=== PATIENT | male | born 1960 | race Caucasian/White ===

== ENCOUNTER 2021-11-24 07:37 | Outpatient (CLI) | payer OTHER, SELFPAY ==
--- OUTSIDE RECORDS SUMMARY | 2021-11-25 05:21 | XMS_ITS | Clinical Summary ---
:1960 Author [facility] Address [address] [place] [address] Care Team Providers Name Role Phone Unassigned, Provider Primary Care Provider Unavailable Source Comments You are receiving this document as you are listed as the primary care provider,follow-up provider, or the patient has been referred to you for consultation.This is in compliance with the Medicare and Medicaid EHR Incentive Program,which states Providers who transition their patient to another setting of careor provider of care or refers their patient to another provider of care shouldprovide summarycare record for each transition of care or referral. [employer] Allergies Active Allergy Reactions Severity Noted Date Comments Adhesive Rash Medium 01/12/2018 Medications Medication Sig Dispensed Refills Start Date End Date Status INDOMETHACIN (INDOCIN) one to two tab 240 0 03/04/2004 Active 25MG ORAL CAPS po qid Additional Information Patient not taking. Reported on 09/18/2018 HYDROCODONE/APAP (VICODIN) 5-500MG one to two tabs po q 4-6 50 0 03/04/2004 Active ORAL TABS hours PRN Additional Information Patient not taking. Reported on 09/18/2018 traMADol (ULTRAM) 50 MG tablet Take 50 mg by mouth every 6 0 10/07/2014 Active hours as needed for Pain. lisinopril (ZESTRIL) 5 MG tablet Take 20 mg by mouth Daily. 0 10/07/2014 Active cyclobenzaprine (FLEXERIL) 10 MG TK 1 T PO TID PRN 0 01/19/2016 Active tablet diazePAM (VALIUM) 10 MG tablet TK SS TO 1 T PO D TO BID 0 01/02/2018 Active PRN Specialty Vitamins Products Indications: Prostate 0 Active (PROSTATE OR)Indications: Prostate vitamin w/ Zinc vitamin w/ Zinc omeprazole (PRILOSEC-OTC) 20 MG Take 20 mg by mouth daily. 0 Active tablet Family History Medical History Relation Name Comments Heart Disease Father Hyperlipidemia Mother Heart Disease Brother Relation Name Status Comments Father Mother Brother Social History Tobacco Use Types Packs/Day Years Used Date Smoking Tobacco: Former Cigarettes 0.3 38 Quit : 2019 Smokeless Tobacco: Never Alcohol Use Standard Drinks/Week Comments Not Currently 0 (1 standard drink = 0.6 oz pure alcoho l) Sex Assigned at Date Recorded Not on file Last Filed Vital Signs Vital Sign Reading Time Taken Comments Blood Pressure 116/79 09/18/2018 11:20 AM CDT Pulse 90 09/18/2018 11:20 AM CDT Temperature 37 ??C (98.6 ??F) 10/07/2014 1:23 PM CDT Respiratory Rate 20 09/18/2018 11:20 AM CDT Oxygen Saturation 96% 10/07/2014 1:23 PM CDT Inhaled Oxygen Concentration - - Weight - - Height - - Body Mass Index - - Plan of Treatment Health Maintenance Due Date Last Done Comments Colon Cancer Screening Plan 1960 Due Hep C Screening (Preventive 1960 Services) MTM Targeted 1960 COVID-19 Vaccine (#1) 1960 HIV Screening (Preventive 1975 Services) Adult Preventive Visit 1977 Cholesterol 1994 Zoster/Shingles (1 of 2) 2009 DTaP/Tdap/Td (3 - Tdap) 04/07/2021 04/07/2011, 01/27/2006 Influenza (#1) 2021 01/12/2018, 01/28/2017, 01/07/2016, Additional history exists HepA Aged Out 10/02/2014, 12/10/2013 No longer eligible based on patient 's age to complete this topic HepB Aged Out No longer eligib le based on patient 's age to complete this topic Hib Aged Out No longer eligib le based on patient 's age to complete this topic IPV (Polio) Aged Out No longer eligib le based on patient 's age to complete this topic MCV4 Aged Out No longer eligib le based on patient 's age to complete this topic Pneumococcal Aged Out No longer eligib le based on patient 's age to complete this topic Insurance Payer Benefit Plan / Subscriber ID Effective Dates Phone Addre ss Type Group [facility] [id number] 2007-Present Commercial INSURED Care Teams Commercial Assistant Relationship Specialty Start Date End Date Unassigned, Provider PCP - General 03/26/[address] [place] [id number]
--- OUTSIDE RECORDS SUMMARY | 2021-11-25 05:21 | XMS_ITS | Encounter Summary ---
:1960 Author Organization [facility] Address [address] [place] [address] Care Team Providers Name Role Phone Sena Delgado MD Primary Care Provider [phone] Reason for Referral (Routine) - Closed Specialty Diagnoses / Procedures Referred By Contact Refer red To Contact Procedures Faustino Campuzano MD Activity as tolerated [address] [place], [place] [address] Referral ID Status Reason Start Date Expiration Date Visits Requ ested Visits Authorized [id number] Closed 03/28/2018 03/28/2019 1 1 CE SUPPORT ASSISTANT (Routine) - Closed Specialty Diagnoses / Procedures Referred By Contact Refer red To Contact Procedures Faustino Campuzano MD You May Get Your Dressing / [address] Incision Wet in the Shower, [place] [address] But Do Not Submerge Referral ID Status Reason Start Date Expiration Date Visits Requ ested Visits Authorized [id number] Closed 03/28/2018 03/28/2019 1 1 CE SUPPORT ASSISTANT (Routine) - Closed Specialty Diagnoses / Procedures Referred By Contact Refer red To Contact Procedures Faustino Campuzano MD Discharge Instructions (IF [address] Local Anesthesia) [place], [place] [address] Referral ID Status Reason Start Date Expiration Date Visits Requ ested Visits Authorized [id number] Closed 03/28/2018 03/28/2019 1 1 CE SUPPORT ASSISTANT (Routine) - Closed Specialty Diagnoses / Procedures Referred By Contact Refer red To Contact Faustino Campuzano MD Kelkar, Praful M, MD [address] [facility] [address] [place], [place] [address] [place] [address] Fax: Referral ID Status Reason Start Date Expiration Date Visits Requ ested Visits Authorized [id number] Closed 03/28/2018 03/28/[address] Campuzano will contact the patient CE SUPPORT ASSISTANT (Routine) - Closed Specialty Diagnoses / Procedures Referred By Contact Refer red To Contact Procedures Faustino Campuzano MD Discharge [address] [place], [place] [address] Referral ID Status Reason Start Date Expiration Date Visits Requ ested Visits Authorized [id number] Closed 03/28/2018 03/28/2019 1 1 CE SUPPORT ASSISTANT Encounter Details Date Type Department Care Team Description 03/28/2018 Hospital Encounter [address] [place], [place] [address] Social History Tobacco Use Types Packs/Day Years Used Date Smoking Tobacco: Every Day Smokeless Tobacco: Never Sex Assigned at Date Recorded Not on file documented as of this encounter Last Filed Vital Signs Vital Sign Reading Time Taken Comments Blood Pressure 118/77 03/28/2018 10:45 AM OFFICE SUPPORT ASSISTANT Pulse 88 03/28/2018 10:45 AM OFFICE SUPPORT ASSISTANT Temperature 36.7 ??C (98 ??F) 03/28/2018 10:45 AM OFFICE SUPPORT ASSISTANT Respiratory Rate 14 03/28/2018 10:45 AM OFFICE SUPPORT ASSISTANT Oxygen Saturation 98% 03/28/2018 10:45 AM OFFICE SUPPORT ASSISTANT Inhaled Oxygen Concentration - - Weight 97.1 kg (214 lb) 03/21/2018 2:50 PM OFFICE SUPPORT ASSISTANT Height 177.8 cm (5' 10) 03/21/2018 2:50 PM OFFICE SUPPORT ASSISTANT Body Mass Index 30.71 03/21/2018 2:50 PM OFFICE SUPPORT ASSISTANT documented in this encounter Medications at Time of Discharge Medication Sig Dispensed Refills Start Date End Date carBAMazepine (TEGRETOL) 200 Take 200 mg by 0 mg/10 mL oral Susp (conc: mouth every 8 200 mg/10 mL) oral (eight) hours. suspension cyclobenzaprine (FLEXERIL) Take 10 mg by mouth 0 10 mg oral tablet once a day as needed for Muscle spasm. diazePAM (VALIUM) 5 mg oral Take 5 mg by mouth 0 tablet once a day as needed. HYDROcodone-acetaminophen Take 1-2 tablets by 0 (NORCO) 5-325 mg oral tablet mouth once a day as needed for Pain. lisinopril (PRINIVIL) 20 mg Take 20 mg by mouth 0 oral tablet once daily. traMADol (ULTRAM) 50 mg oral Take 50 mg by mouth 0 tablet as needed for Pain. documented as of this encounter Procedure Notes Faustino Campuzano MD - 03/28/2018 10:44 AM CST 10:44 AM Surgeon: Faustino Campuzano M.D. Anesthesia: Local Preoperative Diagnosis: Myopathy Postoperative Diagnosis: Myopathy Procedure Performed: Right quadriceps Muscle biopsy The procedure and potential after effects were explained to the patient. Informed consent was obtained from the patient. 'Time out' conducted just prior to starting procedure confirmed patient identity, site/side, procedure, patient position, and availability of correct equipment. Following Betadine preparation and local anesthesia with 1% lidocaine, with epinephrine, the skin was incised over the muscle. Blunt dissection was done in the subcutaneous tissue. The fascia overlyingthe muscle was incised, exposing the muscle. About 1 centimeter segments of 3 muscle fascicles were removed. A small piece of fascia was included in the bx as well. The wound was examined for evidence of hemostasis. Good hemostasis was noted and the wound was dry at closure. The muscle fascia was closed with interrupted 4-0 vicryl. The incision was closed with 4-0vicryl in an interrupted fashion in the deep subcutaneous tissues, 4-0 vicryl in a subcuticular fashion. The incision was sealed with dermabond & tagaderm and covered with a sterile dressing. A pres sure dressing with an AVERY wrap was applied. EBL<5 ml. The procedure was tolerated well. Written and verbal wound care directions were provided and the patient expressed understanding of the instructions. Faustino Campuzano MD [facility] [place] [phone] CE SUPPORT ASSISTANT documented in this encounter Nursing Notes Mary Lou Fitzgerald RN - 03/28/2018 10:56 AM CST Andrzej Arriaga 1960 [id number] Discharged ambulatory to home at 1057 escorted by nurse Discharge information and arrangements included: review of written discharge instructions, review ofpurpose and side effects of new medication, belongings list completed. Patient, spouse expressed understanding of information.. CE SUPPORT ASSISTANT Mary Lou Fitzgerald RN - 03/28/2018 10:50 AM CST Pt received in phase 2, tolerating G Dodie and crackers. Drsg c/d/i. Ice in place. Visiting with family. CE SUPPORT ASSISTANT Gin Sosa RN - 03/28/2018 10:30 AM CST Right quadricep faschia biopsy sent to [facility] CE SUPPORT ASSISTANT Gin Sosa RN - 03/28/2018 10:24 AM CST Right quadricep muscle biopsy sent to [facility] lab CE SUPPORT ASSISTANT Angelita Salas RN - 03/22/2018 12:53 PM CST History reviewed in Epic < 1 year old. Nurse to verify DOS. SW CE SUPPORT ASSISTANT documented in this encounter Plan of Treatment Scheduled Referrals Name Type Priority Associated Diagnoses Order S chedule Follow Up Follow Up Routine Ordered: 2017 documented as of this encounter Procedures Procedure Name Priority Date/Time Associated Diagnosis Comme nts BIOPSY: MUSCLE 03/28/2018 10:03 AM OFFICE SUPPORT ASSISTANT Muscle p ain Muscle spasms of both lower extremities Special Needs DR. CAMPUZANO WILL DO H&P DOS - LD documented in this encounter Visit Diagnoses Not on filedocumented in this encounter Active and Recently Administered Medications Times are shown in OFFICE SUPPORT ASSISTANT. PRN Medication Order 03/26/2018 03/27/2018 03/28/2018 lidocaine 1%- EPINEPHrine 1:100,000 (XYL OCAINE-EPINEPHRINE) injection (CANCELED) 1030 (Given - Provid er: Faustino Campuzano MD) INTRA-PROCEDURE NEEDED, Starting 03/28/18 at 1030, Until 03/28/18 at 1658, Intra-Op documented in this encounter Care Teams Manager Application Relationship Specialty Start Date End Date Sena Delgado MD PCP - General 03/28/18 documented as of this encounter
--- OUTSIDE RECORDS SUMMARY | 2021-11-25 05:21 | XMS_ITS | Encounter Summary ---
:1960 [facility] Address [address] [place] [address] Care Team Providers Name Role Phone Unassigned, Provider Primary Care Provider Unavailable Encounter Details Date Type Department Care Team Description 11/22/2003 Correspondence None Unknown, Physici an Regions Consent and Release [address] [place] [address] (Wo rk) Social History Tobacco Use Types Packs/Day Years Used Date Smoking Tobacco: Never Assessed Sex Assigned at Date Recorded Not on file documented as of this encounter Progress Notes Unknown, Physician - 11/22/2003 12:00 AM CDT documented in this encounter Plan of Treatment Not on filedocumented as of this encounter Visit Diagnoses Not on filedocumented in this encounter Care Teams Call Or Contact Centre Operator Relationship Specialty Start Date End Date Unassigned, Provider PCP - General 03/26/[address] [place] [address] documented as of this encounter
--- OUTSIDE RECORDS SUMMARY | 2021-11-25 05:21 | XMS_ITS | Encounter Summary ---
:1960 [facility] Address [address] [place] [address] Care Team Providers Name Role Phone Unassigned, Provider Primary Care Provider Unavailable Encounter Details Date Type Department Care Team Description 11/20/2003 Correspondence None Unknown, Physici an Regions Consent and Release [address] [place] [address] (Wo rk) Social History Tobacco Use Types Packs/Day Years Used Date Smoking Tobacco: Never Assessed Sex Assigned at Date Recorded Not on file documented as of this encounter Progress Notes Unknown, Physician - 11/20/2003 12:00 AM CDT documented in this encounter Plan of Treatment Not on filedocumented as of this encounter Visit Diagnoses Not on filedocumented in this encounter Care Teams Windows Consultant Relationship Specialty Start Date End Date Unassigned, Provider PCP - General 03/26/[address] [place] [address] documented as of this encounter
--- OUTSIDE RECORDS SUMMARY | 2021-11-25 05:21 | XMS_ITS | Encounter Summary ---
:1960 [facility] Address [address] [place] [address] Care Team Providers Name Role Phone Unassigned, Provider Primary Care Provider Unavailable Encounter Details Date Type Department Care Team Description 05/16/2002 Scanned History External to Unknown, Physici an [facility] [address] [place] [address] (Wo rk) Social History Tobacco Use Types Packs/Day Years Used Date Smoking Tobacco: Never Assessed Sex Assigned at Date Recorded Not on file documented as of this encounter Progress Notes Unknown, Physician - 05/16/2002 12:00 AM COSTUMING SUPERVISOR documented in this encounter Plan of Treatment Not on filedocumented as of this encounter Visit Diagnoses Not on filedocumented in this encounter Care Teams Arabic Teacher Relationship Specialty Start Date End Date Unassigned, Provider PCP - General 03/26/00 [address] [place] [address] documented as of this encounter
--- OUTSIDE RECORDS SUMMARY | 2021-11-25 05:21 | XMS_ITS | Encounter Summary ---
:1960 Author Organization [facility] Address [address] [place] [address] Care Team Providers Name Role Phone Unassigned, Provider Primary Care Provider Unavailable Encounter Details Date Type Department Care Team Description 12/18/2004 Correspondence None [facility] Social History Tobacco Use Types Packs/Day Years Used Date Smoking Tobacco: Never Assessed Sex Assigned at Date Recorded Not on file documented as of this encounter Progress Notes NANCY, PROVIDER - 12/18/2004 12:00 AM CDT documented in this encounter Plan of Treatment Not on filedocumented as of this encounter Visit Diagnoses Not on filedocumented in this encounter Care Teams Domestic Freight Forwarder Relationship Specialty Start Date End Date Unassigned, Provider PCP - General 03/26/00 [address] [place] [address] documented as of this encounter
--- OUTSIDE RECORDS SUMMARY | 2021-11-25 05:21 | XMS_ITS | Encounter Summary ---
:1960 Author [facility] Address [address] [place] [address] Care Team Providers Name Role Phone Unassigned, Provider Primary Care Provider Unavailable Encounter Details Date Type Department Care Team Description 02/19/2004 Correspondence None Unknown, Physici an Regions Consent and Release [address] [place] [address] (Wo rk) Social History Tobacco Use Types Packs/Day Years Used Date Smoking Tobacco: Never Assessed Sex Assigned at Date Recorded Not on file documented as of this encounter Progress Notes Unknown, Physician - 02/19/2004 12:00 AM DISPATCHER RELAY documented in this encounter Plan of Treatment Not on filedocumented as of this encounter Visit Diagnoses Not on filedocumented in this encounter Care Teams Mixer And Scaler Relationship Specialty Start Date End Date Unassigned, Provider PCP - General 03/26/00 [address] [place] [address] documented as of this encounter
--- OUTSIDE RECORDS SUMMARY | 2021-11-25 05:21 | XMS_ITS | Encounter Summary ---
:1960 Author Organization [facility] Address [address] [place] [address] Care Team Providers Name Role Phone Sena Delgado MD Primary Care Provider [phone] Encounter Details Date Type Department Care Team Description 03/30/2018 Order-Scan [facility] ADDRESS/PHONE/F [address] [place], [place] [address] Social History Tobacco Use Types Packs/Day Years Used Date Smoking Tobacco: Every Day Smokeless Tobacco: Never Sex Assigned at Date Recorded Not on file documented as of this encounter Plan of Treatment Not on filedocumented as of this encounter Procedures Procedure Name Priority Date/Time Associated Diagnosis Comme nts SCANNED PATHOLOGY Routine 03/28/2018 documented in this encounter Results SCANNED PATHOLOGY (03/28/2018) Narrative This result has an attachment that is no t available. Unknown PATHOLOGY/CYTOLOGY ORDERABLE documented in this encounter Visit Diagnoses Not on filedocumented in this encounter Care Teams Crisis Nurse Relationship Specialty Start Date End Date Sena Delgado MD PCP - General 03/28/18 documented as of this encounter
--- OUTSIDE RECORDS SUMMARY | 2021-11-25 05:21 | XMS_ITS | Encounter Summary ---
:1960 Author Organization [facility] Address [address] [place] [address]. [place] [address] Care Team Providers Name Role Phone Rolly Iniguez Primary Care Provider Unavailable Singh Neumann MD Unavailable Encounter Details Date Type Department Care Team Description 12/05/2017 Orders Only [facility] Khushbu-Rick, Spasm o f muscle (Primary Dx); [facility] Sena Cerna MD Myalgia [address] [place] [address] NEUROLOGY [phone] [place] [address] Social History Tobacco Use Types Packs/Day Years Used Date Current Every Day Smoker Comments: less than a half a pack a day Alcohol Use Standard Drinks/Week Comments Not Asked 0 (1 standard drink = 0.6 oz pure alcoho l) Alcohol Habits Answer Date Recorded How often do you have a drink containing alcohol? 2-3 times a week 08/28/2018 How many drinks containing alcohol do you have on a Not aske d typical day when you are drinking? How often do you have six or more drinks on one Not asked occasion? Comment: Not asked Sex Assigned at Date Recorded Male 08/22/2018 8:16 AM CDT documented as of this encounter Plan of Treatment Not on filedocumented as of this encounter Visit Diagnoses Diagnosis Spasm of muscle - Primary Myalgia Mylagia and myositis, unspecified documented in this encounter Care Teams Blade Boner Relationship Specialty Start Date End Date Rolly Iniguez PCP - General Family Practice 12/05/17 Singh Neumann MD Assigned Neuroscience 02/08/20 03/01/20 [address] [place] [address] documented as of this encounter
--- OUTSIDE RECORDS SUMMARY | 2021-11-25 05:21 | XMS_ITS | Encounter Summary ---
:1960 Author Organization [facility] Address [address] [place] [address] Care Team Providers Name Role Phone Unassigned, Provider Primary Care Provider Unavailable Reason for Visit Reason Comments CONSULT Encounter Details Date Type Department Care Team Description 09/18/2018 Initial Consult [facility] Bela Haile spasms of both lower extremities (Primary Dx); 3931 Neurology MD Maxwell Scoliosis, unspecified scoliosis type, u nspecified spinal region 3931 [facility] 3931 [place] [address] [phone] Social History Tobacco Use Types Packs/Day Years [...] Pulse 90 09/18/2018 11:20 AM CDT Temperature - - Respiratory Rate 20 09/18/2018 11:20 AM CDT Oxygen Saturation - - Inhaled Oxygen Concentration - - Weight - - Height - - Body Mass Index - - documented in this encounter Progress Notes Bela Haile MD - 09/18/2018 11:15 AM CDT Neurology consultation. Chief complaint: Muscle problems History of present illness: This is a 58 year old man with multiple muscle problems, tendon problemsand a lot of stiffness for many years. He is seen at the kind request of Dr. Bello. He has undergone extensive previous neurological evaluations, both at the [facility], and at the [facility] neuromuscular Clinic. The specific question addressed to me is whether some ofthe symptoms that he is experiencing may represent an extrapyramidal disorder. He has had a number of ruptured tendons and a lot of chronic muscle spasming in the extremities and his core. He has the gene for ankylosing spondylitis, but he has not been given this diagnosis. He has diaphragmatic spasms, and spasms in the paraspinal muscles. He describes that sometimes his muscles will grab as he initiates a move and he has to continue to push to fight the muscle. He also gets muscle cramps in the hamstrings and more lately in the front of the thighs, the calves and the feet. Has occasional fasciculations, but no more than normal. He was evaluated with a muscle biopsy, which showed mild muscle atrophy. He was also evaluated at the neuromuscular clinic at the [place], who did not think this wasa neuromuscular problem. He had also screening tests for stiff person syndrome and that was negativeas well. He has also been seen by orthopedists and no diagnosis was rendered. He describes ongoing muscle spasms and swelling in his tendons. Dr. Delgado tried clonazepam and carbamazepine but there was no appreciated benefit. Extensive metabolic work up, EMG twice have failed to result in a diagnosis. Initially diagnosed as ankylosing spondylitis, but a subsequent specialist said that he did not have the required calcifications to make the diagnosis. I reviewed the PMH, PSH, FH, SH, medications and allergies from the EHR and through care everywhere if necessary. Mother and younger son have had leg cramps. A comprehensive review of systems was negative with the exception of what has been mentioned under the history of present illness and the symptoms associated with the chronic conditions listed in PMH. All others are negative. 116/79, 90, 20, 205#. General: Normal appearance for age Cardiovascular: Normal auscultation of the heart and great vessels of the neck. Mental status: Alert, oriented, with normal attention, concentration, language, memory, fund of knowledge. Cranial nerves: Visual cook full, eye movements conjugate, pupillary responses symmetric, funduscopic examination benign. Face movement and sensation, tongue and palate movement, shoulder shrug and neck muscle strength, swallowing and hearing are normal to bedside testing. Motor: Normal muscle strength, muscle bulk, and tone. Deep tendon reflexes: Normal and symmetric with reduced ankle jerks bilaterally and without Babinskisigns. Sensory: No deficits to light touch and vibration. Coordination: Normal exfypz-uvxd-nhzmxg, abzy-feqz-pxgh. Normal rapid alternating motion rate in the4 extremities. Gait and balance: Normal casual and tandem gait, Romberg test, and mild levoscoliosis. Impression: 1. Longstanding history of muscle spasms and muscle cramps. Discussion: I have reviewed the records from Dr. Bello's office, and the available records from the [facility] system from the patient's visit to the [facility]. Unfortunately I do not have direct access to the records of the [facility], however, the patient was able to provide a pret ty good review of the testing that was done in that institution, and a good summary was available through Dr. Neumann's notes from the [facility]. In summary this is a somewhat complicated situation. As a movement disorder specialist the particular question that would be addressed to myself would be whether this represents a dystonic condition. There is nothing in the history on the physical examination today to suggest that this gentleman suffers from a dystonic condition for the last 30 years. I am unable to identify any hallmarks of any other chronic progressive neuro degenerative disease that might be associated with the sporadic dystonia in this gentleman. There is no history of stereotyped movements to suggest dystonic postures. If anything the history is most consistent with increased irritability of the muscle tissue, which we usually see with genetic conditions that affect and number of the membrane channels of muscle fibers. Typically such conditions are associated with abnormal electrical activity in the muscle in the form of myotonic discharges, which are he typically picked up on a routine EMG. It appears that the EMG that the patient had was quite extensive at least according to the description by Dr. Neumann, and certainly, he did not feel that a repeat EMG was necessary at that time. The muscle biopsy fails to reveal any evidence of a neurogenic process. One might argue that genetic testing for myotonic disorders might bethe next reasonable step, however considering that these tests are relatively expensive, and unlikely to yield in the absence of clinical or electrophysiologic findings, I think that the 2nd neuromuscular subspecialty opinion at a tertiary center might be the most appropriate approach. That could be pursued at the [facility] but the patient tells me that these institution is out of his network. It is entirely possible, considering the family history of cramps in his mother and his son, that this may represent an as yet unrecognized genetic channelopathy, in which case, of course, further genetic testing will also be negative. Recommendations: 1. No evidence of an extrapyramidal disorder. 2. 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 Neuromuscular evaluation at the [facility] might be further informative. Bela Haile MD Recommendations: 1. Bela Haile MD documented in this encounter Plan of Treatment Not on filedocumented as of this encounter Visit Diagnoses Diagnosis Muscle spasms of both lower extremities - Primary Scoliosis, unspecified scoliosis type, u nspecified spinal region documented in this encounter Care Teams Flight Test Shop Mechanic Relationship Specialty Start Date End Date Unassigned, Provider PCP - General 03/26/[address] [place] [address] documented as of this encounter
--- OUTSIDE RECORDS SUMMARY | 2021-11-25 05:21 | XMS_ITS | Encounter Summary ---
:1960 Author Organization [facility] Address [address] [place] [address] Care Team Providers Name Role Phone Rolly Iniguez Primary Care Provider Unavailable Reason for Visit Reason Comments *-*INCOMING RECORDS*-* [facility] Encounter Details Date Type Department Care Team Description 05/11/2018 Documentation Only [facility] Neurology Singh Neumann *-*INCOMING [address] Medardo Arreola MD RECORDS*-* [address] [facility] ([place] [address] [place], [place] Clinic... [place] [phone] Social History Tobacco Use Types Packs/Day Years [...] AM CDT documented as of this encounter Progress Notes Dahiana North - 05/11/2018 1:52 PM CST Records received via fax - 16 pages COORDINATOR documented in this encounter Plan of Treatment Not on filedocumented as of this encounter Visit Diagnoses Not on filedocumented in this encounter Care Teams Establishment Guide Relationship Specialty Start Date End Date Rolly Iniguez PCP - General Family Practice 12/05/17 documented as of this encounter
--- OUTSIDE RECORDS SUMMARY | 2021-11-25 05:21 | XMS_ITS | Encounter Summary ---
:1960 Author Organization [facility] Address [address] [place] [address] Care Team Providers Name Role Phone Rolly Iniguez Primary Care Provider Unavailable Encounter Details Date Type Department Care Team Description 08/28/2018 Travel Social History Tobacco Use Types Packs/Day Years Used Date Current Some Day Smoker Smokeless Tobacco: Never Used Comments: OCCASIONAL CIGAR Alcohol Use Standard Drinks/Week Comments Yes 0 (1 standard drink = 0.6 oz [...] on filedocumented in this encounter Care Teams Quality Assurance Supervisor Chassis Relationship Specialty Start Date End Date Rolly Iniguez PCP - General Family Practice 12/05/17 documented as of this encounter
--- OUTSIDE RECORDS SUMMARY | 2021-11-25 05:21 | XMS_ITS | Encounter Summary ---
:1960 Author Organization [facility] Address [address] [place] [address] Care Team Providers Name Role Phone Unassigned, Provider Primary Care Provider Unavailable Encounter Details Date Type Department Care Team Description 04/18/1989 PN Conversion Only AUTOMOTIVE EXHAUST EMISSIONS TECHNICIAN [address] [place] [address] Social History Tobacco Use Types Packs/Day Years Used Date Smoking Tobacco: Never Assessed Sex Assigned at Date Recorded Not on file documented as of this encounter Plan of Treatment Not on filedocumented as of this encounter Visit Diagnoses Not on filedocumented in this encounter Care Teams Translator/Interpreter Relationship Specialty Start Date End Date Unassigned, Provider PCP - General 03/26/[address] [place] [address] documented as of this encounter
--- OUTSIDE RECORDS SUMMARY | 2021-11-25 05:21 | XMS_ITS | Encounter Summary ---
:1960 Author [facility] Address [address] [place] [address] Care Team Providers Name Role Phone Unassigned, Provider Primary Care Provider Unavailable Reason for Visit Reason Onset Date Comments Medication Questions 01/04/2009 Encounter Details Date Type Department Care Team Description 01/04/2009 Telephone Careline Unknown, Physician Medication Questions [address] [place], [place] [address] [place], [place] [phone] Social History Tobacco Use Types Packs/Day Years Used Date Smoking Tobacco: Never Assessed Sex Assigned at Date Recorded Not on file documented as of this encounter Nursing Notes Sandor Gomez - 01/04/2009 4:47 PM CDT Attempted to call [phone]. Phone number is a non working number. Tried both the demographic numbers and they were incorrect also. Unable to reach. Sandor Gomez RN Alesia Garcia - 01/04/2009 4:40 PM CDT Does the patient currently have [employer] insurance? Yes Which care system is the patient affiliated with? [facility] Situation: is calling for pt who thinks he has an ear infection. They have a constitution party to go to [facility] and want to know if there is anything they can do to alleviate the pain. Medication interaction concerns. Background:Pt has a condition Pt takes oxaprozin and cyclobenziprene A nurse will call you back within the next hour. If you have not heard from a nurse, please feel free to call us back at [phone] and state that you are waiting for a callback. documented in this encounter Plan of Treatment Not on filedocumented as of this encounter Visit Diagnoses Not on filedocumented in this encounter Care Teams Manager Target Relationship Specialty Start Date End Date Unassigned, Provider PCP - General 03/26/[address] [place] [address] documented as of this encounter
--- OUTSIDE RECORDS SUMMARY | 2021-11-25 05:21 | XMS_ITS | Encounter Summary ---
:1960 Author Organization [facility] Address [address] [place] [address]. [place] [address] Care Team Providers Name Role Phone Rolly Iniguez Primary Care Provider Unavailable Reason for Visit Reason Comments Health Maintenance Encounter Details Date Type Department Care Team Description 06/27/2018 Documentation Only [facility] Tash Hinkle, Health Maintenance Coordination, [facility] Ambulatory [address] [place] [phone] Social History Tobacco Use Types Packs/Day Years [...] on filedocumented in this encounter Care Teams Timber Deadener Relationship Specialty Start Date End Date Rolly Iniguez PCP - General Family Practice 12/05/17 documented as of this encounter
--- OUTSIDE RECORDS SUMMARY | 2021-11-25 05:21 | XMS_ITS | Encounter Summary ---
:1960 Author Organization [facility] Address [address] [place] [address] Care Team Providers Name Role Phone Unassigned, Provider Primary Care Provider Unavailable Encounter Details Date Type Department Care Team Description 02/19/[address] [facility] Kindra Yu MD Orthopedics [address] [place] [address] [phone] Social History Tobacco Use Types Packs/Day Years Used Date Smoking Tobacco: Never Assessed Sex Assigned at Date Recorded Not on file documented as of this encounter Progress Notes Waqas Yu - 02/19/2004 12:00 AM REAL ESTATE LEASING AGENT ESTATE LEASING AGENT documented in this encounter Plan of Treatment Not on filedocumented as of this encounter Visit Diagnoses Not on filedocumented in this encounter Care Teams Photo Mask Processor Relationship Specialty Start Date End Date Unassigned, Provider PCP - General 03/26/[address] [place] [address] documented as of this encounter
--- OUTSIDE RECORDS SUMMARY | 2021-11-25 05:21 | XMS_ITS | Encounter Summary ---
:1960 Author Organization [facility] Address [address] [place] [address]. [place] [address] Care Team Providers Name Role Phone Rolly Iniguez Primary Care Provider Unavailable Encounter Details Date Type Department Care Team Description 05/08/2018 Medical Correspondence [facility] Scan, CLINIC REFERRAL Health Info Mgmt Non-Provider [facility] OF NEUROLOGY [facility] [place] [address] Social History Tobacco Use Types Packs/Day Years [...] on filedocumented in this encounter Care Teams Tool And Die Supervisor Relationship Specialty Start Date End Date Rolly Iniguez PCP - General Family Practice 12/05/17 documented as of this encounter
--- OUTSIDE RECORDS SUMMARY | 2021-11-25 05:21 | XMS_ITS | Encounter Summary ---
:1960 Author Organization [facility] Address [address], [place] [address] Care Team Providers Name Role Phone Unassigned, Provider Primary Care Provider Unavailable Encounter Details Date Type Department Care Team Description 01/03/2004 [facility] Kindra Yu MD Orthopedics [address] [place] [address] [phone] Social History Tobacco Use Types Packs/Day Years Used Date Smoking Tobacco: Never Assessed Sex Assigned at Date Recorded Not on file documented as of this encounter Progress Notes Waqas Yu - 01/03/2004 12:00 AM CDT documented in this encounter Plan of Treatment Not on filedocumented as of this encounter Visit Diagnoses Not on filedocumented in this encounter Care Teams Director Of Enrollment Relationship Specialty Start Date End Date Unassigned, Provider PCP - General 03/26/[address] [place] [address] documented as of this encounter
--- OUTSIDE RECORDS SUMMARY | 2021-11-25 05:21 | XMS_ITS | Encounter Summary ---
:1960 Author Organization [facility] Address [address] [place] [address] Care Team Providers Name Role Phone Rolly Iniguez Primary Care Provider Unavailable Encounter Details Date Type Department Care Team Description 04/08/2018 Office Visit [facility] Neurology Marlon Norton Myalgia (Primary Dx) 909 [facility] MD Cristian [address]rd Floor [address] [place] [address] [id number] [place], [place] [phone] Social History Tobacco Use Types Packs/Day Years [...] documented as of this encounter Progress Notes Marlon Norton MD - 04/08/2018 3:06 PM CST [facility] MR#: [id number] NEUROMUSCULAR PATHOLOGY REPORT NAME: Andrzej Arriaga [facility] [phone] / [phone] [place] [address], [place] [address] MUSCLE BIOPSY LIGHT MICROSCOPY REPORT DATE OF BIOPSY: 03/28/2018 DATE OF REPORT: 04/08/2018 SPECIMEN NO: [id number] SURGEON: REFERRING PHYSICIAN: CLINICAL INFORMATION: This 58 year-old man had a muscle biopsy performed to investigate the possibility of him having myopathy. RIGHT QUAD MUSCLE BIOPSY: Two pieces of muscle were quick frozen for light microscopy and histochemistry. Another piece of muscle was stretched and fixed in formalin for paraffin- embedding. Muscle was also fixed in 4:1 EM fixative for plastic-embedding. MAB stained sections were reviewed and an appropriate area selected for ult rastructural study. Additional pieces were quick frozen for biochemical testing. LIGHT MICROSCOPY: Frozen sections stained with H&E, Congo red, PAS, Oil Red O and trichrome, paraffin-embedded sections stained with H&E, PAS and Congo red, and plastic- embedded sections stained with MAB were available for review. There were scattered mildly atrophic fibers that were typically 10-25?? in diameter and were polygonal in appearance. There was no grouped atrophy. There were no ragged red fibers onthe trichrome stain. There were no degenerating or necrotic fibers. There was no inflammation. Therewas no fibrosis. Blood vessels were normal in appearance. Glycogen and lipid content appeared normal. Congo red staining was normal. HISTOCHEMISTRY: Frozen sections stained with ATPase (pH 4.35, 4.5 and 9.4), metachromatic ATPase, NADH, SDH, modified SDH, BELLE, ?-GP, acid phosphatase, phosphorylase, myoadenylate deaminase (MAD) and nonspecific esterase were available for review. ATPase staining identified fibers of types 1, 2a and 2b. Fiber type distribution was normal. There was no fiber-type grouping. Atrophic fibers were predominantly, if not exclusively, of type 2b. Oxidative enzyme stain deposition was normal. There were no ragged blue or BELLE deficient fibers identified. Esterase staining and acid phosphatase staining were normal. Phosphorylase and MAD staining were normal. ELECTRONMICROSCOPIC FEATURES: Most fibers had normal appearance with normal sarcolemmal and sarcomere organization. There were areas of significant endomysial fibrosis. Scattered fibers had increased subsarcolemmal mitochondrial content, with most mitochondria being normal in size and configuration. Some fibers had signs of degeneration, with autophagic vacuoles and myeloid bodies. Some fibers had increased glycogen and lipid content. Scattered atrophic fibers had basal lamina duplications. DIAGNOSIS: Type 2 fiber atrophy COMMENT: The sole abnormality on this biopsy was the presence of scattered atrophic fibers that were polygonal in appearance. On ATPase staining these fibers showed themselves to be predominantly, if not exclusively, type 2b. There is no histopathological evidence for primary neuropathic or myopathic processes. Type 2 fiber atrophy is a non-specific finding that can occur with disuse, central nervous system disorders or various systemic illnesses including connective tissue disease or Canaan syndrome. Marlon Norton MD ARD PULLER documented in this encounter Plan of Treatment Not on filedocumented as of this encounter Visit Diagnoses Diagnosis Myalgia - Primary Mylagia and myositis, unspecified documented in this encounter Care Teams Boring Machine Operator Vertical Relationship Specialty Start Date End Date Rolly Iniguez PCP - General Family Practice 12/05/17 documented as of this encounter
--- OUTSIDE RECORDS SUMMARY | 2021-11-25 05:21 | XMS_ITS | Encounter Summary ---
:1960 Author Organization [facility] Address [address] [place] [address] Care Team Providers Name Role Phone Rolly Iniguez Primary Care Provider Unavailable Reason for Visit Reason Onset Date Comments *-*INCOMING RECORDS*-* 08/28/2018 Encounter Details Date Type Department Care Team Description 08/28/2018 PRE VISIT [facility]rology Singh Neumann, *-*INCOMING RECORDS*-* 909 [facility] 3rd Floor [address] [place] [address] [phone] (Wo rk) Social History Tobacco Use Types [...] AM CDT documented as of this encounter Miscellaneous Notes Telephone Encounter - Dahiana North - 08/09/2018 10:29 AM CDT Imaging [facility] Image Type (x): Disc: PACS: X Exam Date/Name MRI Lumbar Spine 02/09/17 MRI Thoracic Spine 07/11/15 Comments: Film room notified to resolve images in PACS Telephone Encounter - Dahiana North - 08/08/2018 3:31 PM CDT RECORDS RECEIVED FROM: External - Dr Delgado - [facility] DATE RECEIVED: 08/28/18 NOTES (FOR ALL VISITS) STATUS DETAILS OFFICE NOTE from referring provider Received 05/08/18 OFFICE NOTE from other specialist N/A DISCHARGE SUMMARY from hospital N/A DISCHARGE REPORT from the ER N/A OPERATIVE REPORT Internal Muscle Biopsy @ [facility]: 03/28/18 MEDICATION LIST Received IMAGING (FOR ALL VISITS) EMG Received [facility]: 12/07/17 EEG N/A ECT N/A MRI (HEAD, NECK, SPINE) Receieved [facility]: MRI Lumbar Spine 02/09/17 MRI Thoracic Spine 07/11/15 CT (HEAD, NECK, SPINE) N/A Phone Call: Contact Name [facility] Outcome Images will be pushed documented in this encounter Plan of Treatment Not on filedocumented as of this encounter Visit Diagnoses Not on filedocumented in this encounter Care Teams Gravity Meter Observer Relationship Specialty Start Date End Date Rolly Iniguez PCP - General Family Practice 12/05/17 documented as of this encounter
--- OUTSIDE RECORDS SUMMARY | 2021-11-25 05:21 | XMS_ITS | Encounter Summary ---
:1960 Author [facility] Address [address] [place] [address] Care Team Providers Name Role Phone Unassigned, Provider Primary Care Provider Unavailable Encounter Details Date Type Department Care Team Description 02/17/2003 PN Conversion Only TELECOM FIELD TECHNICIAN [address] [place] [address] Social History Tobacco Use Types Packs/Day Years Used Date Smoking Tobacco: Never Assessed Sex Assigned at Date Recorded Not on file documented as of this encounter Plan of Treatment Not on filedocumented as of this encounter Visit Diagnoses Not on filedocumented in this encounter Care Teams Bull Fiddle Player Relationship Specialty Start Date End Date Unassigned, Provider PCP - General 03/26/[address] [place] [address] documented as of this encounter
--- OUTSIDE RECORDS SUMMARY | 2021-11-25 05:21 | XMS_ITS | Encounter Summary ---
:1960 Author Organization [facility] Address [address] [place] [address] Care Team Providers Name Role Phone Unassigned, Provider Primary Care Provider Unavailable Encounter Details Date Type Department Care Team Description 06/01/2004 Critical access hospital Kindra Yu MD Orthopedics [address] [place] [id number] [place] [address] [phone] Social History Tobacco Use Types Packs/Day Years Used Date Smoking Tobacco: Never Assessed Sex Assigned at Date Recorded Not on file documented as of this encounter Progress Notes Waqas Yu - 06/01/2004 12:00 AM REGULATORY PRODUCT MANAGER LATORY PRODUCT MANAGER documented in this encounter Plan of Treatment Not on filedocumented as of this encounter Visit Diagnoses Not on filedocumented in this encounter Care Teams Translation Director Relationship Specialty Start Date End Date Unassigned, Provider PCP - General 03/26/[address] [place] [address] documented as of this encounter
--- OUTSIDE RECORDS SUMMARY | 2021-11-25 05:21 | XMS_ITS | Encounter Summary ---
:1960 Author Organization [facility] [address], [place] [address] Care Team Providers Name Role Phone Unassigned, Provider Primary Care Provider Unavailable Encounter Details Date Type Department Care Team Description 11/20/2003 Office Visit [facility] Kindra Yu MD Arrived Orthopedics [id number] [place] [address] [phone] Social History Tobacco Use Types Packs/Day Years Used Date Smoking Tobacco: Never Assessed Sex Assigned at Date Recorded Not on file documented as of this encounter Progress Notes 11/20/2003 8:00 AM CDT Mali Woods is a 43 year old, male with the chief complaint of thoracic back pain,and left shoulder pain. left CLAVICLE, THORACIC. Patient's preferred dominance: LEFT Patient's PCP: Provider Unassigned, Physician. The referring Provider is Cisco Gutierrez. Pain assessment: PAIN SCALE-4 Location: thoracic,radiates down left thigh muscle,left shoulder.More so the problems seem to be muscle., Frequency: QD, Type: , Description: nagging Onset:15 years mid-back and 1.5 years left shoulder. Injury: Unknown. Litigation? NO. Surgery HX: , Date . Proceedure: . No current outpatient prescriptions on file. Tobacco Status reviewed? (see History Social-Substance) -YES. Any allergies to Latex? NO. 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 Patient's phone number: [phone] (home) [phone] (work), alternate phone number - Yas Pink MA, 8:20 AM, 11/20/2003 Waqas Yu - 11/20/2003 12:00 AM CDT The patient is seen in the clinic on 11/20/03 for midback pain, bilateral para lumbar. The patient is a 58 -year-old male who is referred by Dr. Rojas and Cisco Gutierrez, with this unusual complaint. He has a complex history including a fairly complex evaluation by neurologists (muscle biopsy, etc.). He says that over the past 15 years he has developed this sensation of muscle tightness in the bilateral para lumbar region, more or less at the thoracolumbar junction extending approximately distally. He does not complain much of midline pain. He has a family history of kidney problems. He has also been part of some type of lipid-lowering study. That being over, he is not off such medications. He has a number of other subjective complaints including the fact that he can't sleep because of both back and leg pain, aching of the same type. When asked, he thinks that he may have had lab studies including a CPK, ESR rate and so on. He has tried trazodone, methocarbamol. He also complains of left-sided trapezial pain which started on a work trip in spring 2002. 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 Review of systems: otherwise negative except for arthritis. His pain diagram suggests the aforementioned aching pain and tightness along the costal margin and this is lateral or far lateral to the midline. The Million Analog Scale suggests a mild to moderate functional restriction with stiffness being his primary complaint in the back. He uses the Sary adjectives tiring and nagging to describe the back pain. Physical examination: the patient has normal heel and toe walking, normal sensation, normal reflexes (not hyperreflexic). Straight leg raising to 75 degrees causes hamstring tightness only. Interestingly, while the patient is interviewed, he is more or less jumpy and jittery all the time, fidgeting with his legs. When asked, he states that this is a common problem for him. Imaging: an MRI has been done. He does not have that. Previous opinions: The neurology and lab evaluations are not available at this time. For past medical and social history, chronic conditions, allergies and medications, please see the [facility] Web record. ASSESSMENT: unusual bilateral para lumbar pain at the thoracolumbar junction, previously evaluated by neurology. Possibilities include: thoracolumbar degenerative disk disease (doubt); some type of fascial dystrophy (workup to this point has been negative); kidney problems (on the basis of family history); abdominal complaint (aneurism ?). PLAN: I ordered an abdominal ultrasound and asked the patient to return to clinic with his imaging and his previous studies so we can review them comprehensively for him. It is not clear to me that this is an orthopaedic problem but I think he deserves a comprehensive look. No medications are provided. oni Dictated: 11/21/2003 08:11:52 Waqas Yu MD Transcribed: 11/25/2003 12:59:13 Doc #: [id number] cc: This document was electronically signed by Waqas Yu MD on 12/20/2003 08:54:17. 1 Page 2 Patient Name: MALI WOODS Visit Date: 11/20/2003 ORTHOPEDICS [facility] REC[facility] [address] [address] Page 1 Patient: MALI WOODS Location: ORTH HPN: Date of : 1960 Visit Date: 11/20/2003 ORTHOPEDICS Waqas Yu - 11/20/2003 12:00 AM CDT Waqas Yu - 11/20/2003 12:00 AM CDT Waqas Yu - 11/20/2003 12:00 AM CDT documented in this encounter Plan of Treatment Not on filedocumented as of this encounter Procedures Procedure Name Priority Date/Time Associated Diagnosis Comme nts US ABDOMEN- Routine 11/22/2003 9:25 AM Results f or this COMPLETE CDT procedure are i n the results section. SHOULDER 3 VIEW, Routine 11/20/2003 8:40 AM Resul ts for this LEFT CDT procedure are i n the results section. T-SPINE 2 VIEW Routine 11/20/2003 8:40 AM Results for this CDT procedure are i n the results section. documented in this encounter Results US ABDOMEN- COMPLETE (11/22/2003 9:25 AM CDT) Component Value Ref Test Analysis Performed At [facility] [place] Range Method Time Signature US COMPLETE ULTRASOUND ABDOMEN COMPLETE 11/22/2003 [facility] ABDM. INDICATIONS: Neck and back pain. RADIOLOGY MULTI-ORGANS FINDINGS: The liver has a normal homogeneous echo pattern without focal abnormality. There are no dilated intra or extrahepatic bile ducts. The common duct measures 3 mm. The gallbladder isunremarkable with normal wall thickness. No gallstones. Normal direction of flow within the portal vein. No ascites. Thepancreas, spleen and abdominal aorta are unremarkable.In the right kidney there is an echogenic shadowing structure measuring 19 x 12 x 17 mm. This likely reflects a large nonobstructing calculus. The right kidney measures 10.8 x 5.4 x 4.7 cm. No hydronephrosis. The left kidney measures 13 cm in length. There is increased echogenicity in the perisinus region but without shadowing. This likely reflects prominent sinus fat. No hydronephrosis on the left. IMPRESSION: Probable nonobstructing calculus in the mid pole of the right kidney. A CT kidney stone study is suggested. After discussion with Dr. Waqas Yu, the CT study will be scheduled,possibly today. Anatomical Region Laterality Modality Other Specimen (Source) Anatomical Collection Method Collection Time Re ceived Time Location / / Volume Laterality 11/22/2003 9:25 AM CDT Narrative 11/22/2003 12:57 PM CDT US ABDOMEN.....SEVERE BACK PAIN Waqas Yu MD RAD US/ T-SPINE 2 VIEW (11/20/2003 8:40 AM CDT) [facility] [place] Method Time Signature Tspine Ap + THORACIC SPINE AP AND LATERAL 11/20/2003 [facility] Lateral INDICATION: Pain. RADIOLOGY FINDINGS: Negative. Anatomical Region Laterality Modality Other Specimen (Source) Anatomical Collection Method Collection Time Re ceived Time Location / / Volume Laterality 11/20/2003 8:40 AM CDT Narrative 11/22/2003 11:25 AM CDT pain Waqas Yu MD RAD GENERAL DIAGNOSTIC/RH SHOULDER- LEFT (11/20/2003 8:40 AM CDT) [facility] gist Method Time Signature Left Shoulder LEFT SHOULDER 11/20/2003 [facility] 3 INDICATION: Pain. RADIOLOGY Views(Trauma) FINDINGS: Negative. Anatomical Region Laterality Modality Other Specimen (Source) Anatomical Collection Method Collection Time Re ceived Time Location / / Volume Laterality 11/20/2003 8:40 AM CDT Narrative 11/22/2003 11:25 AM CDT pain Waqas Yu MD RAD GENERAL DIAGNOSTIC/RH documented in this encounter Visit Diagnoses Not on filedocumented in this encounter Care Teams Stacker Tender Relationship Specialty Start Date End Date Unassigned, Provider PCP - General 03/26/[address] [place] [id number] documented as of this encounter
--- OUTSIDE RECORDS SUMMARY | 2021-11-25 05:21 | XMS_ITS | Clinical Summary ---
:1960 Author Organization [facility] Address [address] [place] [address] Care Team Providers Name Role Phone Sena Delgado MD Primary Care Provider [phone] Allergies No known active allergies Medications Medication Sig Dispensed Refills Start Date End Date Status cyclobenzaprine Take 10 mg by 0 Active (FLEXERIL) 10 mg oral mouth once a day tablet as needed for Muscle spasm. diazePAM (VALIUM) 5 mg Take 5 mg by 0 Active oral tablet mouth once a day as needed. HYDROcodone-acetaminophe Take 1-2 tablets 0 Active n (NORCO) 5-325 mg oral by mouth once a tablet day as needed for Pain. lisinopril (PRINIVIL) 20 Take 20 mg by 0 Active mg oral tablet mouth once daily. traMADol (ULTRAM) 50 mg Take 50 mg by 0 Active oral tablet mouth as needed for Pain. carBAMazepine (TEGRETOL) Take 200 mg by 0 Active 200 mg/10 mL oral Susp mouth every 8 (conc: 200 mg/10 mL) (eight) hours. oral suspension Active Problems Problem Noted Date Myalgia, unspecified site 01/25/2018 Anesthesia of skin 12/05/2017 Other muscle spasm 12/05/2017 Family History Medical History Relation Comments Prostate Cancer Father Relation Status Comments Father Social History Tobacco Use Types Packs/Day Years Used Date Smoking Tobacco: Every Day Smokeless Tobacco: Never Sex Assigned at Date Recorded Not on file Last Filed Vital Signs Vital Sign Reading Time Taken Comments Blood Pressure 118/77 03/28/2018 10:45 AM SUSTAINABLE DESIGN COORDINATOR Pulse 88 03/28/2018 10:45 AM SUSTAINABLE DESIGN COORDINATOR Temperature 36.7 ??C (98 ??F) 03/28/2018 10:45 AM SUSTAINABLE DESIGN COORDINATOR Respiratory Rate 14 03/28/2018 10:45 AM SUSTAINABLE DESIGN COORDINATOR Oxygen Saturation 98% 03/28/2018 10:45 AM SUSTAINABLE DESIGN COORDINATOR Inhaled Oxygen Concentration - - Weight 97.1 kg (214 lb) 03/21/2018 2:50 PM SUSTAINABLE DESIGN COORDINATOR Height 177.8 cm (5' 10) 03/21/2018 2:50 PM SUSTAINABLE DESIGN COORDINATOR Body Mass Index 30.71 03/21/2018 2:50 PM SUSTAINABLE DESIGN COORDINATOR Plan of Treatment Health Maintenance Due Date Last Done Comments Colonoscopy 1960 Hepatitis C Screening 1960 Lipid Screening 1960 COVID-19 Vaccine (#1) 1960 Zoster Vaccine (1 of 2) 2009 Yearly Review of HCD 02/21/2019 02/21/2018 Adult Tetanus Booster 04/07/2021 04/07/2011, 01/27/2006, 01/27/2006 Influenza Vaccine (#1) 2021 12/09/2013, 01/19/2013, 04/10/2012, Additional history exists Pneumococcal <65 Aged Out No longer eligi ble based on patient's age to complete this to [facility] Insurance Payer Benefit Plan / Subscriber ID Effective Phone Address T e Group [employer] [facility]IT[facility] [employer] OPEN [id number] [facility] [phone] ACCESS/CHOICE nt [phone] [place] [address] Care Teams Director [facility] Relationship Specialty Start Date End Date Sena Delgado MD PCP - General 03/28/18
--- OUTSIDE RECORDS SUMMARY | 2021-11-25 05:21 | XMS_ITS | Encounter Summary ---
:1960 Author Organization [facility] [address], [place] [address] Care Team Providers Name Role Phone Unassigned, Provider Primary Care Provider Unavailable Encounter Details Date Type Department Care Team Description 02/07/2004 Office Visit [facility] Kindra Yu MD [facility] Orthopedics [id number] [place] [address] [phone] Social History Tobacco Use Types Packs/Day Years Used Date Smoking Tobacco: Never Assessed Sex Assigned at Date Recorded Not on file documented as of this encounter Progress Notes 02/07/2004 10:00 AM CDT Mali Woods is here today regarding {GEN.SURGERY:56740}.thoracic back pain and left shoulder. Post Op visit?: NO. Pain assessment: 6 Location: left shoulder and back pain, Frequency:QD, Type: , Duration: . Recent Tests?: No testing done. Injury?: No Patient's pcp is Provider Unassdamon, Physician. Referring provider is Cisco Gutierrez. Yas Pink MA, 11:13 AM, 02/07/2004 Waqas Yu - 02/07/2004 12:00 AM CDT SUBJECTIVE: The patient returns with some of his results. The MARITZA was negative. HLA-B27 was positive raising the possibility of a false positive, but suggesting the possibility of ankylosing spondylitis. This is presented to the patient today. The muscle biopsy request did not return. The patient will pursue this trying to get his patient number and talk to the people at the [facility]. He remains complaining of left shoulder strap pain and trapezium margin type pain of the neck. OBJECTIVE: Physical exam is negative, no pain in the mid line. Reflexes, Sensation, motor strength in the upper extremities is negative. ASSESSMENT: 1. Possible ankylosing spondylitis. 2. Possible cervical radiculopathy or related problem in the neck. 3. Unknown results of muscle biopsy, unclear indications, patient will pursue. 4. Enlarged lymph node in the abdomen. Patient will follow with his family doctor. PLAN: The patient is given his printed results from the HLA-B27 and the CT of the abdomen so that he can pursue those. He will return when the cervical MRI is complete. No other treatments are ensued at this time. rlm Dictated: 02/07/2004 12:59:00 Waqas Yu MD Transcribed: 02/13/2004 15:28:09 Doc #: [id number] cc: This document was electronically signed by Waqas Yu MD on 04/02/2004 08:33:38. 1 Page 1 Patient Name: MALI WOODS Visit Date: 02/07/2004 [facility] [address] [address] Page 1 Patient: MALI WOODS [facility] 1960 Visit Date: 02/07/2004 ORTHOPEDICS Waqas Yu - 02/07/2004 12:00 AM CDT documented in this encounter Plan of Treatment Not on filedocumented as of this encounter Visit Diagnoses Not on filedocumented in this encounter Care Teams Product Builder Relationship Specialty Start Date End Date Unassigned, Provider PCP - General 03/26/[address] [place] [address] documented as of this encounter
--- OUTSIDE RECORDS SUMMARY | 2021-11-25 05:21 | XMS_ITS | Encounter Summary ---
:1960 Author Organization [facility] Address [address] [place] [address] Care Team Providers Name Role Phone Rolly Iniguez Primary Care Provider Unavailable Encounter Details Date Type Department Care Team Description 12/20/2017 Hospital Encounter [facility] Nehemiah Delgado uscular pain (Primary Dx); Maritza Cerna MD Leg muscle spasm Laboratory [facility] [address] [place], [place] [address] [address] [place] [address] [place] [address] Social History Tobacco Use Types Packs/Day Years [...] AM CDT documented as of this encounter Medications at Time of Discharge Medication Sig Dispensed Refills Start Date End Date cyclobenzaprine (FLEXERIL) TK 1 T PO TID PRN 0 10 MG tablet INDOMETHACIN 25 MG OR CAPS 1 CAPSULE UP TO 8 60 0 TIMES DAILY lisinopril Take 20 mg by mouth 0 02/18/2014 (PRINIVIL/ZESTRIL) 20 MG tablet METHOCARBAMOL 750 MG OR TABS Take 1 Tablet By 120 4 0 10/30/2002 Mouth Twice Daily As Needed For Muscle Spasm Misc Natural Products 0 03/13/2015 (URINOZINC PLUS PO) TRAZODONE HCL 50 MG OR TABS 1 TAB PO at bedtime 30 11 09/04/2002 VICODIN 5-500 MG OR TABS 1 TABLET EVERY 4 TO 28 0 6 HOURS NEEDED VITAMINS/MINERALS OR TABS 1 TABLET DAILY 0 WELCHOL 625 MG OR TABS Take 3 tablets bid 540 4 08/09 ZITHROMAX TRI-AMBERLY 500 MG OR 1TABLET DAILY 3 0 04/24 TABSIndications: Acute maxillary sinusitis, Acute bronchitis documented as of this encounter Plan of Treatment Not on filedocumented as of this encounter Procedures Procedure Name Priority Date/Time Associated Comments Diagnosis PROTEIN IMMUNOFIXATION Routine 12/20/2017 4:45 PM Muscul ar pain Results for this SERUM CDT Leg muscle spasm procedure a re in the results section. TSH WITH FREE T4 REFLEX Routine 12/20/2017 4:45 PM Muscu lar pain Results for this CDT Leg muscle spasm procedure a re in the results section. VITAMIN B12 Routine 12/20/2017 4:45 PM Muscular pain Results for this CDT Leg muscle spasm procedure a re in the results section. documented in this encounter Results Protein Immunofixation Serum (12/20/2017 4:45 PM CDT) Component Value Ref Test Analysis Performed At Patholo gist Range Method Time Signature Immunofixation No monoclonal protein seen o n immunofixation. ??Pathological significance requires clinical 12/21/2017 [facility] correlation. 12:21 PM OF [facility] Comment: Daniel Roblero M.D., Ph.D. IGG 828 695 - 1,620 mg/dL 12/21/2017 11:11 A M [facility] IGA 124 70 - 380 mg/dL 12/21/2017 11:11 AM CDT U [facility] IGM 91 60 - 265 mg/dL 12/21/2017 11:11 AM CDT [facility] Specimen Anatomical Collection Method Collection Time Receive d Time (Source) Location / / Volume Laterality Blood specimen 12/20/2017 4:45 PM 018 5:02 (specimen) CDT PM CDT Sena Delgado MD LAB - BLOOD ORDERABLES Performing Organization Address City/[facility]/ZIP Code Phon e Number [facility] [address] [place], [place] [id number] [place] [address] Vitamin B12 (12/20/2017 4:45 PM CDT) P athologist Signature Vitamin B12 489 193 - 986 12/20/2017 [facility] pg/mL 8:47 PM CDT [facility] Specimen Anatomical Collection Method Collection Time Receive d Time (Source) Location / / Volume Laterality Blood specimen 12/20/2017 4:45 PM 018 5:02 (specimen) CDT PM CDT Sena Delgado MD LAB - BLOOD ORDERABLES Performing Organization Address City/[facility]/ZIP Code Phon e Number [facility] [address] TSH with free T4 reflex (12/20/2017 4:45 PM CDT) athologist Signature TSH 1.93 0.40 - 4.00 12/20/2017 ELECTRA mU/L 5:32 PM CDT [facility] Specimen Anatomical Collection Method Collection Time Receive d Time (Source) Location / / Volume Laterality Blood specimen 12/20/2017 4:45 PM 018 5:02 (specimen) CDT PM CDT Sena Delgado MD LAB - BLOOD ORDERABLES Performing Organization Address City/[facility]/ZIP Code Phon e Number [facility] [address] [address] [facility] [address] [address], [facility] [phone] documented in this encounter Visit Diagnoses Diagnosis Muscular pain - Primary Mylagia and myositis, unspecified Leg muscle spasm Spasm of muscle documented in this encounter Care Teams Senior Research Fellow Relationship Specialty Start Date End Date Rolly Iniguez PCP - General Family Practice 12/05/17 documented as of this encounter
--- OUTSIDE RECORDS SUMMARY | 2021-11-25 05:21 | XMS_ITS | Encounter Summary ---
:1960 [facility] Address [address] [place] [address] Care Team Providers Name Role Phone Unassigned, Provider Primary Care Provider Unavailable Encounter Details Date Type Department Care Team Description 03/04/2004 Scanned History External to Unknown, Physici erik [facility] [address] [place] [address] [place] [address] Social History Tobacco Use Types Packs/Day Years Used Date Smoking Tobacco: Never Assessed Sex Assigned at Date Recorded Not on file documented as of this encounter Progress Notes Unknown, Physician - 03/04/2004 12:00 AM POSTAL SERVICE WINDOW CLERK documented in this encounter Plan of Treatment Not on filedocumented as of this encounter Visit Diagnoses Not on filedocumented in this encounter Care Teams Snowboard Designer Relationship Specialty Start Date End Date Unassigned, Provider PCP - General 03/26/00 [address] [place] [address] documented as of this encounter
--- OUTSIDE RECORDS SUMMARY | 2021-11-25 05:21 | XMS_ITS | Encounter Summary ---
:1960 Author Organization [facility] Address [address] [place] [address] Care Team Providers Name Role Phone Sena Delgado MD Primary Care Provider [phone] Encounter Details Date Type Department Care Team Description 03/28/2018 Surgery [facility] Faustino Campuzano, QU ADRACEP Ambulatory Surgery SUPERFICIAL MUSCLE Center - [address] BIOPSY [address] [place], [place] [phone] (Wo rk) Surgery Details Date/Time Status Location OR Service Patient Case Case Traum a Class Class Type Case? 03/28/18 9:45 Posted [facility] ORS 03 Neurosurgery Same Day AM Surgery Panel 1 Procedure LRB Anes Op Region Wound Class Commen ts RIGHT QUADRACEP SUPERFICIAL MUSCLE BIOPSY Right Local Clean (I) Surgeon Surgeon Role Service Panel Faustino Campuzano MD Primary Neurosurgery [address] CAMPUZANO WILL DO H&P DOS -LD documented in this encounter Social History Tobacco Use Types Packs/Day Years Used Date Smoking Tobacco: Every Day Smokeless Tobacco: Never Sex Assigned at Date Recorded Not on file documented as of this encounter Last Filed Vital Signs Vital Sign Reading Time Taken Comments Blood Pressure 134/78 03/28/2018 10:30 AM PARKING TECHNICIAN Pulse 75 03/28/2018 10:30 AM PARKING TECHNICIAN Temperature 36.6 ??C (97.8 ??F) 03/28/2018 8:59 AM PARKING TECHNICIAN Respiratory Rate 14 03/28/2018 10:30 AM PARKING TECHNICIAN Oxygen Saturation 97% 03/28/2018 10:30 AM PARKING TECHNICIAN Inhaled Oxygen Concentration - - Weight 97.1 kg (214 lb) 03/21/2018 2:50 PM PARKING TECHNICIAN Height 177.8 cm (5' 10) 03/21/2018 2:50 PM PARKING TECHNICIAN Body Mass Index 30.71 03/21/2018 2:50 PM PARKING TECHNICIAN documented in this encounter Medications at Time [...] understanding of the instructions. Faustino Campuzano MD [facility] Neurology [phone] ING TECHNICIAN documented in this encounter Nursing Notes Mary Lou Fitzgerald RN - 03/28/2018 10:56 AM CST Andrzej Arriaga 1960 [id number] Discharged ambulatory to home at 1057 escorted by nurse Discharge information and arrangements included: review of written discharge instructions, review ofpurpose and side effects of new medication, belongings list completed. Patient, spouse expressed understanding of information.. ING TECHNICIAN Mary Lou Fitzgerald RN - 03/28/2018 10:50 AM CST Pt received in phase 2, tolerating G Dodie and crackers. Drsg c/d/i. Ice in place. Visiting with family. ING TECHNICIAN Gin Sosa RN - 03/28/2018 10:30 AM CST Right quadricep faschia biopsy sent to [facility] lab ING TECHNICIAN Gin Sosa RN - 03/28/2018 10:24 AM CST Right quadricep muscle biopsy sent to [facility] lab ING TECHNICIAN Angelita Salas RN - 03/22/2018 12:53 PM CST History reviewed in Epic < 1 year old. Nurse to verify DOS. SW ING TECHNICIAN documented in this encounter Plan of Treatment Scheduled Referrals Name Type Priority Associated Diagnoses Order S chedule Follow Up Follow Up Routine Ordered: 2017 documented as of this encounter Procedures Procedure Name Priority Date/Time Associated Diagnosis Comme nts BIOPSY: MUSCLE 03/28/2018 10:03 AM PARKING TECHNICIAN Muscle p ain Muscle spasms of both lower extremities Special Needs DR. CAMPUZANO WILL DO H&P DOS - LD documented in this encounter Visit Diagnoses Diagnosis Muscle pain Mylagia and myositis, unspecified Muscle spasms of both lower extremities documented in this encounter Administered Medications Inactive Administered Medications - up to 3 most recent administrations Medication Order MAR Action Action Date Dose Rate Site lidocaine 1%- EPINEPHrine Given 03/28/2018 10:30 AM PARKING TECHNICIAN 26 mL Procedural 1:100,000 (XYLOCAINE-EPINEPHRINE) injection INTRA-PROCEDURE NEEDED, Starting on Tu03/28/18 at 1030, Until Tue03/28/18 at 1658, Intra-Op documented in this encounter Active and Recently Administered Medications Times are shown in PARKING TECHNICIAN. PRN Medication Order 03/26/2018 03/27/2018 03/28/2018 lidocaine 1%- EPINEPHrine 1:100,000 (XYL OCAINE-EPINEPHRINE) injection (CANCELED) 1030 (Given - Provid er: Faustino Campuzano MD) INTRA-PROCEDURE NEEDED, Starting 03/28/18 at 1030, Until Tu03/28/18 at 1658, Intra-Op documented in this encounter Care Teams Manager Garden Relationship Specialty Start Date End Date Sena Delgado MD PCP - General 03/28/18 documented as of this encounter
--- OUTSIDE RECORDS SUMMARY | 2021-11-25 05:22 | XMS_ITS | Encounter Summary ---
:1960 Author Organization [facility] Address [address] [place] [address] Care Team Providers Name Role Phone Leyla Rivear MD Primary Care Provider Unavailable Encounter Details Date Type Department Care Team Description 09/26/[address] [facility] Danish Guerra MD [facility] [place] [facility] XXX RESIGNED X XX NEC/NOS (Primary Dx) Laboratory [address] [place] [id number] [phone] Social History Tobacco Use Types Packs/Day Years Used Date Never Assessed Alcohol Habits Answer Date Recorded How often [...] as of this encounter Visit Diagnoses Diagnosis Other and unspecified complications of m edical care, not elsewhere classified - Primary documented in this encounter Care Teams Treating Plant Operator Relationship Specialty Start Date End Date Leyla Rivera MD PCP - General 06/02/01 05/31/02 documented as of this encounter
--- OUTSIDE RECORDS SUMMARY | 2021-11-25 05:22 | XMS_ITS | Encounter Summary ---
:1960 Author Reason for Visit None recorded. Assessment and Plan Assessment Note The patient will be certified for [facility] n for the following diagnosis/diagnoses: Myofascial pain Certification based on history, exam, an d supporting documentation provided by patient, which I have reviewed. Does patient need weaning for current na rcotic use: none (If yes, see below under medication orde rs.) All of patient's questions about [facility] answered to patient's satisfaction. Patient given written info on [facility] process and list of [facility] Patient Centers if needed. Patient notified that yearly certif ication is required for continued partic ipation in [facility] program. Discussion Note: None recorded.Patient educational handouts: No information available. Plan of Care Reminders Provider Appointments None recorded. ? ? Lab None recorded. ? ? Referral None recorded. ? ? Procedures None recorded. ? ? Surgeries None recorded. ? ? Imaging None recorded. ? ? Medications Name Start Date ? ? baclofen 10 mg tablet ? ciclopirox 0.77 % topical cream ? APPLY TOPICALLY TO THE AFFECTED AREA TWICE DAILY cyclobenzaprine 10 mg tablet ? cyclobenzaprine 5 mg tablet ? dantrolene 25 mg capsule ? diclofenac potassium 50 mg tablet ? diltiazem CD 120 mg capsule,extended release 24 hr ? lisinopril 10 mg tablet ? TAKE 1 TABLET BY MOUTH DAILY lisinopril 20 mg tablet ? TAKE 1 TABLET BY MOUTH EVERY DAY methylprednisolone 4 mg tablets in a dose pack ? FOLLOW PACKAGE DIRECTIONS metoprolol tartrate 25 mg tablet ? TAKE ONE-HALF TABLET BY MOUTH DAILY NEEDED FOR HR OVER 130. MAY TAKE AN ADDITIONAL ONE-HALF TABLET BY MOUTH ONE HOUR LATER NEEDED nortriptyline 25 mg capsule ? TAKE 1 CAPSULE BY MOUTH DAILY AND 2 AT BEDTIME omeprazole 20 mg capsule,delayed release ? pregabalin 50 mg capsule ? TAKE 1 CAPSULE BY MOUTH EVERY DAY FOR 7 DAYS THEN TAKE 1 CAPSULE TWICE DAILY FOR 7 DAYS THEN TAKE 1 CAPSULE THREE TIMES DAILY FOR 14 DAYS pregabalin 75 mg capsule ? Repatha SureClick 140 mg/mL subcutaneous pen injector ? tizanidine 4 mg tablet ? topiramate 25 mg tablet ? Medications Administered None recorded. Vitals None recorded. Results Lab Results None recorded. Allergies None recorded. Problems Name Status Onset Date Source ? Myofascial Pain Syndrome Active 09/23/2021 ? Cannabis Therapy Active 09/23/2021 ? Procedures None recorded. Vaccine List None recorded. Social History None recorded. Functional Status Unknown. Past Encounters 09/23/2021 Jessica Dennis, SSIS SSRS DEVELOPER: [address] [place] [address], Ph. History of Present Illness Note: <div>The patient is here to certify for medical cannabis.</div><div>Pt is certifying for the following condition: {{Chronic Intractable Pain* Severe and Persistent Muscle Spasms Post-Traumatic Stress Disorder Inflammatory Bowel Disease Seizures Glaucoma Amyotrphic Lateral Sclerosis Cancer with Nausea/Vomiting, Pain, or Cachexia HIV/AIDS Tourette Syndrome Autism Obstructive Sleep Apnea}}He has been dx with myofascial pain.</div><div>
</div><div>If ce rtifying for chronic pain, PEG score:</div><div>
</div><div>
</div><p>A PEG score is a reliable and validated test to measure pain. The P represents overall pain. E represents interference in enjoyment of life, and G represents interference of painin general activities. The patient's PEG score today is a {{10 2/10 3/10 4/10 5/10 6/10* 7/ 10 8/10 9/10 01/25}}.</p><div>
</div><div>
</div>< div>
</div><p>Characteristics of certifying condition. muscles are stiff, con stant ache, sometimes sharp with movement, spasms</p><div>
</div><p>The patient has tried the following treatments for this condition: muscle relaxants, antidepressants, scans, TENS, TPI, Botox injections, Cortisone injections, massage, kinesiotherapy, PT, chiropractor,</p> Review of Systems ? Comprehensive General Adult ROS Reported By: Patient Constitutional: Constitutional: no fever, no night sweats, no significant weight gain, no significant weight loss, no exercise intolerance Eyes: Eyes: no dry eyes, no vision change, no irritation ENMT: Ears: no difficulty hearing, no ear pain. Nose: no frequent nosebleeds, no nose problems , no sinus problems. Mouth/Throat: no sore throat, no bleeding gums, no snoring, no dry mouth, no mouth ulcers, no oral abnorm alities, no teeth problems Cardiovascular: Cardiovascular: no chest temitope n, no arm pain on exertion, no shortness of breath when wal alondra, no shortness of breath when lying down, no palpitations, no known heart murmur Respiratory: Respiratory: no cough, no wh eezing, no shortness of breath, no coughing up blood, no sleep apnea Gastrointestinal: Gastrointestinal: no abdomin al pain, no nausea, no vomiting, no constipation, normal appe tite, no diarrhea, not vomiting blood, no dyspepsia, no GERD Genitourinary: Genitourinary: no incontinen ce, no difficulty urinating, no hematuria, no increased freq uency Musculoskeletal: Musculoskeletal: no swelling in the extremities, muscle aches, muscle weakness, arthralgias /joint pain, back pain, muscle spasms, neck pain Integumentary: Skin: no abnormal mole, no j aundice, no rashes, no laceration Neurologic: Neurologic: no loss of consc iousness, no weakness, no numbness, no seizures, no di zziness, no migraines, no headaches, no tremor Psychiatric: Psych: no depression, feelin g safe in a relationship, no substance abuse, no anxiety, no hallucinations, no suicidal thoughts, sleep disturbances Endocrine: Endocrine: no fatigue Hematologic/Lymphatic: Hematologic/Lymphatic no swo llen glands, no bruising, no excessive bleeding Allergic/Immunologic: Allergy/Immunologic: no runn y nose, no sinus pressure, no itching, no hives, no freque nt sneezing Physical Exam ? Notes: <div>Electronic visit-physic al exam is limited:
CONSTITUTIONAL: Alert and oriented x 3. No acute distr ess. Appears stated age.
Pain behaviors are not present.
CARDIAC: Ap pears well-perfused. No obvious cyanosis.
RESPIRATORY: No rmal rate without distress.
PSYCHOLOGICAL: Pleasant and cooperative, to ne is conversational, mood is appropriate.</div>
--- OUTSIDE RECORDS SUMMARY | 2021-11-25 05:22 | XMS_ITS | Encounter Summary ---
:1960 Author Organization [facility] Address [address] [place] [address] Care Team Providers Name Role Phone Leanne Acuna MD Primary Care Provider Unavailable Reason for Visit Reason Onset Date Comments Sinus Problem 05/07/2004 Encounter Details Date Type Department Care Team Description 05/07/2004 Telephone [facility] Kassie Acuna MD Sinus Problem [place] RETIRED [address] [place] [address] [place], [place] [id number] Social History Tobacco Use Types Packs/Day Years [...] this encounter Miscellaneous Notes Telephone Encounter - 05/07/2004 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 ADVISED >> LEANNE Guadalupe May 07, 2004 9:04 AM Buy OTC Afrin nasal spray. Use it 1 hour before takeoff and repeat it in 4 hours if still in air. Although not guaranteed, that will work better to prevent problems while flying than any abx will. >> ZEKE Monetu May 07, 2004 8:51 AM Pt has been seen twice, for this sinus problem/cough/sore throat. He has had abx regime, recently. He has to fly this coming week-end, so is very leary of flying with this sinus pressure. Is askin g for abx again. What is your thought? documented in this encounter Plan of Treatment Not on filedocumented as of this encounter Visit Diagnoses Not on filedocumented in this encounter Care Teams Bilingual Instructor Relationship Specialty Start Date End Date Leanne Acuna MD PCP - General 06/01/02 11/27/17 [place] [address] documented as of this encounter
--- OUTSIDE RECORDS SUMMARY | 2021-11-25 05:22 | XMS_ITS | Encounter Summary ---
:1960 Author Organization [facility] Address [address] [place] [address] Care Team Providers Name Role Phone Kevin Acuna MD Primary Care Provider Unavailable Reason for Visit Reason Comments RECHECK Encounter Details Date Type Department Care Team Description 06/04/2002 Office Visit [facility] Mynor Jaramillo [facility] Earnestine Shipman MD (Primary Dx) [address] [place] [address] Social History Tobacco Use Types Packs/Day Years [...] AM CDT documented as of this encounter Last Filed Vital Signs Vital Sign Reading Time Taken Comments Blood Pressure 126/74 06/04/2002 4:00 PM COORDINATE MEASURING MACHINE OPERATOR Pulse 64 06/04/2002 4:00 PM COORDINATE MEASURING MACHINE OPERATOR Temperature - - Respiratory Rate - - Oxygen Saturation - - Inhaled Oxygen Concentration - - Weight 91.2 kg (201 lb) 06/04/2002 4:00 PM COORDINATE MEASURING MACHINE OPERATOR Height - - Body Mass Index - - documented in this encounter Progress Notes 06/04/2002 4:00 PM COORDINATE MEASURING MACHINE OPERATOR SUBJECTIVE: Mr. Arriaga notes he may just starting to have less pain in the last few days. We revie w his labs: Orders Only on 05/17/2002 ESR (mm/h) Date: 3 Value: 7 Low: 0 High: 15 Status: Final CK (U/L) Date: 05/17/2002 Value: 125 Low: 45 High: 300 Status: Final Bili , Conjugated (mg/dL) Date: 05/17/2002 Value: 0.0 Low: 0.0 High: 0.3 Status: Final Bilirubin,Delta (mg/dL) Date: 05/17/2002 Value: 0.0 Low: 0.0 High: 0.4 Status: Final Bilirubin,Total (mg/dL) Date: 05/17/2002 Value: 0.6 Low: 0.2 High: 1.3 Status: Final Albumin (g/dL) Date: 05/17/2002 Value: 4.0 Low: 3.3 High: 4.6 Sta tus: Final Protein, Total (g/dL) Date: 05/17/2002 Value: 7.6 Low: 6. 0 High: 8.2 Status: Final Alk Phosphatase (U/L) Date: 05/17/19 03 Value: 79 Low: 40 High: 150 Status: Final ALT (U/L) Date: 05/17/2002 Value: 38 Low: 0 High: 70 Status: Final AST (U/L) Date: 05/17/2002 Value: 28 Low: 0 High: 55 Status: Final Cholesterol (mg/dL) Date: 05/17/2002 Value: 260* Low: <200 High: Status: Final Triglyceride (mg/dL) Date: 05/17/2002 Value: 207* Low: <150 High: Status: Final HDL-Cholesterol ( mg/dL) Date: 05/17/2002 Value: 41 Low: >40 High: St atus: Final LDL-Cholesterol (mg/dL) Date: 05/17/2002 Value: 177* Low: < 130 High: Status: Final VLDL-Cholesterol (mg/dL) Date: 003 Value: 41* Low: 0 High: 30 Status: Final Chol/HDLC Ratio Date: 05/17/2002 Value: 6* Low: 0 High: 5 Status: Final AN A Screen by EIA Date: 05/18/2002 Value: Low: High : Status: Final Value: <1.0 Interpretation: Negati ve WBC Count (10e9/L) Date: 05/17/2002 Value: 9.2 Low: 4.0 High: 11.0 Status: Final RBC Count (10e12/L) Date: 05/17/2002 Value : 4.92 Low: 4.4 High: 5.9 Status: Final Hemoglobin (g/dL) Date: 05/17/2002 Value: 15.7 Low: 13.3 High: 17.7 Status: Final Hematocrit (%) Date: 05/17/2002 Value: 46.0 Low: 40.0 High: 53.0 Status: Final MCV (fl) Date: 05/17/2002 Value: 94 Low: 78 High: 100 Status: Final MCH (pg) Date: 0 05/17/2002 Value: 31.9 Low: 26.5 High: 33.0 Status: Final MCHC (g/dL) Date: 05/17/2002 Value: 34.1 Low: 32.0 High: 36.0 Status: Fi nal RDW (%) Date: 05/17/2002 Value: 11.6 Low: 10.0 High: 15.0 Status: Final sodium (mmol/L) Date: 05/17/2002 Valu e: 140 Low: 133 High: 144 Status: Final Potassium (mmol/L) Date: 05/17/2002 Value: 4.4 Low: 3.4 High: 5.3 Status: Final Chloride ( mmol/L) Date: 05/17/2002 Value: 108 Low: 94 High: 109 Status: Final CO2 (mmol/L) Date: 05/17/2002 Value: 31 Low: 20 High: 32 Status: Final Anion Gap (mmol/L) Date: 05/17/2002 Value: <1* Low: 6 High: 17 Status: Final Glucose (mg/dL) Date: 05/17/2002 Value: 109 Low: 60 High: 115 Status: F inal Urea Nitrogen (mg/dL) Date: 05/17/2002 Value: 16 Low: 5 High: 24 Status: Final Creatinine (mg/dL) Date: 05/17/2002 Alyssa ue: 0.9 Low: 0.8 High: 1.5 Status: Final Calcium (mg/dL) Date: 05/17/2002 Value: 9.4 Low: 8.5 High: 10.4 Status: Final --------- -- Assessment: 1) Severe familial hyperlipidemia - difficult to treat 2) Muscle pain - previously diagnoses at Fibromyalgia but possibly related to the statin / welchol medications he's been on. P toni: Continue the trial off anti-cholesterol medications for the next 6 weeks - will reevaluate at t hat point. documented in this encounter Nursing Notes 06/04/2002 4:00 PM CST >> SUSAN CORDERO 06/04/2002 4:08 pm labs from a few weeks ago documented in this encounter Plan of Treatment Not on filedocumented as of this encounter Visit Diagnoses Diagnosis Mixed hyperlipidemia - Primary documented in this encounter Care Teams Threshing Machine Operator Relationship Specialty Start Date End Date Kevin Acuna MD PCP - General 06/01/02 11/27/17 [place] [address] documented as of this encounter
--- OUTSIDE RECORDS SUMMARY | 2021-11-25 05:22 | XMS_ITS | Encounter Summary ---
:1960 Author Organization [facility] Address [address] [place] [address] Care Team Providers Name Role Phone Kevin Acuna MD Primary Care Provider Unavailable Reason for Visit Reason Comments RECHECK Encounter Details Date Type Department Care Team Description 07/17/2002 Office Visit [facility] Mynor Jaramillo MYALGUmberto [facility] Earnestine Shipman MD NOS (Primary Dx) [address] [place] [address] Social History Tobacco Use Types Packs/Day Years [...] Sign Reading Time Taken Comments Blood Pressure 132/72 07/17/2002 8:00 AM ADVERTISEMENT COMPOSITOR Pulse 80 07/17/2002 8:00 AM ADVERTISEMENT COMPOSITOR Temperature - - Respiratory Rate - - Oxygen Saturation - - Inhaled Oxygen Concentration - - Weight 89.4 kg (197 lb) 07/17/2002 8:00 AM ADVERTISEMENT COMPOSITOR Height - - Body Mass Index - - documented in this encounter Progress Notes 07/17/2002 8:00 AM ADVERTISEMENT COMPOSITOR SUBJECTIVE: Mr. Arriaga notes some minor improvement in his muscle aches but continues to have signif icant soreness. He remains very limited in his ability to exercise. OBJECTIVE: BP 132/72 Pulse 8 0 Wt 197 lbs (89.359 kg) Assessment: 1) Significant hyperlipidemia 2) Confirms by history Fibromy algia Plan: 1) Restart Welchol 2) RTC for blood work 6 weeks 3) Continue Robaxin prn 4) trazadone t rial documented in this encounter Plan of Treatment Not on filedocumented as of this encounter Visit Diagnoses Diagnosis Myalgia and myositis, unspecified - Prim fan Mylagia and myositis, unspecified documented in this encounter Care Teams Civil Clerk Relationship Specialty Start Date End Date Kevin Acuna MD PCP - General 06/01/02 11/27/17 [place] [address] documented as of this encounter
--- OUTSIDE RECORDS SUMMARY | 2021-11-25 05:22 | XMS_ITS ---
:1960 Author Care Team Providers Name Role Phone Rhett Mason Primary Care Provider Unavailable Allergies None recorded. Medications Name Status Start Date Stop Date ? ? baclofen 10 mg tablet Active ? Not availa ble ciclopirox 0.77 % topical cream Active ? Not available APPLY TOPICALLY TO THE AFFECTED AREA TWICE DAILY cyclobenzaprine 10 mg tablet Active ? Not available cyclobenzaprine 5 mg tablet Active ? Not available dantrolene 25 mg capsule Active ? Not tr ilable diclofenac potassium 50 mg tablet Active ? Not available diltiazem CD 120 mg capsule,extended release 24 hr Active ? Not available lisinopril 10 mg tablet Active ? Not avai lable TAKE 1 TABLET BY MOUTH DAILY lisinopril 20 mg tablet Active ? Not avai lable methylprednisolone 4 mg tablets in a dose pack Active ? Not available FOLLOW PACKAGE DIRECTIONS metoprolol tartrate 25 mg tablet Active ? Not available TAKE ONE-HALF TABLET BY MOUTH DAILY NEEDED FOR HR OVER 130. MAY TAKE AN ADDITIONAL ONE-HALF TABLET BY MOUTH ONE HOUR LATER NEEDED nortriptyline 25 mg capsule Active ? Not available TAKE 1 CAPSULE BY MOUTH DAILY AND 2 AT BEDTIME omeprazole 20 mg capsule,delayed release Active ? Not available pregabalin 50 mg capsule Active ? Not tr ilable pregabalin 75 mg capsule Active ? Not tr ilable Repatha SureClick 140 mg/mL subcutaneous pen injector Active ? Not available tizanidine 4 mg tablet Active ? Not avail able topiramate 25 mg tablet Active ? Not avai lable Problems Name Status Onset Date Source ? Myofascial Pain Syndrome Active 09/23/2021 ? Cannabis Therapy Active 09/23/2021 ? Procedures None recorded. Results Lab Results None recorded. Past Encounters 09/23/2021 Jessica Dennis, ROLL COATING MACHINE OPERATOR: [address] [facility], [place] [address], Ph. Social History None recorded. Vaccine List None recorded. Plan of Care Reminders Provider Appointments None recorded. ? ? Lab None recorded. ? ? Referral None recorded. ? ? Procedures None recorded. ? ? Surgeries None recorded. ? ? Imaging None recorded. ? ? Vitals None recorded.
--- OUTSIDE RECORDS SUMMARY | 2021-11-25 05:22 | XMS_ITS | Encounter Summary ---
:1960 Author Organization [facility] Address [address] [place] [address] Care Team Providers Name Role Phone Kevin Acuna MD Primary Care Provider Unavailable Reason for Visit Reason Comments Refill Request Encounter Details Date Type Department Care Team Description 09/06/2002 Refill [facility] Mynor Jaramillo MD Refill Request [place] [address] [place] [address] Social History Tobacco Use Types Packs/Day Years [...] this encounter Miscellaneous Notes Telephone Encounter - 09/06/2002 11:59 PM CDT >> FIGUEROA HAND [facility] September 06, 2002 10:57 AM >> CALL RECEIVED. Contact: cell Pt calling to check on status of refills. Advised Trazadone was faxed 09-04-02 to [facility]. Pt also request refill Methocarbamol. Advised no record of refill request. Will submit now. Contacted pharm to [place] refill Trazadone. Verified last fill date on Methocarb. documented in this encounter Plan of Treatment Not on filedocumented as of this encounter Visit Diagnoses Not on filedocumented in this encounter Care Teams Nutrition Internship Relationship Specialty Start Date End Date Kevin Acuna MD PCP - General 06/01/02 11/27/17 [place] [address] documented as of this encounter
--- OUTSIDE RECORDS SUMMARY | 2021-11-25 05:22 | XMS_ITS | Encounter Summary ---
:1960 Author Organization [place] Address [address] [place] [address] Care Team Providers Name Role Phone DoctorLeyla MD Primary Care Provider Unavailable Encounter Details Date Type Department Care Team Description 08/29/2001 Abstract [facility] Chantale Vides ABSTRACT FROM PAPER [place] CHART [address] [place] [address] Social History Tobacco Use Types [...] Name Priority Date/Time Associated Diagnosis Comme nts ABSTRACT [facility] REPORT Routine 08/29/2001 documented in this encounter Results ABSTRACT [facility] REPORT (08/29/2001) Narrative This result has an attachment that is no t available. Chantale Vides LABORATORY documented in this encounter Visit Diagnoses Not on filedocumented in this encounter Care Teams Welfare Director Relationship Specialty Start Date End Date Leyla Rivera MD PCP - General 06/02/01 05/31/02 documented as of this encounter
--- OUTSIDE RECORDS SUMMARY | 2021-11-25 05:22 | XMS_ITS | Encounter Summary ---
:1960 Author Organization [place] Address [address] [place] [address] Care Team Providers Name Role Phone Doctor, None MD Primary Care Provider Unavailable Encounter Details Date Type Department Care Team Description 05/17/2002 Orders Only [facility] RUBÉN LGIA AND MYOSITIS NOS; [facility] HYPERLIPIDEMIA NEC/NOS [address] [place] [address] Social History Tobacco Use [...] Name Priority Date/Time Associated Diagnosis Comme nts HCL BASIC METABOLIC Routine 05/17/2002 8:32 Hyperlipidem ia Nec/Nos Results for this PANEL AM BLOOD DONOR RECRUITER SUPERVISOR Myalgia And Myositis procedu re are in Nos the results section. HEMOGRAM Routine 05/17/2002 8:32 Myalgia And Myositis Resu lts for this AM BLOOD DONOR RECRUITER SUPERVISOR Nos procedure are in Hyperlipidemia Nec/Nos the r esults section. CL AFF ANTINUCLEAR Routine 05/17/2002 8:32 Myalgia And Myositi s Results for this ANTIBODIES AM BLOOD DONOR RECRUITER SUPERVISOR Nos procedure are i n the results section. HCL HEPATIC PANEL Routine 05/17/2002 8:32 Hyperlipidemia Nec/Nos Results for this AM BLOOD DONOR RECRUITER SUPERVISOR Myalgia And Myositis procedu re are in Nos the results section. CL AFF A.M.A. LIPID Routine 05/17/2002 8:32 Hyperlipidemia Nec /Nos Results for this PANEL AM BLOOD DONOR RECRUITER SUPERVISOR procedure are i n the results section. HCL CK, TOTAL Routine 05/17/2002 8:32 Myalgia And Myositis Res ults for this AM BLOOD DONOR RECRUITER SUPERVISOR Nos procedure are in Hyperlipidemia Nec/Nos the r esults section. HCL SED RATE (ESR) Routine 05/17/2002 8:32 Myalgia And Myositi s Results for this AM BLOOD DONOR RECRUITER SUPERVISOR Nos procedure are in Hyperlipidemia Nec/Nos the r esults section. documented in this encounter Results (ABNORMAL) A.M.A. BASIC METABOLIC PANEL (05/17/2002 8:32 AM BLOOD DONOR RECRUITER SUPERVISOR) athologist Signature Sodium 140 133 - 144 [place] mmol/L [facility] Potassium 4.4 3.4 - 5.3 [place] mmol/L [facility] Chloride 108 94 - 109 [place] mmol/L [facility] Carbon Dioxide 31 20 - 32 [place] mmol/L [facility] Anion Gap <1 (L) 6 - 17 [place] mmol/L [facility] Glucose 109 60 - 115 [place] mg/dL [facility] Urea Nitrogen 16 5 - 24 [place] mg/dL [facility] Creatinine 0.9 0.8 - 1.5 [place] mg/dL [facility] Calcium 9.4 8.5 - 10.4 [place] mg/dL [facility] Specimen Anatomical Collection Method Collection Time Receive d Time (Source) Location / / Volume Laterality 05/17/2002 8:32 AM 3 8:34 BLOOD DONOR RECRUITER SUPERVISOR AM BLOOD DONOR RECRUITER SUPERVISOR Mynor Jaramillo MD LABORATORY Performing Organization Address City/State/ZIP Code Phon e Number [facility] [address] [place] [address] [facility] HEMOGRAM (05/17/2002 8:32 AM BLOOD DONOR RECRUITER SUPERVISOR) athologist Signature WBC 9.2 4.0 - 11.0 [place] RIDGES 10e9/L CLINIC LAB RBC Count 4.92 4.4 - 5.9 [facility] 10e12/L [facility] Hemoglobin 15.7 13.3 - 17.7 [facility] g/dL [facility] Hematocrit 46.0 40.0 - 53.0 [facility] % [facility] MCV 94 78 - 100 fl [facility] MCH 31.9 26.5 - 33.0 [facility] pg [facility] MCHC 34.1 32.0 - 36.0 [facility] g/dL [facility] RDW 11.6 10.0 - 15.0 [facility] % [facility] Specimen Anatomical Collection Method Collection Time Receive d Time (Source) Location / / Volume Laterality 05/17/2002 8:32 AM 3 8:34 BLOOD DONOR RECRUITER SUPERVISOR AM BLOOD DONOR RECRUITER SUPERVISOR Mynor Jaramillo MD LABORATORY Performing Organization Address City/State/ZIP Code Phon e Number [facility] [address] [place], [place] [address] [address] [facility] ANTINUCLEAR ANTIBODIES (05/17/2002 8:32 AM BLOOD DONOR RECRUITER SUPERVISOR) Patholo gist Method Time Signature FATMATA Screen by <1.0 [facility] EIA Interpretation: ??Negative [facility] Specimen Anatomical Collection Method Collection Time Receive d Time (Source) Location / / Volume Laterality 05/17/2002 8:32 AM 3 8:34 BLOOD DONOR RECRUITER SUPERVISOR AM BLOOD DONOR RECRUITER SUPERVISOR Mynor Jaramillo MD LABORATORY Performing Organization Address City/State/ZIP Code Phon e Number [address] [address] [facility]S (ABNORMAL) A.M.A. LIPID PANEL (05/17/2002 8:32 AM BLOOD DONOR RECRUITER SUPERVISOR) P athologist Signature Cholesterol 260 (H) <200 mg/dL [facility] Comment: Cholesterol Reference Range: <200 ??The NCEP recommends further ? evaluation of: ? 1. ??Patients with cholesterol ? greater than 200 mg/dL ? if additional risk facto rs ? are present. ? 2. ??All patients with a ? cholesterol greater than ? 240 mg/dL. Triglycerides 207 (H) <150 mg/dL [facility] HDL Cholesterol 41 >40 mg/dL [facility] LDL Cholesterol Calculated 177 (H) <130 mg/dL [facility] VLDL-Cholesterol 41 (H) 0 - 30 mg/dL [place] O XBORO [facility] Cholesterol/HDL Ratio 6 (H) 0 - 5 [facility] Specimen Anatomical Collection Method Collection Time Receive d Time (Source) Location / / Volume Laterality 05/17/2002 8:32 AM 3 8:34 BLOOD DONOR RECRUITER SUPERVISOR AM BLOOD DONOR RECRUITER SUPERVISOR Mynor Jaramillo MD LABORATORY Performing Organization Address City/[facility] Code Phon e Number [facility] [address] [place] [phone] [facility] A.M.A. HEPATIC PANEL (05/17/2002 8:32 AM BLOOD DONOR RECRUITER SUPERVISOR) athologist Signature Bilirubin 0.0 0.0 - 0.3 [place] Conjugated mg/dL [facility] Bilirubin Delta 0.0 0.0 - 0.4 [place] mg/dL [facility] Bilirubin Total 0.6 0.2 - 1.3 [place] mg/dL [facility] Albumin 4.0 3.3 - 4.6 [place] g/dL [facility] Protein Total 7.6 6.0 - 8.2 [place] g/dL [facility] Alkaline 79 40 - 150 [place] Phosphatase U/L [facility] ALT 38 0 - 70 U/L [facility] AST 28 0 - 55 U/L [facility] Specimen Anatomical Collection Method Collection Time Receive d Time (Source) Location / / Volume Laterality 05/17/2002 8:32 AM 3 8:34 BLOOD DONOR RECRUITER SUPERVISOR AM BLOOD DONOR RECRUITER SUPERVISOR Mynor Jaramillo MD LABORATORY Performing Organization Address City/[facility] Phon e Number [facility] [address] [place] [address] [facility] CK, TOTAL (05/17/2002 8:32 AM BLOOD DONOR RECRUITER SUPERVISOR) P athologist Signature CK Total 125 45 - 300 [facility] U/L [facility] Specimen Anatomical Collection Method Collection Time Receive d Time (Source) Location / / Volume Laterality 05/17/2002 8:32 AM 3 8:34 BLOOD DONOR RECRUITER SUPERVISOR AM BLOOD DONOR RECRUITER SUPERVISOR Mynor Jaramillo MD LABORATORY Performing Organization Address City/State/ZIP Code Phon e Number [facility] [address] [place] [address] [facility] SED RATE, AUTO (05/17/2002 8:32 AM BLOOD DONOR RECRUITER SUPERVISOR) athologist Signature Sed Rate 7 0 - 15 mm/h [facility] Specimen Anatomical Collection Method Collection Time Receive d Time (Source) Location / / Volume Laterality 05/17/2002 8:32 AM 3 8:34 BLOOD DONOR RECRUITER SUPERVISOR AM BLOOD DONOR RECRUITER SUPERVISOR Mynor Jaramillo MD LABORATORY Performing Organization Address City/State/ZIP Code Phon e Number [facility] [address] [place] [address] [address] [facility] documented in this encounter Visit Diagnoses Diagnosis Myalgia and myositis, unspecified Mylagia and myositis, unspecified Other and unspecified hyperlipidemia documented in this encounter Care Teams Vice President For Philanthropy Relationship Specialty Start Date End Date Doctor, Leyla, PCP - General 06/02/01 05/31/02 documented as of this encounter
--- OUTSIDE RECORDS SUMMARY | 2021-11-25 05:22 | XMS_ITS | Encounter Summary ---
:1960 Author Organization [place] Address [address] [place] [address] Care Team Providers Name Role Phone Kevin Acuna MD Primary Care Provider Unavailable Reason for Visit Reason Comments Refill Request Encounter Details Date Type Department Care Team Description 08/09/2002 Refill [facility] Danish Guerra MD Refill Request [place] XXX RESIGNED XXX [address] [place] [address] [place] [phone] (Wo rk) Social History Tobacco Use Types [...] this encounter Miscellaneous Notes Telephone Encounter - 08/09/2002 11:59 PM CDT >> MIKI RIVERA Anayeli Aug 09, 2002 4:[address] Jaramillo, please deny this request for Welchol as it is a duplicate. >> SARA SOLIZ Anayeli Aug 09, 2002 4:15 PM >> CALL RECEIVED. Contact: Welchol last filled 05/10/2002 documented in this encounter Plan of Treatment Not on filedocumented as of this encounter Visit Diagnoses Not on filedocumented in this encounter Care Teams Residential Property Tax Appraiser Relationship Specialty Start Date End Date Kevin Acuna MD PCP - General 06/01/02 11/27/17 [place] [address] documented as of this encounter
--- OUTSIDE RECORDS SUMMARY | 2021-11-25 05:22 | XMS_ITS | Encounter Summary ---
:1960 Author Organization [place] Address [address] [place] [address] Care Team Providers Name Role Phone Doctor, None MD Primary Care Provider Unavailable Reason for Visit Reason Comments Consult Encounter Details Date Type Department Care Team Description 05/16/2002 Office Visit [facility] Mynor Jaramillo MYALGI A AND MYOSITIS NOS; Clinic Earnestine Shipman MD HYPERLIPIDEMIA NEC/NOS [address] [place] [phone] Social History Tobacco Use Types Packs/Day Years [...] Sign Reading Time Taken Comments Blood Pressure 124/76 05/16/2002 2:30 PM BURLAPPER Pulse 72 05/16/2002 2:30 PM BURLAPPER Temperature - - Respiratory Rate - - Oxygen Saturation - - Inhaled Oxygen Concentration - - Weight 90.3 kg (199 lb) 05/16/2002 2:30 PM BURLAPPER Height - - Body Mass Index - - documented in this encounter Progress Notes 05/16/2002 2:30 PM BURLAPPER SUBJECTIVE: Mr. Arriaga has a history of familial high cholesterol, He has been on statins for many y ears. His main complaint is of muscle aches. This has been going on for over two years. Muscle relaxa nts have helped but have now stopped working. These pains are in the back, legs and thigh. He has b een off the statins occasion but this did not help. He has been through PT eval and treatment withou t success. OBJECTIVE: BP 124/76 Pulse 72 Wt 199 lbs (90.266 kg) Muscle tightness particularly of the left paraspinal muscles noted at L2 to L5 Assessment: Chronic muscle pain and spasam that i s very bothersome to the patient. The differential would include: myocytis from Statins, PMR and or a nother rheumatologic problem. Plan: 1) Recheck Liver and lipid panel fasting 2) Sed Rate, MARITZA and CBC 3) CK test 4) Hold Welchol tempororaly 5) follow up in 3 weeks. documented in this encounter Nursing Notes 05/16/2002 2:30 PM CST >> SUSAN CORDERO 05/16/2002 2:40 pm c/o of aching in muscles from neck down, also wondering about his cholesterol documented in this encounter Plan of Treatment Not on filedocumented as of this encounter Visit Diagnoses Diagnosis Myalgia and myositis, unspecified Mylagia and myositis, unspecified Other and unspecified hyperlipidemia documented in this encounter Care Teams Physical Trainer Relationship Specialty Start Date End Date Doctor, Leyla, PCP - General 06/02/01 05/31/02 documented as of this encounter
--- OUTSIDE RECORDS SUMMARY | 2021-11-25 05:22 | XMS_ITS | Encounter Summary ---
:1960 Author Organization [place] Address [address] [place] [address] Care Team Providers Name Role Phone Kevin Acuna MD Primary Care Provider Unavailable Encounter Details Date Type Department Care Team Description 10/01/2002 Orders Only [facility] Mynor Jaramillo-MP CLINIC OF Clinic Earnestine Shipman MD NEUROLOGY (Primary Dx) [address] [place] [address] Social History Tobacco Use Types [...] Name Priority Date/Time Associated Diagnosis Comme nts [facility] S[facility] OUT - NEURO Routine 10/01/2002 [facility] documented in this encounter Results [facility]RO SEND OUT - NEURO (10/01/2002) Anatomical Region Laterality Modality Other Narrative This result has an attachment that is no t available. Mynor Jaramillo MD SPECIAL IMAGING STUDIES documented in this encounter Visit Diagnoses Diagnosis [facility] - Primary documented in this encounter Care Teams Principal Hardware Architect Relationship Specialty Start Date End Date Kevin Acuna MD PCP - General 06/01/02 11/27/17 [place] [address] documented as of this encounter
--- OUTSIDE RECORDS SUMMARY | 2021-11-25 05:22 | XMS_ITS | Encounter Summary ---
:1960 Author Organization [place] Address [address] [place] [address]. [place] [address] Care Team Providers Name Role Phone Kevin Acuna MD Primary Care Provider Unavailable Reason for Referral - Closed Specialty Diagnoses / Procedures Referred By Contact Refer red To Contact Diagnoses Myalgia and myositis, unspecified [place] [address] Referral ID Status Reason Start Date Expiration Date Visits Requ ested Visits Authorized [id number] Closed 10/18/2003 04/17/2011 1 1 Reason for Visit Reason Comments Musculoskeletal Problem Encounter Details Date Type Department Care Team Description 10/18/2003 Office Visit [facility] Kevin Acuna M D ORCHITIS/EPIDIDYMIT NEC (Primary Dx); Clinic [place] [facility]IR[place] MYALGIA AND MYOSITIS NOS [address] [place] [place] [address] [place] [address] Social History Tobacco Use Types [...] Sign Reading Time Taken Comments Blood Pressure 120/70 10/18/2003 2:30 PM CDT Pulse 72 10/18/2003 2:30 PM CDT Temperature - - Respiratory Rate - - Oxygen Saturation - - Inhaled Oxygen Concentration - - Weight 88 kg (194 lb) 10/18/2003 2:30 PM CDT Height 177.8 cm (5' 10) 10/18/2003 2:30 PM CDT Body Mass Index 27.84 10/18/2003 2:30 PM CDT documented in this encounter Progress Notes 10/18/2003 2:30 PM CDT S: Pain in rt scrotum for 6 mos. Has had migratory muscle pain in the past; pain moves around and may settle in 1 area for a few mos. No scrotal swelling or masses. No dysuria, hematuria, or increas ed freq. Pain is worse when sitting. O: No inguinal hernias. No groin tenderness. Rt epididymis is slightly prominent and tender; scrotalcontents normal o/w. A: Possible epididymitis P: Doxyc ycline 100 mg bid for 2 wk. Call in 2 wk if not better; could get scrotal ultrasound then. If that is normal, then we've prob done all we can; some men simply have sensitive scrotal contents. Rheum c onsult for the myalgias; order TSH because it has not been checked before (other tests have be en done ). Duration of visit 25 minutes. At least half of this was counseling time. Counseling time include d discussing eval of the myalgias; he's quite frustrated by them; had a muscle bx at [facility] which was nondiagnostic; has seen several consultants; discussed with him that we need consultants' help to so rt this out. documented in this encounter Nursing Notes 10/18/2003 2:30 PM CDT >> ELBA MOISE 10/18/2003 2:40 pm Pt says he doesn't take cholesterol med because he believes it to be the source of his muscle pain. documented in this encounter Plan of Treatment Not on filedocumented as of this encounter Procedures Procedure Name Priority Date/Time Associated Comments Diagnosis ZZ CONSULT MC Routine 09/09/2004 Myalgia And RHEUMATOLOGY Myositis Nos HCL TSH W/FREE T4 Routine 10/18/2003 3:04 PM Myalgia And Resu lts for this REFLEX CDT Myositis Nos procedure are i n the results section. documented in this encounter Results CONSULT RHEUMATOLOGY (09/09/2004) Narrative This result has an attachment that is no t available. Kevin Acuna MD REFERRAL TSH W/FREE T4 REFLEX (10/18/2003 3:04 PM CDT) P athologist Signature TSH 1.76 0.4 - 5.0 [facility] mU/L CLINIC LAB Specimen Anatomical Collection Method Collection Time Receive d Time (Source) Location / / Volume Laterality 10/18/2003 3:04 PM 4 3:09 CDT PM CDT Kevin Acuna MD LABORATORY Performing Organization Address City/State/ZIP Code Phon e Number [facility] [address] [place] [address] [facility] documented in this encounter Visit Diagnoses Diagnosis Other orchitis, epididymitis, and epidid ymo-orchitis, without mention of abscess(604.99) - Primary Other orchitis, epididymitis, and epidid ymo-orchitis, without mention of abscess Myalgia and myositis, unspecified Mylagia and myositis, unspecified documented in this encounter Care Teams Dietary Assistant Relationship Specialty Start Date End Date Kevin Acuna MD PCP - General 06/01/02 11/27/17 [place] [address] documented as of this encounter
--- OUTSIDE RECORDS SUMMARY | 2021-11-25 05:22 | XMS_ITS | Encounter Summary ---
:1960 Author Organization [place] Address [address] [place] [address] Care Team Providers Name Role Phone Kevin Acuna MD Primary Care Provider Unavailable Reason for Visit Reason Comments Refill Request Encounter Details Date Type Department Care Team Description 08/09/2002 Telephone [facility] Mynor Hernandez MD Refill Request [place] [address] [place] [address] Social History Tobacco Use [...] Encounter - 08/09/2002 11:59 PM CDT >> SUSAN CORDERO [facility] Aug 09, 2002 4:38 PM advised of rx being faxed to pharmacy per Dr Hernandez >> MYNOR HERNANDEZ [facility] Aug 09, 2002 4:28 PM please call rx'd faxed in should be ready by 7:00 pm [email or web address] >> MIKI RIVERA [facility] Aug 09, 2002 4:11 PM >> CALL RECEIVED. Contact: Call home # Pt. calling-says that the pt. needs a refill for his Welchol 625mg tabs and he takes 3 tabs BID . Pt. needs Rx as soon as possible as he is going out of town tomorrow afternoon. Please advise. documented in this encounter Plan of Treatment Not on filedocumented as of this encounter Visit Diagnoses Not on filedocumented in this encounter Care Teams Stained Glass Painter Relationship Specialty Start Date End Date Kevin Acuna MD PCP - General 06/01/02 11/27/17 [place] [address] documented as of this encounter
--- OUTSIDE RECORDS SUMMARY | 2021-11-25 05:22 | XMS_ITS | Encounter Summary ---
:1960 Author Organization [place] Address [address] [place] [address] Care Team Providers Name Role Phone Kevin Acuna MD Primary Care Provider Unavailable Reason for Visit Reason Comments Sinus Problem Encounter Details Date Type Department Care Team Description 04/24/2004 Office Visit [facility] Marlon Mustafa MD ACUTE MAXILLARY SINUSITIS; [facility] [place] [address] ACUTE BRONCHITIS; [address] [place] [address] [phone] Social History Tobacco Use Types Packs/Day Years [...] Sign Reading Time Taken Comments Blood Pressure 124/84 04/24/2004 3:18 PM PERSONAL FITNESS MANAGER Pulse 76 04/24/2004 3:18 PM PERSONAL FITNESS MANAGER Temperature 37.3 ??C (99.1 ??F) 04/24/2004 3:18 PM PERSONAL FITNESS MANAGER Respiratory Rate - - Oxygen Saturation - - Inhaled Oxygen Concentration - - Weight - - Height - - Body Mass Index - - documented in this encounter Progress Notes 04/24/2004 2:15 PM PERSONAL FITNESS MANAGER Andrzej Arriaga presents for f/u of persistent respiratory illness symptoms. Pt noted an onset on 04/15/04 of initial diffuse achiness, sore throat, fevers and chills. Saw Dr Acuna on Tuesday of this week, was told he had a cold. He continues to feel poorly. Sore throat and fevers have persisted. Noting yellow-green nasal secretions and cough producing yellow-green sputum. Has some bimaxillary pain, no earache. Breathing okay. He has noted some orange discoloration of his urine also in recent days. Notes a pain in his right forearm, worse with some twisting type motions. OBJECTIVE: Well-appearing middle-aged male in no distress. BP 124/84 Pulse 76 Temp (Src) 99.1 (Oral) Ears normal. Throat and pharynx normal. Neck supple. No adenopathy or masses in the neck or supraclavicular regions. Maxillary sinuses tender. Chest: Clear to auscultation and percussion. Cardiac: Normal to precordial palpation and auscultation. Extremities: Pain with resisted pronation of the right forearm, mostly over the mid-ulnar surface on the right. ASSESSMENT/PLAN: 461.0 ACUTE MAXILLARY SINUSITIS Plan: ZITHROMAX TRI-AMBERLY 500 MG OR TABS 466.0 ACUTE BRONCHITIS Plan: ZITHROMAX TRI-AMBERLY 500 MG OR TABS 841.9 [employer] NOS Note: Right forearm tendonitis. Reassurance. OTC analgesics. Follow up only if unimproved. documented in this encounter Nursing Notes 04/24/2004 2:15 PM CST >> ELBA MOISE 04/24/2004 3:21 pm Andrzej Arriaga presents for sinus problem after 10 days of URI. Pt is going to be flying on Tuesday for business. Initial BP 124/84 Pulse 76 Temp (Src) 99.1 (Oral). BP completed using cuff size: large. documented in this encounter Plan of Treatment Not on filedocumented as of this encounter Visit Diagnoses Diagnosis Acute maxillary sinusitis Acute bronchitis Sprain and strain of unspecified site of elbow and forearm documented in this encounter Care Teams Prestressed Concrete Laborer Relationship Specialty Start Date End Date Kevin Acuna MD PCP - General 06/01/02 11/27/17 [place] [address] documented as of this encounter
--- OUTSIDE RECORDS SUMMARY | 2021-11-25 05:22 | XMS_ITS | Encounter Summary ---
:1960 Author Organization [facility] Address [address] [place] [address] Care Team Providers Name Role Phone Kevin Acuna MD Primary Care Provider Unavailable Reason for Visit Reason Comments Refill Request Encounter Details Date Type Department Care Team Description 10/15/2002 Refill [facility] Danish Guerra MD Refill Request [place] XX RESIGNED [place] [address] [place] [address] [place] [phone] (Wo rk) Social History Tobacco Use Types [...] this encounter Miscellaneous Notes Telephone Encounter - 10/15/2002 11:59 PM CDT >> WILLIAMS HUSSEIN TueOct 15, 2002 1:43 PM >> CALL RECEIVED. Contact: documented in this encounter Plan of Treatment Not on filedocumented as of this encounter Visit Diagnoses Not on filedocumented in this encounter Care Teams Compression Molding Machine Tender Relationship Specialty Start Date End Date Kevin Acuna MD PCP - General 06/01/02 11/27/17 [place] [address] documented as of this encounter
--- OUTSIDE RECORDS SUMMARY | 2021-11-25 05:22 | XMS_ITS | Encounter Summary ---
:1960 Author Organization [facility] Address [address] [place] [address]. [place] [address] Care Team Providers Name Role Phone Kevin Acuna MD Primary Care Provider Unavailable Encounter Details Date Type Department Care Team Description 09/13/[address] [facility] Mynor Jaramillo MD [address] [place] [address] Social History Tobacco Use [...] this encounter Miscellaneous Notes Telephone Encounter - 09/13/2002 11:59 PM CDT >> YVROSE Guadalupe September 13, 2002 9:06 AM >> CALL RECEIVED. Contact: Patient advised of mri results/referral to Neuro documented in this encounter Plan of Treatment Not on filedocumented as of this encounter Visit Diagnoses Not on filedocumented in this encounter Care Teams Planograph Operator Relationship Specialty Start Date End Date Kevin Acuna MD PCP - General 06/01/02 11/27/17 [place] [address] documented as of this encounter
--- OUTSIDE RECORDS SUMMARY | 2021-11-25 05:22 | XMS_ITS | Encounter Summary ---
:1960 Author Organization [facility] Address [address] [place] [address] Care Team Providers Name Role Phone Kevin Acuna MD Primary Care Provider Unavailable Reason for Visit Reason Comments Physical Encounter Details Date Type Department Care Team Description 08/31/2002 Office Visit [facility] Mynor Hernandez (Primary Dx); Clinic Earnestine Shipman MD HYPERLIPIDEMIA NEC/NOS [address] [place] [phone] Social History Tobacco Use Types Packs/Day Years [...] Sign Reading Time Taken Comments Blood Pressure 126/76 08/31/2002 8:00 AM CDT Pulse 80 08/31/2002 8:00 AM CDT Temperature - - Respiratory Rate - - Oxygen Saturation - - Inhaled Oxygen Concentration - - Weight 88.9 kg (196 lb) 08/31/2002 8:00 AM CDT Height - - Body Mass Index - - documented in this encounter Progress Notes 08/31/2002 8:00 AM CDT Addended by: DAMON SUTTON on: 09/12/2002,2:05 PM Modules accepted: Order Summary SUBJECTIVE: Nehemiah Arriaga was doing better on the Trazadone for a while. 2 weeks ago he had a reinjury. He now hasmo re pain in the upper back. He has continued on the Trazadone but it is very sedating. OBJECTIVE: B P 126/76 Pulse 80 Wt 196 lbs (88.905 kg) Neuro: some drift of the left arm, otherwise nonfocal Assessment: Possible nerve impingement in C-Spine Hyperlipidemia - back on Wellchol Plan: Agree w ith Dr Galeana - will do MRI of C-Spine and follow up there after Recheck liver, lipid panel documented in this encounter Nursing Notes 08/31/2002 8:00 AM CDT >> GIL SUSAN 08/31/2002 8:00 am Is Fasting, still having muscle pain in back and neck documented in this encounter Plan of Treatment Not on filedocumented as of this encounter Procedures Procedure Name Priority Date/Time Associated Diagnosis Comme nts HC MRI CERVICAL Routine 09/06/2002 Cervicalgia Results for this SPINE W/O CONTRAST procedure are in the results section. HCL HEPATIC PANEL Routine 08/31/2002 8:16 AM Hyperlipidemia Ne c/Nos Results for this CDT procedure are i n the results section. CL AFF A.M.A. Routine 08/31/2002 8:16 AM Hyperlipidemia Nec/No s Results for this LIPID PANEL CDT procedure are i n the results section. documented in this encounter Results MRI, CERV SPINE (09/06/2002) Anatomical Region Laterality Modality Other Impressions 09/06/2002 MRI OF THE CERVICAL SPINE HISTORY: Radicular left arm pain and nec k pain. TECHNIQUE: Sagittal T1, sagittal T2, sag ittal and axial gradient echo images of the cervical spine. FINDINGS: Craniocervical junction region is normal. Vertebral body marrow signal and alignment are nor mal from craniocervical junction through T1. Upper cervical spin e negative through C3-4. C4-5: Minimal disk space narrowing. No d isk protrusion. No central or lateral stenosis. C5-6: Negative. No disk protrusion. No c entral or lateral stenosis. C6-7: Negative. C7-T1: Negative. No cord abnormality from craniocervical junction through T3. IMPRESSION: Minimal disk space narrowing C4-5. Remai nder of cervical spine normal. END OF IMPRESSION Ordering Provider: ??MYNOR HERNANDEZ Principal Result Registered Clinical Dietitian: ??MALI KNIGHT Mold Puller: ??MALI Shaw Mynor Hernandez MD SPECIAL IMAGING STUDIES (ABNORMAL) A.M.A. LIPID PANEL (08/31/2002 8:16 AM CDT) P athologist Signature Cholesterol 253 (H) <200 mg/dL [facility] Comment: Cholesterol Reference Range: <200 ??The NCEP recommends further ? evaluation of: ? 1. ??Patients with cholesterol ? greater than 200 mg/dL ? if additional risk facto rs ? are present. ? 2. ??All patients with a ? cholesterol greater than ? 240 mg/dL. Triglycerides 206 (H) <150 mg/dL [facility] HDL Cholesterol 37 (L) >40 mg/dL [facility] LDL Cholesterol Calculated 174 (H) <130 mg/dL [facility] VLDL-Cholesterol 41 (H) 0 - 30 mg/dL [place] [facility] Cholesterol/HDL Ratio 7 (H) 0 - 5 [facility] Specimen Anatomical Collection Method Collection Time Receive d Time (Source) Location / / Volume Laterality 08/31/2002 8:16 AM 3 8:17 CDT AM CDT Mynor Hernandez MD LABORATORY Performing Organization Address City/State/ZIP Code Phon e Number [facility] [address] [place] [address] [facility] A.M.A. HEPATIC PANEL (08/31/2002 8:16 AM CDT) P athologist Signature Bilirubin 0.0 0.0 - 0.3 [place] Conjugated mg/dL [facility] Bilirubin Delta 0.2 0.0 - 0.4 [place] mg/dL [facility] Bilirubin Total 0.6 0.2 - 1.3 [place] mg/dL [facility] Albumin 4.0 3.3 - 4.6 [place] g/dL [facility] Protein Total 7.2 6.0 - 8.2 [place] g/dL [facility] Alkaline 76 40 - 150 [place] Phosphatase U/L [facility] ALT 18 0 - 70 U/L [facility] AST 21 0 - 55 U/L [facility] Specimen Anatomical Collection Method Collection Time Receive d Time (Source) Location / / Volume Laterality 08/31/2002 8:16 AM 3 8:17 CDT AM CDT Mynor Hernandez MD LABORATORY Performing Organization Address City/State/ZIP Code Phon e Number [facility] [address] [place] [address] [facility] documented in this encounter Visit Diagnoses Diagnosis Cervicalgia - Primary Other and unspecified hyperlipidemia documented in this encounter Care Teams High School Librarian Relationship Specialty Start Date End Date Kevin Acuna MD PCP - General 06/01/02 11/27/17 [place] [address] documented as of this encounter
--- OUTSIDE RECORDS SUMMARY | 2021-11-25 05:22 | XMS_ITS | Encounter Summary ---
:1960 Author Organization [facility] Address [address] [place] [address]. 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 Had a CT done elsewhere for possible renal calc. This was November 19. Showed what appeared to be an enlged lymph node 17x11 mm immed sup to head of pancreas. He has no sx referrable to it. Also concerned about 2 raised lesions on lower back. Has chronic muscle pain; see note of October 19. An orthopedic surgeon found pos HLA B27 and has sent him for a rheum consul t, which will take place in ~ 10 days. O: No neck, supraclavic, axillary, inguinal, or epitroch adenopathy. Abdomen- nontender without organomegaly or mass. 2 seborrheic keratoses on lower back; both sl raised and with typical texture. 1 measures 4 mm; other 7 mm. A: Abd mass on CT-prob enlarged node. Seborrheic keratoses. Poss HLA B27 spondyloarthropathy; rheumconsult pending. P: Duration of visit 25 minutes. At least half of this was counseling time. Counseling time included reviewing outside records, incl imaging reports scanned which will be scanned into Epic, incl the CT. Also muscle bx report, which was nonspecific. Repeat CT of the abd; if node is unchanged or smaller, may not need to do anything else. Reassured about kam keratoses. Quick Note by: LEANNE ACUNA on 03/20/04 at 6:18 PM. Plz tell him that CT shows no change in the lymph node in the abd since November. Tell him to call usto order another CT in 6 mos. If no change then, we will prob stop following it. documented in this encounter Nursing Notes 03/16/2004 4:15 PM CST >> RASHI CHEN 03/16/2004 4:30 pm Andrzej Arriaga presents for f/u back pain and check moles. Initial BP 124/82 Pulse 68 Wt 203 lbs (92.1kg). BP completed using cuff size: large. documented in this encounter Plan of Treatment Not on filedocumented as of this encounter Procedures Procedure Name Priority Date/Time Associated Diagnosis Comme nts HC CT ABDOMEN W/O Routine 03/20/2004 12:35 PM Abdominal or pel gill Results for this CONTRAST LABORATORY SCIENTIST swelling, mass or procedure are in lump, unspecified the result s site section. documented in this encounter Results CT SCAN ABDOMEN (03/20/2004 12:35 PM LABORATORY SCIENTIST) Anatomical Region Laterality Modality Other Specimen (Source) Anatomical Collection Method Collection Time Re ceived Time Location / / Volume Laterality 03/20/2004 12:35 PM LABORATORY SCIENTIST Impressions 03/20/2004 4:[address] SCAN OF THE ABDOMEN WITH IV CONTRAST ?03/20/2004 ?? HISTORY: ??Follow-up lymph node. ?? FINDINGS: ??Compared to previous report of 11/23/2003 there has been no change in the 11 x 18mm lymph node se en just superior to the head of the pancreas. ??A small 5mm node in t he [place] hepatis is also noted. ??Lung bases are clear. ??Liver, spleen, pancreas, gallbladder, kidneys and adrenal glands are normal. ? ?There is a retroaortic left renal vein. ??Calcification is present i n the abdominal aorta which is a risk factor for vascular disease. ??No other evidence of adenopathy is present. ?? CONCLUSION: ?? Stable lymph node in the region of the p ancreatic head compared to previous report of November,. ?? Leanne Acuna MD SPECIAL IMAGING STUDIES documented in this encounter Visit Diagnoses Diagnosis Abdominal or pelvic swelling, mass or jaki mp, unspecified site - Primary Benign neoplasm of skin of trunk, except scrotum documented in this encounter Care Teams Channel Program Manager Relationship Specialty Start Date End Date Leanne Acuna MD PCP - General 06/01/02 11/27/17 [place] [address] documented as of this encounter
--- OUTSIDE RECORDS SUMMARY | 2021-11-25 05:22 | XMS_ITS | Encounter Summary ---
:1960 Author Organization [facility] Address [address] [place] [address] Care Team Providers Name Role Phone Kevin Acuna MD Primary Care Provider Unavailable Rolly Iniguez Primary Care Provider Unavailable Singh Neumann MD Unavailable Encounter Details Date Type Department Care Team Description 03/17/2004 Medical Correspondence [facility] Kevin Acuna, [facility] Earnestine SANZ (Primary Dx) [address] [facility] [place], [place] [phone] Social History Tobacco Use Types Packs/Day [...] as of this encounter Visit Diagnoses Diagnosis [facility] - Primary documented in this encounter Care Teams Communications Director Relationship Specialty Start Date End Date Kevin Acuna MD PCP - General 06/01/02 11/27/17 [place] [address] Rolly Iniguez PCP - General Family Practice 12/05/17 Singh Neumann MD Assigned Neuroscience 02/08/20 03/01/20 [address] [place] [address] documented as of this encounter
--- OUTSIDE RECORDS SUMMARY | 2021-11-25 05:22 | XMS_ITS | Encounter Summary ---
:1960 Author Organization [facility] Address [address] [place] [address] Care Team Providers Name Role Phone Leanne Harrison MD Primary Care Provider Unavailable Reason for Visit Reason Comments Pharyngitis Throat has been sore x 7 day s Encounter Details Date Type Department Care Team Description 04/21/2004 Office Visit [facility] Leanne Harrison M D ACUTE URI NOS (Primary Clinic [facility] RETIRED Dx) [address] [place] [address] [place] [phone] Social History Tobacco Use Types Packs/Day Years [...] Sign Reading Time Taken Comments Blood Pressure 110/72 04/21/2004 1:51 PM MILKING WORKER Pulse 76 04/21/2004 1:51 PM MILKING WORKER Temperature 37.1 ??C (98.8 ??F) 04/21/2004 1:51 PM MILKING WORKER Respiratory Rate - - Oxygen Saturation - - Inhaled Oxygen Concentration - - Weight 90.7 kg (200 lb) 04/21/2004 1:51 PM MILKING WORKER Height - - Body Mass Index 28.7 10/18/2003 2:30 PM CDT documented in this encounter Progress Notes 04/21/2004 1:45 PM MILKING WORKER S: Sore throat for 1 wk. Highest temp was 99.6. [place] chilly, but that is better. Diarrhea was present but has stopped. Had nasal congestion and slight cough; those are better. Except for the sore throat, things seem to be getting better. O: Ears-normal. Throat-normal. Neck-ant cerv nodes sl tender but not enlarged. Lungs-clear. A: Residual of URI P: Strep test. Saline gargles. Quick Note by: LEANNE HARRISON on 04/21/04 at 6:13 PM. Tell him strep test is neg. documented in this encounter Nursing Notes 04/21/2004 1:45 PM CST >> EBLA MOISE 04/21/2004 1:52 pm Andrzej Arriaga presents for sore throat and swollen glands. Initial BP 110/72 Pulse 76 Temp (Src) 98.8 (Oral) Wt 200 lbs (90.7kg). BP completed using cuff size: large. documented in this encounter Plan of Treatment Not on filedocumented as of this encounter Procedures Procedure Name Priority Date/Time Associated Diagnosis Comme nts HCL BETA STREP Routine 04/21/2004 2:30 PM Acute Uri Nos Result s for this CONFIRM MILKING WORKER procedure are i n the results section. HCL STREP GROUP A Routine 04/21/2004 2:30 PM Acute Uri Nos Res ults for this AG (RAPID) MILKING WORKER procedure are i n the results section. documented in this encounter Results BETA STREP CONFIRM (04/21/2004 2:30 PM MILKING WORKER) Component Value Ref Test Analysis Performed At [facility] gist Range Method Time Signature Specimen Throat [place] Description [facility] Culture Micro No Beta [place] Streptococcus [facility] isolated CLINIC LAB Report status FINAL [id number] [facility] Specimen Anatomical Collection Method Collection Time Receive d Time (Source) Location / / Volume Laterality 04/21/2004 2:30 PM 5 2:35 MILKING WORKER PM MILKING WORKER Leanne Harrison MD LABORATORY Performing Organization Address City/State/ZIP Code Phon e Number [facility] [address] [place], [place] [address] [address] [facility] STREP GROUP A AG (RAPID) (04/21/2004 2:30 PM MILKING WORKER) Component Value Ref Test Analysis Performed At [facility] Range Method Time Signature Specimen Throat [facility] Rapid Strep A NEGATIVE: No Group A strepto coccal antigen detected by immunoassay, await [place] Screen culture report. [facility] Report status FINAL [id number] [facility] Specimen Anatomical Collection Method Collection Time Receive d Time (Source) Location / / Volume Laterality 04/21/2004 2:30 PM 5 2:35 MILKING WORKER PM MILKING WORKER Leanne Harrison MD LABORATORY Performing Organization Address City/State/ZIP Code Phon e Number [facility] [address] [place], [place] [address] [address] [facility] documented in this encounter Visit Diagnoses Diagnosis Acute upper respiratory infections of un specified site - Primary documented in this encounter Care Teams Certified Medical Biller Relationship Specialty Start Date End Date Leanne Harrison MD PCP - General 06/01/02 11/27/17 [place] [address] documented as of this encounter
--- OUTSIDE RECORDS SUMMARY | 2021-11-25 05:22 | XMS_ITS | Encounter Summary ---
:1960 Author Organization [facility] Address [address] [place] [address] Care Team Providers Name Role Phone Leanne Acuna MD Primary Care Provider Unavailable Reason for Visit Reason Comments Patient/info Update orchitis Encounter Details Date Type Department Care Team Description 11/07/2003 Telephone [facility] Kassie Acuna MD Patient/info Update; [place] RETIRED [address] [place], [place] [phone] Social History Tobacco Use Types Packs/Day Years [...] this encounter Miscellaneous Notes Telephone Encounter - 11/07/2003 11:59 PM CDT >> ELBA MOISE TueNov 08, 2003 2:09 PM I left detailed message on pt's answering machine. >> LEANNE ACUNA TueNov 08, 2003 11:14 AM Order scrotal ultrasound; dx pain in scrotum. Also remind him of our discussion on October 17 visit; if ultrasound is normal, then we have probably done all we can; some men simply have sensitive scrotal contents. >> SARA COSME [facility] Nov 07, 2003 3:23 PM >> CALL RECEIVED. Contact: ok to leave message pt calling back as instructed. he rates his pain at 2 to 3 the pain it is no longer constant. [at hi s visit with you he rated his pain was 6 to 7] the pain is worse after sitting for a period of kedar e. he describes the pain as deep inside. he is asking what the next step is. please advise documented in this encounter Plan of Treatment Not on filedocumented as of this encounter Procedures Procedure Name Priority Date/Time Associated Diagnosis Comme [facility] US SCROTUM AND Routine 11/15/2003 3:47 PM Unspecified disor an Results for this CONTENTS CDT of male genital procedure ar e in organs the results section. documented in this encounter Results SONO SCROTUM (11/15/2003 3:47 PM CDT) Anatomical Region Laterality Modality Other Specimen (Source) Anatomical Collection Method Collection Time Re ceived Time Location / / Volume Laterality 11/15/2003 3:47 PM CDT Impressions 11/17/2003 10:19 AM CDT TESTICULAR ULTRASOUND WITH DOPPLER ?? INDICATION: ??Right testicular pain. ??D eep scrotal pain. ? FINDINGS: ??The testicles are normal in size and texture bilaterally. No testicular mass. ??The right testicle measures 3.6 x 2.8 x 2.2cm. ?? Left testicle measures 4.0 x 3.1 x 2.1cm . ??Doppler evaluation of the testicles shows normal and symmetric blo od flow. ??The epididymi appear normal bilaterally. ??No scrotal abnormality. ? IMPRESSION: Normal testicular ultrasound. Leanne Acuna MD SPECIAL IMAGING STUDIES documented in this encounter Visit Diagnoses Diagnosis Unspecified disorder of male genital org ans - Primary documented in this encounter Care Teams Card Puncher Relationship Specialty Start Date End Date Leanne Acuna MD PCP - General 06/01/02 11/27/17 [place] [address] documented as of this encounter
--- OUTSIDE RECORDS SUMMARY | 2021-11-25 05:22 | XMS_ITS | Encounter Summary ---
:1960 Author Organization [facility] Address [address] [place] [address] Care Team Providers Name Role Phone Kevin Acuna MD Primary Care Provider Unavailable Reason for Visit Reason Comments Refill Request Encounter Details Date Type Department Care Team Description 07/13/2002 Refill [facility] Danish Guerra MD Refill Request [place] XX RESIGNED [place] [address] [place] [address] [place] [phone] (Wo rk) Social History Tobacco Use Types [...] this encounter Miscellaneous Notes Telephone Encounter - 07/13/2002 11:59 PM HOSPITAL CLEANING SPECIALIST >> OUSMANE OSMAN TueJul 13, 2002 9:26 AM >> CALL RECEIVED. Contact: last filled 05-11-02 documented in this encounter Plan of Treatment Not on filedocumented as of this encounter Visit Diagnoses Not on filedocumented in this encounter Care Teams Strategic Marketing Leader Relationship Specialty Start Date End Date Kevin Acuna MD PCP - General 06/01/02 11/27/17 [place] [address] documented as of this encounter
--- OUTSIDE RECORDS SUMMARY | 2021-11-25 05:22 | XMS_ITS | Encounter Summary ---
:1960 Author Organization [place] Address [address] [place] [address]. [place] [address] Care Team Providers Name Role Phone Kevin Acuna MD Primary Care Provider Unavailable Reason for Visit Reason Comments Medication Problem methocarbomol Encounter Details Date Type Department Care Team Description 02/25/2003 [facility] Mynor Hernandez Medica tion Problem Clinic Earnestine Shipman MD (methocarbomol) [address] [place] [address] Social History Tobacco Use Types [...] this encounter Miscellaneous Notes Telephone Encounter - 02/25/2003 11:59 PM PROTECTION ANALYST >> FARHAN JOHNSON Mon Feb 25, 2003 12:08 PM pT HAS BEEN ADVISED >> MYNOR HERNANDEZ Mon Feb 25, 2003 12:03 PM reviewed let him know I faxed in an rx for Flexoril also - if not better he can switch to this in a day or two. >> SARA COSME Mon Feb 25, 2003 11:41 AM per pt he feels the muscle tightness is due to the position he held his shoulder in after the biopsy was done. the biopsy site is healing well. it was done at the [facility]. in the past he has had to switch muscle relaxers as they seem not to work after awhile. he will try taking med as directed below but could he try another med. please advise >> SUSAN CORDERO TueFeb 25, 2003 9:54 AM Message left on answering machine for patient to call back regarding phone message BELOW >> MYNOR BUCKDIOMEDES TueFeb 25, 2003 9:41 AM If he is not sedated he can increase the Methocarbomol for 3 days to TID. Please ask where the shoulder BX was doen so I can follow up on this >> SARA DAVID TueFeb 25, 2003 9:05 AM >> CALL RECEIVED. Contact: c/o muscle problems and was started on methocarbomol, He has noticed a decreace in the effectiveness of the med. He had a left shoulder biopsy last week, it isn't bothering him byt he has neck and back pain. Please advise. documented in this encounter Plan of Treatment Not on filedocumented as of this encounter Visit Diagnoses Not on filedocumented in this encounter Care Teams Maintenance Truck Driver Relationship Specialty Start Date End Date Kevin Acuna MD PCP - General 06/01/02 11/27/17 [place] [address] documented as of this encounter
--- OUTSIDE RECORDS SUMMARY | 2021-11-25 05:22 | XMS_ITS | Encounter Summary ---
:1960 Author Organization [place] Address [address] [place] [address] Care Team Providers Name Role Phone Kevin Acuna MD Primary Care Provider Unavailable Reason for Visit Reason Comments Refill Request Encounter Details Date Type Department Care Team Description 09/04/2002 Refill [facility] Mynor Jaramillo MD Refill Request [place] [address] [place] [address] Social History Tobacco Use [...] this encounter Miscellaneous Notes Telephone Encounter - 09/04/2002 11:59 PM CDT >> SARA Sheets September 04, 2002 8:43 AM >> CALL RECEIVED. Contact: Trazodone last refill date: 07/17/02 documented in this encounter Plan of Treatment Not on filedocumented as of this encounter Visit Diagnoses Not on filedocumented in this encounter Care Teams Family Assessment Worker Relationship Specialty Start Date End Date Kevin Acuna MD PCP - General 06/01/02 11/27/17 [place] [address] documented as of this encounter
--- OUTSIDE RECORDS SUMMARY | 2021-11-25 05:22 | XMS_ITS | Encounter Summary ---
:1960 Author Organization [place] Address [address] [place] [address]. [place] [address] Care Team Providers Name Role Phone Kevin Acuna MD Primary Care Provider Unavailable Reason for Referral - Closed Specialty Diagnoses / Procedures Referred By Contact Refer red To Contact Diagnoses Cervicalgia Mynor Hernandez MD [facility] [address] [place] [address] Referral ID Status Reason Start Date Expiration Date Visits Requ ested Visits Authorized [id number] Closed 09/26/2002 04/17/2011 1 1 Reason for Visit Reason Comments Referral Encounter Details Date Type Department Care Team Description 09/24/2002 [facility] Mynor Hernandez MD Referral [address] [place], [place] [phone] Social History Tobacco Use Types Packs/Day [...] this encounter Miscellaneous Notes Telephone Encounter - 09/24/2002 5:03 PM CDT >> FIGUEROA Sheets Oct 09, 2002 5:04 PM Calling patient to update status. Pt has not received return call from [facility]. Plans are to keep appt with [facility]. Dr. Ybarra 12-19-02. [phone]. Neuro consult letter, labs and mri faxed to [facility] >> SARA COSME Anayeli Sep 27, 2002 3:59 PM pt called back he is unable to be seen in clinc at the till mid dec. he is calling the other choice and will call back with where to fax referral. >> ANETA WEBER TueSep 26, 2002 8:10 AM Patient contacted and would like to try [facility]. Patient will call nurse back with information on appt time and who with and a fax to forward applicable information. Please forward msg back to me when patient obtains info. >> ANETA WEBER TueSep 26, 2002 8:08 AM Referral completed to either Rheumatology or [facility]. Patient can choose. Can fax to appropriate office once Patient has appt scheduled. And Neurology note has not yet arrived. >> MYNOR HERNANDEZ TueSep 26, 2002 7:22 AM referal to Rheum is the next step Please do: 1) Referal to Rheum 2) Fax copy of all my recent notes to the Retail Visual Merchandiser 3) Fax copy of Neuro's note to rheum when it arrives >> FIGUEROA HAND [facility] Sep 24, 2002 5:08 PM >> CALL RECEIVED. Contact: Pt has seen Neurology. Pt felt the tone of the visit was that Neuro could not offer more. [place] dx fibromyalgia. Pt states muscle tightness worsening. Pt would like to pursue this. What do you recommend? Referr al for fibromyalgia. documented in this encounter Plan of Treatment Not on filedocumented as of this encounter Procedures Procedure Name Priority Date/Time Associated Diagnosis Comme nts ZZ CONSULT RHEUMATOLOGY Routine 12/19/2002 Cervicalgia documented in this encounter Results CONSULT RHEUMATOLOGY (12/19/2002) Narrative This result has an attachment that is no t available. Mynor Hernandez MD REFERRAL documented in this encounter Visit Diagnoses Diagnosis Cervicalgia - Primary documented in this encounter Care Teams Diesel Engine Operator Relationship Specialty Start Date End Date Kevin Acuna MD PCP - General 06/01/02 11/27/17 [place] [address] documented as of this encounter
== END 2021-11-24 07:38 | disposition home or self-care (01) ==
LOC: INJ CL 07:38
PROVIDERS: PCP Family Medicine; Visit Provider Family Medicine
DX: M54.16 Radiculopathy, lumbar region (principal); M48.062 Spinal stenosis, lumbar region with neurogenic claudication
CPT/HCPCS: 64483; J1100; Q9966

== ENCOUNTER 2022-01-05 07:26 | Outpatient (CLI) | payer OTHER, SELFPAY ==
--- OUTSIDE RECORDS SUMMARY | 2022-01-05 07:48 | XMS_ITS | Encounter Summary ---
:1960 Author Organization [place] Address [address] [place] [address] Care Team Providers Name Role Phone Leanne Harrison MD Primary Care Provider Unavailable Reason for Visit Reason Comments Pharyngitis Throat has been sore x 7 day s Encounter Details Date Type Department Care Team Description 04/21/2004 Office Visit [facility] Leanne Harrison M D ACUTE URI NOS ([facility] [place] RETIRED Dx) [address] [place] [address] [place] [address] Social History Tobacco Use Types Packs/Day Years [...] Comments Blood Pressure 110/72 04/21/2004 1:51 PM DAY PORTER Pulse 76 04/21/2004 1:51 PM DAY PORTER Temperature 37.1 ??C (98.8 ??F) 04/21/2004 1:51 PM DAY PORTER Respiratory Rate - - Oxygen Saturation - - Inhaled Oxygen Concentration - - Weight 90.7 kg (200 lb) 04/21/2004 1:51 PM DAY PORTER Height - - Body Mass Index 28.7 10/18/2003 2:30 PM CDT documented in this encounter Progress Notes 04/21/2004 1:45 PM DAY PORTER S: Sore throat for 1 wk. Highest temp was 99.6. [place] chilly, but that is better. Diarrhea was [...] Nursing Notes 04/21/2004 1:45 PM CST >> ELBA MOISE 04/21/2004 1:52 pm Andrzej Arriaga presents [...] Uri Nos Result s for this CONFIRM DAY PORTER procedure are i n the results section. HCL STREP GROUP A Routine 04/21/2004 2:30 PM Acute Uri Nos Res ults for this AG (RAPID) DAY PORTER procedure are i n the results section. documented in this encounter Results BETA STREP CONFIRM (04/21/2004 2:30 PM DAY PORTER) Component Value Ref Test Analysis Performed At [facility] gist Range Method Time Signature Specimen Throat PALMYRA Description [facility] Culture Micro No Beta PALMYRA Streptococcus [facility] isolated CLINIC LAB Report status FINAL [id number] [facility] Specimen Anatomical Collection Method Collection Time Receive d Time (Source) Location / / Volume Laterality 04/21/2004 2:30 PM 5 2:35 DAY PORTER PM DAY PORTER Leanne Harrison MD LABORATORY Performing Organization Address City/State/ZIP Code Phon e Number [facility] [address] [place], [place] [address] [address] [facility] STREP GROUP A AG (RAPID) (04/21/2004 2:30 PM DAY PORTER) Component Value Ref Test Analysis Performed At [facility] Range Method Time Signature Specimen Throat [facility] Rapid Strep A NEGATIVE: No Group A strepto coccal antigen detected by immunoassay, await PALMYRA Screen culture report. [facility] Report status FINAL [id number] [facility] Specimen Anatomical Collection Method Collection Time Receive d Time (Source) Location / / Volume Laterality 04/21/2004 2:30 PM 5 2:35 DAY P[facility] PM DAY PORTER Leanne Harrison MD LABORATORY Performing Organization Address City/State/ZIP Code Phon e Number [facility] [address] [place], [place] [address] [address] [facility] documented in this encounter Visit Diagnoses Diagnosis Acute upper respiratory infections of un specified site - Primary documented in this encounter Care Teams Marketing Services Rep Relationship Specialty Start Date End Date Leanne Harrison MD PCP - General 06/01/02 11/27/17 [place] [address] documented as of this encounter
--- OUTSIDE RECORDS SUMMARY | 2022-01-05 07:48 | XMS_ITS | Encounter Summary ---
:1960 Author Organization [place] Address [address] [place] [address] Care Team Providers Name Role Phone Kevin Acuna MD Primary Care Provider Unavailable Reason for Visit Reason Comments Sinus Problem Encounter Details Date Type Department Care Team Description 04/24/2004 Office Visit [facility] Marlon Mustafa MD ACUTE MAXILLARY SINUSITIS; Clinic [place] [address] ACUTE BRONCHITIS; [address] [address] [phone] Social History Tobacco Use Types Packs/Day Years [...] Comments Blood Pressure 124/84 04/24/2004 3:18 PM CNC LASER OPERATOR Pulse 76 04/24/2004 3:18 PM CNC LASER OPERATOR Temperature 37.3 ??C (99.1 ??F) 04/24/2004 3:18 PM CNC LASER OPERATOR Respiratory Rate - - Oxygen Saturation - - Inhaled Oxygen Concentration - - Weight - - Height - - Body Mass Index - - documented in this encounter Progress Notes 04/24/2004 2:15 PM CNC LASER OPERATOR Andrzej Arriaga presents for f/u of persistent [...] forearm documented in this encounter Care Teams Dress Designer Relationship Specialty Start Date End Date Kevin Acuna MD PCP - General 06/01/02 11/27/17 [place] [address] documented as of this encounter
--- OUTSIDE RECORDS SUMMARY | 2022-01-05 07:48 | XMS_ITS | Encounter Summary ---
:1960 Author Organization [place] Address [address] [place] [address] Care Team Providers Name Role Phone Rolly Iniguez Primary Care Provider Unavailable Encounter Details Date Type Department Care Team Description 12/20/2017 Hospital Encounter [facility] Nehemiah Delgado uscular pain (Primary Dx); Maritza Cerna MD Leg muscle spasm Laboratory [facility] [address] [place], [place] [address] [address] [place] [address] [place] [address] Social History Tobacco Use Types Packs/Day Years [...] n immunofixation. ??Pathological significance requires clinical 12/21/2017 [facility] correlation. 12:21 PM OF [facility] Comment: Daniel Roblero M.D., Ph.D. IGG 828 695 - 1,620 mg/dL 12/21/2017 11:[address] [facility] IGA 124 70 - 380 mg/dL 12/21/2017 11:11 AM CDT U [facility] IGM 91 60 - 265 mg/dL 12/21/2017 11:11 AM CDT [facility] Specimen Anatomical Collection Method Collection Time Receive d Time (Source) Location / / Volume Laterality Blood specimen 12/20/2017 4:45 PM 018 5:02 (specimen) CDT PM CDT Sena Delgado MD LAB - BLOOD ORDERABLES Performing Organization Address City/[facility]/ZIP Code Phon e Number [facility] [address] [place], [place] [phone] [place] [address] Vitamin B12 (12/20/2017 4:45 PM CDT) P athologist Signature Vitamin B12 489 193 - 986 12/20/2017 [facility] pg/mL 8:47 PM CDT [facility] Specimen Anatomical Collection Method Collection Time Receive d Time (Source) Location / / Volume Laterality Blood specimen 12/20/2017 4:45 PM 018 5:02 (specimen) CDT PM CDT Sena Delgado MD LAB - BLOOD ORDERABLES Performing Organization Address City/[facility]/ZIP Code Phon e Number [facility] [address] TSH with free T4 reflex (12/20/2017 4:45 PM CDT) athologist Signature TSH 1.93 0.40 - 4.00 12/20/2017 [place] mU/L 5:32 PM CDT [facility] Specimen Anatomical Collection Method Collection Time Receive d Time (Source) Location / / Volume Laterality Blood specimen 12/20/2017 4:45 PM 018 5:02 (specimen) CDT PM CDT Sena Delgado MD LAB - BLOOD ORDERABLES Performing Organization Address City/[facility]/ZIP Code Phon e Number [facility] [address] [address] [phone] [facility] [address] [address], [facility] [phone] documented in this encounter Visit Diagnoses Diagnosis Muscular pain - Primary Mylagia and myositis, unspecified Leg muscle spasm Spasm of muscle documented in this encounter Care Teams Accountant Tax Relationship Specialty Start Date End Date Rolly Iniguez PCP - General Family Practice 12/05/17 documented as of this encounter
--- OUTSIDE RECORDS SUMMARY | 2022-01-05 07:48 | XMS_ITS | Encounter Summary ---
:1960 Author Organization [place] Address [address] [place] [address] Care Team Providers Name Role Phone Rolly Iniguez Primary Care Provider Unavailable Reason for Visit Reason Comments *-*INCOMING RECORDS*-* [facility] Neurol [facility] Encounter Details Date Type Department Care Team Description 05/11/2018 Documentation Only [facility] Neurology Singh Neumann *-*INCOMING [address] Medardo Arreola MD RECORDS*-* [address] [facility] [address] [place], [place]... [place] [phone] Social History Tobacco Use Types Packs/Day Years [...] Records received via fax - 16 pages MED SECURITY GUARD documented in this encounter Plan of Treatment Not on filedocumented as of this encounter Visit Diagnoses Not on filedocumented in this encounter Care Teams Inspection Manager Relationship Specialty Start Date End Date Rolly Iniguez PCP - General Family Practice 12/05/17 documented as of this encounter
--- OUTSIDE RECORDS SUMMARY | 2022-01-05 07:48 | XMS_ITS | Encounter Summary ---
:1960 Author Organization [place] Address [address] [place] [address] Care Team Providers Name Role Phone Kevin Acuna MD Primary Care Provider Unavailable Reason for Visit Reason Comments Refill Request Encounter Details Date Type Department Care Team Description 10/15/2002 Refill [facility] Danish Guerra MD Refill Request [place] XX RESIGNED [place] [address] [place] [address] [place] [address] [place] [phone] (Wo rk) Social History Tobacco Use Types [...] on filedocumented in this encounter Care Teams [employer] Dean Relationship Specialty Start Date End Date Kevin Acuna MD PCP - General 06/01/02 11/27/17 [place] [address] documented as of this encounter
--- OUTSIDE RECORDS SUMMARY | 2022-01-05 07:48 | XMS_ITS | Encounter Summary ---
:1960 Author Organization [place] Address [address] [place] [address]. 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 Had [...] or pel gill Results for this CONTRAST CUSTODIAL WORKER swelling, mass or procedure are in lump, unspecified the result s site section. documented in this encounter Results CT SCAN ABDOMEN (03/20/2004 12:35 PM CUSTODIAL WORKER) Anatomical Region Laterality Modality Other Specimen (Source) Anatomical Collection Method Collection Time Re ceived Time Location / / Volume Laterality 03/20/2004 12:35 PM CUSTODIAL WORKER Impressions 03/20/2004 4:[address] SCAN OF THE ABDOMEN WITH IV [...] scrotum documented in this encounter Care Teams Loan Manager Relationship Specialty Start Date End Date Leanne Acuna MD PCP - General 06/01/02 11/27/17 [place] [address] documented as of this encounter
--- OUTSIDE RECORDS SUMMARY | 2022-01-05 07:48 | XMS_ITS | Encounter Summary ---
:1960 Author Organization [place] Address [address] [place] [address]. [place] [address] Care Team Providers Name Role Phone Rolly Iniguez Primary Care Provider Unavailable Encounter Details Date Type Department Care Team Description 05/08/2018 Medical Correspondence [facility] Scan, CLINIC REFERRAL Health Info Mgmt Non-Provider [facility] Srvcs OF NEUROLOGY [facility] [place] [address] Social History Tobacco Use Types [...] on filedocumented in this encounter Care Teams Riveting Machine Operator Relationship Specialty Start Date End Date Rolly Iniguez PCP - General Family Practice 12/05/17 documented as of this encounter
--- OUTSIDE RECORDS SUMMARY | 2022-01-05 07:48 | XMS_ITS | Encounter Summary ---
:1960 Author Organization [place] Address [address] [place] [address] Care Team Providers Name Role Phone Kevin Acuna MD Primary Care Provider Unavailable Encounter Details Date Type Department Care Team Description 10/01/2002 Orders Only [facility] Mynor Jaramillo-MP CLINIC OF Clinic Earnestine Shipman MD NEUROLOGY (Primary Dx) [address] [place] [address] Social History Tobacco Use Types [...] Primary documented in this encounter Care Teams Receiver Stocker Relationship Specialty Start Date End Date Kvein Acuna MD PCP - General 06/01/02 11/27/17 [place] [address] documented as of this encounter
--- OUTSIDE RECORDS SUMMARY | 2022-01-05 07:48 | XMS_ITS | Encounter Summary ---
:1960 Author Organization [place] Address [address] [facility] [place] [address] Care Team Providers Name Role Phone Rolly Iniguez Primary Care Provider Unavailable Encounter Details Date Type Department Care Team Description 12/05/[address] [facility] Kassie Delgado of muscle; [facility] Sena Cerna MD Myalgia [address] [facility] [place] [address] NEUROLOGY [phone] [place] [id number] Social History Tobacco Use Types Packs/Day Years [...] Procedure Name Priority Date/Time Associated Comments Diagnosis CREATINE KINASE MB Routine 12/05/2017 3:33 PM Spasm of muscle Results for this (CK-MB) CDT procedure are i n the results section. PARANEOPLASTIC ANTIBODY Routine 12/05/2017 3:33 PM Spasm of mu scle Results for this CDT procedure are i n the results section. GLUTAMIC ACID Routine 12/05/2017 3:33 PM Spasm of muscle Resul ts for this DECARBOXYLASE ANTIBODY CDT proce dure are in the results section. CK TOTAL Routine 12/05/2017 3:33 PM Spasm of muscle Result s for this CDT procedure are i n the results section. ALDOLASE Routine 12/05/2017 3:33 PM Spasm of muscle Result s for this CDT procedure are i n the results section. documented in this encounter Results Paraneoplastic antibody (12/05/2017 3:33 PM CDT) athologist Signature PNP Antibody SEE NOTE 12/13/2017 ZEN 12/13/2017 9:15 PM CDT [facility] 09:15 PM [facility] Comment: (Note) Test ? Result ?? Flag ??Unit ?RefValue Paraneoplastic Autoantibody Kassie Das Interpretive Comments ? SEE NOTE ? Part of this testing algorithm inclu [facility] ?? Laboratories' ??ARBI: Acetylcholine Receptor (Muscle AChR) ?? Binding Antibody, Serum. This test i s temporarily ?? unavailable; therefore, this result is not incorporated ?? into the interpretation. * No inform ative autoantibodies ?? were detected in the Paraneoplastic Evaluation. However, a ?? negative result does not exclude saturnino rological autoimmunity ?? with or without associated neoplasia . Sensitivity and ?? specificity of antibody testing are enhanced by testing ?? both serum and CSF. MARTINEZ-1, S ?Negative ? titer ?? <1:240 ?? Reflex Added ? None. ? This test was developed and its perf ormance characteristics ?? determined by [facility] in a chuck r consistent with CLIA ?? requirements. This test has not been cleared or approved by ?? the U.S. Food and Drug Administratio n. MARTINEZ-2, S ?Negative ? titer ?? <1:240 ? This test was developed and its perf ormance characteristics ?? determined by [facility] in a chuck r consistent with CLIA ?? requirements. This test has not been cleared or approved by ?? the U.S. Food and Drug Administratio n. MARTINEZ-3, S ?Negative ? titer ?? <1:240 ? This test was developed and its perf ormance characteristics ?? determined by [facility] in a chuck r consistent with CLIA ?? requirements. This test has not been cleared or approved by ?? the U.S. Food and Drug Administratio n. AGNA-1, S ?Negative ? titer ?? <1:240 ? This test was developed and its perf ormance characteristics ?? determined by [facility] in a chuck r consistent with CLIA ?? requirements. This test has not been cleared or approved by ?? the U.S. Food and Drug Administratio n. FLOOR HELPER-1, S ? Negative ? titer ?? <1:240 ? This test was developed and its perf ormance characteristics ?? determined by [facility] in a chuck r consistent with CLIA ?? requirements. This test has not been cleared or approved by ?? the U.S. Food and Drug Administratio n. FLOOR HELPER-2, S ? Negative ? titer ?? <1:240 ? This test was developed and its perf ormance characteristics ?? determined by [facility] in a chuck r consistent with CLIA ?? requirements. This test has not been cleared or approved by ?? the U.S. Food and Drug Administratio n. FLOOR HELPER-Tr, S ?Negative ? titer ?? <1:240 ? This test was developed and its perf ormance characteristics ?? determined by [facility] in a chuck r consistent with CLIA ?? requirements. This test has not been cleared or approved by ?? the U.S. Food and Drug Administratio n. Amphiphysin Ab, S ?Negative ? titer ?? <1:240 ? This test was developed and its perf ormance characteristics ?? determined by [facility] in a chuck r consistent with CLIA ?? requirements. This test has not been cleared or approved by ?? the U.S. Food and Drug Administratio n. CRMP-5-IgG, S ?Negative ? titer ?? <1:240 ? This test was developed and its perf ormance characteristics ?? determined by [facility] in a chuck r consistent with CLIA ?? requirements. This test has not been cleared or approved by ?? the U.S. Food and Drug Administratio n. Striational (Striated Muscle) ?Nega tive ? titer ?? <1:120 ?? Ab, S ?? This test was developed and its perf ormance characteristics ?? determined by [facility] in a chuck r consistent with CLIA ?? requirements. This test has not been cleared or approved by ?? the U.S. Food and Drug Administratio n. P/Q-Type Calcium Channel Ab ?0.0 0 ? nmol/L ??<=0.02 ? This test was developed and its perf ormance characteristics ?? determined by [facility] in a chuck r consistent with CLIA ?? requirements. This test has not been cleared or approved by ?? the U.S. Food and Drug Administratio n. N-Type Calcium Channel Ab ?0. 00 ? nmol/L ??<=0.03 ? This test was developed and its perf ormance characteristics ?? determined by [facility] in a chuck r consistent with CLIA ?? requirements. This test has not been cleared or approved by ?? the U.S. Food and Drug Administratio n. ACh Receptor (Muscle) Binding ?SEE NOTE ? nmol/L ??<=0.02 ?? Ab ?? Due to reagent unavailability, ARBI: Acetylcholine Receptor ?? (Muscle AChR) Binding Antibody, Seru m, will not be ?? performed at [facility]. If Acetylcholine ?? Receptor Binding Antibody testing is desired, please order ?? FABAB: Acetylcholine Receptor Bindin g Antibody, which is ?? performed at another laboratory. Giv en the differences in ?? assay methodologies, direct comparis on of quantitative ?? results is not possible. Interpretat ion of these results ?? should be made within the clinical c ontext. ??If any ?? concerns arise, laboratory consultat ion in regards to these ?? results is available by calling [phone]. ?? This test was developed and its perf ormance characteristics ?? determined by [facility] in a chuck r consistent with CLIA ?? requirements. This test has not been cleared or approved by ?? the U.S. Food and Drug Administratio n. AChR Ganglionic Neuronal Ab, S ?? 0.00 ? nmol/L ??<=0.02 ? This test was developed and its perf ormance characteristics ?? determined by [facility] in a chuck r consistent with CLIA ?? requirements. This test has not been cleared or approved by ?? the U.S. Food and Drug Administratio n. Neuronal (V-G) K+ Channel Ab, S ??0.00 ? nmol/L ??<=0.02 ? This test was developed and its perf ormance characteristics ?? determined by [facility] in a chuck r consistent with CLIA ?? requirements. This test has not been cleared or approved by ?? the U.S. Food and Drug Administratio n. ? Test Performed by: ?? [facility] ?? [address], [place] [address] Specimen Anatomical Collection Method Collection Time Receive d Time (Source) Location / / Volume Laterality 12/05/2017 3:33 PM 8 3:40 CDT PM CDT Sena Delgado MD LAB - BLOOD ORDERABLES Performing Organization Address City/State/ZIP Code Phon e Number [facility] [address] [address] [facility] [address] [address], [place] [phone] Glutamic acid decarboxylase antibody (12/05/2017 3:33 PM CDT) Analysis Performed At Patho logist Time Signature Glutamic Acid <5.0 0.0 - 5.0 12/06/2017 [place] Decarboxylase IU/mL 8:03 PM CDT [facility] Comment: (Note) INTERPRETIVE INFORMATION: ??Glutamic Aci d Decarboxylase Antibody A value greater than 5.0 IU/mL is consid ered positive for Glutamic Acid Decarboxylase Antibody (GA D Ab). This assay is intended for the semi-quantitative de termination of the MELISSA Ab in human serum. Results should be interpreted within the context of clinical symptoms. Performed by [facility], [address] [place] [id number] [email or web address], Gómez Zhang MD, Lab. Director Specimen Anatomical Collection Method Collection Time Receive d Time (Source) Location / / Volume Laterality 12/05/2017 3:33 PM 8 3:40 CDT PM CDT Sena Delgado MD LAB - BLOOD ORDERABLES Performing Organization Address City/State/ZIP Code Phon e Number [facility] [address] [address] [phone] [facility] [address] [address], [place] [phone] Creatine Kinase MB Test (12/05/2017 3:33 PM CDT) P athologist Signature Creatine Kinase 1.4 0.0 - 5.0 12/06/2017 [place] MB Test ug/L 12:12 PM CDT [facility] Comment: (Note) Performed at: [facility] [address] [facility] [address] Creatine Kinase MB Not Done 0.0 - 5.0 12/06/2017 12:12 PM [facility] Comment: (Note) Performed at: [facility] [address] [facility] [address] Specimen Anatomical Collection Method Collection Time Receive d Time (Source) Location / / Volume Laterality 12/05/2017 3:33 PM 8 3:40 CDT PM CDT Sena Delgado MD LAB - BLOOD ORDERABLES Performing Organization Address City/State/ZIP Code Phon e Number [facility] [address] [place] [address] [phone] [facility] [address] [place] [address], [place] [phone] CK total (12/05/2017 3:33 PM CDT) P athologist Signature CK Total 126 30 - 300 12/05/2017 [place] U/L 3:59 PM CDT [facility] Specimen Anatomical Collection Method Collection Time Receive d Time (Source) Location / / Volume Laterality 12/05/2017 3:33 PM 8 3:40 CDT PM CDT Sena Delgado MD LAB - BLOOD ORDERABLES Performing Organization Address City/[facility]/ZIP Code Phon e Number [facility] [address] [place] [address] [phone] [facility] [address] [place] [address], [place] [phone] Aldolase (12/05/2017 3:33 PM CDT) athologist Signature Aldolase 5.3 1.5 - 8.1 12/06/2017 [place] U/L 12:23 PM CDT [facility] Comment: (Note) REFERENCE INTERVAL: Aldolase Access complete set of age- and/or gende r-specific reference intervals for this test in the [facility] Test Directory ([facility]). Performed by [facility], [address] [facility] [place] [address] [email or web address], Gómez Zhang MD, Lab. Director Specimen Anatomical Collection Method Collection Time Receive d Time (Source) Location / / Volume Laterality 12/05/2017 3:33 PM 8 3:40 CDT PM CDT Sena Delgado MD LAB - BLOOD ORDERABLES Performing Organization Address City/State/ZIP Code Phon e Number [facility] [address] [phone] [facility] [address] [address], [place] [phone] documented in this encounter Visit Diagnoses Diagnosis Spasm of muscle Myalgia Mylagia and myositis, unspecified documented in this encounter Care Teams Well Reactivator Operator Relationship Specialty Start Date End Date Rolly Iniguez PCP - General Family Practice 12/05/17 documented as of this encounter
--- OUTSIDE RECORDS SUMMARY | 2022-01-05 07:48 | XMS_ITS | Encounter Summary ---
:1960 Author Organization [place] Address [address] [place] [address]. [place] [address] Care Team Providers Name Role Phone Kevin Acuna MD Primary Care Provider Unavailable Encounter Details Date Type Department Care Team Description 09/13/2002 Telephone [facility] Mynor Jaramillo MD [address] [place] [address] Social History Tobacco Use [...] on filedocumented in this encounter Care Teams Retail Sales Director Relationship Specialty Start Date End Date Kevin Acuna MD PCP - General 06/01/02 11/27/17 [place] [address] documented as of this encounter
--- OUTSIDE RECORDS SUMMARY | 2022-01-05 07:48 | XMS_ITS | Clinical Summary ---
:1960 Author Organization [facility] [facility] [place] [address] Care Team Providers Name Role Phone Amador Steele MD Primary Care Provider Allergies Active Allergy Reactions Severity Noted Date Comments Adhesive Tape-Silicones Rash Medium 01/12/2018 Nortriptyline Tachycardia 06/29/2021 Shellfish Containing Products Throat Swelling/Closing High 01/22/2020 Medications Medication Sig Dispensed Refills Start End Status Date Date CPAPIndications: LOS New CPAP machine 1 Device 11 02/28/20 Active (obstructive sleep for home use at 20 apnea), Snoring, pressure: 5-16 Excessive daytime cmw , Heated sleepiness humidifier x 1 q 5 yr, Humidifier chamber x 1 q 6 mo, x1 q 3mos, with pillows x 2 q mo, Heated tubing x 1 q 3 mo, Headgear x 1 q 6 mo, Filters: Disposable x 2 q mo non-disposable filters x1 q 6mo, Length of Need: 99 months, Frequency of use: Daily magnesium oxide Take 1 Tablet 0 03/20/20 Active (MAG-OX 400) 400 mg (400 mg) by 21 tablet mouth once daily. medication order Prostagenixs 0 03/20/20 Active composer supplement- MVI- 21 Take 1 capsule daily methylcellulose, Take 1 Tablet by 0 03/20/20 Active Laxative, (Citrucel) mouth 3 times 21 500 mg tab daily. multivitamins-minera Take 1 Tablet by 0 03/20/20 Active ls-lutein mouth once 21 (Multivitamin 50 daily. Plus) tab tablet dilTIAZem CD (Cartia Take 1 Capsule 90 Capsule 3 06/09/19 Active XT) 120 mg extended (120 mg) by 22 release 24 hr mouth once capsuleIndications: daily. Tachycardia cyclobenzaprine Take 1-2 Tablets 90 tablet. 2 10/06/19 Active (FLEXERIL) 10 mg (10-20 mg) by 22 tabletIndications: mouth 2 times Muscle pain, daily if needed Spasticity, for Muscle Myofascial pain, Spasm. Chronic myofascial pain, Myalgia evolocumab (Repatha Inject 1 mL (140 6 mL 3 11/27/19 Active SureClick) 140 mg/mL mg) subcutaneous 22 subcutaneous pen every 2 weeks. injectorIndications: Inject into Hyperlipidemia, abdomen, thigh, unspecified or upper arm; hyperlipidemia type rotate injection sites. omeprazole Take 1 Capsule 90 Capsule 3 12/26/19 Act chrissy (PRILOSEC) 20 mg (20 mg) by mouth 22 Delayed-Release once daily capsuleIndications: before a meal. Gastroesophageal reflux disease, unspecified whether esophagitis present ciclopirox 0.77% Apply topically 90 g 5 12/26/19 Active cream (LOPROX) 0.77 to affected 22 % creamIndications: area(s) two Tinea cruris times daily. lisinopriL Take 1 Tablet 90 Tablet 3 12/26/19 Activ e (PRINIVIL; ZESTRIL) (20 mg) by mouth 22 20 mg once daily. tabletIndications: Hypertension omeprazole Take 1 Capsule 90 Capsule 3 03/20/20 Dis continued (PRILOSEC) 20 mg (20 mg) by mouth 21 022 (Reorder Delayed-Release once daily (E- cancel not capsuleIndications: before a meal. sent)) Gastroesophageal reflux disease, unspecified whether esophagitis present lisinopriL Take 1 Tablet 90 Tablet 3 04/14/20 Disco ntinued (PRINIVIL; ZESTRIL) (20 mg) by mouth 21 022 (Reorder 20 mg once daily. 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 021 Encounter for laboratory testing for severe acute resp iratory syndrome 10/03/2020 coronavirus 2 (SARS-CoV-2) Gout 10/03/2020 Muscle spasms of lower extremity 10/03/2020 Sprain of wrist 10/03/2020 LOS HST 02/21/2020 AHI- 32 pillows and heated hose Controlled substance agreement signed 01/18/2020 Familial hypercholesterolemia 09/17/2019 Other and unspecified hyperlipidemia 08/28/2018 Umbilical hernia without mention of obstruction or johnnie grene 08/28/2018 Supraventricular tachycardia 08/25/2018 Adenomatous colon polyp 02/13/2015 Overview: Colonoscopy 01/2015 normal repeat in 5 y ears Colonoscopy 05/2020 polyp, repeat in 7 ye ars Formatting of this note might be differe nt from the original. Overview: Colonoscopy 01/2015 normal repeat in 5 y ears Vitamin D deficiency 02/27/2013 Hypertension 01/19/2013 Pulmonary nodule, right 08/26/2011 Medial epicondylitis of elbow 02/08/2011 Lateral epicondylitis of elbow 01/11/2011 Impaired fasting glucose 05/28/2008 Esophageal reflux 08/01/2006 Resolved Problems Problem Noted Date Resolved Date Ankylosing spondylitis 09/10/2006 04/10/2012 Encounters Date Type Specialty Care Team Description 12/25/2021 Office Visit Amador Steele Physical; Gou t; Ivy Burt MD Problem (Spot o n the nose spot has been t here forever but is now irritating, and rash in groin.) 12/25/2021 Travel 12/22/2021 Travel 12/16/2021 Office Visit Singh Calvin MD CV Vascular New (Calcification of aorta) 12/16/2021 Travel 12/14/2021 Travel 12/09/2021 Medical Messaging Sandor Issa MD 12/04/2021 Ancillary Procedure 12/03/2021 Travel 12/03/2021 Orders Only Nathan Diaz <No scans attached> DAPHNE Andujar 11/26/2021 Orders Only Merna Berrios, <No scans attached> [employer]ETING MANAGER 11/25/2021 Refill Amador Steele Refill Ji Burt MD (Ciclopirox 0.7 7% Cream) 11/24/2021 Office Visit Sandor Issa Procedure (Bi lateral L4-5 MD Amador TFESI) 11/24/2021 Travel 11/10/2021 Office Visit [place] 11/10/2021 Orders Only Charles Preston <No scans at tached> MD Keely 11/10/2021 Travel 11/03/2021 Office Visit [place] 11/03/2021 Travel 10/28/[address] Mark, MD 10/26/2021 Office Visit [place] 10/26/2021 Travel 10/23/2021 Travel 10/21/2021 Procedure Only [place] 10/21/2021 Travel 10/08/2021 Telemedicine Sandor Issa Musculoskelet al Problem MD Amador (Follow up back pain, review MRI) 10/08/2021 Travel 10/05/2021 Telephone Sandor Issa Appointment R gayla English MD (VIRTUAL FOLLOW UP ON MRI) 10/05/2021 Telephone Trisha Jimenez Re quest A, 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 GENERATION MARKETING MANAGER (Cyclobenzaprin e 10 mg tablet-[facility]) from Last 3 Months Immunizations Name Administration Dates Next Due COVID-19 vaccine ([facility] 07/28/2020, 06/30/2020 30mcg/0.3mL) PF, MDV DT (Age < 7 years) 01/27/2006 Hepatitis A (Adult) 10/02/2014, 12/10/2013 Influenza A (H1N1), Inactivated (Age 1204/04/2009 >=3 Years) Influenza, IIV3 (Age >=3 years) 12/09/2013, 01/19/2013, 03/19, 04/07/2011, 04/04/2009, 03/19/2008, 02/17/2007, 01/27/2006 Influenza, IIV4 12/25/2021, 02/13/2020, 01/12/2018, 01/28/2017, 01/07/2016 Td, Preservative Free (age >= 7 01/27/2006 Years) Tdap 12/25/2021, 04/07/2011 Tuberculin (PPD) 07/23/2009 Zoster (Shingrix-RZV, recombinant) 03/26/2021, 05/26/2020 Family History Medical History Relation Name Comments Cancer-prostate Brother 1 Heart Disease Brother 1 Cancer-prostate Father Heart Disease Father 60s Hyperlipidemia Other Several family m embers with hyperlipidemia Relation Name Status Comments Brother 1 Brother 2 Alive Father Other Sister Alive Social History Tobacco Use Types Packs/Day Years Used Date Current Some Day Smoker Cigarettes 0.5 38 Quit : 01/07/2020 Smokeless Tobacco: Never Used Tobacco Cessation: Ready to Quit: Yes; C ounseling Given: Yes Comments: on and off Alcohol Use Standard Drinks/Week Comments Yes 0 (1 standard drink = 0.6 oz pure alcoho l) a few drinks monthly Alcohol Habits Answer Date Recorded How often do you have a drink containing alcohol? Monthly or less 05/26/2020 How many drinks containing alcohol do you have on 1 or 2 08/25/2018 a typical day when you are drinking? How often do you have six or more drinks on one Less than mo nthly 08/25/2018 occasion? Comment: a few drinks monthly 12/16/2021 Sex Assigned at Date Recorded Not on file COVID-19 Exposure Response Date Recorded In the last 10 days, have you been in contact with No / Unsu re 12/25/2021 7:37 AM CDT someone who was confirmed or suspected to have Coronavirus/COVID-19? Obstetrics History Last Filed Vital Signs Vital Sign Reading Time Taken Comments Blood Pressure 124/70 12/25/2021 8:51 AM CDT Pulse 79 12/25/2021 7:55 AM CDT Temperature 37.1 ??C (98.7 ??F) 08/24/2021 8:21 AM CDT Respiratory Rate 16 12/16/2021 2:58 PM CDT Oxygen Saturation 97% 12/25/2021 7:55 AM CDT Inhaled Oxygen Concentration - - Weight 101.8 kg (224 lb 6.4 oz) 12/25/2021 7:55 AM CDT Height 177.3 cm (5' 9.8) 12/25/2021 7:55 AM CDT Body Mass Index 32.38 12/25/2021 7:55 AM CDT Plan of Treatment Upcoming Encounters Date Type Specialty Care Team Description 01/05/2022 Office Visit Sandor Issa MD [address] [place], [place] [phone] (Wo rk) Health Maintenance Due Date Last Done Comments Pneumococcal series for age 19-64 1966 (1 - PCV) COVID-19 vaccine series (4 - 06/10/2021 02/07/2021, 021, Booster for Pfizer series) 06/30/2020 BMI (ht and wt on same day) for 12/25/2022 12/25/2021, 11/2020, age 18+ 02/13/2020, Additional history exists Depression screening for age 12+ 12/25/2022 12/25/2021, 11/2020, 02/13/2020, Additional history exists Lipids for age 45-75 05/15/2026 05/15/2021, 06/09/2020, 05/25/2019, Additional history exists Colonoscopy through age 75 06/13/2027 06/13/2020, , 02/12/2015 Tetanus booster 12/26/2031 12/25/2021, 04/07/2011, 04/07/2011, Additional history exists Hepatitis C screening for age Completed 07/23/2009 18-79 Zoster (shingles) series for age Completed 03/26/2021, 11/2020 50+ Influenza for age 50-64 Completed 12/25/2021, 02/13/2020, 01/12/2018, Additional history exists Tdap Completed 12/25/2021, 04/07/2011 Procedures Procedure Name Priority Date/Time Associated Diagnosis Comme nts RED CELL MORPHOLOGY Routine 12/25/2021 9:15 Acute idiopathic g out Results for this AM CDT of foot, unspecified procedu re are in laterality the results section. PLATELET ESTIMATE Routine 12/25/2021 9:15 Acute idiopathic gou t Results for this AM CDT of foot, unspecified procedu re are in laterality the results section. MANUAL DIFFERENTIAL Routine 12/25/2021 9:15 Acute idiopathic g out Results for this AM CDT of foot, unspecified procedu re are in laterality the results section. CBC WITH AUTO Routine 12/25/2021 9:15 Acute idiopathic gout Re sults for this DIFFERENTIAL AM CDT of foot, unspecified procedu re are in laterality the results section. PSA TOTAL SCREEN Routine 12/25/2021 9:15 Prostate cancer Resul ts for this AM CDT screening procedure are i n the results section. VITAMIN D 25 Routine 12/25/2021 9:15 Vitamin D deficiency Resu lts for this (DEFICIENCY) AM CDT procedure are i n the results section. CBC WITH AUTO Routine 12/25/2021 9:15 Acute idiopathic gout Re sults for this DIFFERENTIAL AM CDT of foot, unspecified procedu re are in laterality the results section. ALT (SGPT) Routine 12/25/2021 9:15 Acute idiopathic gout Res ults for this AM CDT of foot, unspecified procedu re are in laterality the results section. URIC ACID Routine 12/25/2021 9:15 Acute idiopathic gout Res ults for this AM CDT of foot, unspecified procedu re are in laterality the results section. US HARIKA W EXERCISE Routine 12/04/2021 8:43 Pain of lower Result s for this BILAT AM CDT extremity, procedure are i n unspecified the results laterality section. Aortic calcification (HC) AMB EPIDURAL STEROID Routine 11/24/2021 12:00 Spinal stenosis of Results for this INJECTION AM CDT lumbar region with procedure are in neurogenic the results claudication section. Neuropathic pain of both legs Lumbar radiculopathy from Last 3 Months Results CBC WITH AUTO DIFFERENTIAL (12/25/2021 9:15 AM CDT) athologist Signature WHITE BLOOD 9.9 4.5 - 11.0 12/25/2021 [facility] COUNT thou/cu mm 10:15 AM CDT [facility] RED BLOOD COUNT 4.58 4.30 - 12/25/2021 [facility] 5.90 10:15 AM CDT [place] mil/cu mm CLINIC HEMOGLOBIN 14.5 13.5 - 12/25/2021 [facility] 17.5 g/dL 10:15 AM T [facility] HEMATOCRIT 42.5 37.0 - 12/25/2021 [facility] 53.0 % 10:15 AM [facility] MCV 93 80 - 100 12/25/2021 [facility] fL 10:15 AM [facility] MCH 31.7 26.0 - 12/25/2021 [facility] 34.0 pg 10:15 AM [facility] MCHC 34.1 32.0 - 12/25/2021 [facility] 36.0 g/dL 10:15 AM [facility] RDW 13.2 11.5 - 12/25/2021 [facility] 15.5 % 10:15 AM [facility] PLATELET COUNT 275 140 - 440 12/25/2021 [facility] thou/cu mm 10:15 AM [facility] MPV 9.1 6.5 - 11.0 12/25/2021 [facility] 10:15 AM [facility] Specimen Anatomical Collection Method / Collection Time Recei ivania Time (Source) Location / Volume Laterality Blood BLOOD SPECIMEN / Venipuncture / 12/25/2021 9:15 2021 9:16 Unknown Unknown AM CDT AM CDT Amador Steele MD HEMATOLOGY Performing Organization Address City/State/ZIP Code Phon e Number [facility] [address] [place] [address] RED CELL MORPHOLOGY (12/25/2021 9:15 AM CDT) [facility] [employer] Method Time Signature RBC COMMENT RBC RBC 12/25/2021 [facility] morphology morphology 10:15 AM [facility] normal normal, RBC morphology within normal limits for newborns. Specimen Anatomical Collection Method / Collection Time Recei ivania Time (Source) Location / Volume Laterality Blood BLOOD SPECIMEN / Venipuncture / 12/25/2021 9:15 2021 9:16 Unknown Unknown AM CDT AM CDT Amador Steele MD HEMATOLOGY Performing Organization Address City/State/ZIP Code Phon e Number [facility] [address] [place] [address] PLATELET ESTIMATE (12/25/2021 9:15 AM CDT) [facility] [employer] Method Time Signature PLATELET Adequate Adequate, No 12/25/2021 [facility] ESTIMATE estimate 10:15 AM CDT [facility] Specimen Anatomical Collection Method / Collection Time Recei ivania Time (Source) Location / Volume Laterality Blood BLOOD SPECIMEN / Venipuncture / 12/25/2021 9:15 2021 9:16 Unknown Unknown AM CDT AM CDT Amador Steele MD HEMATOLOGY Performing Organization Address City/State/ZIP Code Phon e Number [facility] [address] [place] [address] VITAMIN D 25 (DEFICIENCY) (12/25/2021 9:15 AM CDT) athologist Signature VITAMIN D 48.3 30.0 - 12/25/2021 [facility] TOTAL 80.0 ng/mL 7:13 PM CDT LABORATORY-[facility] Specimen Anatomical Collection Method / Collection Time Recei ivania Time (Source) Location / Volume Laterality Blood BLOOD SPECIMEN / Venipuncture / 12/25/2021 9:15 2021 9:16 Unknown Unknown AM CDT AM CDT Narrative [facility] LABORATORY-CENTRAL LABORAT ORY - 12/25/2021 7:13 PM CDT Deficiency: ? <20 ng/mL Insufficiency: ?20-29 ng/mL Sufficiency: ?30-80 ng/mL Possible Toxicity: ??>80 ng/mL Based on [employer] recommend ations Amador Steele MD SEND OUTS Performing Organization Address City/State/ZIP Code Phon e Number [facility] [address] [place] [address] LABORATORY-CENTRAL 2000 LABORATORY (ABNORMAL) MANUAL DIFFERENTIAL (12/25/2021 9:15 AM CDT) [facility] gist Method Time Signature NEUTROPHILS 50.0 % 12/25/2021 [facility] RELATIVE 10:15 AM CDT [facility] LYMPHOCYTES 40.0 % 12/25/2021 [facility] RELATIVE 10:15 AM CDT [facility] MONOCYTES 9.0 % 12/25/2021 [facility] RELATIVE 10:15 AM CDT [facility] EOSINOPHILS 1.0 % 12/25/2021 [facility] RELATIVE 10:15 AM CDT [facility] BASOPHILS 0.0 % 12/25/2021 [facility] RELATIVE 10:15 AM CDT [facility] NEUTROPHILS 5.0 1.7 - 7.0 12/25/2021 [facility] ABSOLUTE thou/cu mm 10:15 AM CDT [facility] LYMPHOCYTES 4.0 (H) 0.9 - 2.9 12/25/2021 [facility] ABSOLUTE thou/cu mm 10:15 AM CDT [facility] MONOCYTES 0.9 (H) <0.9 12/25/2021 [facility] ABSOLUTE thou/cu mm 10:15 AM CDT [facility] EOSINOPHILS 0.1 <0.5 12/25/2021 [facility] ABSOLUTE thou/cu mm 10:15 AM CDT [facility] BASOPHILS 0.0 <0.3 12/25/2021 [facility] ABSOLUTE thou/cu mm 10:15 AM CDT [facility] Specimen Anatomical Collection Method / Collection Time Recei ivania Time (Source) Location / Volume Laterality Blood BLOOD SPECIMEN / Venipuncture / 12/25/2021 9:15 2021 9:16 Unknown Unknown AM CDT AM CDT Amador Steele MD HEMATOLOGY Performing Organization Address City/State/ZIP Code Phon e Number [facility] [address] [place] [address] URIC ACID (12/25/2021 9:15 AM CDT) athologist Signature URIC ACID 7.2 3.5 - 7.2 12/25/2021 [facility] mg/dL 5:01 PM CDT LABORATORY[facility] Specimen Anatomical Collection Method / Collection Time Recei ivania Time (Source) Location / Volume Laterality Blood BLOOD SPECIMEN / Venipuncture / 12/25/2021 9:15 2021 9:16 Unknown Unknown AM CDT AM CDT Amador Steele MD CHEMISTRY Performing Organization Address City/State/ZIP Code Phon e Number [facility] [address] [place] [address] LABORATORY-CENTRAL 2000 LABORATORY ALT (SGPT) (12/25/2021 9:15 AM CDT) athologist Signature ALT (SGPT) 33 8 - 45 IU/L 12/25/2021 [facility] 5:01 PM CDT LABORATORY-[facility] LABORATORY Specimen Anatomical Collection Method / Collection Time Recei ivania Time (Source) Location / Volume Laterality Blood BLOOD SPECIMEN / Venipuncture / 12/25/2021 9:15 2021 9:16 Unknown Unknown AM CDT AM CDT Amador Steele MD CHEMISTRY Performing Organization Address [facility] e Number [facility] [address] [place] [phone] LABORATORY-CENTRAL 2000 LABORATORY PSA TOTAL SCREEN (12/25/2021 9:15 AM CDT) athologist Signature PSA TOTAL 1.48 <4.00 12/25/2021 [facility] (SCREEN) ng/mL 7:13 PM CDT LABORATORY-[facility] LABORATORY Specimen Anatomical Collection Method / Collection Time Recei ivania Time (Source) Location / Volume Laterality Blood BLOOD SPECIMEN / Venipuncture / 12/25/2021 9:15 2021 9:16 Unknown Unknown AM CDT AM CDT Narrative [facility] LABORATORY-CENTRAL LABORAT ORY - 12/25/2021 7:13 PM CDT [employer] PSA assay is a Chemiluminescent Microparticle Immunoassay(CMIA). Assay values ob tained with different assay methods kwame ot be used interchangeably due to differences in assay methods and reagent specificity. Amador Steele MD LABORATORY Performing Organization Address [facility] e Number [facility] [address] [place] [id number] LABORATORY-CENTRAL 2000 LABORATORY US HARIKA W EXERCISE BILAT (12/04/2021 8:43 AM CDT) Anatomical Region Laterality Modality LEGS Ultrasound Specimen (Source) Anatomical Collection Method Collection Time Re ceived Time Location / / Volume Laterality 12/04/2021 7:53 AM CDT Narrative 12/04/2021 11:59 AM CDT VASCULAR ULTRASOUND REPORT ANDRZEJ WOODS Accession#: ?? [id number] : ?1960 ??Study Date: ?? 11/16 7:53:11 AM Age: ?61 years ?? Tech: ? TLW Gender: M ?Referring MD: ALAN DIAZ Site: [facility] performed: ?Resting HARIKA, AB I with exercise, (bilateral). Indication for study: LE pain/numbness Study Quality: ?Good Other History: Pain of lower extremity, unspecified laterality TECHNIQUE: Lower/upper extremity arteries were exam ined per exam protocol by duplex ultrasound, color-flow and spectral Doppler. Peak systolic velocities (PSV), Doppler waveform quality, velocity ratios and vessel size in cm, were documented at protocol specific sites. Physiologic data including segmental pressures, ankle/brachial index (HARIKA), digit PPG recordings, laser Doppler flowmetry and digit temperatures were documented at sites per exam protoc ol and test requirements. IMPRESSION: 1. Resting ankle-brachial index normal on the right and normal on the left. COMPARISON: Compared to prior study 03/12/2020, US. FINDINGS: +-------+ +---------+ RIGHT ?? Velocity cm/s Phasicity +-------+ +---------+ MARKETING SECRETARY DST ? 72 ? triphasic +-------+ +---------+ DPA ? 55 ? triphasic +-------+ +---------+ +-------+ +---------+ LEFT ?? Velocity cm/s Phasicity +-------+ +---------+ MARKETING SECRETARY DST ? 64 ? triphasic +-------+ +---------+ DPA ? 55 ? triphasic +-------+ +---------+ Criteria: Stenosis ?V. Ratio Mild ?<50% ?<2.0 Moderate ?? 50-74% ?> or = 2.0 Severe ? 75-99% ?> or = 4.0 Occluded ?100% ?? no detectable flow Pressures +-----+ +--------+ +-----+ ? RIGHT (mmHg) ? LEFT (mmHg) ? +-----+ +--------+ +-----+ Index ?130 ? Brachial ?1 23 ? Index +-----+ +--------+ +-----+ 1.08 ?141 ?MARKETING SECRETARY ?159 ? 1.22 +-----+ +--------+ +-----+ 1.05 ?136 ?DPA ?145 ? 1.11 +-----+ +--------+ +-----+ EXERCISE Total Excercise Time: 5 minutes 0 second s. Stopped due to max time. Toe lifts. +----+ + Time Symptoms with exercise +----+ + 0:30 Left calf pain ? +----+ + 2:30 Right calf pain ? +----+ + +-------+--------+ +------+--- --------+------+ TIME ?? BRACHIAL RT PRESSURE RT HARIKA LT PRESSURE LT HARIKA +-------+--------+ +------+--- --------+------+ Resting ??130 ?141 ? 1.0 8 ?159 ? 1.22 +-------+--------+ +------+--- --------+------+ 1 min. ??133 ?144 ? 1.0 8 ?162 ? 1.22 +-------+--------+ +------+--- --------+------+ Shaun Goff MD. Electronically signed on 12/04/2021 11:59 :40 AM This study was performed and interpreted by a service accredited by the Intersocietal Accreditation Commission (IAC/Vascular), [email or web address].org/vascular Report generated by [employer]. ??Final ?? Procedure Note Shaun Goff MD - 12/04/2021Format ting of this note might be different from the original. VASCULAR ULTRASOUND REPORT ANDRZEJ WOODS : 1960 Study Date: 12/04/2021 7:5 3:11 AM Age: 61 years Tech: TLW Gender: M Referring MD: NATHAN DIAZ Site: [facility] Study performed: Resting HARIKA, HARIKA with e xercise, (bilateral). Indication for study: LE pain/numbness Study Quality: Good Other History: Pain of lower extremity, unspecified laterality TECHNIQUE: Lower/upper extremity arteries were exam ined per exam protocol by duplex ultrasound, color-flow and spectral Doppler. Peak systolic velocities (PSV), Doppler waveform quality, velocity ratios and vessel size in cm, were documented at protocol specific sit es. Physiologic data including segmental pressures, ankle/brachial index (HARIKA), digit PPG recordings, laser Doppler flowmetry and digit temperatures were documented at sites per exam protocol and test requirements. IMPRESSION: 1. Resting ankle-brachial index normal on the right and normal on the left. COMPARISON: Compared to prior study 03/12/2020, US. FINDINGS: +-------+ +---------+ RIGHT Velocity cm/s Phasicity +-------+ +---------+ MARKETING SECRETARY DST 72 triphasic +-------+ +---------+ DPA 55 triphasic +-------+ +---------+ +-------+ +---------+ LEFT Velocity cm/s Phasicity +-------+ +---------+ MARKETING SECRETARY DST 64 triphasic +-------+ +---------+ DPA 55 triphasic +-------+ +---------+ Criteria: Stenosis V. Ratio Mild <50% <2.0 Moderate 50-74% > or = 2.0 Severe 75-99% > or = 4.0 Occluded 100% no detectable flow Pressures +-----+ +--------+ +-----+ RIGHT (mmHg) LEFT (mmHg) +-----+ +--------+ +-----+ Index 130 Brachial 123 Index +-----+ +--------+ +-----+ 1.08 141 MARKETING SECRETARY 159 1.22 +-----+ +--------+ +-----+ 1.05 136 DPA 145 1.11 +-----+ +--------+ +-----+ EXERCISE Total Excercise Time: 5 minutes 0 second s. Stopped due to max time. Toe lifts. +----+ + Time Symptoms with exercise +----+ + 0:30 Left calf pain +----+ + 2:30 Right calf pain +----+ + +-------+--------+ +------+--- --------+------+ TIME BRACHIAL RT PRESSURE RT HARIKA LT IN ESSURE LT HARIKA +-------+--------+ +------+--- --------+------+ Resting 130 141 1.08 159 1.22 +-------+--------+ +------+--- --------+------+ 1 min. 133 144 1.08 162 1.22 +-------+--------+ +------+--- --------+------+ Shaun Goff MD. Electronically signed on 12/04/2021 11:59 :40 AM This study was performed and interpreted by a service accredited by the Intersocietal Accreditation Commission (IAC/Vascular), www.intersocietal.org/vascular Report generated by [employer]. Final Nathan Diaz NP AMB EPIDURAL STEROID INJECTION (11/24/2021 12:00 AM CDT) Narrative This result has an attachment that is no t available. Sandor Issa MD NEUROLOGY ORD from Last 3 Months Additional Health Concerns Infection Onset Date Last Indicated Rule-Out C.diff 09/12/2020 09/12/2020 Insurance Payer Benefit Plan Subscriber ID Effective Dates Phone Address Type / Group WC WORKERS WC WORKERS [id number] 2007-Prese [phone] [address] [place] [address] WC WORKERS WC WORKERS [id number] 2010-Prese [phone] [address] [place] [address] HEALTH HP [id number] 2016-Presen [address] [place] [address] Andrzej Woods Workers Comp Self 1960 [address] (Home) [address] [phone] Nehemiah SOLOMON N (Work) [phone] Andrzej Woods Workers Comp Self 1960 [address] (Home) [address] [phone] Nehemiah SOLOMON N (Work) [id number] [employer] Occ Other 04/18/2000 GISELLE 20 4 EMPLOYEES [employer] (Home) [phone] ([place]) [place] [address] Andrzej Woods Retail Self 1960 [address] (Home) [address] [facility] [place] [phone] Care Teams Client Service Administrator Relationship Specialty Start Date End Date Amador Steele MD PCP - General Family Practice 11/03/21 [address] [place] [address]
--- OUTSIDE RECORDS SUMMARY | 2022-01-05 07:48 | XMS_ITS | Encounter Summary ---
:1960 Author Organization [place] Address [address] [place] [address] Care Team Providers Name Role Phone Leanne Acuna MD Primary Care Provider Unavailable Reason for Visit Reason Comments Patient/info Update orchitis Encounter Details Date Type Department Care Team Description 11/07/2003 Telephone [facility] Kassie Acuna MD Patient/info Update; [place] RETIRED [address] [place], [place] [phone] Social History Tobacco Use Types Packs/Day Years [...] have sensitive scrotal contents. >> SARA COSME [facility] Nov 07, 2003 3:23 PM >> CALL [...] Procedure Name Priority Date/Time Associated Diagnosis Comme [facility] US SCROTUM AND Routine 11/15/2003 3:47 PM [...] Primary documented in this encounter Care Teams Mottle Lay Up Operator Relationship Specialty Start Date End Date Leanne Acuna MD PCP - General 06/01/02 11/27/17 [place] [address] documented as of this encounter
--- OUTSIDE RECORDS SUMMARY | 2022-01-05 07:48 | XMS_ITS | Encounter Summary ---
:1960 Author Organization [facility] Address [address] [place] [address] Care Team Providers Name Role Phone Kevin Acuna MD Primary Care Provider Unavailable Rolly Iniguez Primary Care Provider Unavailable Singh Neumann MD Unavailable Encounter Details Date Type Department Care Team Description 03/17/2004 Medical Correspondence [facility] Kevin Acuna, [facility] Earnestine SANZ (Primary Dx) [address] [facility] [place], [place] [phone] Social History Tobacco Use Types Packs/Day [...] Primary documented in this encounter Care Teams Take Away Attendant Relationship Specialty Start Date End Date Kevin Acuna MD PCP - General 06/01/02 11/27/17 [place] [address] Rolly Iniguez PCP - General Family Practice 12/05/17 Singh Neumann MD Assigned Neuroscience 02/08/20 03/01/20 [address] [place] [address] documented as of this encounter
--- OUTSIDE RECORDS SUMMARY | 2022-01-05 07:48 | XMS_ITS | Encounter Summary ---
:1960 Author Organization [facility] Address [address] [place] [address] Care Team Providers Name Role Phone Rolly Iniguez Primary Care Provider Unavailable Encounter Details Date Type Department Care Team Description 04/08/2018 Office Visit [facility] Neurology Marlon Norton Myalgia (Primary Dx) 909 [facility] MD Cristian [address]rd [address] [place] [address] [id number] [place], [place] [phone] [address] Social History Tobacco Use Types Packs/Day Years [...] Norton MD - 04/08/2018 3:06 PM CST [facility] MR#: [id number] NEUROMUSCULAR PATHOLOGY REPORT NAME: Andrzej Arriaga [facility] [phone] / [phone] [place] [address], [place] [address] MUSCLE BIOPSY LIGHT MICROSCOPY REPORT DATE OF [...] systemic illnesses including connective tissue disease or [place] syndrome. Marlon Norton MD D CROP I FARMWORKER documented in this encounter Plan of Treatment Not on filedocumented as of this encounter Visit Diagnoses Diagnosis Myalgia - Primary Mylagia and myositis, unspecified documented in this encounter Care Teams Journeyman Press Operator Relationship Specialty Start Date End Date Rolly Iniguez PCP - General Family Practice 12/05/17 documented as of this encounter
--- OUTSIDE RECORDS SUMMARY | 2022-01-05 07:48 | XMS_ITS | Encounter Summary ---
:1960 Author Organization [place] Address [address] [place] [address] Care Team Providers Name Role Phone Kevin Acuna MD Primary Care Provider Unavailable Reason for Visit Reason Comments Refill Request Encounter Details Date Type Department Care Team Description 10/30/2002 Refill [facility] Danish Guerra MD Refill Request [place] RESIGNED [place] [address] [place] [address] [place] [phone] (Wo rk) Social History Tobacco Use Types [...] this encounter Miscellaneous Notes Telephone Encounter - 10/30/2002 11:59 PM CDT >> MIKI Sheets Oct 30, 2002 8:19 AM >> CALL RECEIVED. Contact: Rx last filled 10/12/02. documented in this encounter Plan of Treatment Not on filedocumented as of this encounter Visit Diagnoses Not on filedocumented in this encounter Care Teams Ship Purser Relationship Specialty Start Date End Date Kevin Acuna MD PCP - General 06/01/02 11/27/17 [place] [address] documented as of this encounter
--- OUTSIDE RECORDS SUMMARY | 2022-01-05 07:48 | XMS_ITS | Encounter Summary ---
:1960 Author Organization [place] Address [address] [place] [address]. [place] [address] Care Team Providers Name Role Phone Rolly Iniguez Primary Care Provider Unavailable Singh Neumann MD Unavailable Encounter Details Date Type Department Care Team Description 12/05/2017 Orders Only [facility] Khushbu-Rick, Spasm o f muscle (Primary Dx); [facility] Sena Cerna MD Myalgia [address] [place] [address] NEUROLOGY [phone] [place] [address] Social History Tobacco Use Types Packs/Day Years [...] unspecified documented in this encounter Care Teams Electric Razor Mechanic Relationship Specialty Start Date End Date Rolly Iniguez PCP - General Family Practice 12/05/17 Singh Neumann MD Assigned Neuroscience 02/08/20 03/01/20 9[address] [place] [address] documented as of this encounter
--- OUTSIDE RECORDS SUMMARY | 2022-01-05 07:48 | XMS_ITS | Encounter Summary ---
:1960 Author Organization [place] Address [address] [place] [address] Care Team Providers Name Role Phone Rolly Iniguez Primary Care Provider Unavailable Reason for Visit Reason Onset Date Comments *-*INCOMING RECORDS*-* 08/28/2018 Encounter Details Date Type Department Care Team Description 08/28/2018 PRE VISIT [facility] Neurology Singh Neumann, *-*INCOMING RECORDS*-* 909 [facility] 3rd Floor [address] [place] [address] [phone] (Wo rk) Social History Tobacco Use Types [...] - 08/09/2018 10:29 AM CDT Imaging [facility] Image Type (x): Disc: PACS: X Exam Date/Name MRI Lumbar Spine 02/09/17 MRI Thoracic Spine 07/11/15 Comments: Film room notified to resolve images in PACS Telephone Encounter - [facility] [place] - 08/08/2018 3:31 PM CDT RECORDS RECEIVED FROM: External - Dr Delgado - [facility] DATE RECEIVED: 08/28/18 NOTES (FOR ALL VISITS) STATUS DETAILS OFFICE NOTE from referring provider Received 05/08/18 OFFICE NOTE from other specialist N/A DISCHARGE SUMMARY from hospital N/A DISCHARGE REPORT from the ER N/A OPERATIVE REPORT Internal Muscle Biopsy @ [facility] Neuro: 03/28/18 MEDICATION LIST Received IMAGING (FOR ALL VISITS) EMG Received [facility] Neurology: 12/07/17 EEG N/A ECT N/A MRI (HEAD, NECK, SPINE) Receieved [facility]: MRI Lumbar Spine 02/09/17 MRI Thoracic Spine 07/11/15 CT (HEAD, NECK, SPINE) N/A Phone Call: Contact Name [facility] Outcome Images will be pushed documented in this encounter Plan of Treatment Not on filedocumented as of this encounter Visit Diagnoses Not on filedocumented in this encounter Care Teams Education Trainer Relationship Specialty Start Date End Date Rolly Iniguez PCP - General Family Practice 12/05/17 documented as of this encounter
--- OUTSIDE RECORDS SUMMARY | 2022-01-05 07:48 | XMS_ITS | Encounter Summary ---
:1960 Author Organization [facility] Address [address] [place] [address] Care Team Providers Name Role Phone Rolly [...] on filedocumented in this encounter Care Teams Assembler Watch Train Relationship Specialty Start Date End Date Rolly Iniguez PCP - General Family Practice 12/05/17 documented as of this encounter
--- OUTSIDE RECORDS SUMMARY | 2022-01-05 07:48 | XMS_ITS | Encounter Summary ---
:1960 Author Organization [facility] Address [address] [place] [address]. [place] [address] Care Team Providers Name Role Phone Kevin Acuna MD Primary Care Provider Unavailable Reason for Visit Reason Comments Medication Problem methocarbomol Encounter Details Date Type Department Care Team Description 02/25/2003 [facility] Mynor Hernandez [facility]ica [facility] Earnestine Shipman MD (methocarbomol) [address] [place] [address] Social History Tobacco Use Types [...] Notes Telephone Encounter - 02/25/2003 11:59 PM NURSE HEAD >> FARHAN JOHNSON Mon Feb 25, 2003 [...] filedocumented in this encounter Care Teams Tool Grinding Technician Relationship Specialty Start Date End Date Kevin Acuna MD PCP - General 06/01/02 11/27/17 [place] [address] documented as of this encounter
--- OUTSIDE RECORDS SUMMARY | 2022-01-05 07:48 | XMS_ITS | Clinical Summary ---
:1960 Author Organization [facility] Address [address] [place] [address] Care Team Providers Name Role Phone Rolly Iniguez Primary Care Provider Unavailable Allergies Active Allergy Reactions Severity Noted Date Comments Adhesive Tape Rash Medium 01/12/2018 No Known Drug Allergies 05/16/2002 Medications Medication Sig Dispensed Refills Start Date End Date Status VITAMINS/MINERALS OR 1 TABLET DAILY 0 Active TABS WELCHOL 625 MG OR TABS Take 3 tablets bid 540 4 08/10/19 03 Active Additional Information Patient not taking. Reported on 08/28/2018 TRAZODONE HCL 50 MG OR TABS 1 TAB PO at bedtime 30 11 Active Additional Information Patient not taking. Reported on 08/28/2018 METHOCARBAMOL 750 MG OR TABS Take 1 Tablet By Mouth Twice 120 4 10/30/2002 Active Daily As Needed For Muscle Spasm Additional Information Patient not taking. Reported on 08/28/2018 INDOMETHACIN 25 MG OR CAPS 1 CAPSULE UP TO 8 TIMES 60 0 03/16/2004 Active DAILY VICODIN 5-500 MG OR TABS 1 TABLET EVERY 4 TO 6 HOURS 28 0 03/16/2004 Active NEEDED ZITHROMAX TRI-AMBERLY 500 MG OR 1TABLET DAILY 3 0 04/24/19 05 Active TABSIndications: Acute maxillary sinusitis, Acute bronchitis Additional Information Patient not taking. Reported on 08/28/2018 traMADol (ULTRAM) 50 MG tablet TK 1 T PO D TO BID 0 08/03/2018 Active cyclobenzaprine (FLEXERIL) 10 MG TK 1 T PO TID PRN 0 01/19/2016 Active tablet lisinopril (PRINIVIL/ZESTRIL) 20 MG Take 20 mg by mouth 0 02/18/2014 Active tablet diazepam (VALIUM) 10 MG tablet TK SS TO 1 T PO D TO BID 0 08/03/2018 Active PRN Misc Natural Products (URINOZINC 0 015 Active PLUS PO) omeprazole (PRILOSEC) [address] Take 10 mg by mouth 0 01/12/2018 Active capsule Active Problems Problem Noted Date Hyperlipidemia 08/28/2018 Umbilical hernia 08/28/2018 SVT (supraventricular tachycardia) 08/25/2018 Adenomatous colon polyp 02/13/2015 Overview: Overview: Colonoscopy 01/2015 normal repeat in 5 y ears Vitamin D deficiency 02/27/2013 Hypertension 01/19/2013 Pulmonary nodule, right 08/26/2011 Lateral epicondylitis 01/11/2011 Impaired fasting glucose 05/28/2008 Esophageal reflux 08/01/2006 Social History Tobacco Use Types Packs/Day Years [...] Date Recorded Male 08/22/2018 8:16 AM CDT Last Filed Vital Signs Vital Sign Reading Time Taken Comments Blood Pressure 122/76 08/28/2018 7:48 AM CDT Pulse 82 08/28/2018 7:48 AM CDT Temperature 36.6 ??C (97.9 ??F) 08/28/2018 7:48 AM CDT Respiratory Rate 16 08/28/2018 7:48 AM CDT Oxygen Saturation 95% 08/28/2018 7:48 AM CDT Inhaled Oxygen Concentration - - Weight 97.1 kg (214 lb) 08/28/2018 7:48 AM CDT Height 177.8 cm (5' 10) 08/28/2018 7:48 AM CDT Body Mass Index 30.71 08/28/2018 7:48 AM CDT Plan of Treatment Health Maintenance Due Date Last Done Comments ADVANCE CARE PLANNING 1960 ANNUAL REVIEW OF HM ORDERS 1960 CT COLONOGRAPHY 1960 FIT-DNA (Cologuard) 1960 FIT 1960 FLEX SIG 1960 PREVENTIVE CARE VISIT 1960 COVID-19 Vaccine (#1) 1960 Pneumococcal Vaccine: 1965 Pediatrics (0 to 5 Years) and At-Risk Patients (6 to 64 Years) (1 - PCV) COLONOSCOPY 1969 COLORECTAL CANCER SCREENING 1969 HIV SCREENING 1974 HEPATITIS C SCREENING 1977 LIPID 09/01/2007 08/31/2002, 05/17/2002 LUNG CANCER SCREENING 2009 ZOSTER IMMUNIZATION (1 of 2009 2) DTAP/TDAP/TD IMMUNIZATION 01/28/2016 01/27/2006 (2 - Td or Tdap) PHQ-2 (once per calendar 04/18/2021 08/28/2018, 08/28/2018 year) INFLUENZA VACCINE (#1) 2021 01/12/2018, 01/28/2017, 01/07/2016, Additional history exists HEPATITIS B IMMUNIZATION Aged Out No long er eligible based on patient 's age to complete this topic IPV IMMUNIZATION Aged Out No longer eligi ble based on patient 's age to complete this topic MENINGITIS IMMUNIZATION Aged Out No longe r eligible based on patient 's age to complete this topic Insurance Payer Benefit Plan / Subscriber ID Effective Phone Address T ype Group Dates WORK COMP STATE FUND [id number] 2002-Pre [phone] [address] [place] [address] [facility] [id number] 2017-Pres [phone] [address] O OPEN ACCESS ent [address] [place] [address] [phone]) [address] [phone] [address] SOLOM[address] (Work) [phone] Boulay,Andrzej L Personal/Family Self 1960 [phone] (Home) [address] [phone] [address] SOLOM[address] 5 (Work) [phone] [id number] Worker's Employer [phone] [employer] 5 (Work[place] [address] Care Teams Rotating Equipment Engineer Relationship Specialty Start Date End Date Rolly Iniguez PCP - General Family Practice 12/05/17
--- OUTSIDE RECORDS SUMMARY | 2022-01-05 07:48 | XMS_ITS | Encounter Summary ---
:1960 Author Organization [facility] Address [address] [place] [address]. [place] [address] Care Team Providers Name Role Phone Kevin Acuna MD Primary Care Provider Unavailable Reason for Referral - Closed Specialty Diagnoses / Procedures Referred By Contact Refer red To Contact Diagnoses Myalgia and myositis, unspecified [place] [address] Referral ID Status Reason Start Date Expiration Date Visits Requ ested Visits Authorized [id number] Closed 10/18/2003 04/17/2011 1 1 Reason for Visit Reason Comments Musculoskeletal Problem Encounter Details Date Type Department Care Team Description 10/18/2003 Office Visit [facility] Kevin Acuna M D ORCHITIS/EPIDIDYMIT NEC (Primary Dx); Clinic [facility] RETIRESandy MYALGIA AND MYOSITIS NOS [address] [place] [address] [place] [address] Social History Tobacco Use Types [...] athologist Signature TSH 1.76 0.4 - 5.0 [facility] mU/L CLINIC LAB Specimen Anatomical Collection Method Collection Time Receive d Time (Source) Location / / Volume Laterality 10/18/2003 3:04 PM 4 3:09 CDT PM CDT Kevin Acuna MD LABORATORY Performing Organization Address City/State/ZIP Code Phon e Number [facility] [address] [place] [address] [facility] documented in this encounter Visit Diagnoses Diagnosis Other orchitis, epididymitis, and epidid ymo-orchitis, without mention of abscess(604.99) - Primary Other orchitis, epididymitis, and epidid ymo-orchitis, without mention of abscess Myalgia and myositis, unspecified Mylagia and myositis, unspecified documented in this encounter Care Teams Civil Manager Relationship Specialty Start Date End Date Kevin Acuna MD PCP - General 06/01/02 11/27/17 [place] [address] documented as of this encounter
--- OUTSIDE RECORDS SUMMARY | 2022-01-05 07:48 | XMS_ITS | Encounter Summary ---
:1960 Author Organization [facility] Address [address] [place] [address]. [place] [address] Care Team Providers Name Role Phone Rolly Iniguez Primary Care Provider Unavailable Reason for Visit Reason Comments Health Maintenance Encounter Details Date Type Department Care Team Description 06/27/2018 Documentation Only [facility] Tash Hinkle, Health Maintenance Coordination, [facility] Ambulatory [address] [place] [address] Social History Tobacco Use Types Packs/Day [...] on filedocumented in this encounter Care Teams Business Center Representative Relationship Specialty Start Date End Date Rolly Iniguez PCP - General Family Practice 12/05/17 documented as of this encounter
--- OUTSIDE RECORDS SUMMARY | 2022-01-05 07:48 | XMS_ITS | Encounter Summary ---
:1960 Author Organization [facility] Address [address] [place] [address]. [place] [address] Care Team Providers Name Role Phone Kevin Acuna MD Primary Care Provider Unavailable Reason for Referral - Closed Specialty Diagnoses / Procedures Referred By Contact Refer red To Contact Diagnoses Cervicalgia Mynor Hernandez MD [facility] [address] [place] [address] Referral ID Status Reason Start Date Expiration Date Visits Requ ested Visits Authorized [id number] Closed 09/26/2002 04/17/2011 1 1 Reason for Visit Reason Comments Referral Encounter Details Date Type Department Care Team Description 09/24/2002 [facility] Mynor Hernandez MD Referral [address] [place], [place] [address] Social History Tobacco Use Types Packs/Day [...] Rheumatology. Plans are to keep appt with [facility]. Dr. Ybarra 12-19-02. [phone]. Neuro consult letter, labs and mri faxed to [facility] >> SARA COSME Anayeli Sep 27, 2002 [...] of all my recent notes to the [facility] 3) Fax copy of Neuro's note to rheum when it arrives >> FIGUEROA HAND [facility] Sep 24, 2002 5:08 PM >> CALL RECEIVED. Contact: Pt has seen Neurology. Pt felt the tone of the visit was that Neuro could not offer more. [place] dx fibromyalgia. Pt states muscle tightness worsening. [...] Primary documented in this encounter Care Teams Ragman Relationship Specialty Start Date End Date Kevin Acuna MD PCP - General 06/01/02 11/27/17 [place] [address] documented as of this encounter
--- OUTSIDE RECORDS SUMMARY | 2022-01-05 07:48 | XMS_ITS | Encounter Summary ---
:1960 Author Organization [place] Address [address] [place] [address]. [place] [address] Care Team Providers Name Role Phone Rolly Iniguez Primary Care Provider Unavailable Reason for Visit Reason Comments Spasms Muscle Pain UMP NEW MUSCULAR DYSTROPHY- MUSCLE PAIN/SPASMS, NUMBNESS/TINGLING Encounter Details Date Type Department Care Team Description 08/28/2018 Office Visit [facility] Neurology Singh Neumann, Pain in both lower [address] [facility] extremities (Primary 3rd Floor [address] [facility] [address] Dx) [place] [address] [phone] Social History Tobacco Use Types Packs/Day Years [...] Mass Index 30.71 08/28/2018 7:48 AM CDT documented in this encounter Progress Notes Singh Neumann MD - 08/28/2018 8:00 AM CDT Chief Complaint: pain and stiffness History of Present Illness: Andrzej Arriaga is a 58 year old man who I am seeing at he request of Dr. Daylin Cabrera at the [facility] of neurology for pain and spasms. He feels that everything feels tight. Onset was when he was in his late 20's. The most severely affected location is his legs. He describes tightness and pain in his hamstrings, especially evident upon initial activity./ Discomfort improves during the day- but at the end of the day returns again. He has similar tightness and pain in his calves. He feelstightness and pain in his abdomen which he attributes to his diaphragm. Stiffness and pain is less intense in his upper limbs. He finds stiffness and pain are worse in the cold and better in the heat. No changes with diet. In April 2009 he tore a left hamstrings tendon after an awkward fall, requiring surgery. In the fall 2017 he had a similar injury to the right hamstring after a fall. That hamstring injury did not require surgery. He had right CTS surgery and surgery on both elbows for what was called cubital tunnel surgery. 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 He reports occasional cramps in his lower limbs. Usually these ocurr in his calves but sometimes thighs. He experiences cramps once or twice per month. He also notices fasciculations, usually in upper limbs, a couple times per week. No atrophy, dysarthria, dysphagia, diplopia, or ptosis. He has not experienced myoglobinuria. He denies breathing difficulties or shortness of breath while lying flat and has not experienced chest painor syncope. He reports some intermittent numbness in his right thigh. He denies hand numbness. He has some non radiating low back pain. He has functionally difficulties due to pain, but not really any weakness. He is independent, has no assistive devices, able to ambulate independently, and is not falling. He has tried several medications for these symptoms. Tramadol and hydrocodone help. Flexeril might help a bit. He also uses valium 10 mg at night. Previously he has also tried gabapentin, tegretol and others that he is unsure of. Those were not helpful. He no longer dose physical therapy. He did some hand PT about a month ago. Last PT for lower limbs was last year. His pain management doctor is Dr. Bello. Prior pertinent laboratory work-up: -01/03: Negative/normal B12, paraneoplastic ab, TSH, serum IF, MELISSA, CK, aldolase 03/05: Normal NA, K, BUN, Cr Prior muscle biopsy: 04/04: Muscle biopsy of the right quadriceps showed only type 2 fiber atrophy. Prior electrophysiologic work-up: 12/03: Nerve conduction studies/needle EMG performed at [facility] clinic of neurology. Lower limbs studied. NCS probably normal. Many many muscles were sampled, all reported to be essentially normal. I do see that increased insertional activity was reported in the paraspinal muscles, but no other abnormal discharges. Prior pertinent imagin/17: MRI T/LS spine showed moderate central stenosis at L3-L4 and scattered foraminal stenosis, most sever at L4-L5 where it was considered moderate. T spine normal. Past Medical History: Hyperlipidemia Past Surgical History: Past Surgical History: Procedure Laterality Date ??? C NONSPECIFIC PROCEDURE 02/16 Colonoscopy -- Abstracted 08/29/01 Family history: There is no known family history of myopathy or other neuromuscular disorders. He reports that his son does have some leg cramps, as does his mother. Social History: Rare alcohol. He denies tobacco or illicit drug use. Medical Allergies: Allergies Allergen Reactions ??? Adhesive Tape Rash ??? No Known Drug Allergies Current Medications: Current Outpatient Medications Medication ??? cyclobenzaprine (FLEXERIL) 10 MG tablet ??? diazepam (VALIUM) 10 MG tablet ??? lisinopril (PRINIVIL/ZESTRIL) 20 MG tablet ??? Misc Natural Products (URINOZINC PLUS PO) ??? omeprazole (PRILOSEC) [address] capsule ??? traMADol (ULTRAM) 50 MG tablet ??? VITAMINS/MINERALS OR TABS ??? INDOMETHACIN 25 MG OR CAPS ??? METHOCARBAMOL 750 MG OR TABS ??? TRAZODONE HCL 50 MG OR TABS ??? VICODIN 5-500 MG OR TABS ??? WELCHOL 625 MG OR TABS ??? ZITHROMAX TRI-AMBERLY 500 MG OR TABS No current facility-administered medications for this visit. Review of Systems: A review of systems was obtained and was negative except for what was noted above. Physical examination: BP 122/76 Pulse 82 Temp 97.9 ??F (36.6 ??C) (Oral) Resp 16 Ht 1.778 m (5' 10) Wt 97.1 kg (214 lb) SpO2 95% BMI 30.71 kg/m?? General Appearance: NAD Skin: There are no rashes or other skin lesions. Musculoskeletal: Pes cavus. Neurologic examination: Mental status: Patient is alert, attentive, and oriented x 3. Language is coherent and fluent without aphasia. Memory, comprehension and ability to follow commands were intact. Cranial nerves: Pupils were round and reacted to light. Extraocular movements were full. There was no face, jaw, palate or tongue weakness or atrophy. Hearing was grossly intact. Shoulder shrug was normal. Motor exam: No atrophy or hypertrophy. Tone normal. A single brief fasciculation noted in his left flank. No action or percussion myotonia or paramyotonia. No mounding of muscle with percussion. Manualmuscle testing revealed MRC grade 5/5 strength throughout including proximal and distal muscles of the arms and legs. Complex motor skills: Mild postural hand tremor. No ataxia Sensory exam: Intact vibration, light touch, and pin in upper and lower limbs. Gait narrow and stable. Deep tendon reflexes: Right Left Triceps 2 2 Biceps 2 2 Brachioradialis 2 2 Knee jerk 2 2 Ankle jerk 1-2 1-2 Assessment and plan: Andrzej Arriaga is a very pleasant gentleman who has experienced lower limb predominate discomfort and musculoskeletal tightness over many years. Naturally this is very frustrating for him, and unfortunately I am at a loss to provide him a neurologic explanation. His neurologic examination is normal, as is his CK and probably lower limb EMG performed at [facility]rology. The muscle biopsyshowed only type 2 atrophy. This finding is non-specific but one that typically represents disuse. We discussed rheumatologic and orthopaedic evaluations. He reports that prior rheumatology evaluation initially raised the possibility of ankyling spondylosis, which was later felt not to be an accurate diagnosis. If morning stiffness persists then repeat rheumatologic evaluation is reasonable. If tendonopathies persist then ortho comment may be helpful. I will leave these referrals to the discretion of his PCP. I encouraged supportive management, in particular physical therapy. I suggested he discontinue diazepam as I do not think he has stiff person syndrome. He does not take valium very often, andwhen he does it makes him sleepy. Other sedating medications would be best to similiarly minimize merlyn is able. I will leave pain management to Dr. Bello. - documented in this encounter Nursing Notes Constantine Christine EMT - 08/28/2018 8:00 AM CDT Chief Complaint Patient presents with ??? Spasms ??? Muscle Pain UMP NEW MUSCULAR DYSTROPHY- MUSCLE PAIN/SPASMS, NUMBNESS/TINGLING ANDREW Mccray documented in this encounter Plan of Treatment Not on filedocumented as of this encounter Visit Diagnoses Diagnosis Pain in both lower extremities - Primary documented in this encounter Care Teams Tower Equipment Repairer Relationship Specialty Start Date End Date Rolly Iniguez PCP - General Family Practice 12/05/17 documented as of this encounter
--- OUTSIDE RECORDS SUMMARY | 2022-01-05 07:48 | XMS_ITS | Encounter Summary ---
:1960 Author Organization [place] Address [address] [place] [address] Care Team Providers Name Role Phone Leanne Acuna MD Primary Care Provider Unavailable Reason for Visit Reason Onset Date Comments Sinus Problem 05/07/2004 Encounter Details Date Type Department Care Team Description 05/07/2004 Telephone [facility] Kassie Acuna MD Sinus Problem [place] RETIRED [address] [place] [address] [place], [place] [id number] Social History Tobacco Use Types Packs/Day Years [...] Notes Telephone Encounter - 05/07/2004 8:48 AM SUPERVISOR/PORT DIRECTOR >> YVROSE RHODES Anayeli May 07, 2004 [...] on filedocumented in this encounter Care Teams E Business Manager Relationship Specialty Start Date End Date Leanne Acuna MD PCP - General 06/01/02 11/27/17 [place] [address] documented as of this encounter
--- OUTSIDE RECORDS SUMMARY | 2022-01-05 07:49 | XMS_ITS | Encounter Summary ---
:1960 Author Organization [place] Address [address] [place] [address] Care Team Providers Name Role Phone Kevin Acuna MD Primary Care Provider Unavailable Reason for Visit Reason Comments Refill Request Encounter Details Date Type Department Care Team Description 08/09/2002 Telephone [facility] Mynor Hernandez MD Refill Request [place] [address] [place] [address] Social History Tobacco Use [...] 08/09/2002 11:59 PM CDT >> SUSAN CORDERO [facility] Aug 09, 2002 4:38 PM advised of rx being faxed to pharmacy per Dr Hernandez >> MYNOR HERNANDEZ [facility] Aug 09, 2002 4:28 PM please call rx'd faxed in should be ready by 7:00 pm [email or web address] >> IMKI RIVERA [facility] Aug 09, 2002 4:11 PM >> CALL [...] on filedocumented in this encounter Care Teams Handbag Designer Relationship Specialty Start Date End Date Kevin Acuna MD PCP - General 06/01/02 11/27/17 [place] [address] documented as of this encounter
--- OUTSIDE RECORDS SUMMARY | 2022-01-05 07:49 | XMS_ITS | Encounter Summary ---
:1960 Author Organization [place] Address [address] [place] [address] Care Team Providers Name Role Phone DoctorLeyla MD Primary Care Provider Unavailable Encounter Details Date Type Department Care Team Description 08/29/2001 Abstract [facility] Chantale Vides ABSTRACT FROM PAPER [place] CHART [address] [place] [address] Social History Tobacco Use Types [...] on filedocumented in this encounter Care Teams It Software Engineer Relationship Specialty Start Date End Date Leyla Rivera MD PCP - General 06/02/01 05/31/02 documented as of this encounter
--- OUTSIDE RECORDS SUMMARY | 2022-01-05 07:49 | XMS_ITS | Encounter Summary ---
:1960 Author Organization [place] Address [address] [place] [address] Care Team Providers Name Role Phone Doctor, None MD Primary Care Provider Unavailable Reason for Visit Reason Comments Consult Encounter Details Date Type Department Care Team Description 05/16/2002 Office Visit [facility] Mynor Jaramillo MYALGI A AND MYOSITIS NOS; Clinic Earnestine Shipman MD HYPERLIPIDEMIA NEC/NOS [address] [phone] Social History Tobacco Use Types Packs/Day Years [...] Comments Blood Pressure 124/76 05/16/2002 2:30 PM SUPERVISOR KOSHER [employer]ARY [employer]ICE Pulse 72 05/16/2002 2:30 PM SUPERVISOR [employer]HER [employer]ARY SERV[employer] Temperature - - Respiratory Rate - - Oxygen Saturation - - Inhaled Oxygen Concentration - - Weight 90.3 kg (199 lb) 05/16/2002 2:30 PM SUPERVISOR [employer] Height - - Body Mass Index - - documented in this encounter Progress Notes 05/16/2002 2:30 PM SUPERVISOR KOSHER DIETARY SERVICE SUBJECTIVE: Mr. Arriaga has a history of [...] hyperlipidemia documented in this encounter Care Teams Graining Operator Relationship Specialty Start Date End Date Doctor, Leyla, PCP - General 06/02/01 05/31/02 documented as of this encounter
--- OUTSIDE RECORDS SUMMARY | 2022-01-05 07:49 | XMS_ITS | Encounter Summary ---
:1960 Author Organization [place] Address [address] [place] [address] Care Team Providers Name Role Phone Doctor, None MD Primary Care Provider Unavailable Encounter Details Date Type Department Care Team Description 05/17/2002 Orders Only [facility] RUBÉN LGIA AND MYOSITIS NOS; [facility] HYPERLIPIDEMIA NEC/NOS [address] [place] [address] Social History Tobacco Use [...] ia Nec/Nos Results for this PANEL AM PROFESSOR OF SURGERY Myalgia And Myositis procedu re are in Nos the results section. HEMOGRAM Routine 05/17/2002 8:32 Myalgia And Myositis Resu lts for this AM PROFESSOR OF SURGERY Nos procedure are in Hyperlipidemia Nec/Nos the r esults section. CL AFF ANTINUCLEAR Routine 05/17/2002 8:32 Myalgia And Myositi s Results for this ANTIBODIES AM PROFESSOR OF SURGERY Nos procedure are i n the results section. HCL HEPATIC PANEL Routine 05/17/2002 8:32 Hyperlipidemia Nec/Nos Results for this AM PROFESSOR OF SURGERY Myalgia And Myositis procedu re are in Nos the results section. CL AFF A.M.A. LIPID Routine 05/17/2002 8:32 Hyperlipidemia Nec /Nos Results for this PANEL AM PROFESSOR OF SURGERY procedure are i n the results section. HCL CK, TOTAL Routine 05/17/2002 8:32 Myalgia And Myositis Res ults for this AM PROFESSOR OF SURGERY Nos procedure are in Hyperlipidemia Nec/Nos the r esults section. HCL SED RATE (ESR) Routine 05/17/2002 8:32 Myalgia And Myositi s Results for this AM PROFESSOR OF SURGERY Nos procedure are in Hyperlipidemia Nec/Nos the r esults section. documented in this encounter Results (ABNORMAL) A.M.A. BASIC METABOLIC PANEL (05/17/2002 8:32 AM PROFESSOR OF SURGERY) athologist Signature Sodium 140 133 - 144 [place] mmol/L [facility] Potassium 4.4 3.4 - 5.3 [place] mmol/L [facility] Chloride 108 94 - 109 [place] mmol/L [facility] Carbon Dioxide 31 20 - 32 [place] mmol/L [facility] Anion Gap <1 (L) 6 - 17 [place] mmol/L [facility] Glucose 109 60 - 115 [place] mg/dL [facility] Urea Nitrogen 16 5 - 24 [place] mg/dL [facility] Creatinine 0.9 0.8 - 1.5 [place] mg/dL [facility] Calcium 9.4 8.5 - 10.4 [place] mg/dL [facility] Specimen Anatomical Collection Method Collection Time Receive d Time (Source) Location / / Volume Laterality 05/17/2002 8:32 AM 3 8:34 PROFESSOR OF SURGERY AM PROFESSOR OF SURGERY Mynor Jaramillo MD LABORATORY Performing Organization Address City/State/ZIP Code Phon e Number [facility] [address] [place] [address] [facility] HEMOGRAM (05/17/2002 8:32 AM PROFESSOR OF SURGERY) athologist Signature WBC 9.2 4.0 - 11.0 [place] 10e9/L CLINIC LAB RBC Count 4.92 4.4 - 5.9 [facility] 10e12/L [facility] Hemoglobin 15.7 13.3 - 17.7 [facility] g/dL [facility] Hematocrit 46.0 40.0 - 53.0 [facility] % [facility] MCV 94 78 - 100 fl [facility] MCH 31.9 26.5 - 33.0 [facility] pg [facility] MCHC 34.1 32.0 - 36.0 [facility] g/dL [facility] RDW 11.6 10.0 - 15.0 [facility] % [facility] Specimen Anatomical Collection Method Collection Time Receive d Time (Source) Location / / Volume Laterality 05/17/2002 8:32 AM 3 8:34 PROFESSOR OF SURGERY AM PROFESSOR OF SURGERY Mynor Jaramillo MD LABORATORY Performing Organization Address City/State/ZIP Code Phon e Number [facility] [address] [place], [place] [address] [address] [facility] ANTINUCLEAR ANTIBODIES (05/17/2002 8:32 AM PROFESSOR OF SURGERY) Patholo gist Method Time Signature FATMATA Screen by <1.0 [facility] EIA Interpretation: ??Negative [facility] Specimen Anatomical Collection Method Collection Time Receive d Time (Source) Location / / Volume Laterality 05/17/2002 8:32 AM 3 8:34 PROFESSOR OF SURGERY AM PROFESSOR OF SURGERY Mynor Jaramillo MD LABORATORY Performing Organization Address City/State/ZIP Code Phon e Number [address] [address] [facility] LABS (ABNORMAL) A.M.A. LIPID PANEL (05/17/2002 8:32 AM PROFESSOR OF SURGERY) P athologist Signature Cholesterol 260 (H) <200 mg/dL [facility] Comment: Cholesterol Reference Range: <200 ??The NCEP recommends further ? evaluation of: ? 1. ??Patients with cholesterol ? greater than 200 mg/dL ? if additional risk facto rs ? are present. ? 2. ??All patients with a ? cholesterol greater than ? 240 mg/dL. Triglycerides 207 (H) <150 mg/dL [facility] HDL Cholesterol 41 >40 mg/dL [facility] LDL Cholesterol Calculated 177 (H) <130 mg/dL [facility] VLDL-Cholesterol 41 (H) 0 - 30 mg/dL [place] [facility] Cholesterol/HDL Ratio 6 (H) 0 - 5 [facility] Specimen Anatomical Collection Method Collection Time Receive d Time (Source) Location / / Volume Laterality 05/17/2002 8:32 AM 3 8:34 PROFESSOR OF SURGERY AM PROFESSOR OF SURGERY Mynor Jaramillo MD LABORATORY Performing Organization Address City/[facility] Code Phon e Number [facility] [address] [place] [address] [facility] A.M.A. HEPATIC PANEL (05/17/2002 8:32 AM PROFESSOR OF SURGERY) athologist Signature Bilirubin 0.0 0.0 - 0.3 [place] Conjugated mg/dL [facility] Bilirubin Delta 0.0 0.0 - 0.4 [place] mg/dL [facility] Bilirubin Total 0.6 0.2 - 1.3 [place] mg/dL [facility] Albumin 4.0 3.3 - 4.6 [place] g/dL [facility] Protein Total 7.6 6.0 - 8.2 [place] g/dL [facility] Alkaline 79 40 - 150 [place] Phosphatase U/L [facility] ALT 38 0 - 70 U/L [facility] AST 28 0 - 55 U/L [facility] Specimen Anatomical Collection Method Collection Time Receive d Time (Source) Location / / Volume Laterality 05/17/2002 8:32 AM 3 8:34 PROFESSOR OF SURGERY AM PROFESSOR OF SURGERY Mynor Jaramillo MD LABORATORY Performing Organization Address City/[facility] Care [facility] Phon e Number [facility] [address] [place] [address] [facility] CK, TOTAL (05/17/2002 8:32 AM PROFESSOR OF SURGERY) P athologist Signature CK Total 125 45 - 300 [facility] U/L [facility] Specimen Anatomical Collection Method Collection Time Receive d Time (Source) Location / / Volume Laterality 05/17/2002 8:32 AM 3 8:34 PROFESSOR OF SURGERY AM PROFESSOR OF SURGERY Mynor Jaramillo MD LABORATORY Performing Organization Address City/State/ZIP Code Phon e Number [facility] [address] [place] [address] [facility] SED RATE, AUTO (05/17/2002 8:32 AM PROFESSOR OF SURGERY) athologist Signature Sed Rate 7 0 - 15 mm/h [facility] Specimen Anatomical Collection Method Collection Time Receive d Time (Source) Location / / Volume Laterality 05/17/2002 8:32 AM 3 8:34 PROFESSOR OF SURGERY AM PROFESSOR OF SURGERY Mynor Jaramillo MD LABORATORY Performing Organization Address City/State/ZIP Code Phon e Number [facility] [address] [place], [place] [address] [address] [facility] documented in this encounter Visit Diagnoses Diagnosis Myalgia and myositis, unspecified Mylagia and myositis, unspecified Other and unspecified hyperlipidemia documented in this encounter Care Teams Academic Administrator Relationship Specialty Start Date End Date Doctor, Leyla, PCP - General 06/02/01 05/31/02 documented as of this encounter
--- OUTSIDE RECORDS SUMMARY | 2022-01-05 07:49 | XMS_ITS | Encounter Summary ---
:1960 Author Organization [place] Address [address] [place] [address] Care Team Providers Name Role Phone Leyla Rivera MD Primary Care Provider Unavailable Encounter Details Date Type Department Care Team Description 09/26/2001 Orders Only [facility] Danish Guerra MD [facility] Clinic [place] XXX RESIGNED X XX NEC/NOS (Primary Dx) Laboratory [address] [place] [phone] Social History Tobacco Use Types Packs/Day Years [...] Primary documented in this encounter Care Teams Receiving Supervisor Relationship Specialty Start Date End Date Leyla Rivera MD PCP - General 06/02/01 05/31/02 documented as of this encounter
--- OUTSIDE RECORDS SUMMARY | 2022-01-05 07:49 | XMS_ITS | Encounter Summary ---
:1960 Author Organization [place] Address [address] [place] [address] Care Team Providers Name Role Phone Kevin Acuna MD Primary Care Provider Unavailable Reason for Visit Reason Comments RECHECK Encounter Details Date Type Department Care Team Description 07/17/2002 Office Visit [facility] Mynor Jaramillo MYALGUmberto Arreola AND MYOSITIS Clinic Earnestine Shipman MD NOS (Primary Dx) [address] [place] [address] Social History Tobacco Use Types Packs/Day Years [...] Comments Blood Pressure 132/72 07/17/2002 8:00 AM PARK RANGER Pulse 80 07/17/2002 8:00 AM PARK RANGER Temperature - - Respiratory Rate - - Oxygen Saturation - - Inhaled Oxygen Concentration - - Weight 89.4 kg (197 lb) 07/17/2002 8:00 AM PARK RANGER Height - - Body Mass Index - - documented in this encounter Progress Notes 07/17/2002 8:00 AM PARK RANGER SUBJECTIVE: Mr. Arriaga notes some minor improvement [...] unspecified documented in this encounter Care Teams Athletic Turf Worker Relationship Specialty Start Date End Date Kevin Acuna MD PCP - General 06/01/02 11/27/17 [place] [address] documented as of this encounter
--- OUTSIDE RECORDS SUMMARY | 2022-01-05 07:49 | XMS_ITS | Encounter Summary ---
:1960 Author Organization [place] Address [address] [place] [address] Care Team Providers Name Role Phone Kevin Acuna MD Primary Care Provider Unavailable Reason for Visit Reason Comments RECHECK Encounter Details Date Type Department Care Team Description 06/04/2002 Office Visit [facility] Mynor Jaramillo MIXED HYPERLIPIDEMIA Clinic Earnestine Shipman MD (Primary Dx) [address] [place] [address] Social History Tobacco Use Types [...] Comments Blood Pressure 126/74 06/04/2002 4:00 PM TUTORING CLINICIAN Pulse 64 06/04/2002 4:00 PM TUTORING CLINICIAN Temperature - - Respiratory Rate - - Oxygen Saturation - - Inhaled Oxygen Concentration - - Weight 91.2 kg (201 lb) 06/04/2002 4:00 PM TUTORING CLINICIAN Height - - Body Mass Index - - documented in this encounter Progress Notes 06/04/2002 4:00 PM TUTORING CLINICIAN SUBJECTIVE: Mr. Arriaga notes he may just [...] Primary documented in this encounter Care Teams Home Energy Consultant Relationship Specialty Start Date End Date Kevin Acuna MD PCP - General 06/01/02 11/27/17 [place] [address] documented as of this encounter
--- OUTSIDE RECORDS SUMMARY | 2022-01-05 07:49 | XMS_ITS | Encounter Summary ---
:1960 Author Organization [place] Address [address] [place] [address] Care Team Providers Name Role Phone Kevin Acuna MD Primary Care Provider Unavailable Reason for Visit Reason Comments Refill Request Encounter Details Date Type Department Care Team Description 08/09/2002 Refill [facility] Danish Guerra MD Refill Request [place] XXX RESIGNED XXX [address] [place] [address] [place] [phone] (Wo rk) Social History Tobacco Use Types [...] filedocumented in this encounter Care Teams Assembler Installer General Relationship Specialty Start Date End Date Kevin Acuna MD PCP - General 06/01/02 11/27/17 [place] [address] documented as of this encounter
--- OUTSIDE RECORDS SUMMARY | 2022-01-05 07:49 | XMS_ITS | Encounter Summary ---
:1960 Author Organization [place] Address [address] [place] [address] Care Team Providers Name Role Phone Kevin Acuna MD Primary Care Provider Unavailable Reason for Referral - Closed Specialty Diagnoses / Procedures Referred By Contact Refer red To Contact Diagnoses Unspecified musculoskeletal disorders and symptoms referable to neck Mynor Jaramillo MD [facility] [address] [place] [address] Referral ID Status Reason Start Date Expiration Date Visits Requ ested Visits Authorized [id number] Closed 09/13/2002 04/17/2011 1 1 Encounter Details Date Type Department Care Team Description 09/13/2002 Orders Only [facility] Mynor Jaramillo NECK D ISORDER/SYMPT NOS Clinic Earnestine Shipman MD (Primary Dx) [address] [place] [phone] Social History Tobacco Use Types Packs/Day Years [...] Date/Time Associated Diagnosis Comme nts ZZ CONSULT NEUROLOGY Routine 09/18/2002 Neck Disorder/Sym pt Nos documented in this encounter Results CONSULT NEUROLOGY (09/18/2002) Narrative This result has an attachment that is no t available. Mynor Jaramillo MD REFERRAL documented in this encounter Visit Diagnoses Diagnosis Unspecified musculoskeletal disorders an d symptoms referable to neck - Primary documented in this encounter Care Teams Athletic Instructor Relationship Specialty Start Date End Date Kevin Acuna MD PCP - General 06/01/02 11/27/17 [place] [address] documented as of this encounter
--- OUTSIDE RECORDS SUMMARY | 2022-01-05 07:49 | XMS_ITS | Encounter Summary ---
:1960 Author Organization [place] Address [address] [place] [address] Care Team Providers Name Role Phone Kevin Acuna MD Primary Care Provider Unavailable Reason for Visit Reason Comments DEG. DISC DISEASE, C. SPINE Encounter Details Date Type Department Care Team Description 08/13/2002 Abstract [facility] Go Singh serrano MD [facility] RETIRED [address] [place] [address] [place], [place] [phone] Social History Tobacco Use Types Packs/Day Years [...] documented as of this encounter Progress Notes 08/13/2002 11:59 PM CDT This information has been abstracted from the [facility] chart. NO X-RAYS. LOCAL HEAT, NECK CARE BOOK TYLENOL #3 1 Q4-6H PRN CONTINUE MUSCLE RELAXANT FU DR. HERNANDEZ 7-10 DAYS PRN. AUGUST N EED MRI NECK. Electronically filed by Ania Man 08/22/2002 3:11 PM documented in this encounter Plan of Treatment Not on filedocumented as of this encounter Visit Diagnoses Not on filedocumented in this encounter Care Teams Slasher Tender Relationship Specialty Start Date End Date Kvein Acuna MD PCP - General 06/01/02 11/27/17 [place] [address] documented as of this encounter
--- OUTSIDE RECORDS SUMMARY | 2022-01-05 07:49 | XMS_ITS | Encounter Summary ---
:1960 Author Organization [place] Address [address] [place] [address] Care Team Providers Name Role Phone Kevin Acuna MD Primary Care Provider Unavailable Reason for Visit Reason Comments Physical Encounter Details Date Type Department Care Team Description 08/31/2002 Office Visit [facility] Mynor Hernandez (Primary Dx); Clinic Earnestine Shipman MD HYPERLIPIDEMIA NEC/NOS [address] [place] [phone] Social History Tobacco Use Types Packs/Day Years [...] IMPRESSION Ordering Provider: ??MYNOR HERNANDEZ Principal Result Ict Security Specialist: ??MALI KNIGHT Tower Switch Operator: ??MALI Shaw Mynor Hernandez MD SPECIAL IMAGING STUDIES (ABNORMAL) A.M.A. LIPID PANEL (08/31/2002 8:16 AM CDT) P athologist Signature Cholesterol 253 (H) <200 mg/dL [facility] Comment: Cholesterol Reference Range: <200 ??The NCEP recommends further ? evaluation of: ? 1. ??Patients with cholesterol ? greater than 200 mg/dL ? if additional risk facto rs ? are present. ? 2. ??All patients with a ? cholesterol greater than ? 240 mg/dL. Triglycerides 206 (H) <150 mg/dL [facility] HDL Cholesterol 37 (L) >40 mg/dL [facility] LDL Cholesterol Calculated 174 (H) <130 mg/dL [facility] VLDL-Cholesterol 41 (H) 0 - 30 mg/dL [place] [facility] Cholesterol/HDL Ratio 7 (H) 0 - 5 [facility] Specimen Anatomical Collection Method Collection Time Receive d Time (Source) Location / / Volume Laterality 08/31/2002 8:16 AM 3 8:17 CDT AM CDT Mynor Hernandez MD LABORATORY Performing Organization Address City/State/ZIP Code Phon e Number [facility] [address] [place] [address] [facility] A.M.A. HEPATIC PANEL (08/31/2002 8:16 AM CDT) P athologist Signature Bilirubin 0.0 0.0 - 0.3 [place] Conjugated mg/dL [facility] Bilirubin Delta 0.2 0.0 - 0.4 [place] mg/dL [facility] Bilirubin Total 0.6 0.2 - 1.3 [place] mg/dL [facility] Albumin 4.0 3.3 - 4.6 [place] g/dL [facility] Protein Total 7.2 6.0 - 8.2 [place] g/dL [facility] Alkaline 76 40 - 150 [place] Phosphatase U/L [facility] ALT 18 0 - 70 U/L [facility] AST 21 0 - 55 U/L [facility] Specimen Anatomical Collection Method Collection Time Receive d Time (Source) Location / / Volume Laterality 08/31/2002 8:16 AM 3 8:17 CDT AM CDT Mynor Hernandez MD LABORATORY Performing Organization Address City/State/ZIP Code Phon e Number [facility] [address] [place] [address] [facility] documented in this encounter Visit Diagnoses Diagnosis Cervicalgia - Primary Other and unspecified hyperlipidemia documented in this encounter Care Teams Curator Of Education Relationship Specialty Start Date End Date Kevin Acuna MD PCP - General 06/01/02 11/27/17 [place] [address] documented as of this encounter
--- OUTSIDE RECORDS SUMMARY | 2022-01-05 07:49 | XMS_ITS | Encounter Summary ---
:1960 Author Organization [place] Address [address] [place] [address] Care Team Providers Name Role Phone Kevin Acuna MD Primary Care Provider Unavailable Reason for Visit Reason Comments Refill Request Encounter Details Date Type Department Care Team Description 09/04/2002 Refill [facility] Mynor Jaramillo MD Refill Request [place] [address] [place] [address] Social History Tobacco Use [...] on filedocumented in this encounter Care Teams Research Study Assistant Relationship Specialty Start Date End Date Kevin Acuna MD PCP - General 06/01/02 11/27/17 [place] [address] documented as of this encounter
--- OUTSIDE RECORDS SUMMARY | 2022-01-05 07:49 | XMS_ITS | Encounter Summary ---
:1960 Author Organization [place] Address [address] [place] [address] Care Team Providers Name Role Phone Kevin Acuna MD Primary Care Provider Unavailable Reason for Visit Reason Comments Refill Request Encounter Details Date Type Department Care Team Description 07/13/2002 Refill [facility] Danish Guerra MD Refill Request [place] XX RESIGNED XXX [address] [place] [address] [place] [phone] (Wo rk) Social History Tobacco Use Types [...] Notes Telephone Encounter - 07/13/2002 11:59 PM ACID OPERATOR >> OUSMANE OSMAN TueJul 13, 2002 9:26 AM >> CALL RECEIVED. Contact: last filled 05-11-02 documented in this encounter Plan of Treatment Not on filedocumented as of this encounter Visit Diagnoses Not on filedocumented in this encounter Care Teams Virology Teacher Relationship Specialty Start Date End Date Kevin Acuna MD PCP - General 06/01/02 11/27/17 [place] [address] documented as of this encounter
--- OUTSIDE RECORDS SUMMARY | 2022-01-05 07:49 | XMS_ITS | Encounter Summary ---
:1960 Author Organization [place] Address [address] [place] [address] Care Team Providers Name Role Phone Kevin Acuna MD Primary Care Provider Unavailable Reason for Visit Reason Comments Refill Request Encounter Details Date Type Department Care Team Description 09/06/[address] [facility] Mynor Jaramillo MD Refill Request [place] [address] [place] [address] Social History Tobacco Use [...] 09/06/2002 11:59 PM CDT >> FIGUEROA HAND [facility] September 06, 2002 10:57 AM >> [...] on filedocumented in this encounter Care Teams Help Desk Technician Relationship Specialty Start Date End Date Kevin Acuna MD PCP - General 06/01/02 11/27/17 [place] [address] documented as of this encounter
--- OUTSIDE RECORDS SUMMARY | 2022-01-05 07:49 | XMS_ITS | Encounter Summary ---
:1960 Author Organization [place] Address [address] [place] [address] Care Team Providers Name Role Phone Leyla Rivera MD Primary Care Provider Unavailable Encounter Details Date Type Department Care Team Description 10/30/2001 Office Visit [facility] Danish Amaro MD ERRONEOUS Clinic [place] XXX RESIGNED XXX ENCOUNTER--DISREGARD [address] (Primary Dx) [place] [address] [phone] (Wo rk) Social History Tobacco Use Types [...] as of this encounter Visit Diagnoses Diagnosis ERRONEOUS ENCOUNTER--DISREGARD - Primary documented in this encounter Care Teams Cashier Self Service Gasoline Relationship Specialty Start Date End Date Leyla Rivera MD PCP - General 06/02/01 05/31/02 documented as of this encounter
--- OUTSIDE RECORDS SUMMARY | 2022-01-05 07:50 | XMS_ITS | Encounter Summary ---
:1960 [facility] Address [address] [place] [address] Care Team Providers Name Role Phone Unassigned, Provider Primary Care Provider Unavailable Encounter Details Date Type Department Care Team Description 11/22/2003 Correspondence None Unknown, Physici an [facility] Consent and Release [address] [place] [address] (Wo rk) Social History Tobacco Use Types Packs/Day Years Used Date Smoking Tobacco: Never Assessed Sex Assigned at Date Recorded Not on file documented as of this encounter Progress Notes Unknown, Physician - 11/22/2003 12:00 AM CDT documented in this encounter Plan of Treatment Not on filedocumented as of this encounter Visit Diagnoses Not on filedocumented in this encounter Care Teams Key Attendant Relationship Specialty Start Date End Date Unassigned, Provider PCP - General 03/26/[address] [place] [address] documented as of this encounter
--- OUTSIDE RECORDS SUMMARY | 2022-01-05 07:50 | XMS_ITS | Encounter Summary ---
:1960 Author Organization [facility] Address [address], [place] [address] Care Team Providers Name Role Phone Unassigned, Provider Primary Care Provider Unavailable Encounter Details Date Type Department Care Team Description 03/04/2004 Office Visit [facility] Kindra Yu MD [facility] [phone] [place] [address] [phone] Social History Tobacco Use Types Packs/Day Years Used Date Smoking Tobacco: Never Assessed Sex Assigned at Date Recorded Not on file documented as of this encounter Progress Notes 03/04/2004 11:10 AM TELEVISION NEWS ANCHOR Mali Woods is here today regarding f/u MRI left shoulder. Post Op visit?: NO. Pain assessment: 7 Location: bilateral shoulders and back, Frequency:Everyday, Type: constant, Duration:. Recent Tests?: Yes, What test? MRI left shoulder. Date of test 02/19/04, location of test [facility]. Injury?: No Patient's pcp is Provider Unassigned, Physician. Referring provider is No current outpatient prescriptions on file. Review of patient's allergies indicates no known allergies. . Rupali Hsu MA, 11:29 AM, 03/04/2004 Waqas Yu - 03/04/2004 12:00 AM TELEVISION NEWS ANCHOR SUBJECTIVE: The patient is seen for followup of his spine. He still has not seen the director clinical information services for possible diagnosis of ankylosing spondylitis. 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 On the other hand he has very limited chest pains and this unusual pain in his left trapezial margin which is not explained. A cervical MRI has been made available for review. Interestingly this is a near normal cervical MRI with the exception perhaps of some possible foraminal stenosis which I would like to discuss with the radiologist. Why he would have a normal MRI is unclear to me unless he has an ankylosing spondylitis and sufficient stiffness to keep him from using his neck, in other words keeping repetitive stresses down. He has not had a course of anti-inflammatories. I reviewed this with him today. There is no firm recommendation for anti-inflammatories over any other substance. My subjective impression is that Indocin might be preferable before a trial of Celebrex and Bextra. I did give him a prescription for 25 mg of Indocin to advance to 200 mg per day then Celebrex 200 mg per day, then Bextra 10 mg per day. I would like to have him try a week of each of these before he is seen by the director clinical information services. He is given copies of his records including those received from the [facility] where he had a muscle biopsy (no pathology found). He will follow here following the director clinical information services's visit for next steps and functional considerations. rlm Dictated: 03/04/2004 16:38:00 Waqas Yu MD Transcribed: 03/16/2004 10:47:05 Doc #: [id number] cc: This document was electronically signed by Waqas Yu MD on 04/02/2004 08:50:30. 1 Page 1 Patient Name: MALI WOODS Visit Date: 03/04/2004 ORTHOPEDICS [facility] MEDICAL RECORD [address] [phone] Page 1 Patient: MAL[facility] WOODS [facility] 1960 Visit Date: 03/04/2004 ORTHOPEDICS VISION NEWS ANCHOR documented in this encounter Plan of Treatment Not on filedocumented as of this encounter Visit Diagnoses Not on filedocumented in this encounter Care Teams Auto Mechanic Relationship Specialty Start Date End Date Unassigned, Provider PCP - General 03/26/00 [address] [place] [address] documented as of this encounter
--- OUTSIDE RECORDS SUMMARY | 2022-01-05 07:50 | XMS_ITS | Encounter Summary ---
:1960 [facility] Address [address] [place] [address] Care Team Providers Name Role Phone Unassigned, Provider Primary Care Provider Unavailable Encounter Details Date Type Department Care Team Description 02/17/2003 PN Conversion Only CONFIGURATOR [address] [place] [address] Social History Tobacco Use Types Packs/Day Years Used Date Smoking Tobacco: Never Assessed Sex Assigned at Date Recorded Not on file documented as of this encounter Plan of Treatment Not on filedocumented as of this encounter Visit Diagnoses Not on filedocumented in this encounter Care Teams Telephone Engineer Relationship Specialty Start Date End Date Unassigned, Provider PCP - General 03/26/[address] [place] [address] documented as of this encounter
--- OUTSIDE RECORDS SUMMARY | 2022-01-05 07:50 | XMS_ITS | Encounter Summary ---
:1960 [facility] Address [address] [place] [address] Care Team Providers Name Role Phone Unassigned, Provider Primary Care Provider Unavailable Encounter Details Date Type Department Care Team Description 02/19/2004 Correspondence None Unknown, Physici an [facility] Consent and Release [address] [place] [address] (Wo rk) Social History Tobacco Use Types Packs/Day Years Used Date Smoking Tobacco: Never Assessed Sex Assigned at Date Recorded Not on file documented as of this encounter Progress Notes Unknown, Physician - 02/19/2004 12:00 AM BALANCE CLERK documented in this encounter Plan of Treatment Not on filedocumented as of this encounter Visit Diagnoses Not on filedocumented in this encounter Care Teams Boil Off Worker Relationship Specialty Start Date End Date Unassigned, Provider PCP - General 03/26/00 [address] [place] [address] documented as of this encounter
--- OUTSIDE RECORDS SUMMARY | 2022-01-05 07:50 | XMS_ITS | Encounter Summary ---
:1960 Author Organization [facility] Address [address] [place] [address] Care Team Providers Name Role Phone Unassigned, Provider Primary Care Provider Unavailable Encounter Details Date Type Department Care Team Description 06/01/2004 [facility] Kindra Yu MD Orthopedics [address] [place] [address] [place] [address] [phone] Social History Tobacco Use Types Packs/Day Years Used Date Smoking Tobacco: Never Assessed Sex Assigned at Date Recorded Not on file documented as of this encounter Progress Notes Waqas Yu - 06/01/2004 12:00 AM EMERGENCY SPILL RESPONSE TECHNICIAN GENCY SPILL RESPONSE TECHNICIAN documented in this encounter Plan of Treatment Not on filedocumented as of this encounter Visit Diagnoses Not on filedocumented in this encounter Care Teams Siebel Consultant Relationship Specialty Start Date End Date Unassigned, Provider PCP - General 03/26/[address] [place] [address] documented as of this encounter
--- OUTSIDE RECORDS SUMMARY | 2022-01-05 07:50 | XMS_ITS | Encounter Summary ---
:1960 Author Organization [facility] Address [address] [place] [address] Care Team Providers Name Role Phone Unassigned, Provider Primary Care Provider Unavailable Encounter Details Date Type Department Care Team Description 12/18/2004 Correspondence None [facility] Social History Tobacco Use Types Packs/Day Years Used Date Smoking Tobacco: Never Assessed Sex Assigned at Date Recorded Not on file documented as of this encounter Progress Notes NANCY, PROVIDER - 12/18/2004 12:00 AM CDT documented in this encounter Plan of Treatment Not on filedocumented as of this encounter Visit Diagnoses Not on filedocumented in this encounter Care Teams Feed Mixer Helper Relationship Specialty Start Date End Date Unassigned, Provider PCP - General 03/26/00 [address] [place] [address] documented as of this encounter
--- OUTSIDE RECORDS SUMMARY | 2022-01-05 07:50 | XMS_ITS | Encounter Summary ---
:1960 Author Organization [facility] Address [address] [place] [address] Care Team Providers Name Role Phone Unassigned, Provider Primary Care Provider Unavailable Reason for Visit Reason Comments Chest Pain Encounter Details Date Type Department Care Team Description 10/07/2014 Hospital Encounter [facility] Chest pain, Care Se Krunalyed unspecified chest [address] [facility] MD [place] pain type [address] [facility] [address] [place], [place] [phone] [address] Social History Tobacco Use Types Packs/Day Years Used Date Smoking Tobacco: Never Assessed Sex Assigned at Date Recorded Not on file documented as of this encounter Last Filed Vital Signs Vital Sign Reading Time Taken Comments Blood Pressure 141/70 10/07/2014 1:23 PM CDT Pulse 78 10/07/2014 1:23 PM CDT Temperature 37 ??C (98.6 ??F) 10/07/2014 1:23 PM CDT Respiratory Rate 16 10/07/2014 1:23 PM CDT Oxygen Saturation 96% 10/07/2014 1:23 PM CDT Inhaled Oxygen Concentration - - Weight - - Height - - Body Mass Index - - documented in this encounter Medications at Time of Discharge Medication Sig Dispensed Refills Start Date End Date HYDROCODONE/APAP (VICODIN) one to two tabs po 50 0 1 05/04/2003 5-500MG ORAL TABS q 4-6 hours PRN INDOMETHACIN (INDOCIN) one to two tab po 240 0 2003 25MG ORAL CAPS qid lisinopril (ZESTRIL) 5 MG Take 20 mg by mouth 0 0 10/07/2014 tablet Daily. traMADol (ULTRAM) 50 MG Take 50 mg by mouth 0 tablet every 6 hours as needed for Pain. lisinopril (aka zeSTRIL) Take 5 mg by mouth 0 10/24/2015 tablet daily (every 24 hours). traMADol (aka ULTRAM) Take 50 mg by mouth 0 10/0710/24/2015 tablet every 6 hours as needed for Pain. documented as of this encounter ED Notes Levon Hector, Steven Johnston MD - 10/07/2014 2:00 PM CDT SUBJECTIVE: Andrzej Arriaga is a 54 y.o.male, presented for evaluation of left- sided chest pain whichhe woke up this morning with it. Pain is located in the left pectoralis region but also may be aggravated by moving the left arm. He said his hurting sometimes week swallowing. He said he had complete physical including EKG [place] ago clinic last week including EKG and he is supposed to have a stress echo soon. He said he has history of fibromyalgia and history that this chest pain is part of that although it is a new location. His and family member pushing him to come in for rule out potential heart problem. He said his younger brother had heart attack about a week or so ago with stent placement on emergency basis. This patient coronary risk factors are included the smoking hypertriglyceridemia and hypercholesterolemia. He said that he was intolerant of any statin drugs. He has been told to start using non statin drug which was prescribed but he has not started yet. He denies history of diabetes. No recent long distance travel. Social History: History Substance Use Topics ??? Smoking status: Not on file ??? Smokeless tobacco: Not on file ??? Alcohol Use: Not on file Past Medical History: There is no problem list on file for this patient. Adverse Drug Reactions: Review of patient's allergies indicates no known allergies. ROS: Complete ROS was negative other than what was cited above. Medications: lisinopril and traMADol OBJECTIVE: Vital Signs: BP 141/70 Pulse 78 Temp(Src) 37 ??C (98.6 ??F) (Oral) Resp 16 SpO2 96%. General: His in NAD Skin: Warm and moist without rash. Conjunctiva is clear and nonicteric. No neck lymphadenopathy. Respiratory: Normal respiratory effort. Lungs are clear with good breath sounds. Heart: RR without S3-S4, rubs, or gallops. No carotid bruit. Dorsalis pedis pulse symmetrically present. Abdomen: The abdomen was flat, soft and nontender without guarding rebound or masses. Negative HSM. Positive bowel sounds. No abdominal or femoral bruit. No edema bilaterally. He said his calf are tender to touch although is chronic reportedly per patient. EKG did show normal sinus rhythm with no ST changes ASSESSMENT: Final diagnoses: [786.50] Chest pain, unspecified chest pain type high risk for CAD PLAN: I told patient although his chest pain may be musculoskeletal but because of high risk he needs to go to the emergency room for rule out protocol. He agreed and he wanted to go to [facility] ER. He did not want to go with ambulance. I gave him a copy of our EKG did vital signs. And he was going to close by ER n. documented in this encounter Miscellaneous Notes Medication History - Bishop Hammond MD - 10/07/2014 2:00 PM CDT INPATIENT MEDS Encounter Date: 10/07/14 aspirin chewable tablet 324 mg Start Date:10/07/14, End Date:10/07/14, Frequency:ONCE Taken Dose Action User Route Site Recorded Comment Reason 10/07/14 1400 324 mg Given Ivy Blackwell RN Oral - 10/07/14 1400 - - traMADol (ULTRAM) 50 mg tablet Start Date:-, End Date:-, Frequency:EVERY 6 HOURS PRN *No Administrations Recorded lisinopril (PRINIVIL, ZESTRIL) 5 mg tablet Start Date:-, End Date:-, Frequency:DAILY *No Administrations Recorded documented in this encounter Plan of Treatment Not on filedocumented as of this encounter Procedures Procedure Name Priority Date/Time Associated Diagnosis Comme nts ECG 12 LEAD Routine 10/07/2014 12:24 PM Chest pain, Results for this INPATIENT CDT unspecified chest procedure are in pain type the results section. documented in this encounter Results ECG 12 Lead Inpatient (10/07/2014 12:24 PM CDT) P athologist Signature Ventricular Rate 74 BPM [facility] Atrial Rate 74 BPM [facility] P-R Interval 178 ms [facility] QRS Duration 106 ms [facility] QT 378 ms [facility] QTc 419 ms [facility] P Wetmore 21 degrees [facility] R [place] -14 degrees [facility] T [place] 57 degrees [facility] Specimen (Source) Anatomical Collection Method Collection Time Re ceived Time Location / / Volume Laterality 10/07/2014 12:24 PM CDT Narrative [facility] - 07/20/2019 8:42 AM CDT Sinus rhythm Normal ECG No previous ECGs available Confirmed by OPAL ALEXANDER ([id number]), GLADYS Ponce () on 10/07/2014 7:35:44 PM Procedure Note Epic, Internal Processing - 07/21/2019Fo rmatting of this note might be different from the original. Sinus rhythm Normal ECG No previous ECGs available Confirmed by OPAL ALEXANDER ([id number]), GLADYS Ponce () on 10/07/2014 7:35:44 PM Steven Hector MD PN ECG ORDERABLES Performing Organization Address City/State/ZIP Code Phon e Number [facility] [address] [place] [address] documented in this encounter Visit Diagnoses Diagnosis Chest pain, unspecified chest pain type Triage Assessment Note - Ivy Blackwell - 10/07/2014 1:20 PM CDT chest pain, woke up with it this AM, c/o pain when he swallows, had EKG last week through [facility], normal EKG, will be having a stress test done soon hx fibromylagia documented in this encounter Care Teams Electrogalvanizing Machine Operator Relationship Specialty Start Date End Date Unassigned, Provider PCP - General 03/26/[address] [place] [address] documented as of this encounter
--- OUTSIDE RECORDS SUMMARY | 2022-01-05 07:50 | XMS_ITS | Encounter Summary ---
:1960 Author Organization [facility] Address [address] [place] [address] Care Team Providers Name Role Phone Unassigned, Provider Primary Care Provider Unavailable Encounter Details Date Type Department Care Team Description 02/19/2004 Orders Only [facility] Radiology Unknown, Physician [address] [facility] [address] [place] [address] [place], [place] [id number] (Wo rk) Social History Tobacco Use Types Packs/Day Years Used Date Smoking Tobacco: Never Assessed Sex Assigned at Date Recorded Not on file documented as of this encounter Procedure Notes Unknown, Physician - 02/19/2004 12:00 AM CSTAssociated Order(s): MRI SC documented in this encounter Plan of Treatment Not on filedocumented as of this encounter Procedures Procedure Name Priority Date/Time Associated Diagnosis Comme nts MRI SC 02/19/2004 12:00 AM Results for this LABORATORY CHIEF procedure are i n the results section. MAGNETIC SOURCE 02/19/2004 Results for this IMAGING procedure are i n the results section. documented in this encounter Results MRI SC (02/19/2004 12:00 AM LABORATORY CHIEF) Anatomical Region Laterality Modality Other Narrative 02/19/2004 12:00 AM LABORATORY CHIEF This result has an attachment that is no t available. Ordered by an unspecified provider. Transcriptions Unknown, Physician - 02/19/2004 12:00 AM LABORATORY CHIEF Physician Unknown DUMMY/OTHER/AR documented in this encounter Visit Diagnoses Not on filedocumented in this encounter Care Teams Film Processing Shift Supervisor Relationship Specialty Start Date End Date Unassigned, Provider PCP - General 03/26/[address] [place] [address] documented as of this encounter
--- OUTSIDE RECORDS SUMMARY | 2022-01-05 07:50 | XMS_ITS | Encounter Summary ---
:1960 Author [facility] Address [address] [place] [address] Care Team Providers Name Role Phone Unassigned, Provider Primary Care Provider Unavailable Reason for Visit Reason Comments CONSULT Encounter Details Date Type Department Care Team Description 09/18/2018 Initial Consult [facility] Bela Haile spasms of both lower extremities (Primary Dx); 3931 Neurology MD Maxwell Scoliosis, unspecified scoliosis type, u nspecified spinal region 3931 [facility] 39[address] [place] [address] [phone] Social History Tobacco Use Types Packs/Day Years [...] extensive previous neurological evaluations, both at the [facility], and at the [facility] neuromuscular Clinic. The specific question addressed [...] evaluated at the neuromuscular clinic at the [place], who did not think this wasa neuromuscular [...] to light touch and vibration. Coordination: Normal gwtlmd-wwuq-tmdrst, mwpf-ldpl-gxcp. Normal rapid alternating motion rate in the4 extremities. Gait and balance: Normal casual and tandem gait, Romberg test, and mild levoscoliosis. Impression: 1. Longstanding history of muscle spasms and muscle cramps. Discussion: I have reviewed the records from Dr. Bello's office, and the available records from the [facility] system from the patient's visit to the [facility]. Unfortunately I do not have direct access to the records of the [facility], however, the patient was able to provide a pret ty good review of the testing that was done in that institution, and a good summary was available through Dr. Neumann's notes from the [facility]. In summary this is a somewhat [...] approach. That could be pursued at the [facility] but the patient tells me that these [...] possibly a channelopathy. Neuromuscular evaluation at the [facility] might be further informative. Bela Haile MD Recommendations: 1. Bela Haile MD documented in this encounter Plan of Treatment Not on filedocumented as of this encounter Visit Diagnoses Diagnosis Muscle spasms of both lower extremities - Primary Scoliosis, unspecified scoliosis type, u nspecified spinal region documented in this encounter Care Teams Button Breaker Operator Relationship Specialty Start Date End Date Unassigned, Provider PCP - General 03/26/[address] [place] [address] documented as of this encounter
--- OUTSIDE RECORDS SUMMARY | 2022-01-05 07:50 | XMS_ITS | Encounter Summary ---
:1960 Author Organization [facility] [address], [place] [address] Care Team Providers Name Role Phone Unassigned, Provider Primary Care Provider Unavailable Encounter Details Date Type Department Care Team Description 01/22/2004 Office Visit [facility] Kindra Yu MD [facility] [address] [place] [address] [phone] Social History Tobacco Use Types Packs/Day Years Used Date Smoking Tobacco: Never Assessed Sex Assigned at Date Recorded Not on file documented as of this encounter Progress Notes 01/22/2004 9:30 AM CDT Mali Woods is here today regarding bilat thoracic back pain and left shoulder. Pain assessment: 7 Location: left shoulder/back, Frequency: Everyday, Type: wake up sore, muscles feel tight and tense, deep muscle pain. Injury?: Unknown ER follow-up?: No Surgery?: No Patient's pcp is Provider Unassigned, Physician. Referring provider is . No current outpatient prescriptions on file. Review of patient's allergies indicates no known allergies. Sophia Johnson, 9:29 AM, 01/22/2004 Waqas Yu - 01/22/2004 12:00 AM CDT REVISED ADDENDUM: The patient's HLA-B27 has returned positive which is consistent with patient's clinical diagnosis of ankylosing spondylitis. rlm/adf ADDENDUM: The patient's inflammatory work-up returns, FATMATA screen negative, sed rate 2. HLA-B27 pending. rltiffany/eusebio SUBJECTIVE: The patient is seen for followup of his back problem. He remains complaining of significant frustration of stiffness. While sitting in the chair he feels the pain across the chair where it cuts across the back muscle. This is actually near the thoracolumbar junction or just above. He says that he sweats when he sleeps. He says he has been through a rheumatoid clinic in [place] but he is not certain what was done. He also had a muscle biopsy at the [facility], the results of which we do not have. OBJECTIVE: Physical exam is unremarkable in the lower extremities. Importantly the patient has no chest expansion. IMAGING: The imaging suggests a sharpening of the end-plate and vertebral bodies, this may be an indication of the ankylosing spondylitis. ASSESSMENT: Unusual complaints of chest pain and stiffness, systemic inflammation, possible rheumatoid variant or ankylosing spondylitis. PLAN: I have ordered a MARITZA, rheumatoid factor, sed rate and HLA-B27. I have also asked for the results of the muscle biopsy, and his results of his rheumatology work-up in [place]. I have volunteered that I will try to follow the patient through this diagnostic process until there is an answer. At this time based on his complaints I am inclined to think that he has something inflammatory rather than something mechanical. ADDENDUM: The patient had bone scan which does not indicate a pathological process of bone. He will follow with his family doctor about the enlarged lymph node. barbie Dictated: 01/23/2004 11:08:00 Waqas Yu MD Transcribed: 01/31/2004 16:04:35 Doc #: [id number] cc: This document was electronically signed by Waqas Yu MD on 04/01/2004 09:08:16. 1 Page 1 Patient Name: MALI WOODS Visit Date: 01/22/2004 OR[facility]ED[facility] RECORD [address] [address] Page 1 Patient: MALI WOODS Location: [facility]: Date of : 1960 Visit Date: 01/22/2004 ORTHOPEDICS documented in this encounter Plan of Treatment Not on filedocumented as of this encounter Procedures Procedure Name Priority Date/Time Associated Comments Diagnosis RHEUMATOID FACTOR, Routine 01/22/2004 10:47 AM Re sults for this QUANT CDT procedure are i n the results section. HLA B27 Routine 01/22/2004 10:47 AM Results for this CDT procedure are i n the results section. FATMATA SCREEN Routine 01/22/2004 10:47 AM Results for this CDT procedure are i n the results section. ESR Routine 01/22/2004 10:47 AM Results for this CDT procedure are i n the results section. documented in this encounter Results HLA B27 (01/22/2004 10:47 AM CDT) [facility] Method Time Signature HLA-B27,Blood PRESENT [facility]IONS HLA-B27,Blood (NOTE) REGIONS THE HLA-B27 ANTIGEN IS PRESENT IN 9 PERCENT OF AND 4 PERCENT OF BLACK POPULATIONS. THE ANTIGEN IS SEEN WITH A FREQUENCY OF 90 PERCENT IN PATIENTS WITH ANKYLOSING SPONDYLITIS AND A FREQUENCY OF 80 PERCENT IN PATIENTS WITH JERI'S DISEASE. THIS TEST WAS PERFORMED AT: ? [employer], [facility] ? [address] [facility]. [place], [place] ??[address] Comment Referred to [facility] [employer], [address] [place] [address] Specimen Anatomical Collection Method Collection Time Receive d Time (Source) Location / / Volume Laterality 01/22/2004 10:47 01/22/2004 AM CDT 10:49 AM CDT Waqas Yu MD LAB_1 Performing Organization Address City/State/ZIP Code Phon e Number [address] [address] [place], [place] [phone] FATMATA SCREEN (01/22/2004 10:47 AM CDT) athologist Signature FATMATA Screen Negative NEG REGIONS Comment: [Negative is <1:40] Performed at [facility] Specimen Anatomical Collection Method Collection Time Receive d Time (Source) Location / / Volume Laterality 01/22/2004 10:47 01/22/2004 AM CDT 10:49 AM CDT Waqas Yu MD LAB_1 Performing Organization Address City/State/ZIP Code Phon e Number [address] [address] [place], [place] [phone] (ABNORMAL) RHEUMATOID FACTOR, QUANT (01/22/2004 10:47 AM CDT) athologist Signature Quant. Rheum. 21 (H) <20 IU/ml REGIONS Factor Comment: Performed at [facility] Laboratory Specimen Anatomical Collection Method Collection Time Receive d Time (Source) Location / / Volume Laterality 01/22/2004 10:47 01/22/2004 AM CDT 10:49 AM CDT Waqas Yu MD LAB_1 Performing Organization Address City/State/ZIP Code Phon e Number [address] [address] [place], [place] [phone] ESR (01/22/2004 10:47 AM CDT) athologist Signature ESR 2 0 - 15 mm/hr REGIONS Specimen Anatomical Collection Method Collection Time Receive d Time (Source) Location / / Volume Laterality 01/22/2004 10:47 01/22/2004 AM CDT 10:49 AM CDT Waqas Yu MD LAB_1 Performing Organization Address City/[facility]/ZIP Code Phon e Number [address] [address] [place], [place] [phone] documented in this encounter Visit Diagnoses Not on filedocumented in this encounter Care Teams Formstone Fitter Relationship Specialty Start Date End Date Unassigned, Provider PCP - General 03/26/[address] [place] [address] documented as of this encounter
--- OUTSIDE RECORDS SUMMARY | 2022-01-05 07:50 | XMS_ITS | Encounter Summary ---
:1960 Author Organization [facility] Address [address] [place] [address] Care Team Providers Name Role Phone Unassigned, Provider Primary Care Provider Unavailable Reason for Visit Reason Onset Date Comments Medication Questions 01/04/2009 Encounter Details Date Type Department Care Team Description 01/04/2009 Telephone Careline Unknown, Physician Medication Questions [address] [place], [place] [address] [place], [place] [phone] Social History Tobacco Use Types Packs/Day Years Used Date Smoking Tobacco: Never Assessed Sex Assigned at Date Recorded Not on file documented as of this encounter Nursing Notes Sandor Gomez - 01/04/2009 4:47 PM CDT Attempted to call [phone]. Phone number is a non working number. Tried both the demographic numbers and they were incorrect also. Unable to reach. Sandor Gomez RN Alesia Garcia - 01/04/2009 4:40 PM CDT Does the patient currently have [employer] insurance? Yes Which care system is the patient affiliated with? [facility] Situation: is calling for pt who thinks he has an ear infection. They have a alliance party to go to [facility] and want to know if there is anything they can do to alleviate the pain. Medication interaction concerns. Background:Pt has a condition Pt takes oxaprozin and cyclobenziprene A nurse will call you back within the next hour. If you have not heard from a nurse, please feel free to call us back at [phone] and state that you are waiting for a callback. documented in this encounter Plan of Treatment Not on filedocumented as of this encounter Visit Diagnoses Not on filedocumented in this encounter Care Teams Compensation Specialist Relationship Specialty Start Date End Date Unassigned, Provider PCP - General 03/26/[address] [place] [address] documented as of this encounter
--- OUTSIDE RECORDS SUMMARY | 2022-01-05 07:50 | XMS_ITS | Encounter Summary ---
:1960 Author Organization [facility] [address], [place] [address] Care Team Providers Name Role Phone Unassigned, Provider Primary Care Provider Unavailable Encounter Details Date Type Department Care Team Description 02/07/2004 Office Visit [facility] Kindra Yu MD [facility] Orthopedics [address] [place] [address] [phone] Social History Tobacco Use Types Packs/Day Years Used Date Smoking Tobacco: Never Assessed Sex Assigned at Date Recorded Not on file documented as of this encounter Progress Notes 02/07/2004 10:00 AM CDT Mali Woods is here today regarding {GEN.SURGERY:53427}.thoracic back pain and left shoulder. Post Op [...] Yu MD Transcribed: 02/13/2004 15:28:09 Doc #: [id number] cc: This document was electronically signed by Waqas Yu MD on 04/02/2004 08:33:38. 1 Page 1 Patient Name: MALI WOODS Visit Date: 02/07/2004 OR[facility] RECORD [address] [address] Page 1 Patient: MAL[facility] WOODS [facility] 1960 Visit Date: 02/07/2004 ORTHOPEDICS Waqas Yu - 02/07/2004 12:00 AM CDT documented in this encounter Plan of Treatment Not on filedocumented as of this encounter Visit Diagnoses Not on filedocumented in this encounter Care Teams Industrial Psychology Teacher Relationship Specialty Start Date End Date Unassigned, Provider PCP - General 03/26/[address] [place] [phone] documented as of this encounter
--- OUTSIDE RECORDS SUMMARY | 2022-01-05 07:50 | XMS_ITS | Clinical Summary ---
:1960 Author Organization [facility] Address [address] [place] [address] Care Team Providers Name Role Phone Sena Delgado MD Primary Care Provider [phone] Allergies No known active allergies Medications Medication [...] Comments Blood Pressure 118/77 03/28/2018 10:45 AM HELICOPTER ENGINEER Pulse 88 03/28/2018 10:45 AM HELICOPTER ENGINEER Temperature 36.7 ??C (98 ??F) 03/28/2018 10:45 AM HELICOPTER ENGINEER Respiratory Rate 14 03/28/2018 10:45 AM HELICOPTER ENGINEER Oxygen Saturation 98% 03/28/2018 10:45 AM HELICOPTER ENGINEER Inhaled Oxygen Concentration - - Weight 97.1 kg (214 lb) 03/21/2018 2:50 PM HELICOPTER ENGINEER Height 177.8 cm (5' 10) 03/21/2018 2:50 PM HELICOPTER ENGINEER Body Mass Index 30.71 03/21/2018 2:50 PM HELICOPTER ENGINEER Plan of Treatment Health Maintenance Due Date [...] patient's age to complete this to [facility] Insurance Payer Benefit Plan / Subscriber ID Effective Phone Address T e Group [facility] [id number] [facility] [phone] [employer] [address] ACCESS/CHOICE nt 474 [address] [place] [address] Care Teams Ginger Farmer Relationship Specialty Start Date End Date Sena Delgado MD PCP - General 03/28/18
--- OUTSIDE RECORDS SUMMARY | 2022-01-05 07:50 | XMS_ITS | Encounter Summary ---
:[address] [facility] Address [address] [place] [address] Care Team Providers Name Role Phone Sena Delgado MD Primary Care Provider [phone] Encounter Details Date Type Department Care Team Description 03/28/2018 Surgery [facility] Faustino Campuzano, QU ADRACEP Ambulatory Surgery [facility] - [address] BIOPSY [address] [place], [place] [phone] (Wo rk) Surgery Details Date/Time Status Location [...] Comments Blood Pressure 134/78 03/28/2018 10:30 AM DATA INTEGRATION ARCHITECT Pulse 75 03/28/2018 10:30 AM DATA INTEGRATION ARCHITECT Temperature 36.6 ??C (97.8 ??F) 03/28/2018 8:59 AM DATA INTEGRATION ARCHITECT Respiratory Rate 14 03/28/2018 10:30 AM DATA INTEGRATION ARCHITECT Oxygen Saturation 97% 03/28/2018 10:30 AM DATA INTEGRATION ARCHITECT Inhaled Oxygen Concentration - - Weight 97.1 kg (214 lb) 03/21/2018 2:50 PM DATA INTEGRATION ARCHITECT Height 177.8 cm (5' 10) 03/21/2018 2:50 PM DATA INTEGRATION ARCHITECT Body Mass Index 30.71 03/21/2018 2:50 PM DATA INTEGRATION ARCHITECT documented in this encounter Medications at Time [...] understanding of the instructions. Faustino Campuzano MD [facility] [phone] INTEGRATION ARCHITECT documented in this encounter Nursing Notes Mary Lou Fitzgerald RN - 03/28/2018 10:56 AM CST Andrzej Arriaga 1960 [id number] Discharged ambulatory to home at 1057 escorted by nurse Discharge information and arrangements included: review of written discharge instructions, review ofpurpose and side effects of new medication, belongings list completed. Patient, spouse expressed understanding of information.. INTEGRATION ARCHITECT Mary Lou Fitzgerald RN - 03/28/2018 10:50 AM CST Pt received in phase 2, tolerating G Dodie and crackers. Drsg c/d/i. Ice in place. Visiting with family. INTEGRATION ARCHITECT Gin Sosa RN - 03/28/2018 10:30 AM CST Right quadricep faschia biopsy [place] [facility] [place] INTEGRATION ARCHITECT Gin Sosa RN - 03/28/2018 10:24 AM CST Right quadricep muscle biopsy sent [place] [facility] [place] INTEGRATION ARCHITECT Angelita Salas RN - 03/22/2018 12:53 PM CST History reviewed in Epic < 1 year old. Nurse to verify DOS. SW INTEGRATION ARCHITECT documented in this encounter Plan of Treatment Scheduled Referrals Name Type Priority Associated Diagnoses Order S chedule Follow Up Follow Up Routine Ordered: 2017 documented as of this encounter Procedures Procedure Name Priority Date/Time Associated Diagnosis Comme nts BIOPSY: MUSCLE 03/28/2018 10:03 AM DATA INTEGRATION ARCHITECT Muscle p ain Muscle spasms of both [...] lidocaine 1%- EPINEPHrine Given 03/28/2018 10:30 AM DATA INTEGRATION ARCHITECT 26 mL Procedural 1:100,000 (XYLOCAINE-EPINEPHRINE) injection INTRA-PROCEDURE NEEDED, Starting on Tu03/28/18 at 1030, Until Tue03/28/18 at 1658, Intra-Op documented in this encounter Active and Recently Administered Medications Times are shown in DATA INTEGRATION ARCHITECT. PRN Medication Order 03/26/2018 03/27/2018 03/28/2018 lidocaine 1%- EPINEPHrine 1:100,000 (XYL OCAINE-EPINEPHRINE) injection (CANCELED) 1030 (Given - Provid er: Faustino Campuzano MD) INTRA-PROCEDURE NEEDED, Starting 03/28/18 at 1030, Until Tu03/28/18 at 1658, Intra-Op documented in this encounter Care Teams Aligning Checker Relationship Specialty Start Date End Date Sena Delgado MD PCP - General 03/28/18 documented as of this encounter
--- OUTSIDE RECORDS SUMMARY | 2022-01-05 07:50 | XMS_ITS | Encounter Summary ---
:1960 Author Organization [facility] Address [address] [place] [address] Care Team Providers Name Role Phone Unassigned, Provider Primary Care Provider Unavailable Encounter Details Date Type Department Care Team Description 02/19/2004 Office Visit [facility] Kindra Yu MD Orthopedics [id number] [place] [address] [phone] Social History Tobacco Use Types Packs/Day Years Used Date Smoking Tobacco: Never Assessed Sex Assigned at Date Recorded Not on file documented as of this encounter Progress Notes Waqas Yu - 02/19/2004 12:00 AM MACHINE SHORTHAND REPORTER INE SHORTHAND REPORTER documented in this encounter Plan of Treatment Not on filedocumented as of this encounter Visit Diagnoses Not on filedocumented in this encounter Care Teams Dog Show Judge Relationship Specialty Start Date End Date Unassigned, Provider PCP - General 03/26/[address] [place] [address] documented as of this encounter
--- OUTSIDE RECORDS SUMMARY | 2022-01-05 07:50 | XMS_ITS | Encounter Summary ---
:1960 Author Organization [facility] Address [address] [place] [address] Care Team Providers Name Role Phone Sena Delgado MD Primary Care Provider [phone] Encounter Details Date Type Department Care Team Description 03/30/2018 Order-Scan [facility] Deepa blount [facility] ADDRESS/PHONE/F [address] [place], [place] [address] Social History Tobacco Use Types [...] on filedocumented in this encounter Care Teams Stave Block Roller Relationship Specialty Start Date End Date Sena Delgado MD PCP - General 03/28/18 documented as of this encounter
--- OUTSIDE RECORDS SUMMARY | 2022-01-05 07:50 | XMS_ITS | Clinical Summary ---
:1960 Author [facility] Address [address] [place] [address] Care Team Providers Name Role Phone Unassigned, [...] for each transition of care or referral. [facility] Allergies Active Allergy Reactions Severity Noted Date [...] Effective Dates Phone Addre ss Type Group [facility] [id number] 2007-Present Commercial INSURED Care Teams Research Pharmacist Relationship Specialty Start Date End Date Unassigned, Provider PCP - General 03/26/[address] [place] [address]
--- OUTSIDE RECORDS SUMMARY | 2022-01-05 07:50 | XMS_ITS | Encounter Summary ---
:1960 Author Organization [facility] [address], [place] [address] Care Team Providers Name Role Phone Unassigned, Provider Primary Care Provider Unavailable Encounter Details Date Type Department Care Team Description 01/01/2004 Office Visit [facility] Kindra Yu MD [facility] Orthopedics [id number] [place] [address] [phone] Social History Tobacco Use Types Packs/Day Years Used Date Smoking Tobacco: Never Assessed Sex Assigned at Date Recorded Not on file documented as of this encounter Progress Notes 01/01/2004 9:20 AM CDT Mali Woods is here today regarding throacic back and left shoulder. Pain assessment: 2 Location: left shoulder pain is most acute, if he sits too much his back gets tight and sore., Frequency:Everyday, Type: sharp pain in shoulder, Duration: constant. Injury?: Unknown Had pinched nerve in neck 1.5 years ago. Surgery?: No Patient's pcp is Provider Unassigned, Physician. Referring provider is . No current outpatient prescriptions on file. Review of patient's allergies indicates no known allergies. Sophia Johnson, 9:12 AM, 01/01/2004 Waqas Yu - 01/01/2004 12:00 AM CDT REVISED ADDENDUM: I have received records on this patient. These records appear to be between the period of 10/18/03 back to 05/16/02. They do not appear to me to even be related to his current complaint. They appear to be neck, muscle aches, etc, but without a diagnosis advanced or physical findings which suggest a relationship to his current complaint. I will discuss this with him when he is seen. Dictated: 01/01/2004 14:42:00 Transcribed: 01/14/2004 14:10:58 /rlm The patient is seen in the clinic on 01/01/04 for follow up of his back complaint. The previous report of 11/21/03 is reviewed. The patient did return approximately one week later when I was out of town and dropped off a packet, including an MRI and some old records. We are trying to locate that now. Additionally, he had a CT scan which is located. This apparently suggests a large lymph node just above his pancreas. I'm not certain what the relevance of this is, but I believe it should be. I don't know what the MRI was of, whether it was thoracic, thoracolumbar or lumbar, but I would think it would be critical in the evaluation of this patient with this unusual pain and diffuse complaints of lack of constitutional endurance. His physical examination is repeated. He does not have any local tenderness or external changes over the back. His abdomen is soft, although mildly distended. The skin over the legs is negative; reflexes are normal and symmetric; Babinski's are downgoing; straight leg raising is negative except for hamstring tightness. For past medical and social history, chronic conditions, allergies and medications, please see the [facility] Web record. ASSESSMENT: unexplained midback and low back pain, currently under evaluation. PLAN: I have asked the staff to find this packet and his MRI. I have asked for a bone scan to be done which would pretty much rule out anything worrisome in the bones. I realize that this is unlikely, perhaps a stretch, but this patient has been going for an extended period without a diagnosis and I think some definitive steps need to be taken. Depending on what imaging has been done, I may choose to do an MRI of one of these areas, particularly a thoracic MRI. A thoracic herniation could give him the unusual bilateral para lumbar symptoms and lower extremity constitutional weakness. I have volunteered to help and follow this patient if there are symptoms or signs as the situation develops. PLAN: return to clinic when the packet is located and return to clinic with the bone scan. oni Dictated: 01/01/2004 14:42:00 Waqas Yu MD Transcribed: 01/02/2004 12:37:41 Doc #: [id number] cc: This document was electronically signed by Waqas Yu MD on 04/01/2004 08:56:41. 1 Page 1 Patient Name: MALI WOODS Visit Date: 01/01/2004 ORTHOPEDICS [facility] MEDICAL RECORD [address] [address] Page 1 Patient: MALI WOODS Location: [facility] HPN: Date of : 1960 Visit Date: 01/01/2004 ORTHOPEDICS Waqas Yu - 01/01/2004 12:00 AM CDT documented in this encounter Plan of Treatment Not on filedocumented as of this encounter Visit Diagnoses Not on filedocumented in this encounter Care Teams Front End Assistant Relationship Specialty Start Date End Date Unassigned, Provider PCP - General 03/26/[address] [place] [address] documented as of this encounter
--- OUTSIDE RECORDS SUMMARY | 2022-01-05 07:50 | XMS_ITS | Encounter Summary ---
:1960 Author [facility] Address [address] [place] [address] Care Team Providers Name Role Phone Unassigned, Provider Primary Care Provider Unavailable Encounter Details Date Type Department Care Team Description 11/20/2003 Correspondence None Unknown, Physici an [facility] Consent and Release [address] [place] [address] (Wo rk) Social History Tobacco Use Types Packs/Day Years Used Date Smoking Tobacco: Never Assessed Sex Assigned at Date Recorded Not on file documented as of this encounter Progress Notes Unknown, Physician - 11/20/2003 12:00 AM CDT documented in this encounter Plan of Treatment Not on filedocumented as of this encounter Visit Diagnoses Not on filedocumented in this encounter Care Teams Steamfitter Relationship Specialty Start Date End Date Unassigned, Provider PCP - General 03/26/[address] [place] [address] documented as of this encounter
--- OUTSIDE RECORDS SUMMARY | 2022-01-05 07:50 | XMS_ITS | Encounter Summary ---
:1960 [facility] Address [address] [place] [address] Care Team Providers Name Role Phone Unassigned, Provider Primary Care Provider Unavailable Encounter Details Date Type Department Care Team Description 03/04/2004 Scanned History External to Unknown, Physici [facility] [address] [place] [address] [place] [address] Social History Tobacco Use Types Packs/Day Years Used Date Smoking Tobacco: Never Assessed Sex Assigned at Date Recorded Not on file documented as of this encounter Progress Notes Unknown, Physician - 03/04/2004 12:00 AM BLINDSTITCH LAPEL PADDER documented in this encounter Plan of Treatment Not on filedocumented as of this encounter Visit Diagnoses Not on filedocumented in this encounter Care Teams Racket Stringer Relationship Specialty Start Date End Date Unassigned, Provider PCP - General 03/26/00 [address] [place] [address] documented as of this encounter
--- OUTSIDE RECORDS SUMMARY | 2022-01-05 07:50 | XMS_ITS | Encounter Summary ---
:1960 Author Organization [facility] [address] [address] Care Team Providers Name Role Phone Unassigned, Provider Primary Care Provider Unavailable Encounter Details Date Type Department Care Team Description 11/20/2003 Office Visit [facility] Kindra Yu MD [facility] [address] [place] [address] [phone] Social History Tobacco Use Types Packs/Day Years [...] Unassigned, Physician. The referring Provider is Cisco uGtierrez. 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 Patient's phone number: [phone] (home) [phone] (work), alternate phone number - Yas Pink [...] conditions, allergies and medications, please see the [facility] Web record. ASSESSMENT: unusual bilateral para lumbar [...] Yu MD Transcribed: 11/25/2003 12:59:13 Doc #: [id number] cc: This document was electronically signed by Waqas Yu MD on 12/20/2003 08:54:17. 1 Page 2 Patient Name: MALI WOODS Visit Date: 11/20/2003 [facility]OP[facility]ICS [facility] REC[facility] [address] [address] Page 1 Patient: MALI WOODS [...] Component Value Ref Test Analysis Performed At [facility] [employer] Range Method Time Signature US COMPLETE ULTRASOUND [...] T-SPINE 2 VIEW (11/20/2003 8:40 AM CDT) [facility] [employer] Method Time Signature Tspine Ap + THORACIC SPINE AP AND LATERAL 11/20/2003 [facility] Lateral INDICATION: Pain. RADIOLOGY FINDINGS: Negative. Anatomical Region Laterality Modality Other Specimen (Source) Anatomical Collection Method Collection Time Re ceived Time Location / / Volume Laterality 11/20/2003 8:40 AM CDT Narrative 11/22/2003 11:25 AM CDT pain Waqas Yu MD RAD GENERAL DIAGNOSTIC/RH SHOULDER- LEFT (11/20/2003 8:40 AM CDT) [facility] gist Method Time Signature Left Shoulder LEFT [...] on filedocumented in this encounter Care Teams Small Wind Energy Installer Relationship Specialty Start Date End Date Unassigned, Provider PCP - General 03/26/[address] [place] [address] documented as of this encounter
--- OUTSIDE RECORDS SUMMARY | 2022-01-05 07:50 | XMS_ITS | Encounter Summary ---
:1960 Author Organization [facility] Address [address] [place] [address] Care Team Providers Name Role Phone Sena Delgado MD Primary Care Provider [phone] Reason for Referral (Routine) - Closed Specialty Diagnoses / Procedures Referred By Contact Refer red To Contact Procedures Faustino Campuzano MD Activity as tolerated [address] [place], [place] [address] Referral ID Status Reason Start Date Expiration Date Visits Requ ested Visits Authorized [id number] Closed 03/28/2018 03/28/2019 1 1 E FINISHER (Routine) - Closed Specialty Diagnoses / Procedures Referred By Contact Refer red To Contact Procedures Faustino Campuzano MD You May Get Your Dressing / [address] Incision Wet in the Shower, [place] [address] But Do Not Submerge Referral ID Status Reason Start Date Expiration Date Visits Requ ested Visits Authorized [id number] Closed 03/28/2018 03/28/2019 1 1 E FINISHER (Routine) - Closed Specialty Diagnoses / Procedures Referred By Contact Refer red To Contact Procedures Faustino Campuzano MD Discharge Instructions (IF [address] Local Anesthesia) [place], [place] [address] Referral ID Status Reason Start Date Expiration Date Visits Requ ested Visits Authorized [id number] Closed 03/28/2018 03/28/2019 1 1 E FINISHER (Routine) - Closed Specialty Diagnoses / Procedures Referred By Contact Refer red To Contact Faustino Campuzano MD Kelkar, Praful M, MD [address] [facility] [address] [place], [place] [address] [place] [address] Fax: Referral ID Status Reason Start Date Expiration Date Visits Requ ested Visits Authorized [id number] Closed 03/28/2018 03/28/[address] Campuzano will contact the patient E FINISHER (Routine) - Closed Specialty Diagnoses / Procedures Referred By Contact Refer red To Contact Procedures Faustino Campuzano MD Discharge [address] [place], [place] [address] Referral ID Status Reason Start Date Expiration Date Visits Requ ested Visits Authorized [id number] Closed 03/28/2018 03/28/2019 1 1 E FINISHER Encounter Details Date Type Department Care Team Description 03/28/2018 Hospital Encounter [address] [place], [place] [address] Social History Tobacco Use Types Packs/Day Years Used Date Smoking Tobacco: Every Day Smokeless Tobacco: Never Sex Assigned at Date Recorded Not on file documented as of this encounter Last Filed Vital Signs Vital Sign Reading Time Taken Comments Blood Pressure 118/77 03/28/2018 10:45 AM PLATE FINISHER Pulse 88 03/28/2018 10:45 AM PLATE FINISHER Temperature 36.7 ??C (98 ??F) 03/28/2018 10:45 AM PLATE FINISHER Respiratory Rate 14 03/28/2018 10:45 AM PLATE FINISHER Oxygen Saturation 98% 03/28/2018 10:45 AM PLATE FINISHER Inhaled Oxygen Concentration - - Weight 97.1 kg (214 lb) 03/21/2018 2:50 PM PLATE FINISHER Height 177.8 cm (5' 10) 03/21/2018 2:50 PM PLATE FINISHER Body Mass Index 30.71 03/21/2018 2:50 PM PLATE FINISHER documented in this encounter Medications at Time [...] understanding of the instructions. Faustino Campuzano MD [facility] [phone] E FINISHER documented in this encounter Nursing Notes Mary Lou Fitzgerald RN - 03/28/2018 10:56 AM CST Andrzej Arriaga 1960 [id number] Discharged ambulatory to home at 1057 escorted by nurse Discharge information and arrangements included: review of written discharge instructions, review ofpurpose and side effects of new medication, belongings list completed. Patient, spouse expressed understanding of information.. E FINISHER Mary Lou Fitzgerald RN - 03/28/2018 10:50 AM CST Pt received in phase 2, tolerating G Dodie and crackers. Drsg c/d/i. Ice in place. Visiting with family. E FINISHER Gin Sosa RN - 03/28/2018 10:30 AM CST Right quadricep faschia biopsy sent [facility] [place] E FINISHER Gin Sosa RN - 03/28/2018 10:24 AM CST Right quadricep muscle biopsy sent to [facility] lab E FINISHER Angelita Salas RN - 03/22/2018 12:53 PM CST History reviewed in Epic < 1 year old. Nurse to verify DOS. SW E FINISHER documented in this encounter Plan of Treatment Scheduled Referrals Name Type Priority Associated Diagnoses Order S chedule Follow Up Follow Up Routine Ordered: 2017 documented as of this encounter Procedures Procedure Name Priority Date/Time Associated Diagnosis Comme nts BIOPSY: MUSCLE 03/28/2018 10:03 AM PLATE FINISHER Muscle p ain Muscle spasms of both lower extremities Special Needs DR. CAMPUZANO WILL DO H&P DOS - LD documented in this encounter Visit Diagnoses Not on filedocumented in this encounter Active and Recently Administered Medications Times are shown in PLATE FINISHER. PRN Medication Order 03/26/2018 03/27/2018 03/28/2018 lidocaine 1%- EPINEPHrine 1:100,000 (XYL OCAINE-EPINEPHRINE) injection (CANCELED) 1030 (Given - Provid er: Faustino Campuzano MD) INTRA-PROCEDURE NEEDED, Starting 03/28/18 at 1030, Until 03/28/18 at 1658, Intra-Op documented in this encounter Care Teams Wood Milling Machine Operator Relationship Specialty Start Date End Date Sena Delgado MD PCP - General 03/28/18 documented as of this encounter
--- OUTSIDE RECORDS SUMMARY | 2022-01-05 07:50 | XMS_ITS | Encounter Summary ---
:1960 Author Organization [facility] Address [address] [address] Care Team Providers Name Role Phone Unassigned, Provider Primary Care Provider Unavailable Encounter Details Date Type Department Care Team Description 01/03/2004 [facility] Kindra Yu MD Orthopedics [address] [place] [address] [phone] Social History Tobacco Use Types Packs/Day Years Used Date Smoking Tobacco: Never Assessed Sex Assigned at Date Recorded Not on file documented as of this encounter Progress Notes Waqas Yu - 01/03/2004 12:00 AM CDT documented in this encounter Plan of Treatment Not on filedocumented as of this encounter Visit Diagnoses Not on filedocumented in this encounter Care Teams Corporate Vp Advertising & Online Relationship Specialty Start Date End Date Unassigned, Provider PCP - General 03/26/[address] [place] [address] documented as of this encounter
--- OUTSIDE RECORDS SUMMARY | 2022-01-05 07:51 | XMS_ITS ---
[...] None recorded. Past Encounters 09/23/2021 Jessica Dennis, NEUROPSYCHOLOGY DIVISION CHIEF: [address] [facility], [place] [address], Ph. Social History None recorded. Vaccine List None recorded. Plan of Care Reminders Provider Appointments None recorded. ? ? Lab None recorded. ? ? Referral None recorded. ? ? Procedures None recorded. ? ? Surgeries None recorded. ? ? Imaging None recorded. ? ? Vitals None recorded.
--- OUTSIDE RECORDS SUMMARY | 2022-01-05 07:51 | XMS_ITS | Encounter Summary ---
:1960 Author Organization [facility] Address [address] [place] [address] Care Team Providers Name Role Phone Unassigned, Provider Primary Care Provider Unavailable Encounter Details Date Type Department Care Team Description 04/18/1989 PN Conversion Only MAP COLORER [address] [place] [address] Social History Tobacco Use Types Packs/Day Years Used Date Smoking Tobacco: Never Assessed Sex Assigned at Date Recorded Not on file documented as of this encounter Plan of Treatment Not on filedocumented as of this encounter Visit Diagnoses Not on filedocumented in this encounter Care Teams Neon Glass Blower Relationship Specialty Start Date End Date Unassigned, Provider PCP - General 03/26/[address] [place] [address] documented as of this encounter
--- OUTSIDE RECORDS SUMMARY | 2022-01-05 07:51 | XMS_ITS | Encounter Summary ---
:1960 Author [facility] Address [address] [place] [address] Care Team Providers Name Role Phone Unassigned, Provider Primary Care Provider Unavailable Encounter Details Date Type Department Care Team Description 05/16/2002 Scanned History External to Unknown, Physici [facility] [address] [place] [address] (Wo rk) Social History Tobacco Use Types Packs/Day Years Used Date Smoking Tobacco: Never Assessed Sex Assigned at Date Recorded Not on file documented as of this encounter Progress Notes Unknown, Physician - 05/16/2002 12:[address]QUIPMENT OPERATOR documented in this encounter Plan of Treatment Not on filedocumented as of this encounter Visit Diagnoses Not on filedocumented in this encounter Care Teams Electric Meter Technician Relationship Specialty Start Date End Date Unassigned, Provider PCP - General 03/26/00 [address] [place] [address] documented as of this encounter
== END 2022-01-05 07:27 | disposition home or self-care (01) ==
LOC: INJ CL 07:26
PROVIDERS: PCP Family Medicine; Visit Provider Family Medicine
DX: M54.16 Radiculopathy, lumbar region (principal)
CPT/HCPCS: 64483; J1100; Q9966

== ENCOUNTER 2022-06-29 06:49 | Outpatient (CLI) | payer OTHER, SELFPAY | END 2022-06-29 06:50 | disposition home or self-care (01) | LOC: RAD 06:50 | PROVIDERS: PCP Family Medicine; Visit Provider Family Medicine | DX: M51.36 Other intervertebral disc degeneration, lumbar region (principal); M54.16 Radiculopathy, lumbar region | CPT/HCPCS: 64483; J1100; Q9966 ==

== ENCOUNTER 2022-07-23 06:59 | Day surgery (SDC) | payer OTHER, SELFPAY ==
[2022-07-23] VITALS (11 sets, daily range): BP systolic 117–148; BP diastolic 60–87; PULSE 56–68; RESP 12–20; TEMP 36.5–37.1; O2SAT 93–97; BMI 34.1
[2022-07-23] MEDS: SODIUM CHLORIDE 0.9 % (FLUSH) 10 ML SYRINGE IVF (07:56)
[2022-07-23] MEDS: LACTATED RINGERS 1000 ML 1,000 ML 100 ML IV (07:57)
--- NOTE | 2022-07-23 07:57 | SUR.PREOP ---
covid test negative
[2022-07-23] MEDS: CEFAZOLIN 2 GM INJ IVP (09:40)
[2022-07-23] MEDS: BUPIVACAINE 0.25% 30 ML INJECTION (10:12)
--- NOTE | 2022-07-23 10:15 | P.ORPRC_ITS ---
Procedure Note Date of procedure: 07/23/22 Procedure: PREOPERATIVE DIAGNOSIS: Left knee medial meniscus tear POSTOPERATIVE DIAGNOSIS: Left knee medial meniscus tear NAME OF OPERATION: Left knee arthroscopic partial medial meniscectomy SURGEON: Cristino Brown MD CONSTRUCTION ADMINISTRATIVE ASSISTANT: EYAD Levine ANESTHESIA: Spinal ESTIMATED BLOOD LOSS: 0 mL COMPLICATIONS: None SPECIMENS: None DRAINS: None PREOPERATIVE ANTIBIOTICS: Ancef 2 gram INDICATIONS: The patient is a 62-year-old with a history of left knee medial pain. MRI scan is consistent with a medial meniscus tear. Despite appropriate nonoperative management, including activity modification, antiinflammatories, cwea-xvb-dlejpyx pain medication, bracing, physical therapy, and injections they continue to have pain and disability. Operative intervention was offered. The risks, benefits and expected outcomes were discussed in detail. These included but were not limited to: Infection, bleeding, injury to blood vessel or nerve, venous thromboembolism. All questions were answered to their satisfaction. PROCEDURE: Spinal anesthesia was administered. The patient was placed supine on the operating room table. The left lower extremity was prepped and draped in the usual sterile fashion. The limb was exsanguinated with the Abram bandage. The pneumatic tourniquet was inflated to 300 mmHg. A standard anterolateral portal was established. The arthroscope was introduced. The working portal was established anteromedially. Diagnostic arthroscopy was performed with findings as follows: The suprapatellar pouch is normal. Articular surface on the patella shows diffuse grade 2 change. Articular surface on the trochlea is normal. The medial gutter is normal. The medial compartment shows diffuse grade 3 change on the medial femoral condyle, grade 2 change on the medial tibial plateau with a 3-4 mm diameter area of focal grade 4 change centrally. The medial meniscus has a complex degenerative tear of the posterior horn, into the midbody. This primarily consists of a parrot-beak tear with an anteriorly based unstable flap at the midbody and undersurface horizontal cleavage tearing of the posterior horn. The notch shows the ACL to be intact. The lateral compartment shows normal articular cartilage on the lateral femoral condyle and lateral tibial plateau. The lateral meniscus has some age-appropriate degenerative fraying of the leading edge, without meaningful tearing. The lateral gutter is normal. The posterior horn and midbody of the medial meniscus was debrided to a stable base using a combination of baskets and shaver through both portals. Unstable chondral flaps on the medial femoral condyle were debrided with the shaver through both portals, taken to a stable base. Arthroscopic instruments were removed, the portal sites were Steri-Stripped closed, the knee was infiltrated with 30 mL of 0.25% Marcaine without epinephrine. A dry dressing was applied, the tourniquet was released. Sponge and needle counts were correct x 2. The patient tolerated the procedure well. There were no apparent complications. They were carefully transferred to the hospital bed and taken to the postanesthesia care unit in satisfactory condition. PLAN: The patient will be discharged to home. They may weightbear as tolerates. Range of motion will be unrestricted. They will follow up in the office next week for a wound check.
--- NOTE | 2022-07-23 10:31 | W.ANESCHARGE ---
Anesthesia Charges Start Date/Time Anesthesia Start Date: 07/23/22 Anesthesia Start Time: 09:30 Stop Date/Time Anesthesia Stop Date: 07/23/22 Anesthesia Stop Time: 10:27
[2022-07-23] MEDS: OxyCODONE/APAP 5-325 TABLET 1 TAB PO (11:15)
== END 2022-07-23 11:59 | disposition home or self-care (01) ==
PROVIDERS: PCP Family Medicine; Visit Provider Orthopaedic Surgery
PROC: (CPT 29870; principal; 2022-07-23 08:30)
DX: M23.222 Derangement of posterior horn of medial meniscus due to old tear or injury, left knee (principal)
CPT/HCPCS: 29881; 01400; A9270; J0690; J2250; J2370; J2704; J3010; J3490; J7120

== ENCOUNTER 2022-11-25 08:00 | Emergency (ER) | payer OTHER, SELFPAY ==
[2022-11-25 08:04] VITALS: BP 143/78; PULSE 77; RESP 22; TEMP 36.6; O2SAT 95; BMI 32.3
--- NOTE | 2022-11-25 08:25 | CRLHL7_ITS ---
For Patients: As a result of the Cures Act, medical imaging exams and procedure reports are released immediately into your electronic medical record. You may view this report before your referring provider. If you have questions, please contact your health care provider. Indication: Chest pain Comparison: Single view chest April 29, 2018 Technique: PA and lateral views of the chest Findings: There is hyperinflation and chronic interstitial change with increased interstitial markings likely representing mild pulmonary edema. The cardiac silhouette is within normal limits with a tortuous thoracic aorta. The bony thorax is grossly intact. Impression: Increased interstitial markings likely representing pulmonary edema. No dense consolidation. Dictated by Aydin Modi MD @ 11/25/2022 9:22:46 AM (Electronically Signed)
--- OUTSIDE RECORDS SUMMARY | 2022-11-25 08:37 | XMS_ITS | Continuity of Care Document ---
Author Name Unknown Organization [facility] Address [address] [place] [address] Phone Care Team Providers Care Merchandise Marker Name Role Phone Pia SANZ, PhD, Anoop Unavailable Unavai lable Allergies, Adverse Reactions, Alerts Substance Reaction Status Criticality shellfish derived Active No Informa tion nortriptyline Active No Information adhesive tape Active No Information Medications Medication Instructions Dosage Effective Dates (start - stop) Status Comments CICLOPIROX (unknown strength) Not Available - Active LISINOPRIL (unknown strength) Not Available - Active MAGNESIUM OXIDE (unknown strength) Not Available - Active OMEPRAZOLE (unknown strength) Not Available - Active CYCLOBENZAPRINE HCL (unknown strength) Not Available - Active OMEPRAZOLE (unknown strength) Not Available - Active CITRUCEL (unknown strength) Not Available - Active MULTIVITAMINS (unknown strength) Not Available - Active TOPIRAMATE (unknown strength) Not Available - Active DILTIAZEM 24HR ER (XR) (unknown strength) Not Available - Active REPATHA SURECLICK (unknown strength) Not Available - Active Procedures Procedure Date Office/Outpatient Visit,New, Mod 2021 Office consultation, moderate 6 Advance Directives Directive Yes / No Effective Date File Name No Information Encounters Encounter Description Practice Location Reason(s) For Visit Diagnoses Date Provider Providers Copied on Encounter Office/Outpat ient Visit,New, Mod [facility], [address], [place], [place], [id number], tel:[phone] [facility] Spinal stenosis, lumbar region with neurogenic claudication 2 Pia Davalos. [facility], [address] [facility] [address], [place], [address], [place]. tel:[phone] Referring Provider: Sandor Issa [facility] [address] [facility], [place], [address]. tel:[phone] Office consultation, moderate Z [facility], [address], [place], [address], [place] tel:[phone] [facility] No Information 6 Mehbod Amir. [facility], [address] [place] [address] [address], [place], [place], [id number] , [place]. tel:[phone] [facility]: [facility] [address] [place], [address]. tel:[phone] Family History Family Member Type Diagnosis Age At Onset No Information Payers Payer name Insurance type Covered constitution party ID Liz alonso(s) [employer] [id number] Social History Type Description Quantity Date Captured Comments Alcohol Use Details Unknown Caffeine Use Details Unknown Tobacco Use Status Moderate cigarette smoker (10-19 cigs/day) Smoking Status Heavy tobacco smoker Smoking Tobacco Use Details Cigarette: No Details Available Cigarette: 10 Cigarettes per day Sex Male Vital Signs Date / Time: Height Weight BMI Pulse Rate Blood Pressure Temperature Respiratory Rate Body Surface Area Head Circumference Head Circ. Percentile Wt./Niko. Percentile BMI percentile Pulse Ox Inhaled Ox 8:02 AM 69.50 in 100.244 kg (221.00 lbs) 32.1 6 kg/m eter (2) Chief Complaint And Reason For Visit No Information Reason For Referral Reason For Referral No Information History Of Present Illness Encounter Date Complaint History Of Prese nt Illness No Information Functional Status Date Functional Assessmen t No Information Instructions Date Instruction Additional Infor mation No Information Assessments Type Assessment Date assessment Spinal stenosis, lumbar region w ith neurogenic claudication Patient Care Teams Name Effective Dates (start - stop) Status Members No Information
--- OUTSIDE RECORDS SUMMARY | 2022-11-25 08:37 | XMS_ITS | Continuity of Care Document ---
Author Name Unknown Organization [facility] Address [address] [place] [address] Phone Care Team Providers Care Stable Attendant Name Role Phone Ronny Skelton MD Unavailable Unavailable Allergies, Adverse Reactions, Alerts Substance Reaction Status Criticality No Known Allergies Active No Inform ation Medications Medication Instructions Dosage Effective Dates (start - stop) Status Comments tramadol 50 mg tablet Take 1-2 tablets daily - Active cyclobenzaprine 10 mg tablet take 1-3 tablets daily as needed - Active lisinopril 20 mg tablet take 1 tablet by oral route every day 20 MG - Active hydrocodone 5 mg-acetaminophen 325 mg tablet Take 1-2 tablets daily as needed for pain - Active Vitamin C 1,000 mg tablet take 1 Tablet by Oral route 2 times daily - Active D3 PLUS K2 DOTS (unknown strength) 1 softgel daily Not Available - Active ASTAXANTHIN (unknown strength) take 1 capsule by oral route every day Not Available - Active MAGNESIUM (unknown strength) 2 capsules daily Not Available - Active Procedures Procedure Date Office/Outpatient Visit, New Advance Directives Directive Yes / No Effective Date File Name No Information Encounters Encounter Description Practice Location Reason(s) For Visit Diagnoses Date Provider Providers Copied on Encounter Office/Outpa tient Visit, New [facility], [address], [place], [address], tel:[phone] [facility], pain (chief complaint) Pain 0 0 [place]. [facility] [address], [place], [address], [place]. tel:[phone] Referring Provider: Ronny Rasmussen, [facility] [address], [place], [address]. tel:[phone] Family History Family Member Type Diagnosis Age At Onset Problem No family history of Ankylos ing spondylitis Payers Payer name Insurance type Covered republican ID Liz alonso(s) [facility] [id number] Social History Type Description Quantity Date Captured Comments Alcohol Use Details Caffeine Use Details soda Tobacco Use Status Occasional cigarette smoker Smoking Status Heavy tobacco smoker Smoking Tobacco Use Details Cigarette: No Details Available Cigarette: 10 Cigarettes per day Sex Male Vital Signs Date / Time: Height Weight BMI Pulse Rate Blood Pressure Temperature Respiratory Rate Body Surface Area Head Circumference Head Circ. Percentile Wt./Niko. Percentile BMI percentile Pulse Ox Inhaled Ox 11:13 AM 69.75 in 96.162 kg (212.00 lbs) 30.6 4 kg/m eter (2) 134/80 mm[Hg] 97.80 F Chief Complaint And Reason For Visit From encounter dated '11/05/2019 11:00'. pain (chief complaint) Reason For Referral Reason For Referral No Information Plan Of Treatment Date Type Action Status Goal Tobacco cessation counseling completed History Of Present Illness Encounter Date Complaint History Of Prese nt Illness pain Functional Status Date Functional Assessmen t Pain Score 9/10 Instructions Date Instruction Additional Infor mation No Information Assessments Type Assessment Date assessment Pain Patient Care Teams Name Effective Dates (start - stop) Status Members No Information
[2022-11-25 08:43] LABS: Basophils Absolute Auto 0.05 K/uL (0.00-0.30); Basophils Percent Auto 0.5 % (0.0-3.0); Eosinophils Absolute Auto 0.11 K/uL (0.00-0.50); Eosinophils Percent Auto 1.2 % (0.0-7.0); Hematocrit 43.4 % (37.0-53.0); Hemoglobin* 14.8 gm/dL (13.5-17.5); Immature Granulocytes Abs Auto 0.04 K/uL (0.00-0.30); Immature Granulocytes Pct Auto 0.4 %; Lymphocytes Absolute Auto 2.57 K/uL (0.90-2.90); Lymphocytes Percent Auto 27.9 % (20-44); Mean Corpuscular HGB Conc 34 gm/dL (32-36); Mean Corpuscular Hemoglobin 31 pg (26-34); Mean Corpuscular Volume 90 fL (80-100); Monocytes Percent Auto 8.7 % (0.0-11.0); Neutrophils Absolute Auto 5.64 K/uL (1.7-7.0); Neutrophils Percent Auto 61.3 % (42.0-72.0); Platelet Count* 256 K/uL (140-440); RDW Coefficient of Variation % 11.9 % (11.5-15.5); Red Blood Count 4.83 m/uL (4.30-5.90); Slide Review Reflex No; White Blood Count* 9.21 K/uL (4.50-11.00)
[2022-11-25 08:53] LABS: Chloride* 103 mmol/L (96-114); Potassium* 3.9 mmol/L (3.6-5.1); Sodium* 135 mmol/L (135-149)
[2022-11-25 08:56] LABS: Blood Urea Nitrogen* 11 mg/dL (7-30); Carbon Dioxide* 26 mmol/L (20-32); Creatinine* 0.7 mg/dL (0.5-1.5); Est. Creatinine Clearance* 78.07; Estimated Glomerular Filt Rate 104 ml/min
[2022-11-25 08:57] LABS: Calcium* 8.7 mg/dL (8.4-10.6); Glucose* 130 mg/dL (60-115)
[2022-11-25 08:59] LABS: C Reactive Protein* 2.2 mg/dL (0.5-1.0)
--- NOTE | 2022-11-25 09:16 | ED.GENADULT ---
HPI - General Adult General Chief complaint: Chest Pain Stated complaint: Sternum/neck pain Time Seen by Provider: 11/25/22 08:14 Source: patient Mode of arrival: ambulatory Limitations: no limitations History of Present Illness HPI narrative: 62-year-old male coming in today complaining of chest pain going on for 2 days. Pain is located over the left clavicle radiates into his neck and down into his shoulder. Moving the arm makes the pain worse. The pain does not change with eating or deep breathing. The pain does change when he has to walk briskly or go up stairs. The pain does not cause him to feel short of breath, lightheaded or dizzy, Or diaphoretic. He has not been coughing. patient states that he has a long history of myofascial pain and that this does seem similar to his chronic pain issues. He denies any recent traveling. He is a smoker. history of hypertension, obesity, chronic pain and GERD. Related Data Home Medications Medication Instructions Recorded Confirmed ciclopirox 0.77 % topical cream 1 applic topical BID 04/23/22 11/25/22 cyclobenzaprine 10 mg tablet 10 mg PO PRN PRN 04/23/22 11/25/22 evolocumab 140 mg/mL subcutaneous 140 mg subcut .every 2 weeks 04/23/22 11/25/22 pen injector (Tc Guardado) diltiazem HCl 180 mg 180 mg PO DAILY 04/28/22 11/25/22 capsule,extended release 24 hr, controlled lisinopril 20 mg tablet 30 mg PO DAILY 05/26/22 11/25/22 carvedilol 3.125 mg tablet 3.125 mg PO BID 07/21/22 11/25/22 omeprazole 20 mg capsule,delayed 20 mg PO DAILY 07/21/22 11/25/22 release tramadol 50 mg tablet 50 mg PO BID PRN 11/25/22 11/25/22 Allergies Allergy/AdvReac Type Severity Reaction Status Date / Time adhesive Allergy Rash Verified 11/25/22 08:09 nortriptyline Allergy tachycardia Verified 11/25/22 08:09 shellfish derived Allergy Swelling Verified 11/25/22 08:09 of Lip/Tongue/Throat Review of Systems Status of ROS: Reports: 10 or more systems reviewed and unremarkable except as noted in History and below [facility] Medical History Sprain of wrist ?S63.509A - Unspecified sprain of unspecified wrist, initial encounter (ICD-10) Supraventricular tachycardia ?I47.1 - Supraventricular tachycardia (ICD-10) Muscle spasms of lower extremity ?M62.838 - Other muscle spasm (ICD-10) Hypertension ?I10 - Essential (primary) hypertension (ICD-10) Gout ?M10.9 - Gout, unspecified (ICD-10) Accelerated atrioventricular junctional rhythm ?I49.8 - Other specified cardiac arrhythmias (ICD-10) Surgical History S/P left knee arthroscopy (07/23/22) ?Z98.890 - Other specified postprocedural states (ICD-10) Status post arthroscopy of left shoulder (02/19/05) ?Z98.890 - Other specified postprocedural states (ICD-10) Status post arthroscopy of right shoulder (04/05/08) ?Z98.890 - Other specified postprocedural states (ICD-10) History of surgery on lower extremity (05/31/08) ?Z98.890 - Other specified postprocedural states (ICD-10) S/P right knee arthroscopy (09/27/19) ?Z98.890 - Other specified postprocedural states (ICD-10) Social History Narrative: quit smoking again 08/01/2022 Smoking Status: Current every day smoker What tobacco products do you use: cigarettes Smoking quit date/years: <= 15 years ago Do you use any of these nicotine containing products: None Second hand tobacco smoke exposure: No How often do you have a drink containing alcohol: monthly or less How often do you have six or more drinks on one occasion: Never AUDIT-C Alcohol total score: 1 Non-prescribed substance use: denies use service: No Exam Narrative: Exam Narrative: Well-nourished well-developed patient in no acute distress. Alert and oriented. Answers questions appropriately. Mood and affect are appropriate. Thoughts are goal oriented and rational. No tangential or magical thinking noted. Patient speaks in full sentences without needing to catch Hisbreath. HEENT: Normocephalic atraumatic. Pupils are equally round reactive to light. Extraocular muscles are intact. Conjunctivae are moist without any icterus noted. Moist mucous membranes. Posterior pharynx is normal. Neck is soft without any lymphadenopathy or thyromegaly. No masses are appreciated. Cardiovascular: Heart is regular rate and rhythm S1 and S2 are present without any murmurs. Lungs: Clear to auscultation bilaterally no wheezes rhonchi or rales are appreciated. Patient takes deep breaths without any discomfort. Abdomen: Soft and nontender nondistended with normal bowel sounds. No guarding or rebound. No masses or organomegaly appreciated. Extremities: Bilateral lower extremities are without edema. Normal DP and PT pulses. Skin: Well perfused without any obvious rashes. chest wall: Patient has acute tenderness to palpation over the proximal clavicle and over the Sternal clavicular joint. He has tenderness with extension of the left arm and with adduction of the arm against resistance. Const: Vital Signs, click to edit/add: Vital Signs - 24 hr 11/25/22 08:04 Temperature 98 F Pulse Rate [Right Pulse Oximeter] 77 Respiratory Rate 22 Blood Pressure [Ri ght Upper Arm] 143/78 H Pulse Oximetry 95 Oxygen Delivery Me thod Room Air Course Course Hospital Course: Did some blood work to rule out infection or significant inflammation, blood work was unremarkable. CRP was just minimally elevated at 2.2. Chest x-ray Showed increased interstitial markings consistent with mild pulmonary edema. Given the location and reproducibility of his pain I do not believe that these findings are associated with his discomfort EKG, read by me, shows normal sinus rhythm with a right bundle branch block and a left anterior fascicular block, pulse 72. Vital Signs Vital signs: Initial Vital Signs Temperature 98 F 11/25/22 08:04 Temperature Source Temporal Artery Scan 11/25/22 08:04 Pulse Rate 77 11/25/22 08:04 Respiratory Rate 22 11/25/22 08:04 Blood Pressure 143/78 H 11/25/22 08:04 Blood Pressure Mean 99 11/25/22 08:04 Pulse Oximetry 95 11/25/22 08:04 Oxygen Delivery Method Room Air 11/25/22 08:04 Vital Signs Temperature 98 F 11/25/22 08:04 Pulse Rate 77 11/25/22 08:04 Respiratory Rate 22 11/25/22 08:04 Blood Pressure 143/78 H 11/25/22 08:04 Pulse Oximetry 95 11/25/22 08:04 Oxygen Delivery Method Room Air 11/25/22 08:04 Temperature 98 F 11/25/22 08:04 Pulse Rate 77 11/25/22 08:04 Respiratory Rate 22 11/25/22 08:04 Blood Pressure 143/78 H 11/25/22 08:04 Pulse Oximetry 95 11/25/22 08:04 Oxygen Delivery Method Room Air 11/25/22 08:04 Medical Decision Making MDM Narrative Medical decision making narrative: 62-year-old male with chest wall pain. We discussed likelydiagnoses including muscular pain, myofascial pain, joint inflammation. We discussed more life-threatening diagnoses such as coronary artery disease, pneumothorax, pneumonia. Given his history and physical I do not think that any of these Life-threatening diagnoses fit his symptoms. at this time recommend heating pad to the chest wall, anti-inflammatories, gentle stretching and follow up with his primary care provider patient was in agreement and had no other questions. Medical Records Medical records reviewed: Yes I reviewed the patient's medical records Lab Data Lab results reviewed: Yes I reviewed the patient's lab results Labs: Lab Results 11/25/22 Range/Units 08:30 WBC 9.21 (4.50-11.00) K/uL RBC 4.83 (4.30-5.90) m/uL Hgb 14.8 (13.5-17.5) gm/dL Hct 43.4 (37.0-53.0) % MCV 90 (80-100) fL MCH 31 (26-34) pg MCHC 34 (32-36) gm/dL RDW Coeff of Yenifer 11.9 (11.5-15.5) % Plt Count 256 (140-440) K/uL Neut % (Auto) 61.3 (42.0-72.0) % Lymph % (Auto) 27.9 (20-44) % [place] % (Auto) 8.7 (0.0-11.0) % Eos % (Auto) 1.2 (0.0-7.0) % Baso % (Auto) 0.5 (0.0-3.0) % Neut # (Auto) 5.64 (1.7-7.0) K/uL Lymph # (Auto) 2.57 (0.90-2.90) K/uL [place] # (Auto) 0.80 (0.00-0.90) K/UL Eos # (Auto) 0.11 (0.00-0.50) K/uL Baso # (Auto) 0.05 (0.00-0.30) K/uL Abs Immat Gran (auto) 0.04 (0.00-0.30) K/uL Imm/Tot Granulo (auto) 0.4 % Sodium 135 (135-149) mmol/L Potassium 3.9 (3.6-5.1) mmol/L Chloride 103 (96-114) mmol/L Carbon Dioxide 26 (20-32) mmol/L BUN 11 (7-30) mg/dL Creatinine 0.7 (0.5-1.5) mg/dL Estimated Creat Clear 78.07 Estimated GFR 104 ml/min Glucose 130 H (60-115) mg/dL Calcium 8.7 (8.4-10.6) mg/dL C-Reactive Protein 2.2 H (0.5-1.0) mg/dL Imaging Data Chest x-ray: Attestation: I have reviewed the pertinent imaging results. Radiologist's impression: PA and lateral views of the chest Findings: There is hyperinflation and chronic interstitial change with increased interstitial markings likely representing mild pulmonary edema. The cardiac silhouette is within normal limits with a tortuous thoracic aorta. The bony thorax is grossly intact. Impression: Increased interstitial markings likely representing pulmonary edema. No dense consolidation. Discharge Plan Discharge Clinical Impression: Acute chest wall pain, Pulmonary edema Patient Disposition: Home, Self-Care Condition: Stable Additional Instructions: for your discomfort I recommend you use a heating pad to the chest wall 30 minutes at a time every 3 or 4 hours. Do not apply heat directly to skin. Okay to use [id number] anti-inflammatories or pain management per care provider. your x-ray today showed mild amount of fluid in the lungs. This is nothing to be concerned about today, however I do want you to follow-up with your primary care provider to discuss this. Prescriptions: No Action Repatha SureClick 140 mg/mL pen injector 140 mg subcut .every 2 weeks cyclobenzaprine 10 mg tablet 10 mg PO PRN PRN ciclopirox 0.77 % cream 1 applic topical BID diltiazem HCl 180 mg capsule,ext.rel 24h degradable 180 mg PO DAILY lisinopril 20 mg tablet 30 mg PO DAILY carvedilol 3.125 mg tablet 3.125 mg PO BID omeprazole 20 mg capsule,delayed release(DR/EC) 20 mg PO DAILY tramadol 50 mg tablet 50 mg PO BID PRN Follow Up/Referrals: Amador Steele MD [Primary Care Provider] - Stand Alone Forms: [facility] Info Instructions
[2022-11-25 13:25] LABS: Erythrocyte SedimentationRate* 9 mm/hr (2-15)
== END 2022-11-25 09:30 | disposition home or self-care (01) ==
PROVIDERS: Emergency Provider Family Medicine; PCP Family Medicine
DX: R07.89 Other chest pain (principal); J81.1 Chronic pulmonary edema
CPT/HCPCS: 36415; 71046; 80048; 85025; 85651; 86140; 99284

== ENCOUNTER 2023-04-08 07:45 | Outpatient (CLI) | payer OTHER, SELFPAY | END 2023-04-08 07:46 | disposition home or self-care (01) | LOC: INJ CL 07:45 | PROVIDERS: PCP Family Medicine; Visit Provider Family Medicine | DX: M54.16 Radiculopathy, lumbar region (principal); M51.36 Other intervertebral disc degeneration, lumbar region | CPT/HCPCS: 64483; J1100; Q9966 ==

== ENCOUNTER 2023-06-21 07:44 | Outpatient (CLI) | payer OTHER, SELFPAY | END 2023-06-21 07:45 | disposition home or self-care (01) | LOC: INJ CL 07:44 | PROVIDERS: PCP Family Medicine; Visit Provider Family Medicine | DX: M54.16 Radiculopathy, lumbar region (principal); M51.36 Other intervertebral disc degeneration, lumbar region | CPT/HCPCS: 64483; J1100; Q9966 ==

== ENCOUNTER 2023-10-09 18:03 | Inpatient (IN) | payer OTHER, SELFPAY ==
[2023-10-09] VITALS (9 sets, daily range): BP systolic 106–165; BP diastolic 48–86; PULSE 73–77; RESP 22–24; TEMP 36.8–36.9; O2SAT 92–95; BMI 32.3; BMI 33.5
--- NOTE | 2023-10-09 18:50 | CRLHL7_ITS ---
For Patients: As a result of the Century Cures Act, medical imaging exams and procedure reports are released immediately into your electronic medical record. You may view this report before your referring provider. If you have questions, please contact your health care provider. INDICATION Postoperative pain. TECHNIQUE: CT images of the lumbar spine following intravenous contrast. COMPARISON: None. FINDINGS: Postsurgical changes of bilateral hemilaminectomies at L4-5. Scattered emphysema in the operative bed and spinal canal. Small fluid collection in the right hemilaminectomy bed measuring approximately 1.0 cm (series 2 image 126), nonspecific. The lumbar lordosis is preserved. Vertebral heights maintained. No acute fracture or spondylolisthesis. T12-L1 and L1-2: No spinal canal or neural foraminal stenosis. L2-3: Posterior disc bulge. Suggested moderate spinal canal narrowing. Low-grade neural foraminal narrowing. L3-4: Posterior disc bulge. Thickening ligamentum flavum. Facet arthropathy. Suggested moderate spinal canal narrowing. Moderate narrowing neural foraminal narrowing. L4-5: Postsurgical changes of bilateral hemilaminotomy. Emphysema the operative bad and spinal canal. Obscuration of fat planes in the spinal canal and lateral recesses. At least moderate neural foraminal narrowing. L5-S1: Postsurgical changes of left hemilaminectomy with obscuration of fat planes in the left lateral recess. Posterior disc bulge. Endplate spondylitic ridging. Mild right facet arthropathy. No spinal canal narrowing. Low-grade neural from narrowing. Bilateral renal cysts. IMPRESSION: 1. At L4-5, postsurgical changes of bilateral hemilaminectomies with scattered foci of emphysema the operative bed and spinal canal. Obscuration of fat planes in the spinal canal and lateral recesses. Small fluid collection within the right hemilaminectomy bed is nonspecific. 2. At L5-S1, postsurgical changes of left hemilaminectomy with obscuration of fat planes in the left lateral recess. 3. No acute fracture. 4. Multilevel lumbar spondylosis. Please note that all CT scans at this facility use dose modulation, iterative reconstruction, and/or weight-based dosing when appropriate to reduce radiation dose to as low as reasonably achievable. Dictated by Rhett Dobson MD @ 10/09/2023 8:59:21 PM (Electronically Signed)
--- OUTSIDE RECORDS SUMMARY | 2023-10-09 19:00 | XMS_ITS | Continuity of Care Document ---
Author Organization [facility] Address [address] [place] [address] Phone Care Team Providers Care Clinical Trial Associate Name Role Phone Ronny Skelton MD Unavailable [...] [address], [place], [address], tel:[phone] [facility], pain (chief complaint) Pain [phone] [place]. [facility] [address], [place], [address], [place]. tel:[phone] Referring Provider: Ronny Arreola, [facility] [address], [place], [address]. tel:[phone] Family History Family Member Type Diagnosis Age At Onset Problem No family history of Ankylos ing spondylitis Payers Payer name Insurance type Covered green party ID Liz alonso(s) [employer] [id number] Social History Type Description Quantity Date Captured [...]
--- OUTSIDE RECORDS SUMMARY | 2023-10-09 19:00 | XMS_ITS | Clinical Summary ---
Author Organization [facility] Address [address] [place] [address] Care Team Providers Care Welding Machine Feeder Name Role Phone Rolly Iniguez Primary Care Provider Unavailabl e Allergies Active Allergy Reactions Criticality Noted Date Comments Adhesive Tape Rash Medium 01/12/2018 No Known Drug Allergy 05/16/2002 Medications Medication Sig Dispensed Refills Start Date End Date Status VITAMINS/MINERALS OR TABS 1 TABLET DAILY Active WELCHOL 625 MG OR TABS Take 3 tablets bid 540 4 08/09/2002 Active Additional Information Patient not taking.Reported on 08/28/2018 TRAZODONE HCL 50 MG OR TABS 1 TAB PO at bedtime 30 11 09/04/2002 Active Additional Information Patient not taking.Reported on 08/28/2018 METHOCARBAMOL 750 MG OR TABS Take 1 Tablet By Mouth Twice Daily As Needed For Muscle Spasm 120 4 10/30/2002 Active Additional Information Patient not taking.Reported on 08/28/2018 INDOMETHACIN 25 MG OR CAPS 1 CAPSULE UP TO 8 TIMES DAILY 60 0 03/16/2004 Active VICODIN 5-500 MG OR TABS 1 TABLET EVERY 4 TO 6 HOURS NEEDED 28 0 03/16/2004 Active ZITHROMAX TRI-AMBERLY 500 MG OR TABSIndications:Acut e maxillary sinusitis,Acute bronchitis 1TABLET DAILY 3 0 04/24/2004 Active Additional Information Patient not taking.Reported on 08/28/2018 traMADol (ULTRAM) 50 MG tablet TK 1 T PO D TO BID 0 08/03/2018 Active cyclobenzaprine (FLEXERIL) 10 MG tablet TK 1 T PO TID PRN 01/19/2016 Active lisinopril (PRINIVIL/ZESTRIL) 20 MG tablet Take 20 mg by mouth 02/18/2014 Act chrissy diazepam (VALIUM) 10 MG tablet TK SS TO 1 T PO D TO BID PRN 0 08/03/2018 Active Misc Natural Products (URINOZINC PLUS PO) 03/13/2015 Active omeprazole (PRILOSEC) [address] capsule Take 10 mg by mouth 01/12/2018 Activ e Active Problems Problem Noted Date Diagnosed Date Hyperlipidemia 08/28/2018 Umbilical hernia 08/28/2018 SVT (supraventricular tachycardia) (H24) 019 Adenomatous colon polyp 02/13/2015 Overview: Overview: Colonoscopy 01/2015 normal repeat in 5 years Vitamin D deficiency 02/27/2013 Hypertension 01/19/2013 Pulmonary nodule, right 08/26/2011 Lateral epicondylitis 01/11/2011 Impaired fasting glucose 05/28/2008 Esophageal reflux 08/01/2006 Social History Tobacco Use Types Packs/Day Years Used Date Smoking Tobacco: Some Days Smokeless Tobacco: Never Comments:OCCASIONAL CIGAR Alcohol Use Standard Drinks/Week Comments Yes 0 (1 standard drink = 0.6 oz pur e alcohol) AUDIT-C Answer Date Recorded Frequency of Alcohol Consumption 2-3 times a wee k 08/28/2018 Average Number of Drinks Not on file 019 Frequency of Binge Drinking Not on file 08/16 PHQ-2 Answer Date Recorded PHQ-2 Score 0 08/28/2018 Adolescent Education Answer Date Record ed Getting School Help Needed Not on file 01/23 Sex and Gender Information Value Date Recorded Sex Assigned at Male 08/22/2018 8:16 AM CDT Gender Identity Male 08/22/2018 8:16 AM CDT Sexual Orientation Straight 08/22/2018 8: 16 AM CDT Last Filed Vital Signs Vital Sign Reading Time Taken Comments Blood Pressure 122/76 08/28/2018 7:48 AM CDT Pulse 82 08/28/2018 7:48 AM CDT Temperature 36.6 ??C (97.9 ??F) 08/28/2018 7:48 AM CD T Respiratory Rate 16 08/28/2018 7:48 AM CDT Oxygen Saturation 95% 08/28/2018 7:48 AM CDT Inhaled Oxygen Concentration - - Weight 97.1 kg (214 lb) 08/28/2018 7:48 AM CDT Height 177.8 cm (5' 10) 08/28/2018 7:48 AM CDT Body Mass Index 30.71 08/28/2018 7:48 AM CDT Plan of Treatment Not on file Care Teams Welding Machine Feeder Relationship Specialty Start Date End Date Rolly Iniguez PCP - General Family Practice 12/05/17
--- OUTSIDE RECORDS SUMMARY | 2023-10-09 19:00 | XMS_ITS | Clinical Summary ---
Author Organization [facility] [employer] [facility] Address [place], [place] [address] Care Team Providers Care Customer Service Sales Consultant Name Role Phone Amador Steele MD Primary Care Provider [phone] Allergies Active Allergy Reactions Criticality Noted Date Comments Adhesive Rash 10/28/2021 Adhesive Tape-Silicones Rash Medium 01/12/2018 Latex Rash 10/04/2023 Nortriptyline Tachycardia 06/29/2021 Shellfish Containing Products Throat Swelling/Closing High 01/22/2020 Medications Medication Sig Dispensed Refills Start Date End Date Status magnesium oxide (MAG-OX 400) 400 mg tablet Take 1 Tablet (400 mg) by mouth once daily. 0 03/20/2021 Active medication order composer Prostagenixs supplement- MVI- Take 1 capsule daily 0 03/20/2021 Active methylcellulose, Laxative, (Citrucel) 500 mg tab Take 1 Tablet by mouth at bedtime. 0 03/20/2021 Active multivitamins-mine rals-lutein (Multivitamin 50 Plus) tab tablet Take 1 Tablet by mouth once daily. 0 03/20/2021 Active ciclopirox 0.77% cream (LOPROX) 0.77 % creamIndications:T inea cruris APPLY TOPICALLY TO THE AFFECTED AREA TWICE DAILY 90 g 2 03/02/2023 Active omeprazole (PRILOSEC) 20 mg Delayed-Release capsuleIndications :Gastroesophageal reflux disease, unspecified whether esophagitis present TAKE 1 CAPSULE(20 MG) BY MOUTH EVERY DAY BEFORE A MEAL 90 Capsule 2 03/04/2023 Active carvediloL (Coreg) 25 mg tabletIndications: Hypertension Take 1 Tablet (25 mg) by mouth two times daily. 180 Tablet 3 04/05/2023 Active evolocumab (Repatha SureClick) 140 mg/mL subcutaneous pen injector Inject 1 mL (140 mg) subcutaneous every 2 weeks. Profile med- do not fill until patient requests. 6 mL 3 04/05/2023 Active CPAPIndications:OS A (obstructive sleep apnea) CPAP machine for home use at pressure: 5-16 cmw , Heated humidifier x 1 q 5 yr, Humidifier chamber x 1 q 6 mo, x1 q 3mos, with pillows x 2 q mo, Heated tubing x 1 q 3 mo, Headgear x 1 q 6 mo, Filters: Disposable x 2 q mo non-disposable filters x1 q 6mo, Length of Need: 99 months, Frequency of use: Daily 1 Each 11 04/12/2023 Active naloxone (NARCAN) 4 mg/actuation nasal sprayIndications:C hronic pain syndrome Inhale 1 [place] into affected nostril(s) each time if needed for Patient Diff To Arouse or Resp Rate < 8 / min. Additional doses may be given every 2 to 3 minutes until emergency medical assistance arrives. 2 Each 04/28/2023 Active cyclobenzaprine (FLEXERIL) 10 mg tabletIndications: Myalgia,Muscle pain,Spasticity,My ofascial pain,Chronic myofascial pain TAKE 1 TO 2 TABLETS(10 TO 20 MG) BY MOUTH TWICE DAILY NEEDED FOR MUSCLE SPASM 90 Tablet 2 08/12/2023 Active dilTIAZem (DILT-XR) 180 mg Extended-Release capsuleIndications :Tachycardia Take 1 Capsule (180 mg) by mouth once daily. 90 Capsule 1 08/23/2023 Active oxyCODONE (ROXICODONE) 5 mg immediate release tabletIndications: Spinal stenosis of lumbar region with neurogenic claudication,Posto perative pain after spinal surgery Take 1 to 2 Tablets (5-10 mg) by mouth every 4 hours if needed for Pain (First choice for severe pain.). 20 Tablet 10/07/2023 Active tiZANidine (ZANAFLEX) 4 mg tabletIndications: Lumbar radiculopathy Take 1 Tablet (4 mg) by mouth every 8 hours if needed for Muscle Spasm. 24 Tablet 2 07/07/2023 09/23/19 24 Discontinue d(*Patient states no longer taking) spironolactone (ALDACTONE) 25 mg tabletIndications: Primary hypertension Take 1 Tablet (25 mg) by mouth once daily. 90 Tablet 3 08/09/2023 10/07/19 24 Discontinue d(*IP Discontinue d) traMADoL (ULTRAM) 50 mg tabletIndications: Chronic pain syndrome Take 1 Tablet (50 mg) by mouth two times daily. As needed for pain USE DATES: 08/12/23-09/10/23 60 Tablet 08/12/2023 09/16/19 Discontinue d(Reorder (E-cancel not sent)) predniSONE (DELTASONE) 10 mg tabletIndications: Spinal stenosis of lumbar region with neurogenic claudication Take 2 Tablets (20 mg) by mouth two times daily with meals for 3 days, THEN 1 Tablet (10 mg) three times daily with meals for 3 days, THEN 2 Tablets (20 mg) once daily with a meal for 3 days, THEN 1 Tablet (10 mg) once daily with a meal for 3 days. 30 Tablet 08/29/2023 09/10/19 traMADoL (ULTRAM) 50 mg tabletIndications: Chronic pain syndrome Take 1 Tablet (50 mg) by mouth two times daily. 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 Accelerated atrioventricular junctional rhythm 0 10/03/2020 Encounter for laboratory joe ting for severe acute respiratory syndrome coronavirus 2 (SARS-CoV-2) 10/03/2020 Gout 10/03/2020 Muscle spasms of lower extremity 10/03/2020 Sprain of wrist 10/03/2020 LOS HST 02/21/2020 AHI- 32 pillows and heated ho se 04/02/2020 Controlled substance agreement signed 01/18/2020 Familial hypercholesterolemia 09/17/2019 Other and unspecified hyperlipidemia 08/28/2018 Umbilical hernia without mention of obstruction or gangrene 08/28/2018 Supraventricular tachycardia 08/25/2018 Adenomatous colon polyp 02/13/2015 Overview: Colonoscopy 01/2015 normal repeat in 5 years Colonoscopy 05/2020 polyp, repeat in 7 years Overview: Colonoscopy 01/2015 normal repeat in 5 years Vitamin D deficiency 02/27/2013 Hypertension 01/19/2013 Overview: Hyrdrochlorothiazide flared up his muscle pain and he could not tolerate this. Pulmonary nodule, right 08/26/2011 Medial epicondylitis of elbow 02/08/2011 Lateral epicondylitis of elbow 01/11/2011 Impaired fasting glucose 05/28/2008 Esophageal reflux 08/01/2006 Resolved Problems Problem Noted Date Diagnosed Date Resolved Date Ankylosing spondylitis 09/10/200604/10 Encounters Date Type Department Care Team Description 10/06/2023 7:27 AM CDT Anesthesia Event [address] [address] [facility] 10[facility]06/2023 7:15 AM CDT - 10/06/2023 10:24 AM CDT Surgery [address] [address] Anoop Palacio MD Decompression - Laminectomy Levels: L4 to: S1 Side: Bilateral 10/06/2023 5:13 AM CDT - 10/07/2023 11:29 AM CDT Hospital Encounter [address] [address] Anoop Palacio MD Spinal stenosis of lumbar region with neurogenic claudication (Primary Dx); Postoperative pain after spinal surgery Discharge Disposition: Home Self Care 10/06/2023 Travel 10/04/2023 Travel 09/27/2023 12:59 PM CDT - 09/27/2023 11:59 PM CDT Hospital Encounter [facility] [place] [address] Primary hypertension 09/27/2023 Travel 09/23/2023 3:15 PM CDT Ancillary Procedure [facility] [address] [place] [address] 09/23/2023 2:45 PM CDT [facility]op [facility] [address] [facility] [address] Amador Steele MD Preoperative Exam (Back surgery 10/06/2023 - bone spurs L5) 09/23/2023 Travel 09/22/2023 Travel 09/16/2023 Telephone [facility] [address] [place] [address] Charles Preston MD Refill Request 08/30/[address] [place] [address] Rolly Mcfarlane MD 08/29/2023 2:14 PM CDT - 08/29/2023 11:59 PM CDT Hospital Encounter [facility] [address] [place] [address] [place] [address] Primary hypertension 08/29/2023 1:20 PM CDT - 08/29/2023 2:13 PM CDT Hospital Encounter [facility] Imaging [address] [place] [address] [place] [address] Anoop Palacio MD Lumbar stenosis with neurogenic claudication 08/29/2023 Travel 08/24/2023 7:50 AM CDT Office Visit [facility] [address] [place] [address] Charles Preston MD Follow Up (3 month ) 08/24/2023 Travel 08/12/2023 Refill [facility] [address] [place] [address] Charles Preston MD Refill Request (Tramadol and Cyclobenzaprine) 08/11/2023 Transcribe Orders [facility] Imaging [address] [place] [address] [place] [address] Anoop Palacio MD 08/09/2023 9:30 AM CDT Office Visit [address] [place] [address] Rolly Mcfarlane MD Follow Up 08/05/2023 Travel from Last 3 Months Immunizations Name Administration Dates Next Due COVID-19 vaccine (Alma Johns-Bio NTech 30mcg/0.3mL) PF MDV 07/28/2020,06/30/2020 DT (Age < 7 years) 01/27/2006 Hepatitis A (Adult) 10/02/2014,12/10/2013 Influenza A (H1N1), Inactiva alayna (Age >=3 Years) 04/04/2009 Influenza, IIV3 (Age >=3 years) 12/10/19 14,01/19/2013,04/10/2012,2010,04/04/2009,03/19/2008,02/17/2007,1 Influenza, IIV4 12/25/2021,,02/13/2020,2017,01/28/2017,01/07/2016 Td, Preservative Free (age > = 7 Years) 01/27/2006 Tdap 12/25/2021,04/07/2011 Tuberculin (PPD) 07/23/2009 Zoster (Shingrix-RZV, recombinant) 03/26/2021, Family History Medical History Relation Name Comments Cancer-prostate Brother 1 Heart Disease Brother 1 Cancer-prostate Father Heart Disease Father 60s Hyperlipidemia Other Several famil y members with hyperlipidemia Relation Name Status Comments Brother 1 Brother 2 Alive Father Other Sister Alive Social History Tobacco Use Types Packs/Day Years Used Date Smoking Tobacco: Former Cigarettes 0.5 39.3 0 1982 - 02/2023 Smokeless Tobacco: Never Tobacco Cessation:Counseling Given: Not Answered Alcohol Use Standard Drinks/Week Comments Not Currently 0 (1 standard drink = 0.6 oz pure alcohol) I may have a drink a couple times a month. PHQ-2 Answer Date Recorded PHQ-2 TOTAL SCORE 0 12/25/2021 Social Connections Answer Date Recorded Frequency of Communication with Friends and Fami ly 0 09/23/2023 Alcohol Use Answer Date Recorded How often do you have a drink containing alcohol ? 1 09/23/2023 How many drinks containing a lcohol do you have on a typical day when you are drinking? 0 09/23/2023 How often do you have five or more drinks on one occasion? 0 09/23/2023 Financial Resource Strain Answer Date R ecorded Difficulty of Paying Living Expenses 3 09/23/2023 Difficulty of Paying Living Expenses Not on file 09/23/2023 Food Insecurity Answer Date Recorded Worried About Running Out of Food in the Last Ye ar 1 09/23/2023 Transportation Needs Answer Date Record ed Lack of Transportation (Medical) 1 09/23/2023 Housing Stability Answer Date Recorded Unable to Pay for Housing in the Last Year 1 09/23/2023 Sex and Gender Information Value Date Recorded Sex Assigned at Not on file Gender Identity Not on file Sexual Orientation Not on file Travel History Travel Start Travel End [place] 09/10/2023 09/16/2023 Obstetrics History Last Filed Vital Signs Vital Sign Reading Time Taken Comments Blood Pressure 149/66 10/07/2023 8:00 AM CDT Pulse 78 10/07/2023 8:00 AM CDT Temperature 36.6 ??C (97.9 ??F) 10/07/2023 8:00 AM CD T Respiratory Rate 14 10/07/2023 8:00 AM CDT Oxygen Saturation 95% 10/07/2023 8:00 AM CDT Inhaled Oxygen Concentration - - Weight 102.2 kg (225 lb 5 oz) 10/06/2023 5:45 AM CDT Height 177.8 cm (5' 10) 10/06/2023 5:45 AM CDT Body Mass Index 32.33 10/06/2023 5:45 AM CDT Plan of Treatment Upcoming Encounters Date Type Department Care Team (Late st Contact Info) Description 11/30/2023 7:30 AM CDT Office Visit [facility] [address] [place] [address] Charles Preston MD [address] [place] [address] Health Maintenance Due Date Last Done Comments HIV for age 15-65 1975 COVID-19 vaccine series (2022- season) 2022 02/14/2022, 02/07/2021, 07/28/2020, Additional history exists Depression screening for age 12+ 12/25/2022 12/25/2021, 05/26/2020, 02/13/2020, Additional history exists Influenza for age 50-64 12/18/2023 12/26/19 22, 02/07/2021, 02/13/2020, Additional history exists BMI (ht and wt on same day) for age 18+ 09/22/2024 09/23/2023, 08/09/2023, 04/05/2023, Additional history exists Colonoscopy through age 75 06/13/202706/13, 06/13/2020, 02/12/2015 Lipids for age 45-75 03/25/2028 03/25/2023, 04/23/2022, 05/15/2021, Additional history exists Tetanus booster 12/26/2031 12/25/2021, 03/19, 04/07/2011, Additional history exists Hepatitis C screening for age 18-79 Completed 07/23/2009 Zoster (shingles) series for age 50+ Completed 03/26/2021, 05/26/2020 Tdap Completed 12/25/2021, 04/07/2011 Pneumococcal series for age 6-64 Aged Out No longer eligible based on patient's age to complete this topic Procedures Procedure Name Priority Date/Time Associated Diagnosis Comments POTASSIUM Early AM 10/07/2023 8:14 AM CDT CREATININE Early AM 10/07/2023 8:14 AM CDT XR C-ARM GREATER 1 HR Routine 10/06/2023 8:26 AM CDT ENDOTRACHEAL TUBE Routine 10/06/2023 7:5 2 AM CDT SCAN-CARDIAC STRIP 10/06/2023 12 :00 AM CDT MAGNESIUM Today 09/27/2023 1:02 PM CDT Primary hypertension BASIC METABOLIC PANEL Today 09/27/2023 1:02 PM CDT Primary hypertension HEMOGLOBIN Routine 09/23/2023 3:59 PM CDT Preoperative general physical examination XR SPINE LUMBAR 2 VIEWS Routine 09/23/2023 2:42 PM CDT Spinal stenosis, lumbar region with neurogenic claudication BASIC METABOLIC PANEL Today 08/29/2023 2:19 PM CDT Primary hypertension MR SPINE LUMBAR WO Routine 08/29/2023 2: 14 PM CDT Lumbar stenosis with neurogenic claudication LIPID PANEL Today 03/25/2023 7:39 AM PUBLIC MESSAGE SERVICE SUPERVISOR Hyperlipidemia, unspecified hyperlipidemia type COLONOSCOPY 06/13/2020 9:03 AM PUBLIC MESSAGE SERVICE SUPERVISOR ANTI HCV Routine 07/23/2009 8:13 AM CDT Medication monitoring encounter from Last 3 Months or Most Recently Relevant to Health Maintenance Results * POTASSIUM (10/07/2023 8:14 AM CDT) POTASSIUM 4.8 3.5 - 5.1 mmol/L 10/07/2023 9:07 AM CDT [facility] Blood BLOOD SPECIMEN / Unknown Venipuncture / Unknown 10/07/2023 8:14 AM CDT 10/07/2023 8:40 AM CDT Marlene Matos MD CHEMISTRY [facility] [place] [address]IP [address] [place] [id number] * (ABNORMAL) CREATININE (10/07/2023 8:14 AM CDT) eGFR 86(L) >90 mL/min/1.7 3m2 10/07/2023 9:07 AM CDT [facility] Comment:As of 2021, eG FR is calculated by the CKD-EPI creatinine equation without race adjustment. ??eGFR can be influenced by muscle mass, exercise, and diet. ??The reported eGFR is an estimation only and is only applicable if the renal function is stable. CREATININE 0.98 0.70 - 1.20 mg/dL 10/07/2023 9:07 AM CDT [facility] Blood BLOOD SPECIMEN / Unknown Venipuncture / Unknown 10/07/2023 8:14 AM CDT 10/07/2023 8:40 AM CDT Marlene Matos MD CHEMISTRY [facility] [address] [address] [id number] [address] [place] [address] * XR C-ARM GREATER 1 HR (10/06/2023 8:26 AM CDT) Anatomical Region Laterality Modality Computed Radiogr aphy 10/06/2023 8:26 AM CDT Narrative 10/06/2023 10:13 AM CDT For Patients: As a result of the Cures Act, medical imaging exams and procedure reports are released immediately into your electronic medical record. You may view this report before your referring provider. If you have questions, please contact your health care provider. EXAM: XR C-ARM GREATER 1 HR LOCATION: [facility] DATE: 10/06/2023 INDICATION: free text)->Intraoperative COMPARISON: None. TECHNIQUE: Intraoperative fluoroscopy performed during the patient's procedure. RADIATION DOSE: ALPHONSE 2.24 mGy FINDINGS: Procedural fluoroscopy Procedure Note Barrett Alvarez MD - 10/06/2023 For Patients: As a result of the s Act, medical imagingexams and procedure reports are released immediately into your electronicmedical record. You may view this report before your referring provider.If you have questions, please contact your health care provider. EXAM: XR C-ARM GREATER 1 HR LOCATION: [facility] DATE: 10/06/2023 INDICATION: free text)->Intraoperative COMPARISON: None. TECHNIQUE: Intraoperative fluoroscopy performed during the patient'sprocedure. RADIATION DOSE: ALPHONSE 2.24 mGy FINDINGS: Procedural fluoroscopy Anoop Plaacio MD FLUOROSCOPY * ETT (10/06/2023 7:52 AM CDT) Narrative Ariana Medina CRNA Student - 10/06/2023 7:52 AM CDT Ariana Medina CRNA Student ? 10/06/2023 ??7:53 AM Procedure: ETT Patient location during procedure: OR ETT Properties Mask Ventilation: oral airway Final Technique: video laryngoscopy Type: straight Location: oral Cuffed: yes Tube Size: 8.0 mm Stylet: yes Laryngoscope Blade: Glidescope Blade Size: 3 Cormack-Lehane Grade View: 1 Insertion Attempts: 1 Placement Verification: auscultation, end tidal CO2 and symmetrical chest wall movement Assessment: pharynx clear, atraumatic and dentition unchanged Secured at: 24 Measured From: teeth Difficulty: 0 (not difficult) Difficulty Comment: large tongue Gerardo Alas MD ANESTHESIA PX NO TE ORDERABLES * SCAN-CARDIAC STRIP (10/06/2023 12:00 AM CDT) Narrative 10/06/2023 12:00 AM CDT Ordered by an unspecified provider. Other Clinical Staff OTHER * MAGNESIUM (09/27/2023 1:02 PM CDT) Pathologist [facility] MAGNESIUM 1.7 1.6 - 2.4 mg/dL 09/27/2023 1:34 PM CDT [facility] Blood BLOOD SPECIMEN / Unknown Venipuncture / Unknown 09/27/2023 1:02 PM CDT 09/27/2023 1:02 PM CDT Rolly Mcfarlane MD CHEMISTRY [facility] [address] [place] [address] * (ABNORMAL) BASIC METABOLIC PANEL (09/27/2023 1:02 PM CDT) Only the most recent of2 resultswithin the time period is included. Pathologist [facility] SODIUM 137 136 - 145 mmol/L 09/27/2023 1:26 PM CDT [facility] POTASSIUM 4.6 3.5 - 5.1 mmol/L 09/27/2023 1:26 PM CDT [facility] CHLORIDE 100 98 - 107 mmol/L 09/27/2023 1:26 PM CDT [facility] CO2,TOTAL 26 22 - 29 mmol/L 09/27/2023 1:26 PM CDT [facility] ANION GAP 11 5 - 18 09/27/2023 1:26 PM CDT [facility] GLUCOSE 126(H) 70 - 99 mg/dL 09/27/2023 1:26 PM CDT [facility] CALCIUM 8.9 8.8 - 10.2 mg/dL 09/27/2023 1:26 PM CDT [facility] BUN 11 8 - 23 mg/dL 09/27/2023 1:26 PM CDT [facility] CREATININE 0.86 0.70 - 1.20 mg/dL 09/27/2023 1:26 PM T [facility] BUN/CREAT RATIO 13 10 - 20 1:26 PM CDT [facility] eGFR >90 >90 mL/min/1.7 3m2 09/27/2023 1:26 PM T [facility] Comment:As of 2021, eG FR is calculated by the CKD-EPI creatinine equation without race adjustment. ??eGFR can be influenced by muscle mass, exercise, and diet. ??The reported eGFR is an estimation only and is only applicable if the renal function is stable. Blood BLOOD SPECIMEN / Unknown Venipuncture / Unknown 09/27/2023 1:02 PM CDT 09/27/2023 1:02 PM CDT Rolly Mcfarlane MD CHEMISTRY [facility] [address] [place] [address] * HEMOGLOBIN (09/23/2023 3:59 PM CDT) HEMOGLOBIN 15.3 13.5 - 17.5 g/dL 09/23/2023 4:02 PM CDT [facility] MCV 92 80 - 100 fL 09/23/2023 4:02 PM CDT [facility] Blood BLOOD SPECIMEN / Unknown Venipuncture / Unknown 09/23/2023 3:59 PM CDT 09/23/2023 3:59 PM CDT Amador Steele MD HEMATOLOGY [facility] [place] [address], * XR SPINE LUMBAR 2 VIEWS (09/23/2023 2:42 PM CDT) Anatomical Region Laterality Modality LUMBAR SPINE Computed Radiogr aphy 09/26/2023 7:05 AM CDT Impressions 09/26/2023 7:05 AM CDT No fracture. Dense calcifications in the aorta. Anterior spurring L3-4. Facet degeneration lower lumbar spine. No spondylolisthesis. Dictated by Rolly Toney MD @ 09/26/2023 7:05:04 AM (Electronically Signed) Narrative 09/26/2023 7:05 AM CDT For Patients: ??As a result of the Cures Act, medical imaging exams and procedure reports are released immediately into your electronic medical record. ??You may view this report before your referring provider. ??If you have questions, please contact your health care provider. Indication: Spinal stenosis, lumbar region with neurogenic claudication Technique: Lumbar spine 2 view Comparison: 09/11/2021 Procedure Note Rolly Toney MD - 09/26/2023 For Patients: As a result of the Cures Act, medical imagingexams and procedure reports are released immediately into your electronicmedical record. You may view this report before your referring provider.If you have questions, please contact your health care provider. Indication: Spinal stenosis, lumbar region with neurogenic claudication Technique: Lumbar spine 2 view Comparison: 09/11/2021 IMPRESSION: No fracture. Dense calcifications in the aorta. Anterior spurring L3-4.Facet degeneration lower lumbar spine. No spondylolisthesis. Dictated by Rolly Toney MD @ 09/26/2023 7:05:04 AM (Electronically Signed) Anoop Palacio MD GENERAL IMAGING * MR SPINE LUMBAR WO (08/29/2023 2:14 PM CDT) Anatomical Region Laterality Modality Spine, LUMBAR SPINE Magnetic Res onance 08/30/2023 9:53 AM CDT Impressions 08/30/2023 9:53 AM CDT 1. 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 Most prominent at L4-5, where it is moderate in degree. Not significantly changed compared to prior MRI. 2. Also at L4-5, moderate bilateral neural foraminal stenosis. Stable. 3. Low-grade spinal canal/neural foraminal narrowing elsewhere. Dictated by Aramis Asencio MD @ 08/30/2023 9:53:40 AM (Electronically Signed) Narrative 08/30/2023 9:53 AM CDT For Patients: ??As a result of the Century Cures Act, medical imaging exams and procedure reports are released immediately into your electronic medical record. ??You may view this report before your referring provider. ??If you have questions, please contact your health care provider. INDICATION: Back pain. Spinal stenosis with neurogenic claudication. TECHNIQUE : Lumbar spine MRI without contrast. COMPARISON: Lumbar spine MRI from 03/02/2023. FINDINGS : Five lumbar type vertebral bodies, with the last fully formed disc space designated as L5-S1. Normal lumbar lordotic curve. No recent compression fracture or marrow replacing process. Lower cord/conus signal is normal. The conus terminates at a normal location. No intradural lesion. Bilateral renal cysts. Discs/Endplates: Mild disc height loss and disc desiccation L3-4. Disc dehydration L2-3 and L4-5. Remaining discs are within normal limits. 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 Findings at individual levels as follows: T11-12: No spinal canal or neural foraminal stenosis. T12-L1: No spinal canal or neural foraminal stenosis. L1-2: Minimal disc bulge. No spinal canal or neural foraminal stenosis. L2-3: Mild disc bulge. Bilateral facet arthrosis and ligamentum flavum thickening. Mild spinal canal stenosis. No neural foraminal stenosis. L3-4: Trace anterolisthesis. Moderate disc bulge. Bilateral facet arthrosis. Mild spinal canal stenosis. Mild bilateral neural foraminal stenosis. L4-5: Moderate disc bulge. Bilateral facet arthrosis. Moderate spinal canal stenosis. Moderate bilateral neural foraminal stenosis. L5-S1: Mild disc bulge. No spinal canal or neural foraminal stenosis. Imaged SI joints: Minimal arthrosis. Imaged sacrum: Within normal limits. Procedure Note Aramis Asencio MD - 08/30/2023 For Patients: As a result of the Cures Act, medical imagingexams and procedure reports are released immediately into your electronicmedical record. You may view this report before your referring provider.If you have questions, please contact your health care provider. INDICATION: Back pain. Spinal stenosis with neurogenic claudication. TECHNIQUE : Lumbar spine MRI without contrast. COMPARISON: Lumbar spine MRI from 03/02/2023. FINDINGS : Five lumbar type vertebral bodies, with the last fully formed disc spacedesignated as L5-S1. Normal lumbar lordotic curve. No recent compressionfracture or marrow replacing process. Lower cord/conus signal is normal.The conus terminates at a normal location. No intradural lesion. Bilateralrenal cysts. Discs/Endplates: Mild disc height loss and disc desiccation L3-4. Discdehydration L2-3 and L4-5. Remaining discs are within normal limits. 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 Findings at individual levels as follows: T11-12: No spinal canal or neural foraminal stenosis. T12-L1: No spinal canal or neural foraminal stenosis. L1-2: Minimal disc bulge. No spinal canal or neural foraminal stenosis. L2-3: Mild disc bulge. Bilateral facet arthrosis and ligamentum flavumthickening. Mild spinal canal stenosis. No neural foraminal stenosis. L3-4: Trace anterolisthesis. Moderate disc bulge. Bilateral facetarthrosis. Mild spinal canal stenosis. Mild bilateral neural foraminalstenosis. L4-5: Moderate disc bulge. Bilateral facet arthrosis. Moderate spinalcanal stenosis. Moderate bilateral neural foraminal stenosis. L5-S1: Mild disc bulge. No spinal canal or neural foraminal stenosis. Imaged SI joints: Minimal arthrosis. Imaged sacrum: Within normal limits. IMPRESSION: 1. Spinal canal stenosis secondary to congenital canal narrowing andsuperimposed mild spondylosis. Most prominent at L4-5, where it ismoderate in degree. Not significantly changed compared to prior MRI. 2. Also at L4-5, moderate bilateral neural foraminal stenosis. Stable. 3. Low-grade spinal canal/neural foraminal narrowing elsewhere. Dictated by Aramis Asencio MD @ 08/30/2023 9:53:40 AM (Electronically Signed) Anoop Palacio MD MR * (ABNORMAL) LIPID PANEL (03/25/2023 7:39 AM PUBLIC MESSAGE SERVICE SUPERVISOR) CHOLESTEROL,TOTAL 122 100 - 199 mg/dL 03/25/2023 8:22 AM PUBLIC MESSAGE SERVICE SUPERVISOR [facility] Comment: Cholesterol, Total Reference Ranges Desirable <200 mg/dL Borderline 200-239 mg/dL High >=240 mg/dL TRIGLYCERIDES 154(H) <150 mg/dL 03/25/2023 8:22 AM PUBLIC MESSAGE SERVICE SUPERVISOR [facility] HDL CHOLESTEROL 45 >40 mg/dL 8:22 AM PUBLIC MESSAGE SERVICE SUPERVISOR [facility] NON-HDL CHOLESTEROL 77 <145 mg/dl 03/25/2023 8:22 AM PUBLIC MESSAGE SERVICE SUPERVISOR [facility] CHOL/HDL RATIO 2.71 <4.50 03/25/2023 8:22 AM PUBLIC MESSAGE SERVICE SUPERVISOR [facility] LDL CHOLESTEROL 46 <=130 mg/dL 03/25/2023 8:22 AM PUBLIC MESSAGE SERVICE SUPERVISOR [facility] VLDL CHOLESTEROL 31(H) <=30 mg/dL 03/25/2023 8:22 AM PUBLIC MESSAGE SERVICE SUPERVISOR [facility] PROVIDER ORDERED STATUS FASTING 03/25/2023 8:22 AM PUBLIC MESSAGE SERVICE SUPERVISOR [facility] Blood BLOOD SPECIMEN / Unknown Venipuncture / Unknown 03/25/2023 7:39 AM PUBLIC MESSAGE SERVICE SUPERVISOR 03/25/2023 7:39 AM PUBLIC MESSAGE SERVICE SUPERVISOR Merna Berrios NP CHEMISTRY [facility] [address] [place] [address] * COLONOSCOPY (06/13/2020 9:03 AM PUBLIC MESSAGE SERVICE SUPERVISOR) 06/13/2020 9:03 AM PUBLIC MESSAGE SERVICE SUPERVISOR Narrative Transcriptions Abram Watson MD - 06/13/2020 9:37 AM CST Patient Name: Andrzej Arriaga Procedure Date: 06/13/2020 Gender: Male Date of : 1960 Admit Type: Outpatient Procedure: Colonoscopy Proceduralist: Abram Watson MD , Sonia Caceres RN(Nurse) Indications/Pre-Op Diagnosis: Surveillance: Personal history ofadenomatous polyps on last colonoscopy 5 years ago, Last colonoscopy: February 2015 Medications: Fentanyl 100 micrograms IV, Midazolam 4 mgIV, The level of sedation administered wasmoderate Procedure Description: The patient had risks, benefits and alternatives explained to andgave informed consent. The patient had a stable cardiopulmonary status and judged an adequate candidate for conscious sedation. The [id number] was passed through the anus and advanced tothe cecum, identified by appendiceal orifice and ileocecal valve. The colonoscopy was performed without difficulty. The patient toleratedthe procedure well. The quality of the bowel preparation was good. The ileocecal valve, appendiceal orifice, and rectum were photographed. Complications: No immediate complications. Estimated Blood Loss & Specimen: Estimated blood loss: none. Specimen collected - Yes and sent to Laboratory Findings: The perianal and digital rectal examinations were normal. A 3 mm polyp was found in the sigmoid colon. The polyp was sessile.The polyp was removed with a cold snare. Resection and retrieval were complete. The exam was otherwise without abnormality on direct and retroflexion views. Impressions/Post-Op Diagnosis: - One 3 mm polyp in the sigmoid colon, removed with a cold snare. Resected and retrieved. - The examination was otherwise normal on direct and retroflexionviews. Recommendation: - Patient has a contact number available for emergencies. The signsand symptoms of potential delayed complications were discussed with the patient. Return to normal activities tomorrow. Written discharge instructions were provided to the patient. - Resume previous diet. - Continue present medications. - Await pathology results. - Repeat colonoscopy is recommended. The colonoscopy date will be determined after pathology results from today's exam become available for review. Moderate Sedation: Moderate (conscious) sedation was administered by the endoscopy nurse and supervised by the endoscopist. The following parameters were monitored: oxygen saturation, heart rate, respiratory rate, blood pressure, adequacy of pulmonary ventilation and reponse to care. Please refer to the patient's medical record flowsheets and nursing notes for moderate sedation details. Total physician intraservice time was 19 minutes. Abram Watson MD 06/13/2020 9:37:29 AM This report has been signed electronically. Note Initiated On: 06/13/2020 9:03 AM Procedure Code(s): --- Professional --- 02438, Colonoscopy, flexible; with removalof tumor(s), polyp(s), or other lesion(s) bysnare technique Diagnosis Code(s): --- Professional --- Z86.010, Personal history of colonicpolyps K63.5, Polyp of colon CPT copyright 2019 [employer]. All rights reserved. The codes documented in this report are preliminary and upon honing machine set up operator reviewmay be revised to meet current compliance requirements. Scope In: 9:15:45 AM Scope Withdrawal Time 0 hours 11 minutes 39 seconds Scope Out: 9:32:59 AM Abram Watson MD PROCEDURE ORD * ANTI HCV (07/23/2009 8:13 AM CDT) ANTI HCV Non-reacti ve [facility] Blood specimen (specimen) BLOOD SPECIMEN / Unknown 07/23/2009 8:13 AM CDT 07/23/2009 8:00 AM CDT Rolly Iniguez MD SEND OUTS [facility] INTERNAL ZIP [address] [address] from Last 3 Months or Most Recently Relevant to Health Maintenance Advance Directives * Full Code (Latest Code Status on File) Date Activated Date Inactivated Comments 10/06/2023 11:25 AM 10/07/2023 1:35 PM Question Answer Comments Code Status Discussion: Other * Full Code Date Activated Date Inactivated Comments 10/06/2023 5:36 AM 10/06/2023 11:25 AM Question Answer Comments Code Status Discussion: Unable to Assess Preferences, Provider to review later Care Teams Customer Service Sales Consultant Relationship Specialty Start Date End Date Amador Steele [place] [address] PCP - General Family Practice 11/03/21
--- OUTSIDE RECORDS SUMMARY | 2023-10-09 19:00 | XMS_ITS | Continuity of Care Document ---
Author Organization [facility] Address [address] [place] [address] Phone Care Team Providers Care Torch Burner Name Role Phone Eligio Dao Unavailable Unavailable Allergies, Adverse Reactions, Alerts Substance Reaction Status Criticality shellfish derived Active No Informa tion nortriptyline Active No Information adhesive tape Active No Information Medications Medication Instructions Dosage Effective Dates (start - stop) Status Comments REPATHA SURECLICK (unknown strength) Not Available - Active DILTIAZEM 24HR ER (XR) (unknown strength) Not Available - Active TOPIRAMATE (unknown strength) Not Available - Active MULTIVITAMINS (unknown strength) Not Available - Active CITRUCEL (unknown strength) Not Available - Active OMEPRAZOLE (unknown strength) Not Available - Active CYCLOBENZAPRINE HCL (unknown strength) Not Available - Active OMEPRAZOLE (unknown strength) Not Available - Active MAGNESIUM OXIDE (unknown strength) Not Available - Active LISINOPRIL (unknown strength) Not Available - Active CICLOPIROX (unknown strength) Not Available - Active Procedures Procedure Date Lami For Excision Of Lesion, Lumbar (Cys t, Lipoma etc.) - GEORGE Lami, Facetectomy/Foraminotomy, Lumbar ( Stenosis) Lami For Excision Of Lesion, Lumbar (Cys t, Lipoma etc.) Lami, Facetectomy/Foraminotomy, Lumbar ( Stenosis) Office/Outpatient Visit,Est, Mod 2023 X-Ray Exam Of Lower Spine, Bending Office/Outpatient Visit,Est, Mod 2022 Office/Outpatient Visit,New, Mod 2021 Office consultation, moderate Advance Directives Directive Yes / No Effective Date File Name No Information Encounters Encounter Description Practice Location Reason(s) For Visit Diagnoses Date Provider Providers Copied on Encounter [facility], [address], [place], [place], [id number], [place] tel:[phone] [facility] No Information 4 Barry Del Valle. [facility] [place], [address], [place], [place], [id number] , [place]. tel:[phone] Referring Provider: Sandor Cerna [employer] [facility], [place], [address]. tel:[phone] [facility], [address], [place], [place], [id number], [place] tel:[phone] [facility] No Information 4 Pia Davalos. [facility] [place], [address], [place], [address], [place]. tel:[phone] Referring Provider: Anuj [employer] Janice [facility], [place], [address]. tel:[phone] Office/Outpat ient Visit,Est, Mod [facility], [address], [place], [place], [id number], [place] tel:[phone] Spinal stenosis, lumbar region with neurogenic claudication 4 Pia Davalos. [facility] [place], [address], [place], [address], [place]. tel:[phone] Referring Provider: Sandor Cerna [employer] [address] [facility], [place], [address]. tel:[phone] Office/Outpat ient Visit,Est, Mod [facility], [address], [place], [place], [id number], [place] tel:[phone] [facility] Spinal stenosis, lumbar region with neurogenic claudication 3 Pia Davalos. [facility] [place], [address], [place], [address], [place]. tel:[phone] Referring Provider: Sandor Cerna, [facility] [address] , [place], [address]. tel:[phone] Office/Outpat ient Visit,New, Mod [facility], [address], [place], [place], [id number], [place] tel:[phone] [facility] [place] Spinal stenosis, lumbar region with neurogenic claudication 2 Pia Davalos. [facility] [place], [address], [place], [address], [place]. tel:[phone] Referring Provider: Sandor Cerna, [facility] [address], [place], [address]. tel:[phone] Office consultation, moderate Z [facility] [place], [address], [place], [address], [place] tel:[phone] [facility] No Information 6 Mehbod Amir. [facility] [place], [address], [place], [place], [id number] , [place]. tel:[phone] Referring Provider: Cristino Arreola, [facility] [address] [facility], [place], [address]. tel:[phone] Family History Family Member Type Diagnosis Age At Onset No Information Payers Payer name Insurance type Covered democrat ID Larygrady lurdessang(s) [facility] [id number] Social History Type Description Quantity Date Captured Comments Sex Male Smoking Status No Information Chief Complaint And Reason For Visit No Information Reason For Referral Reason For Referral No Information Plan Of Treatment Date Type Action Status Appointment Andrzej Arriaga BOOKED Future Order: Radiology Order F/ E Lumbar (F/ELumb), Ordered on: Ordered History Of Present Illness Encounter Date Complaint History Of Prese nt Illness No Information Functional Status Date Functional Assessmen t No Information Instructions Date Instruction Additional Infor mation No Information Assessments Type Assessment Date No Information Patient Care Teams Name Effective Dates (start - stop) Status Members No Information
--- OUTSIDE RECORDS SUMMARY | 2023-10-09 19:01 | XMS_ITS | Encounter Summary ---
Author Organization [place] Address [facility] [place] [address] Care Team Providers Care Scarfer Name Role Phone Kevin Acuna MD Primary Care Provider Rolly Lainez Primary Care Provider Singh Bey MD Unavailable Encounter Details Date Type Department Care Team (Latest Contact Info) Description 03/17/2004 Medical Correspondence [facility] [address] [facility] [address] [place] [phone] [place] [address] [facility] (Primary Dx) Social History Tobacco Use Types Packs/Day Years Used Date Smoking Tobacco: Every Day Comments:less than a half a pack a day Alcohol Use Standard Drinks/Week Comments Not Asked 0 (1 standard drink = 0.6 oz pur e alcohol) Sex and Gender Information Value Date Recorded Sex Assigned at Male 08/22/2018 8:16 AM CDT Gender Identity Male 08/22/2018 8:16 AM CDT Sexual Orientation Straight 08/22/2018 8: 16 AM CDT documented as of this encounter Plan of Treatment Not on file documented as of this encounter Visit Diagnoses Diagnosis [facility]- Primary documented in this encounter Care Teams Scarfer Relationship Specialty Start Date End Date [place] [address] PCP - General 06/01/02 11/27/17 [place] [address] PCP - General Family Practice 12/05/17 Singh Neumann MD [address] [place] [address] Assigned Neuroscience Provider 02/08/20 03/01/20 documented as of this encounter
--- OUTSIDE RECORDS SUMMARY | 2023-10-09 19:01 | XMS_ITS | Referral Summary ---
Author Organization [facility] Address [address] [place] [address] Care Team Providers Care Microbiology Quality Control Technician Name Role Phone Sena Delgado MD Primary Care Provid er Allergies No known active allergies Medications Medication Sig Dispensed Refills Start Date End Date Status cyclobenzaprine (FLEXERIL) 10 mg oral tablet Take 10 mg by mouth once a day as needed for Muscle spasm. Active diazePAM (VALIUM) 5 mg oral tablet Take 5 mg by mouth once a day as needed. Active HYDROcodone-acetaminop hen (NORCO) 5-325 mg oral tablet Take 1-2 tablets by mouth once a day as needed for Pain. Active lisinopril (PRINIVIL) 20 mg oral tablet Take 20 mg by mouth once daily. Active traMADol (ULTRAM) 50 mg oral tablet Take 50 mg by mouth as needed for Pain. Active carBAMazepine (TEGRETOL) 200 mg/10 mL oral Susp (conc: 200 mg/10 mL) oral suspension Take 200 mg by mouth every 8 (eight) hours. Active Active Problems Problem Noted Date Diagnosed Date Myalgia, unspecified site 01/25/2018 Anesthesia of skin 12/05/2017 Other muscle spasm 12/05/2017 Social History Tobacco Use Types Packs/Day Years Used Date Smoking Tobacco: Every Day Smokeless Tobacco: Never Sex and Gender Information Value Date Recorded Sex Assigned at Not on file Gender Identity Not on file Sexual Orientation Not on file Last Filed Vital Signs Vital Sign Reading Time Taken Comments Blood Pressure 118/77 03/28/2018 10:45 AM AGRICULTURAL TECHNICAL OFFICER Pulse 88 03/28/2018 10:45 AM AGRICULTURAL TECHNICAL OFFICER Temperature 36.7 ??C (98 ??F) 03/28/2018 10:45 AM AGRICULTURAL TECHNICAL OFFICER Respiratory Rate 14 03/28/2018 10:45 AM AGRICULTURAL TECHNICAL OFFICER Oxygen Saturation 98% 03/28/2018 10:45 AM AGRICULTURAL TECHNICAL OFFICER Inhaled Oxygen Concentration - - Weight 97.1 kg (214 lb) 03/21/2018 2:50 PM AGRICULTURAL TECHNICAL OFFICER Height 177.8 cm (5' 10) 03/21/2018 2:50 PM AGRICULTURAL TECHNICAL OFFICER Body Mass Index 30.71 03/21/2018 2:50 PM AGRICULTURAL TECHNICAL OFFICER Plan of Treatment Not on file Care Teams Microbiology Quality Control Technician Relationship Specialty Start Date End Date Sena Delgado MD PCP - General 03/28/18
--- OUTSIDE RECORDS SUMMARY | 2023-10-09 19:01 | XMS_ITS | Clinical Summary ---
Author Organization [facility] Address [address] [place] [address] Care Team Providers Care Detailer Furniture Name Role Phone Sena Delgado MD Primary [...] Comments Blood Pressure 118/77 03/28/2018 10:45 AM RIVETER AUTOMOBILE [employer]RAKES Pulse 88 03/28/2018 10:45 AM RIVETER [employer]OM[employer] Temperature 36.7 ??C (98 ??F) 03/28/2018 10:45 AM RIVETER [employer]OM[employer]KES Respiratory Rate 14 03/28/2018 10:45 AM RIVETER [employer] Oxygen Saturation 98% 03/28/2018 10:45 AM RIVETER [employer] Inhaled Oxygen Concentration - - Weight 97.1 kg (214 lb) 03/21/2018 2:50 PM [employer] Height 177.8 cm (5' 10) 03/21/2018 2:50 PM RIVETER [employer] Body Mass Index 30.71 03/21/2018 2:50 PM RIVETER [employer] Plan of Treatment Health Maintenance Due Date Last Done Comments Colonoscopy 1960 Hepatitis C Screening 1960 Lipid Screening 1960 Anxiety Screening (MELISSA-2) 01/07/1961 Depression Assessment (PHQ-2) 01/07/1961 Zoster Vaccine (1 of 2) 2009 RSV 60+ Yrs (1 - 1-dose 60+ series) 2019 Yearly Review of HCD 02/21/2019 02/21/2018 Adult Tetanus Booster 04/07/2021 04/07/2011 , 01/27/2006, 01/27/2006 COVID-19 Vaccine ( season) 2022 Influenza Vaccine (Season Ended) 2023 12/09/2013, 01/19/2013, 04/10/2012, Additional history exists Pneumococcal <65 Aged Out No longer e ligible based on patient's age to complete this topic Care Teams Detailer Furniture Relationship Specialty Start Date End Date Sena Delgado MD PCP - General 03/28/18
--- OUTSIDE RECORDS SUMMARY | 2023-10-09 19:01 | XMS_ITS | Referral Summary ---
Author Organization [place] Address [address] [facility] [place] [address] Care Team Providers Care Heel Trimmer Name Role Phone Rolly Iniguez Primary Care [...] of Treatment Not on file Care Teams Heel Trimmer Relationship Specialty Start Date End Date Rolly Iniguez PCP - General Family Practice 12/05/17
--- OUTSIDE RECORDS SUMMARY | 2023-10-09 19:01 | XMS_ITS | Clinical Summary ---
Author Organization [facility] Address [address] [place] [address] Care Team Providers Care Afterschool Babysitter Name Role Phone Unassigned, Provider Primary Care Provider Unava ilable Source Comments You are receiving this document as you are listed as the primary care provider,follow-up provider, or the patient has been referred to you for consultation.This is in compliance with the Medicare and[facility] State [facility] Hospital[facility] EHR Incentive Program,which states Providers who transition their patient to another setting of careor provider of care or refers their patient to another provider of care shouldprovide summary care record for each transition of care or referral. [facility] Allergies Active Allergy Reactions Criticality Noted Date Comments Adhesive Rash Medium 01/12/2018 Medications Medication Sig Dispensed Refills Start Date End Date Status INDOMETHACIN (INDOCIN) 25MG ORAL CAPS one to two tab po qid 240 0 03/04/2004 Active Additional Information Patient not taking.Reported on 09/18/2018 HYDROCODONE/APAP (VICODIN) 5-500MG ORAL TABS one to two tabs po q 4-6 hours PRN 50 0 03/04/2004 Active Additional Information Patient not taking.Reported on 09/18/2018 traMADol (ULTRAM) 50 MG tablet Take 50 mg by mouth every 6 hours as needed for Pain. 10/07/2014 Active lisinopril (ZESTRIL) 5 MG tablet Take 20 mg by mouth Daily. 10/07/2014 Active cyclobenzaprine (FLEXERIL) 10 MG tablet TK 1 T PO TID PRN 01/19/2016 Active diazePAM (VALIUM) 10 MG tablet TK SS TO 1 T PO D TO BID PRN 01/02/2018 Active Specialty Vitamins Products (PROSTATE OR)Indications:Prost ate vitamin w/ Zinc Indications: Prostate vitamin w/ Zinc Active omeprazole (PRILOSEC-OTC) 20 MG tablet Take 20 mg by mouth daily. Active Family History Medical History Relation Name Comments Heart Disease Father Hyperlipidemia Mother Heart Disease Brother Relation Name Status Comments Father Mother Brother Social History Tobacco Use Types Packs/Day Years Used Date Smoking Tobacco: Former Cigarettes 0.3 38 1 981 - 2019 Smokeless Tobacco: Never Alcohol Use Standard [...] Last Done Comments Colon Cancer Screening Plan Due 1960 Hep C Screening (Preventive Services) 1960 PSA Screening Discussion 1960 HIV Screening (Preventive Services) 1975 Adult Preventive Visit 1977 Cholesterol 1994 Zoster/Shingles (1 of 2) 2009 DTaP/Tdap/Td (3 - Tdap) 04/07/2021 04/07/2011, 01/27 COVID-19 Vaccine ( season) 2022 Influenza (Season Ended) 2023 018, 01/28/2017, 01/07/2016, Additional history exists HepA Aged Out 10/02/2014, 12/10/2013 No lo nger eligible based on patient's age to complete this topic HepB Aged Out No longer eligi ble based on patient's age to complete this topic Hib Aged Out No longer eligi ble based on patient's age to complete this topic IPV (Polio) Aged Out No longer eligi ble based on patient's age to complete this topic MCV4 Aged Out No longer eligi ble based on patient's age to complete this topic Pneumococcal Aged Out No longer eligi ble based on patient's age to complete this topic Care Teams Afterschool Babysitter Relationship Specialty Start Date End Date Unassigned, Provider [address] [place] [address] PCP - General 03/26/00
--- OUTSIDE RECORDS SUMMARY | 2023-10-09 19:01 | XMS_ITS | Encounter Summary ---
Author Organization [place] Address [address] [facility] [place] [address] Care Team Providers Care Road Manager Name Role Phone Rolly Iniguez Primary Care Provider Singh Bey MD Unavailable [phone] Encounter Details Date Type Department Care Team (Late st Contact Info) Description 12/05/2017 Orders Only [facility] [address] [place] [phone] Sena Delgado MD [facility] [address] [facility] [address] [place], [place] [address] Spasm of muscle (Primary Dx); Myalgia Social History Tobacco Use Types Packs/Day Years [...] this encounter Visit Diagnoses Diagnosis Spasm of muscle- Primary Myalgia Mylagia and myositis, unspecified documented in this encounter Care Teams Road Manager Relationship Specialty Start Date End Date Rolly Iniguez PCP - General Family Practice 12/05/17 Singh Neumann MD [address] [place] [address] Assigned Neuroscience Provider 02/08/20 03/01/20 documented as of this encounter
[2023-10-09 19:15] LABS: Lactate* 1.9 mmol/L (0.5-1.9)
[2023-10-09 19:17] LABS: Basophils Absolute Auto 0.04 K/uL (0.00-0.30); Basophils Percent Auto 0.4 % (0.0-3.0); Eosinophils Absolute Auto 0.19 K/uL (0.00-0.50); Eosinophils Percent Auto 1.8 % (0.0-7.0); Hematocrit 36.5 % (37.0-53.0); Hemoglobin* 12.1 gm/dL (13.5-17.5); Immature Granulocytes Abs Auto 0.25 K/uL (0.00-0.30); Immature Granulocytes Pct Auto 2.4 %; Lymphocytes Absolute Auto 3.58 K/uL (0.90-2.90); Lymphocytes Percent Auto 34.2 % (20-44); Mean Corpuscular HGB Conc 33 gm/dL (32-36); Mean Corpuscular Hemoglobin 31 pg (26-34); Mean Corpuscular Volume 95 fL (80-100); Monocytes Percent Auto 11.5 % (0.0-11.0); Neutrophils Absolute Auto 5.22 K/uL (1.7-7.0); Neutrophils Percent Auto 49.7 % (42.0-72.0); Platelet Count* 295 K/uL (140-440); RDW Coefficient of Variation % 12.5 % (11.5-15.5); Red Blood Count 3.86 m/uL (4.30-5.90); White Blood Count* 10.48 K/uL (4.50-11.00)
[2023-10-09 19:20] LABS: Slide Review Reflex No
[2023-10-09 19:33] LABS: Albumin* 3.7 g/dL (3.3-5.0); Chloride* 100 mmol/L (96-114); Potassium* 4.2 mmol/L (3.6-5.1); Sodium* 132 mmol/L (135-149)
[2023-10-09 19:35] LABS: Creatinine* 0.7 mg/dL (0.5-1.5); Est. Creatinine Clearance* 77.06; Estimated Glomerular Filt Rate 103 ml/min
[2023-10-09 19:36] LABS: Alanine Aminotransferase* 22 U/L (4-50); Alkaline Phosphatase* 45 U/L (40-150); Anion Gap 6 mEq/L (7-15); Aspartate Amino Transferase* 35 U/L (12-35); Bilirubin Direct* 0.3 mg/dL (0.0-0.5); Bilirubin Total* 0.7 mg/dL (0.1-1.5); Blood Urea Nitrogen* 14 mg/dL (7-30); Carbon Dioxide* 26 mmol/L (20-32); Glucose* 204 mg/dL (60-115); Total Protein* 6.5 g/dL (6.0-8.3)
[2023-10-09 19:37] LABS: Calcium* 8.5 mg/dL (8.4-10.6)
[2023-10-09 19:50] LABS: C Reactive Protein* 21.5 mg/dL (0.5-1.0)
[2023-10-09 20:11] LABS: Erythrocyte SedimentationRate* 65 mm/hr (2-15)
--- NOTE | 2023-10-09 20:22 | ED_ITS ---
HPI - General Adult General Chief complaint: Post Op Complication Stated complaint: post op, drainage, fever, pain Time Seen by Provider: 10/09/23 18:46 Source: patient Mode of arrival: ambulatory Limitations: no limitations History of Present Illness HPI narrative: 63-year-old male, postop day 3. Status post laminectomy presenting today with increasing back pain, chills and discomfort in his legs. Patient was doing well postoperatively, went home on Tuesday afternoon. Started having increased pain on Tuesday home, pain radiating down his legs. Woke up in the middle of the night with chills. Patient is also constipated, no bowel movement since . Patient denies any nausea or vomiting, no urinary symptoms such as increased frequency, urgency or dysuria, denies chest pain or shortness of breath. He is not having any abdominal pain. Past medical history significant for hypertension, patient has been told that he is prediabetic. Related Data Home Medications ?Medication ?Instructions ?Recorded ?Confirmed ciclopirox 0.77 % topical cream 1 applic topical BID 04/23/22 10/09/23 cyclobenzaprine 10 mg tablet 10 mg PO PRN PRN 04/23/22 10/09/23 evolocumab 140 mg/mL subcutaneous 140 mg subcut .every 2 weeks 04/23/22 10/09/23 pen injector (Tc Guardado) diltiazem HCl 180 mg 180 mg PO DAILY 04/28/22 10/09/23 capsule,extended release 24 hr, controlled lisinopril 20 mg tablet 30 mg PO DAILY 05/26/22 11/25/22 carvedilol 3.125 mg tablet 3.125 mg PO BID 07/21/22 10/09/23 omeprazole 20 mg capsule,delayed 20 mg PO DAILY 07/21/22 10/09/23 release tramadol 50 mg tablet 50 mg PO BID PRN 11/25/22 10/09/23 Allergies Allergy/AdvReac Type Severity Reaction Status Date / Time adhesive Allergy Rash Verified 10/09/23 18:18 nortriptyline Allergy tachycardia Verified 10/09/23 18:18 shellfish derived Allergy Swelling Verified 10/09/23 18:18 of Lip/Tongue/Throat Review of Systems Status of ROS: Reports: 10 or more systems reviewed and unremarkable except as noted in History and below PFSH PFSH Medical History Sprain of wrist ?S63.509A - Unspecified sprain of unspecified wrist, initial encounter (ICD- 10) Supraventricular tachycardia ?I47.1 - Supraventricular tachycardia (ICD-10) Muscle spasms of lower extremity ?M62.838 - Other muscle spasm (ICD-10) Hypertension ?I10 - Essential (primary) hypertension (ICD-10) Gout ?M10.9 - Gout, unspecified (ICD-10) Accelerated atrioventricular junctional rhythm ?I49.8 - Other specified cardiac arrhythmias (ICD-10) Surgical History S/P left knee arthroscopy (07/23/22) ?Z98.890 - Other specified postprocedural states (ICD-10) Status post arthroscopy of left shoulder (02/19/05) ?Z98.890 - Other specified postprocedural states (ICD-10) Status post arthroscopy of right shoulder (04/05/08) ?Z98.890 - Other specified postprocedural states (ICD-10) History of surgery on lower extremity (05/31/08) ?Z98.890 - Other specified postprocedural states (ICD-10) S/P right knee arthroscopy (09/27/19) ?Z98.890 - Other specified postprocedural states (ICD-10) Social History Narrative: quit smoking again 08/01/2022 Smoking Status: Current every day smoker What tobacco products do you use: cigarettes Smoking quit date/years: <= 15 years ago Do you use any of these nicotine containing products: None Second hand tobacco smoke exposure: No How often do you have a drink containing alcohol: monthly or less How often do you have six or more drinks on one occasion: Never AUDIT-C Alcohol total score: 1 Non-prescribed substance use: denies use service: No Exam Narrative: Exam Narrative: Well-nourished well-developed patient in mild distress secondary to pain. Alert and oriented. Answers questions appropriately. Mood and affect are appropriate. Thoughts are goal oriented and rational. No tangential or magical thinking noted. Patient speaks in full sentences without needing to catch his breath. Patient is able to ambulate. HEENT: Normocephalic atraumatic. Pupils are equally round reactive to light. Extraocular muscles are intact. Conjunctivae are moist without any icterus noted. Moist mucous membranes. Cardiovascular: Heart is regular rate and rhythm S1 and S2 are present without any murmurs. Lungs: Clear to auscultation bilaterally no wheezes rhonchi or rales are appreciated. Patient takes deep breaths without any discomfort. Abdomen: Soft and nontender nondistended with normal bowel sounds. Extremities: Bilateral lower extremities are without edema. Normal DP and PT pulses. Skin: Well perfused without any obvious rashes. Back: Patient has a dressing in place that is saturated with blood and fluid. Removal of the dressing reveals a postoperative incision intact with serosanguineous fluid coming from the distal edge of the wound. He does have surrounding erythema of the wound that extends from flank to flank of the lumbar spine. Patient has 5/5 strength of the bilateral lower extremity although that causes pain in his back. Const: Vital Signs, click to edit/add: Vital Signs - 24 hr 10/09/23 18:09 10/09/23 19:15 10/09/23 19:17 Temperature 98.3 F Pulse Rate 77 Pulse Rate [Pulse Oximeter] 77 Respiratory Rate 24 Blood Pressure Blood Pressure [Ri ght Upper Arm] 165/70 H Pulse Oximetry 94 93 93 Oxygen Delivery Me thod Room Air 10/09/23 19:30 10/09/23 19:32 10/09/23 19:47 Temperature Pulse Rate 76 76 76 Pulse Rate [Pulse Oximeter] Respiratory Rate Blood Pressure 106/48 L Blood Pressure [Ri ght Upper Arm] Pulse Oximetry 92 93 95 Oxygen Delivery Me thod Course Course ED Course: IV was established and labs were drawn. I did contact [facility] who said that they would recommend transfer if the patient had kash pus draining from his wound. His blood work was unremarkable, white cell count is 10.48, hemoglobin is 12.1 there is no left shift of neutrophils. Sodium is slightly low at 132, electrolytes are otherwise unremarkable, nonfasting glucose is 204. Normal LFTs. CRP is elevated at 21.5. Blood cultures were drawn and a wound culture is done as well. Lumbar spine CT was obtained to rule out any deeper infections: Nonspecific fluid collection measuring 1 cm. No abscess noted. I did consult with our general surgeon as well who felt that admission with IV antibiotics was appropriate at this time. Patient started on Zosyn IV. Vital Signs Vital signs: Initial Vital Signs Temperature 98.3 F 10/09/23 18:09 Temperature Source Temporal Artery Scan 10/09/23 18:09 Pulse Rate 77 10/09/23 18:09 Respiratory Rate 24 10/09/23 18:09 Blood Pressure 165/70 H 10/09/23 18:09 Blood Pressure Mean 101 10/09/23 18:09 Blood Pressure Position Sitting 10/09/23 18:09 Pulse Oximetry 94 10/09/23 18:09 Oxygen Delivery Method Room Air 10/09/23 18:09 Vital Signs Temperature 98.3 F 10/09/23 18:09 Pulse Rate 77 10/09/23 18:09 Respiratory Rate 24 10/09/23 18:09 Blood Pressure 165/70 H 10/09/23 18:09 Pulse Oximetry 94 10/09/23 18:09 Oxygen Delivery Method Room Air 10/09/23 18:09 Temperature 98.3 F 10/09/23 18:09 Pulse Rate 76 10/09/23 19:47 Respiratory Rate 24 10/09/23 18:09 Blood Pressure 106/48 L 10/09/23 19:32 Pulse Oximetry 95 10/09/23 19:47 Oxygen Delivery Method Room Air 10/09/23 18:09 Medications Administered Medications: Generic Name Dose Route Start Last Admin Trade Name Freq PRN Reason Stop Dose Admin Sodium Chloride 1,000 mls @ 1,000 mls/hr 10/09/23 20:30 10/09/23 20:35 0.9 % Sodium Chloride 1000 Ml IV 10/09/23 21:29 1,000 mls/hr .Q1H LOW Administration Medical Decision Making MDM Narrative Medical decision making narrative: 63-year-old male with a postoperative infection. Plan per above. Lab Data Lab results reviewed: Yes I reviewed the patient's lab results Labs: Lab Results 10/09/23 Range/Units 19:10 WBC 10.48 (4.50-11.00) K/uL RBC 3.86 L (4.30-5.90) m/uL Hgb 12.1 L (13.5-17.5) gm/dL Hct 36.5 L (37.0-53.0) % MCV 95 (80-100) fL MCH 31 (26-34) pg MCHC 33 (32-36) gm/dL RDW Coeff of Yenifer 12.5 (11.5-15.5) % Plt Count 295 (140-440) K/uL Neut % (Auto) 49.7 (42.0-72.0) % Lymph % (Auto) 34.2 (20-44) % Villalba % (Auto) 11.5 H (0.0-11.0) % Eos % (Auto) 1.8 (0.0-7.0) % Baso % (Auto) 0.4 (0.0-3.0) % Neut # (Auto) 5.22 (1.7-7.0) K/uL Lymph # (Auto) 3.58 H (0.90-2.90) K/uL Villalba # (Auto) 1.20 H (0.00-0.90) K/UL Eos # (Auto) 0.19 (0.00-0.50) K/uL Baso # (Auto) 0.04 (0.00-0.30) K/uL Abs Immat Gran (auto) 0.25 (0.00-0.30) K/uL Imm/Tot Granulo (auto) 2.4 % ESR 65 H (2-15) mm/hr Sodium 132 L (135-149) mmol/L Potassium 4.2 (3.6-5.1) mmol/L Chloride 100 (96-114) mmol/L Carbon Dioxide 26 (20-32) mmol/L Anion Gap 6 L (7-15) mEq/L BUN 14 (7-30) mg/dL Creatinine 0.7 (0.5-1.5) mg/dL Estimated Creat Clear 77.06 Estimated GFR 103 ml/min Glucose 204 H (60-115) mg/dL Lactate 1.9 (0.5-1.9) mmol/L Calcium 8.5 (8.4-10.6) mg/dL Total Bilirubin 0.7 (0.1-1.5) mg/dL Direct Bilirubin 0.3 (0.0-0.5) mg/dL AST 35 (12-35) U/L ALT 22 (4-50) U/L Alkaline Phosphatase 45 (40-150) U/L C-Reactive Protein 21.5 H (0.5-1.0) mg/dL Total Protein 6.5 (6.0-8.3) g/dL Albumin 3.7 (3.3-5.0) g/dL Imaging Data Lumbar spine CT: Attestation: I have reviewed the pertinent imaging results. Radiologist's impression: CT images of the lumbar spine following intravenous contrast. COMPARISON: None. FINDINGS: Postsurgical changes of bilateral hemilaminectomies at L4-5. Scattered emphysema in the operative bed and spinal canal. Small fluid collection in the right hemilaminectomy bed measuring approximately 1.0 cm (series 2 image 126), nonspecific. The lumbar lordosis is preserved. Vertebral heights maintained. No acute fracture or spondylolisthesis. T12-L1 and L1-2: No spinal canal or neural foraminal stenosis. L2-3: Posterior disc bulge. Suggested moderate spinal canal narrowing. Low-grade neural foraminal narrowing. L3-4: Posterior disc bulge. Thickening ligamentum flavum. Facet arthropathy. Suggested moderate spinal canal narrowing. Moderate narrowing neural foraminal narrowing. L4-5: Postsurgical changes of bilateral hemilaminotomy. Emphysema the operative bad and spinal canal. Obscuration of fat planes in the spinal canal and lateral recesses. At least moderate neural foraminal narrowing. L5-S1: Postsurgical changes of left hemilaminectomy with obscuration of fat planes in the left lateral recess. Posterior disc bulge. Endplate spondylitic ridging. Mild right facet arthropathy. No spinal canal narrowing. Low-grade neural from narrowing. Bilateral renal cysts. IMPRESSION: 1. At L4-5, postsurgical changes of bilateral hemilaminectomies with scattered foci of emphysema the operative bed and spinal canal. Obscuration of fat planes in the spinal canal and lateral recesses. Small fluid collection within the ri ght hemilaminectomy bed is nonspecific. 2. At L5-S1, postsurgical changes of left hemilaminectomy with obscuration of fat planes in the left lateral recess. 3. No acute fracture. 4. Multilevel lumbar spondylosis. Discharge Plan Discharge Clinical Impression: Post-operative infection Patient Disposition: Admitted As Observation Condition: Stable Prescriptions: No Action Repatha SureClick 140 mg/mL pen injector 140 mg subcut .every 2 weeks cyclobenzaprine 10 mg tablet 10 mg PO PRN PRN ciclopirox 0.77 % cream 1 applic topical BID diltiazem HCl 180 mg capsule,ext.rel 24h degradable 180 mg PO DAILY lisinopril 20 mg tablet 30 mg PO DAILY carvedilol 3.125 mg tablet 3.125 mg PO BID omeprazole 20 mg capsule,delayed release(DR/EC) 20 mg PO DAILY tramadol 50 mg tablet 50 mg PO BID PRN Hold Instructions: on other med Follow Up/Referrals: Amador Steele MD [Primary Care Provider] -
[2023-10-09] MEDS: 0.9 % SODIUM CHLORIDE 1000 ml 1,000 ML IV (20:35)
[2023-10-09] MEDS: PIPERACILLIN/TAZOBACTAM 3.375 GM in 0.9 % SODIUM CHLORIDE Mini-bag 100 ML IVPB (21:44)
--- NOTE | 2023-10-09 22:41 | PM.IMHP1 ---
Hospitalist- H&P: HPI History of Present Illness Time Seen by Provider: 22:41 Date Seen: 10/09/23 Chief complaint: post op, drainage, fever, pain Narrative: Andrzej Arriaga is a 63 year old male who had bilateral laminectomy on . He had good relief of the pain of spinal stenosis after surgery and walked more on Tuesday than he has in 1.5 years. He says he felt really good. On Tuesday he felt tired and more painful. He had to take extra pain medication. Tuesday morning at 3am, he woke up drenched with sweat. He is not sure exactly what his temperature was because he doesn't have a good thermometer, but says his thought he was hot to the touch and he felt feverish. He continued to feel poorly and have fever and sweats. The large bandage over wound came free, possibly from sweat, and there was a lot of bloody drainage from the wound. He has not had a BM since last Tuesday. He has been eating and drinking okay, but appetite is down a bit. Review of Systems Status of ROS: Reports: 10 or more systems reviewed and unremarkable except as noted in History and below [facility] Medical History (Updated 10/10/23 @ 00:07 by Michelle Spangler MD) Bilateral lower extremity edema ?R60.0 - Localized edema (ICD-10) Coronary artery disease ?I25.10 - Atherosclerotic heart disease of [place] coronary artery without angina pectoris (ICD-10) Spinal stenosis of lumbar region with neurogenic claudication ?M48.062 - Spinal stenosis, lumbar region with neurogenic claudication (ICD-10) Obstructive sleep apnea ?G47.33 - Obstructive sleep apnea (adult) (pediatric) (ICD-10) Familial hypercholesterolemia ?E78.01 - Familial hypercholesterolemia (ICD-10) Adenomatous colon polyp ?D12.6 - Benign neoplasm of colon, unspecified (ICD-10) Vitamin D deficiency ?E55.9 - Vitamin D deficiency, unspecified (ICD-10) Pulmonary nodule, right ?R91.1 - Solitary pulmonary nodule (ICD-10) Impaired fasting glucose ?R73.01 - Impaired fasting glucose (ICD-10) Umbilical hernia without mention of obstruction or gangrene ?K42.9 - Umbilical hernia without obstruction or gangrene (ICD-10) Hyperlipidemia ?E78.5 - Hyperlipidemia, unspecified (ICD-10) Esophageal reflux ?K21.9 - Gastro-esophageal reflux disease without esophagitis (ICD-10) Sprain of wrist ?S63.509A - Unspecified sprain of unspecified wrist, initial encounter (ICD-10) Supraventricular tachycardia ?I47.1 - Supraventricular tachycardia (ICD-10) Muscle spasms of lower extremity ?M62.838 - Other muscle spasm (ICD-10) Hypertension ?I10 - Essential (primary) hypertension (ICD-10) Gout ?M10.9 - Gout, unspecified (ICD-10) Accelerated atrioventricular junctional rhythm ?I49.8 - Other specified cardiac arrhythmias (ICD-10) Surgical History (Updated 10/09/23 @ 22:41 by Michelle Spangler MD) S/P left knee arthroscopy (07/23/22) ?Z98.890 - Other specified postprocedural states (ICD-10) Status post arthroscopy of left shoulder (02/19/05) ?Z98.890 - Other specified postprocedural states (ICD-10) Status post arthroscopy of right shoulder (04/05/08) ?Z98.890 - Other specified postprocedural states (ICD-10) History of surgery on lower extremity (05/31/08) ?Z98.890 - Other specified postprocedural states (ICD-10) S/P right knee arthroscopy (09/27/19) ?Z98.890 - Other specified postprocedural states (ICD-10) Family History (Updated 10/09/23 @ 22:48 by Michelle Spangler MD) Brother Prostate cancer, Onset Age: 50 Coronary artery disease, Onset Age: 49 Father Prostate cancer, Onset Age: 63 Coronary artery disease Other High cholesterol Social History (Updated 10/09/23 @ 23:09 by Michelle Spangler MD) 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 1-2 drinks per month. Uses THC - a couple of vapes or one-hits per night. FULL CODE. Smoking Status: Current every day smoker What tobacco products do you use: cigarettes Smoking quit date/years: <= 15 years ago Do you use any of these nicotine containing products: None Second hand tobacco smoke exposure: No How often do you have a drink containing alcohol: monthly or less How often do you have six or more drinks on one occasion: Never AUDIT-C Alcohol total score: 1 Non-prescribed substance use: denies use service: No Meds Home Medications and Allergies Home Medications ?Medication ?Instructions ?Recorded ?Confirmed ?Type ciclopirox 0.77 % topical cream 1 applic topical BID 04/23/22 10/09/23 History cyclobenzaprine 10 mg tablet 10 mg PO HS PRN 04/23/22 10/09/23 History evolocumab 140 mg/mL subcutaneous 140 mg subcut .every 2 weeks 04/23/22 10/09/23 History pen injector (Tc Guardado) diltiazem HCl 180 mg 180 mg PO DAILY 04/28/22 10/09/23 History capsule,extended release 24 hr, controlled carvedilol 3.125 mg tablet 3.125 mg PO BID 07/21/22 10/09/23 History omeprazole 20 mg capsule,delayed 20 mg PO DAILY 07/21/22 10/09/23 History release tramadol 50 mg tablet 50 mg PO BID PRN 11/25/22 10/09/23 History oxycodone 5 mg tablet 5 mg PO Q6H PRN 10/09/23 10/09/23 History Allergies Allergy/AdvReac Type Severity Reaction Status Date / Time adhesive Allergy Rash Verified 10/09/23 18:18 nortriptyline Allergy tachycardia Verified 10/09/23 18:18 shellfish derived Allergy Swelling Verified 10/09/23 18:18 of Lip/Tongue/Throat Exam Narrative: Exam Narrative: General: No acute distress. Awake alert oriented x3. Obese. HEENT: Normocephalic atraumatic, pupils equally round and reactive to light and accommodation. Oropharynx clear. Mucous membranes are moist. Cardiovascular: Regular rate and rhythm. No murmurs, gallops, or rubs. Chest: No increased work of breathing. Clear to auscultation bilaterally. No crackles or wheezes. Abdomen: Bowel sounds present. Soft, nondistended, nontender. No hepatosplenomegaly or masses. Back: Large area of mild to moderate erythema, warmth and tenderness that extends across the entirety of his low back in the lumbar region. No crepitus. Incision is bandaged (this was new from ER) with a quarter-sized area of serosanguineous fluid on the inferior portion of the bandage. Extremities: No edema, no cyanosis or clubbing. Skin: No jaundice, no pallor, no rashes. Neuro: There are no focal deficits. He is able to move and roll in bed independently. Light touch sensation is intact and strength is 5/5 in both lower extremities. Const: Vital Signs, click to edit/add: Vital Signs - 24 hr 10/09/23 18:09 10/09/23 19:15 10/09/23 19:17 Temperature 98.3 F Pulse Rate 77 Pulse Rate [Pulse Oximeter] 77 Respiratory Rate 24 Blood Pressure Blood Pressure [Ri ght Upper Arm] 165/70 H Pulse Oximetry 94 93 [facility] 10/09/23 19:30 10/09/23 19:32 10/09/23 19:47 Temperature Pulse Rate 76 76 76 Pulse Rate [Pulse Oximeter] Respiratory Rate Blood Pressure 106/48 L Blood Pressure [Ri ght Upper Arm] Pulse Oximetry 92 93 95 [facility] - [facility]: Result Labs Labs: Short CBC 10/09/23 Range/Units 19:10 WBC 10.48 (4.50-11.00) K/uL Hgb 12.1 L (13.5-17.5) gm/dL Hct 36.5 L (37.0-53.0) % Plt Count 295 (140-440) K/uL BMP 10/09/23 19:10 Sodium 132 L Potassium 4.2 Chloride 100 Carbon Dioxide 26 BUN 14 Creatinine 0.7 Glucose 204 H Calcium 8.5 Liver Function 10/09/23 Range/Units 19:10 Total Bilirubin 0.7 (0.1-1.5) mg/dL Direct Bilirubin 0.3 (0.0-0.5) mg/dL AST 35 (12-35) U/L ALT 22 (4-50) U/L Alkaline Phosphatase 45 (40-150) U/L Albumin 3.7 (3.3-5.0) g/dL Ordering Physician: Shelly Jackson M.D. Date of Service: 10/09/23 Procedure(s): CT lumbar spine w con Accession Number(s): [id number] cc: Amador Steele M.D.; Shelly Jackson M.D.~ For Patients: As a result of the Century Cures Act, medical imaging exams and procedure reports are released immediately into your electronic medical record. You may view this report before your referring provider. If you have questions, please contact your health care provider. INDICATION Postoperative pain. TECHNIQUE: CT images of the lumbar spine following intravenous contrast. COMPARISON: None. FINDINGS: Postsurgical changes of bilateral hemilaminectomies at L4-5. Scattered emphysema in the operative bed and spinal canal. Small fluid collection in the right hemilaminectomy bed measuring approximately 1.0 cm (series 2 image 126), nonspecific. The lumbar lordosis is preserved. Vertebral heights maintained. No acute fracture or spondylolisthesis. T12-L1 and L1-2: No spinal canal or neural foraminal stenosis. L2-3: Posterior disc bulge. Suggested moderate spinal canal narrowing. Low-grade neural foraminal narrowing. L3-4: Posterior disc bulge. Thickening ligamentum flavum. Facet arthropathy. Suggested moderate spinal canal narrowing. Moderate narrowing neural foraminal narrowing. L4-5: Postsurgical changes of bilateral hemilaminotomy. Emphysema the operative bad and spinal canal. Obscuration of fat planes in the spinal canal and lateral recesses. At least moderate neural foraminal narrowing. L5-S1: Postsurgical changes of left hemilaminectomy with obscuration of fat planes in the left lateral recess. Posterior disc bulge. Endplate spondylitic ridging. Mild right facet arthropathy. No spinal canal narrowing. Low-grade neural from narrowing. Bilateral renal cysts. IMPRESSION: 1. At L4-5, postsurgical changes of bilateral hemilaminectomies with scattered foci of emphysema the operative bed and spinal canal. Obscuration of fat planes in the spinal canal and lateral recesses. Small fluid collection within the right hemilaminectomy bed is nonspecific. 2. At L5-S1, postsurgical changes of left hemilaminectomy with obscuration of fat planes in the left lateral recess. 3. No acute fracture. 4. Multilevel lumbar spondylosis. Please note that all CT scans at this facility use dose modulation, iterative reconstruction, and/or weight-based dosing when appropriate to reduce radiation dose to as low as reasonably achievable. Dictated by Rhett Dobson MD @ 10/09/2023 8:59:21 PM (Electronically Signed) Assessment and Plan Assessment and plan (1) Post-operative infection: Problem comment: - Lumbar surgery at [facility] [place] 10/06. - Blood culture x2 and wound culture done in ER. - WBC and procalcitonin wnl, CRP elevated at 21.5. - Zosyn started in ER. I will add Vanco to cover for possible MRSA due to patient's h/o multiple surgeries and recent surgery at a spine center. - Erythema outlined. Monitor. Recheck labs in am. - Oxycodone prn pain with dilaudid for breakthrough. Status: Acute (2) Hypertension: Problem comment: - Hyrdrochlorothiazide and spironolactone (he self discontinued this on Tuesday) flared up his muscle pain and he could not tolerate this. - Continue carvedilol and diltiazem. Status: Chronic (3) Constipation: Problem comment: Start sennaS and miralax prn. Status: Acute (4) Obstructive sleep apnea: Problem comment: HST 02/21/2020 [facility]- 32 pillows and heated hose - bringing CPAP machine from home. Status: Chronic
[2023-10-09] MEDS: HYDROmorphone 0.5 mg/0.5 ml inj IVP (22:49)
[2023-10-09 23:34] LABS: Procalcitonin* 0.09 ng/mL (<0.50)
[2023-10-10] VITALS (10 sets, daily range): BP systolic 130–142; BP diastolic 60–84; PULSE 69–78; RESP 16–20; TEMP 36.7–38.1; O2SAT 91–96
[2023-10-10] MEDS: MELATONIN 3 MG TABLET PO (00:11)
[2023-10-10] MEDS: OXYCODONE 5 MG TABLET PO ×3 (00:11→14:12)
[2023-10-10] MEDS: SENNOSIDES/DOCUSATE TABLET 1 TAB PO (00:11)
[2023-10-10] MEDS: CYCLOBENZAPRINE HCL 10 MG TABLET PO ×2 (00:12→20:05)
[2023-10-10] MEDS: polyethylene glycoL 3350 17 GM PACK PO (00:12)
[2023-10-10] MEDS: HYDROmorphone 0.5 mg/0.5 ml inj IVP (03:29)
[2023-10-10] MEDS: PIPERACILLIN/TAZOBACTAM 3.375 GM in 0.9 % SODIUM CHLORIDE Mini-bag 100 ML IVPB ×4 (03:29→21:24)
[2023-10-10 06:25] LABS: Basophils Absolute Auto 0.05 K/uL (0.00-0.30); Basophils Percent Auto 0.6 % (0.0-3.0); Eosinophils Absolute Auto 0.17 K/uL (0.00-0.50); Hematocrit 34.5 % (37.0-53.0); Hemoglobin* 11.4 gm/dL (13.5-17.5); Immature Granulocytes Abs Auto 0.25 K/uL (0.00-0.30); Lymphocytes Absolute Auto 2.97 K/uL (0.90-2.90); Lymphocytes Percent Auto 35.3 % (20-44); Mean Corpuscular HGB Conc 33 gm/dL (32-36); Mean Corpuscular Hemoglobin 32 pg (26-34); Mean Corpuscular Volume 95 fL (80-100); Monocytes Percent Auto 11.5 % (0.0-11.0); Neutrophils Absolute Auto 4.01 K/uL (1.7-7.0); Neutrophils Percent Auto 47.6 % (42.0-72.0); Platelet Count* 280 K/uL (140-440); RDW Coefficient of Variation % 12.6 % (11.5-15.5); Red Blood Count 3.62 m/uL (4.30-5.90); White Blood Count* 8.42 K/uL (4.50-11.00)
[2023-10-10 06:28] LABS: Slide Review Reflex No
--- NOTE | 2023-10-10 06:29 | PC.NURSE ---
End of shift [id number]: Alert and oriented x 4. Pain to low back opsite radiating into both legs reported. Pain well managed with IV dilaudid and oxycodone. Incision to middle low back, weeping drainage from distal point of incision of serosanguineous drainage, dressing applied to contain drainage. Mary incision red and warm, non pitting edema to low back. Patient denies any shortness of breath. Transfers with SBA to min A x1, utilizes walker for ambulation. Afebrile throughout the shift.
[2023-10-10 06:38] LABS: Chloride* 101 mmol/L (96-114); Potassium* 3.8 mmol/L (3.6-5.1); Sodium* 134 mmol/L (135-149)
[2023-10-10 06:41] LABS: Anion Gap 3 mEq/L (7-15); Blood Urea Nitrogen* 11 mg/dL (7-30); Carbon Dioxide* 30 mmol/L (20-32); Creatinine* 0.7 mg/dL (0.5-1.5); Est. Creatinine Clearance* 77.06; Estimated Glomerular Filt Rate 103 ml/min
[2023-10-10 06:42] LABS: Calcium* 8.2 mg/dL (8.4-10.6); Glucose* 129 mg/dL (60-115)
[2023-10-10 07:03] LABS: C Reactive Protein* 18.7 mg/dL (0.5-1.0)
[2023-10-10] MEDS: carvediloL 25 MG TABLET PO ×2 (09:12→20:04)
[2023-10-10] MEDS: OMEPRAZOLE 20 MG CAPSULE DR PO (09:12)
[2023-10-10] MEDS: SENNOSIDES/DOCUSATE TABLET 2 TAB PO ×2 (09:12→20:04)
[2023-10-10] MEDS: dilTIAZem 180 MG CAP (CD) PO (09:12)
--- NOTE | 2023-10-10 09:49 | P.IMPN_ITS ---
Progress Note: A&P Assessment and plan (1) Post-operative infection: Problem details: - Lumbar surgery at [facility] 09/17 - Wound culture and Blood Culture x2 collected in ED 10/08, currently NGTD - WBC and procalcitonin wnl upon admission with no significant PMN predominance, CRP and ESR both elevated - Zosyn and Vancomycin (10/08) - pain management with Oxycodone, therapies ordered Status: Acute (2) Hypertension: Problem details: - Home medications of HCTZ and Spironolactone flared up his muscle pain, so he stopped them both on 10/07 - Continue carvedilol and diltiazem Status: Chronic (3) Constipation: Problem details: - on bowel regimen with Senna-S and prn Miralax Status: Acute (4) Obstructive sleep apnea: Problem details: - HST 02/21/2020 AHI- 32 pillows and heated hose - using home CPAP machine at night Status: Chronic Plan - per above - continue abx, await culture results - Lovenox for ppx Subjective Date Seen: 10/10/23 Interval history: Andrzej is a 63-year-old patient s/p bilateral lumbar laminectomy on 10/05 at [facility], admitted to [facility] on 10/08 for increased back pain and drainage from his surgical site. He has remained afebrile with reassuring vital signs. He is on vancomycin and Zosyn. Wound and blood cultures do not exhibit any growth at this time. This morning, he continues to have discomfort, primarily with moving. The worst pain is noted when he moves his legs from a bent to a straightened position. He has no numbness or tingling, no bowel or bladder concerns (besides constipation). Exam Narrative: Exam Narrative: GEN: Alert and oriented, laying comfortably in bed HEENT: Normal external ears, EOMIs bilaterally, no scleral icterus CV: RRR, No concerning murmurs R: LCTA bilaterally without concerning wheezing, air movement adequate Back: Erythema around scar, + drainage on bandage noted, no drainage from scar noted during my exam. + induration around incision, no fluctuance, mild discomfort with palpation Ext: wwp, no concerning edema. Notes discomfort in back when he extends his knees, but no discomfort with straight leg raise Skin: No concerning skin lesions or rashes on exposed skin Neuro: Nonfocal, no resting tremor. Ambulating well with walker during therapy Psych: Appropriate Const: Vital Signs, click to edit/add: Vital Signs - 24 hr 10/09/23 18:09 10/09/23 19:15 10/09/23 19:17 Temperature 98.3 F Pulse Rate 77 Pulse Rate [Left P ulse Oximeter] Pulse Rate [Pulse Oximeter] 77 Respiratory Rate 24 Blood Pressure Blood Pressure [Le ft Arm] Blood Pressure [Ri ght Upper Arm] 165/70 H Pulse Oximetry 94 93 93 Oxygen Delivery Me thod Room Air 10/09/23 19:30 10/09/23 19:32 10/09/23 19:47 Temperature Pulse Rate 76 76 76 Pulse Rate [Left P ulse Oximeter] Pulse Rate [Pulse Oximeter] Respiratory Rate Blood Pressure 106/48 L Blood Pressure [Le ft Arm] Blood Pressure [Ri ght Upper Arm] Pulse Oximetry 92 93 95 Oxygen Delivery Me thod 10/09/23 22:15 10/09/23 22:15 10/09/23 22:54 Temperature 98.5 F Pulse Rate Pulse Rate [Left P ulse Oximeter] 73 Pulse Rate [Pulse Oximeter] Respiratory Rate 22 22 Blood Pressure Blood Pressure [Le ft Arm] 146/86 H Blood Pressure [Ri ght Upper Arm] Pulse Oximetry 95 95 95 Oxygen Delivery Me thod Room Air Room Air 10/09/23 23:00 10/09/23 23:00 10/09/23 23:00 Temperature 98.5 F Pulse Rate Pulse Rate [Left P ulse Oximeter] 73 73 Pulse Rate [Pulse Oximeter] Respiratory Rate 22 22 22 Blood Pressure Blood Pressure [Le ft Arm] 146/68 H Blood Pressure [Ri ght Upper Arm] Pulse Oximetry 95 95 Oxygen Delivery Me thod Room Air Room Air 10/10/23 03:00 10/10/23 08:11 10/10/23 08:11 Temperature 98.6 F 98.2 F Pulse Rate Pulse Rate [Left P ulse Oximeter] 73 73 Pulse Rate [Pulse Oximeter] Respiratory Rate 16 20 20 Blood Pressure Blood Pressure [Le ft Arm] 130/73 130/60 Blood Pressure [Ri ght Upper Arm] Pulse Oximetry 91 95 95 Oxygen Delivery Me thod Room Air Room Air Room Air Labs Labs: Laboratory Results - last 24 hr 06/10/09/23 10/10/23 19:10 22:25 06:01 WBC 10.48 8.42 RBC 3.86 L 3.62 L Hgb 12.1 L 11.4 L Hct 36.5 L 34.5 L MCV 95 95 MCH 31 32 MCHC 33 33 RDW Coeff of Yenifer 12.5 12.6 Plt Count 295 280 Neut % (Auto) 49.7 47.6 Lymph % (Auto) 34.2 35.3 [place] % (Auto) 11.5 H 11.5 H Eos % (Auto) 1.8 2.0 Baso % (Auto) 0.4 0.6 Neut # (Auto) 5.22 4.01 Lymph # (Auto) 3.58 H 2.97 H [place] # (Auto) 1.20 H 1.00 H Eos # (Auto) 0.19 0.17 Baso # (Auto) 0.04 0.05 Abs Immat Gran (auto) 0.25 0.25 Imm/Tot Granulo (auto) 2.4 3.0 ESR 65 H Sodium 132 L 134 L Potassium 4.2 3.8 Chloride 100 101 Carbon Dioxide 26 30 Anion Gap 6 L 3 L BUN 14 11 Creatinine 0.7 0.7 Estimated Creat Clear 77.06 77.06 Estimated GFR 103 103 Glucose 204 H 129 H Lactate 1.9 Calcium 8.5 8.2 L Total Bilirubin 0.7 Direct Bilirubin 0.3 AST 35 ALT 22 Alkaline Phosphatase 45 C-Reactive Protein 21.5 H 18.7 H Total Protein 6.5 Albumin 3.7 Procalcitonin 0.09 Lab Acknowledgement Test Added
[2023-10-10] MEDS: ACETAMINOPHEN 325 MG TABLET PO ×2 (15:50→22:07)
--- NOTE | 2023-10-10 18:28 | PC.NURSE ---
(shift 15-19) Pt alert and oriented. Pt?s dressing is dry and intact. Pt?s midafternoon temperature was 100.5- Tylenol given and recheck of temperature was 98.5. Pt SBA.?
[2023-10-10] MEDS: ENOXAPARIN 40 MG/0.4 ML INJ SUBCUT (20:04)
--- NOTE | 2023-10-10 23:25 | PC.NURSE ---
End of shift note [id number]: Pt alert & oriented x 4 and able to make needs known. He has been continent of bladder with last BM of 10/05/23 per pt report. Abdomen noted to be firm though bowel sounds noted to be active in all four quadrants. IV to R hand patent and SL. PRN Tylenol administered for report of 3/10 lower back pain when asked. Dressing to lower back incision noted to be C/D/I with no redness observed to surrounding area. VSS and pt has been afebrile. SCDs worn though pt refusing bilateral TEDs.
[2023-10-11 03:00] VITALS: BP 142/68; PULSE 72; RESP 20; TEMP 38; O2SAT 93
[2023-10-11] MEDS: PIPERACILLIN/TAZOBACTAM 3.375 GM in 0.9 % SODIUM CHLORIDE Mini-bag 100 ML IVPB (03:55)
[2023-10-11] MEDS: ACETAMINOPHEN 325 MG TABLET PO ×2 (03:58→09:35)
[2023-10-11 05:10] VITALS: TEMP 37.2
--- NOTE | 2023-10-11 06:04 | PC.NURSE ---
Addendum entered by Keturah Mari RN 10/11/23 06:27: Pt had a large formed BM at the end of the shift this morning. He reports he's ready to go home now Original Note: End of shift [id number]: Pt is A&O and VSS with exception to 0300 temperature of 100.4. PRN Tylenol 650mg given @ 0400 and temp came down to 98.9. Pt was drenched in sweat early AM requiring a full linen and gown change. Pt reports ?feeling hot & sweaty? d/t being constipated without a BM since 10/04. Pt reports lower back pain/stiffness rating it 3-4/10. Surgical dressing is C/D/I and erythema has significantly receded from outlined margins almost non-existent. PIV in right hand SL and C/D/I. Pt declined any nausea or dizziness overnight. He utilized urinal at bedside. No BM overnight.?
[2023-10-11 07:00] LABS: Basophils Absolute Auto 0.04 K/uL (0.00-0.30); Basophils Percent Auto 0.5 % (0.0-3.0); Eosinophils Absolute Auto 0.29 K/uL (0.00-0.50); Eosinophils Percent Auto 3.6 % (0.0-7.0); Hematocrit 37.7 % (37.0-53.0); Hemoglobin* 12.4 gm/dL (13.5-17.5); Immature Granulocytes Abs Auto 0.16 K/uL (0.00-0.30); Lymphocytes Absolute Auto 2.56 K/uL (0.90-2.90); Lymphocytes Percent Auto 31.6 % (20-44); Mean Corpuscular HGB Conc 33 gm/dL (32-36); Mean Corpuscular Hemoglobin 31 pg (26-34); Mean Corpuscular Volume 95 fL (80-100); Monocytes Percent Auto 9.9 % (0.0-11.0); Neutrophils Absolute Auto 4.25 K/uL (1.7-7.0); Neutrophils Percent Auto 52.4 % (42.0-72.0); Platelet Count* 339 K/uL (140-440); RDW Coefficient of Variation % 12.5 % (11.5-15.5); Red Blood Count 3.98 m/uL (4.30-5.90)
[2023-10-11 07:07] LABS: Slide Review Reflex No
[2023-10-11 07:14] LABS: Chloride* 102 mmol/L (96-114)
[2023-10-11 07:15] LABS: Albumin* 3.8 g/dL (3.3-5.0); Potassium* 4.1 mmol/L (3.6-5.1); Sodium* 135 mmol/L (135-149)
[2023-10-11 07:17] LABS: Creatinine* 0.8 mg/dL (0.5-1.5); Est. Creatinine Clearance* 77.06; Estimated Glomerular Filt Rate 99 ml/min
[2023-10-11 07:18] LABS: Alanine Aminotransferase* 26 U/L (4-50); Alkaline Phosphatase* 61 U/L (40-150); Anion Gap 3 mEq/L (7-15); Aspartate Amino Transferase* 37 U/L (12-35); Blood Urea Nitrogen* 11 mg/dL (7-30); Carbon Dioxide* 30 mmol/L (20-32); Glucose* 145 mg/dL (60-115); Total Protein* 6.7 g/dL (6.0-8.3)
[2023-10-11 07:19] LABS: Calcium* 8.7 mg/dL (8.4-10.6)
[2023-10-11 07:32] LABS: C Reactive Protein* 19.7 mg/dL (0.5-1.0)
[2023-10-11 08:24] VITALS: BP 152/72; PULSE 76; RESP 20; O2SAT 96; O2SAT 97
[2023-10-11] MEDS: OMEPRAZOLE 20 MG CAPSULE DR PO (08:32)
[2023-10-11] MEDS: dilTIAZem 180 MG CAP (CD) PO (08:33)
[2023-10-11] MEDS: SENNOSIDES/DOCUSATE TABLET 2 TAB PO (08:33)
[2023-10-11] MEDS: MAGNESIUM OXIDE 400 MG TABLET PO (08:33)
[2023-10-11] MEDS: carvediloL 25 MG TABLET PO (08:33)
[2023-10-11] MEDS: OXYCODONE 5 MG TABLET PO (08:39)
--- NOTE | 2023-10-11 09:28 | PM.DS1 ---
DS: Providers Provider Date Seen: 10/11/23 Date of admission: 10/10/23 11:33 Primary care physician: Amador Steele MD Admitting Clinician: Michelle Spangler MD Consults: OT and PT Attending Physician on discharge: Gloria Avila MD Date of Discharge: 10/11/23 DS: Diagnosis Discharge Diagnosis (1) Post-operative infection: Status: Acute Problem details: - Lumbar surgery with Dr. Palacio at [facility] 10/05: Decompression - Bilateral Laminectomy at levels L4 to S1 - Wound culture and Blood Culture x2 collected in ED 10/08, currently NGTD - WBC and procalcitonin wnl upon admission with no significant PMN predominance, CRP elevated - Zosyn and Vancomycin (10/08) - pain management with APAP + Oxycodone, therapies followed during with no new recommendations noted - home on oral Cephalexin on 10/10 with close f/u (2) Hypertension: Status: Chronic Problem details: - Home medications of HCTZ and Spironolactone flared up his muscle pain, so he stopped them both on 10/07 - Continued home doses of carvedilol and diltiazem with age appropriate BP control (3) Constipation: Status: Acute Problem details: - on bowel regimen with Senna-S and prn Miralax - normal BM prior to discharge (4) Obstructive sleep apnea: Status: Chronic Problem details: - HST 02/21/2020 AHI- 32 pillows and heated hose - using home CPAP machine at night DS: Summary Hospital Course Hospital Course: Andrzej is a 63-year-old male who underwent a bilateral decompression/laminectomy from L4-S1 on 10/[address] Palacio at Spine and presented to the [facility] ER on 10/08 with pain in low back and BLE, in addition to drainage from his incision. Spine Surgery consulted from ER, did not feel that patient required transfer unless there was kash pus draining from wound. Drainage noted to be serosanguineous without odor, decreased in volume during stay; no drainage noted on bandage on 10/10 (changed 10/09). Treated with Vancomycin and Zosyn; wound and blood cultures obtained, no growth during stay. Comorbidities remained stable throughout hospitalization. Patient felt close to baseline, requesting discharge home on 10/10. Given reassuring clinical picture, discharged home on Cephalexin with close PCP f/u. Message left for Spine Surgeon's nurse to arrange f/u. Status at Discharge Functional status at discharge: uses cane/walker Overall status at discharge: patient is progressing back to baseline Time Spent with Patient Time attestation: Total time spent providing and/or coordinating discharge services: Time spent: Greater than 30 minutes Specific discharge activities: Medication reconciliation, followup care coordination, reviewing plan of care with multidisciplinary team Exam Narrative: Exam Narrative: GEN: Alert and oriented, sitting comfortably in bed and nontoxic in appearance HEENT: EOMIs bilaterally, no scleral icterus CV: RRR, No concerning murmurs R: Breathing comfortably, LCTA bilaterally without concerning wheezing Back: Bandage that was placed yesterday is completely dry, there is no erythema outside this, mild induration under bandage without fluctuance or crepitus, tolerates palpation Ext: wwp, no concerning edema, negative straight leg raise Skin: No concerning skin lesions or rashes on exposed skin Neuro: Nonfocal Psych: Appropriate Const: Vital Signs, click to edit/add: Vital Signs - 24 hr 10/10/23 11:28 10/10/23 15:21 10/10/23 15:26 Temperature 98.1 F 100.5 F H Pulse Rate [Left P ulse Oximeter] 78 78 Respiratory Rate 18 16 16 Blood Pressure [Le ft Arm] 139/84 142/66 H Pulse Oximetry 94 92 92 Oxygen Delivery Me thod Room Air Room Air Room Air 10/10/23 15:50 10/10/23 17:33 10/10/23 19:50 Temperature 100.5 F H 98.5 F 98.7 F Pulse Rate [Left P ulse Oximeter] 71 Respiratory Rate 18 Blood Pressure [Le ft Arm] 142/69 H Pulse Oximetry 96 Oxygen Delivery Me thod Room Air 10/10/23 22:34 10/10/23 23:00 10/10/23 23:00 Temperature Pulse Rate [Left P ulse Oximeter] 69 Respiratory Rate 20 20 Blood Pressure [Le ft Arm] Pulse Oximetry 91 92 Oxygen Delivery Me thod CPAP 10/10/23 23:00 10/11/23 03:00 10/11/23 05:10 Temperature 98.6 F 100.4 F H 98.9 F Pulse Rate [Left P ulse Oximeter] 69 72 Respiratory Rate 20 20 Blood Pressure [Le ft Arm] 141/64 H 142/68 H Pulse Oximetry 92 93 Oxygen Delivery Me thod CPAP CPAP 10/11/23 08:24 10/11/23 08:24 10/11/23 08:24 Temperature Pulse Rate [Left P ulse Oximeter] 76 76 Respiratory Rate 20 20 20 Blood Pressure [Le ft Arm] 152/72 H Pulse Oximetry 97 96 Oxygen Delivery Me thod Room Air Room Air DS: Data Data Completed and Pending Labs on day of discharge: Labs from last 24 hours 10/11/23 06:40 WBC 8.10 RBC 3.98 L Hgb 12.4 L Hct 37.7 MCV 95 MCH 31 MCHC 33 RDW Coeff of Yenifer 12.5 Plt Count 339 Neut % (Auto) 52.4 Lymph % (Auto) 31.6 [place] % (Auto) 9.9 Eos % (Auto) 3.6 Baso % (Auto) 0.5 Neut # (Auto) 4.25 Lymph # (Auto) 2.56 [place] # (Auto) 0.80 Eos # (Auto) 0.29 Baso # (Auto) 0.04 Abs Immat Gran (auto) 0.16 Imm/Tot Granulo (auto) 2.0 Sodium 135 Potassium 4.1 Chloride 102 Carbon Dioxide 30 Anion Gap 3 L BUN 11 Creatinine 0.8 Estimated Creat Clear 77.06 Estimated GFR 99 Glucose 145 H Calcium 8.7 Total Bilirubin 1.0 AST 37 H ALT 26 Alkaline Phosphatase 61 C-Reactive Protein 19.7 H Total Protein 6.7 Albumin 3.8 Preliminary micro results at discharge 10/09/23 19:23 Wound Culture - Preliminary Back Culture in Progress 10/09/23 19:25 Blood Culture - Preliminary Blood NO GROWTH AFTER 24 HOURS 10/09/23 19:10 Blood Culture - Preliminary Blood NO GROWTH AFTER 24 HOURS Discharge Plan Discharge Disposition: Home, Self-Care Date of Admission: 10/10/23 11:33 Attending Provider on Discharge: Gloria Avila Primary Care Provider: Amador Steele Condition: Stable Anticipated Discharge Date/Time: 10/11/23 09:14 Discharge Medications: New acetaminophen 325 mg Tablet 650 - 975 mg PO Q6H PRNQty: 30 0RF cephalexin 500 mg capsule 500 mg PO Q8H Qty: 15 0RF Continued cyclobenzaprine 10 mg tablet 10 mg PO HS PRN ciclopirox 0.77 % cream 1 applic topical BID diltiazem HCl 180 mg capsule,ext.rel 24h degradable 180 mg PO DAILY omeprazole 20 mg capsule,delayed release(DR/EC) 20 mg PO DAILY oxycodone 5 mg tablet 5 - 10 mg PO Q4H PRN magnesium oxide 400 mg magnesium tablet 400 mg PO DAILY carvedilol 25 mg tablet 25 mg PO BID Held Repatha SureClick 140 mg/mL pen injector 140 mg subcut .every 2 weeks Hold Instructions: Resume on 11/14/23. restart per previous surgeon instructions Discharge Orders: Discharge Order (Routine); Ordered 10/11/23 Ordered By: Gloria Avila Additional Instructions: - continue Tylenol (scheduled) for pain, Oxycodone in between Tylenol doses as needed - antibiotics for 5 more days (these are at [facility]) - keep activity light - if you have any worsening pain, drainage, or a Temperature greater than 100.4 you should be seen again in followup - keep appt with Ivette on 10/13, I left a message with Dr. Palacio's nurse as well for followup Activity Level: Activity as Tolerated and No strenuous activity Discharge Diet: Regular Follow Up Appointments: Amador Steele MD [Primary Care Provider] - (Patient already has appt with Dr. Steele on 10/13 at 11:20am- should keep this for followup) Anoop Palacio MD [Staff Physician] - (I left a message with Dr. Palacio's nurse and she should be checking in on patient this week) Forms: Digital Message Display Info Instructions
--- NOTE | 2023-10-11 11:58 | PC.NURSE ---
Nursing Care Hours: [id number] Pt this shift agitated, stating i want to get the hell out of here. When asked why, pt just wants to be home. Pain reported radiating laterally on both legs to the distal part of thigh, proximal to knees. States it is sharp and shooting and appears to increase with movement. Treated per eMAR. Pt up ambulating independently in the [place]cam[place] which provides relief. IV was tender and R hand puffy so IV removed. Held IV ABX with hospitalist aware. VSS. Bandage CDI. Voiding and passing gas. Abdomen hyperactive and distended. Discharge instructions went over with pt and . All questions and concerns addressed. Pt ambulated with walker off the unit in stable condition.
== END 2023-10-11 11:14 | disposition home or self-care (01) | DRG 863 ==
LOC: ED 21:19 → MEDSURG 22:06
PROVIDERS: Family Medicine; Admitting Provider Family Medicine; Emergency Provider Family Medicine; PCP Family Medicine; Visit Provider Family Medicine
DX: T81.49XA Infection following a procedure, other surgical site, initial encounter (principal); B95.7 Other staphylococcus as the cause of diseases classified elsewhere; G89.18 Other acute postprocedural pain; M54.89 Other dorsalgia; G47.33 Obstructive sleep apnea (adult) (pediatric); I10 Essential (primary) hypertension; K59.00 Constipation, unspecified; I25.10 Atherosclerotic heart disease of native coronary artery without angina pectoris; F17.210 Nicotine dependence, cigarettes, uncomplicated; K21.9 Gastro-esophageal reflux disease without esophagitis; F12.90 Cannabis use, unspecified, uncomplicated; E78.5 Hyperlipidemia, unspecified
CPT/HCPCS: 36415; 72132; 80048; 80053; 80076; 83605; 84145; 85025; 85651; 86140; 87040; 87070; 87081; 94761; 97116; 97161; 97165; 97535; 99284; 99285; A9270; G0378; J1170; J1650; J2543; J3370; J7030; Q9967